=== PATIENT | female | born 1955 | race Caucasian/White ===

== ENCOUNTER → 2017-01-12 | Outpatient (REF) | payer OTHER ==
[2017-01-12 20:17] LABS: BASO # 0.1 10^3/uL (0.0-0.2); BASO % 1.2 % (0.0-1.0); EOS # 0.2 10^3/uL (0.0-0.50); EOS % 3.1 % (0.0-3.0); IMMATURE GRANULOCYTE % 0.2 % (0-0); LYMPH # 1.8 10^3/uL (1.5-4.5); LYMPH % 35.2 % (24.0-44.0); MEAN CORPUSCULAR HEMOGLOBIN 32.6 pg (27.0-33.0); MEAN CORPUSCULAR HGB CONC 35.9 g/dl (32.0-36.5); MEAN CORPUSCULAR VOLUME 90.6 fl (80.0-96.0); MONO # 0.4 10^3/uL (0.0-0.8); MONO % 7.5 % (0.0-5.0); NEUTROPHILS # 2.7 10^3/uL (1.8-7.7); NEUTROPHILS % 52.8 % (36.0-66.0); PLATELET COUNT, AUTOMATED 207 10^3/uL (150-450); RED CELL DISTRIBUTION WIDTH 11.6 % (11.5-14.5); WHITE BLOOD COUNT 5.1 10^3/uL (4.0-10.0)
[2017-01-12 20:22] LABS: ADD MORPHOLOGY? NO
[2017-01-12 21:22] LABS: ALBUMIN/GLOBULIN RATIO 1.33 (1.00-1.93); ALKALINE PHOSPHATASE 74 U/L (45-117); ALT/SGPT 69 U/L (12-78); ANION GAP 9 MEQ/L (8-16); AST/SGOT 43 U/L (15-37); BILIRUBIN,TOTAL 0.7 MG/DL (0.2-1.0); BLOOD UREA NITROGEN 9 MG/DL (7-18); CALCIUM LEVEL 9.4 MG/DL (8.8-10.2); CARBON DIOXIDE LEVEL 28 MEQ/L (21-32); CHLORIDE LEVEL 105 MEQ/L (98-107); CHOLESTEROL LEVEL 166 MG/DL (<200); CREATININE FOR GFR 0.74 MG/DL (0.55-1.02); GLOMERULAR FILTRATION RATE > 60.0 (>45); GLUCOSE, FASTING 143 MG/DL (80-110); SODIUM LEVEL 142 MEQ/L (136-145); TRIGLYCERIDES LEVEL 179 MG/DL (<150)
== END ==
LOC: M SFHCCAPE 07:33
PROVIDERS: ATTEND Physician Assistant
DX: I10 Essential (primary) hypertension (principal); E11.9 Type 2 diabetes mellitus without complications

== ENCOUNTER → 2017-01-16 | Outpatient (REF) | payer OTHER | LOC: M SFHCCAPE 11:23 | PROVIDERS: ATTEND Physician Assistant | DX: Z00.00 Encounter for general adult medical examination without abnormal findings (principal) ==

== ENCOUNTER → 2018-07-16 | Outpatient (REF) | payer OTHER ==
[2018-07-16 18:59] LABS: BASO # 0.1 10^3/uL (0.0-0.2); BASO % 1.1 % (0.0-1.0); EOS # 0.1 10^3/uL (0.0-0.50); EOS % 2.7 % (0.0-3.0); HEMATOCRIT 42.9 % (36.0-47.0); HEMOGLOBIN 15.5 g/dl (12.0-15.5); LYMPH # 1.7 10^3/uL (1.5-4.5); LYMPH % 39.4 % (24.0-44.0); MEAN CORPUSCULAR HEMOGLOBIN 33.7 pg (27.0-33.0); MEAN CORPUSCULAR HGB CONC 36.1 g/dl (32.0-36.5); MEAN CORPUSCULAR VOLUME 93.3 fl (80.0-96.0); MONO # 0.3 10^3/uL (0.0-0.8); MONO % 7.8 % (0.0-5.0); NEUTROPHILS # 2.1 10^3/uL (1.8-7.7); NEUTROPHILS % 48.8 % (36.0-66.0); PLATELET COUNT, AUTOMATED 163 10^3/uL (150-450); WHITE BLOOD COUNT 4.4 10^3/uL (4.0-10.0)
[2018-07-16 19:04] LABS: ALT/SGPT 51 U/L (12-78); BILIRUBIN,TOTAL 0.8 MG/DL (0.2-1.0); BLOOD UREA NITROGEN 13 MG/DL (7-18); CALCIUM LEVEL 9.7 MG/DL (8.8-10.2); CARBON DIOXIDE LEVEL 27 MEQ/L (21-32); CHLORIDE LEVEL 106 MEQ/L (98-107); CHOLESTEROL LEVEL 204 MG/DL (<200); CHOLESTEROL RISK RATIO 2.615 (<5); CREATININE FOR GFR 0.87 MG/DL (0.55-1.30); GLOMERULAR FILTRATION RATE > 60.0 (>45); GLUCOSE, FASTING 148 MG/DL (70-100); HDL CHOLESTEROL 78 MG/DL (>40); LDL CHOLESTEROL 92 MG/DL (<100); NON-HDL-C 126 MG/DL; POTASSIUM SERUM 3.7 MEQ/L (3.5-5.1); SODIUM LEVEL 141 MEQ/L (136-145); TOTAL PROTEIN 7.1 GM/DL (6.4-8.2); TRIGLYCERIDES LEVEL 171 MG/DL (<150)
[2018-07-16 19:10] LABS: TOTAL 25(OH) VITAMIN D 24.8 NG/ML (30.0-100.0)
[2018-07-16 19:23] LABS: HEMOGLOBIN A1c 5.5 %
[2018-07-16 19:32] LABS: MALB URINE SIEMENS 43.6 MG/L; MAU/CREAT RATIO 13.4 MCG/MG (0.0-30.0)
== END ==
LOC: M SFHCCAPE 07:22
PROVIDERS: ATTEND Physician Assistant
DX: I10 Essential (primary) hypertension (principal); R74.8 Abnormal levels of other serum enzymes; E11.9 Type 2 diabetes mellitus without complications; E66.01 Morbid (severe) obesity due to excess calories

== ENCOUNTER → 2019-01-21 | Outpatient (REF) | payer OTHER ==
[2019-01-21 16:27] LABS: ALBUMIN 3.9 GM/DL (3.2-5.2); ALT/SGPT 39 U/L (12-78); BILIRUBIN,DIRECT 0.2 MG/DL (0.0-0.2); BILIRUBIN,TOTAL 0.9 MG/DL (0.2-1.0); BLOOD UREA NITROGEN 11 MG/DL (7-18); CALCIUM LEVEL 9.8 MG/DL (8.8-10.2); CARBON DIOXIDE LEVEL 26 MEQ/L (21-32); CHLORIDE LEVEL 103 MEQ/L (98-107); CHOLESTEROL LEVEL 174 MG/DL (<200); CHOLESTEROL RISK RATIO 2.289 (<5); CREATININE FOR GFR 0.85 MG/DL (0.55-1.30); GAMMA GLUTAMYLTRANSPEPTIDASE 52 U/L (5-55); GLOMERULAR FILTRATION RATE > 60.0 (>45); GLUCOSE, FASTING 125 MG/DL (70-100); HDL CHOLESTEROL 76 MG/DL (>40); LDL CHOLESTEROL 63 MG/DL (<100); NON-HDL-C 98 MG/DL; POTASSIUM SERUM 3.9 MEQ/L (3.5-5.1); SODIUM LEVEL 138 MEQ/L (136-145); TOTAL PROTEIN 7.1 GM/DL (6.4-8.2); TRIGLYCERIDES LEVEL 175 MG/DL (<150)
[2019-01-21 16:30] LABS: TOTAL 25(OH) VITAMIN D 23.9 NG/ML (30.0-100.0)
[2019-01-21 16:35] LABS: HEMOGLOBIN A1c 5.4 %
== END ==
LOC: M SFHCCAPE 07:23
PROVIDERS: ATTEND Physician Assistant
DX: R74.8 Abnormal levels of other serum enzymes (principal); E55.9 Vitamin D deficiency, unspecified; E11.9 Type 2 diabetes mellitus without complications; E78.5 Hyperlipidemia, unspecified

== ENCOUNTER → 2019-09-16 | Outpatient (REF) | payer OTHER ==
[2019-09-16 12:05] LABS: BASO # 0.1 10^3/uL (0.0-0.2); BASO % 0.9 % (0.0-1.0); EOS # 0.1 10^3/uL (0.0-0.5); EOS % 1.7 % (0.0-3.0); HEMATOCRIT 43.9 % (36.0-47.0); HEMOGLOBIN 15.6 g/dl (12.0-15.5); LYMPH # 1.8 10^3/uL (1.5-5.0); LYMPH % 31.5 % (24.0-44.0); MEAN CORPUSCULAR HEMOGLOBIN 32.4 pg (27.0-33.0); MEAN CORPUSCULAR HGB CONC 35.5 g/dl (32.0-36.5); MEAN CORPUSCULAR VOLUME 91.3 fl (80.0-96.0); MONO # 0.5 10^3/uL (0.0-0.8); MONO % 7.8 % (0.0-5.0); NEUTROPHILS # 3.3 10^3/uL (1.5-8.5); NEUTROPHILS % 57.9 % (36.0-66.0); PLATELET COUNT, AUTOMATED 223 10^3/uL (150-450); RED BLOOD COUNT 4.81 10^6/uL (4.00-5.40); WHITE BLOOD COUNT 5.8 10^3/uL (4.0-10.0)
[2019-09-16 12:49] LABS: MALB URINE SIEMENS 62.4 MG/L; MAU/CREAT RATIO 25.6 MCG/MG (0.0-30.0)
[2019-09-16 13:19] LABS: ALBUMIN 3.9 GM/DL (3.2-5.2); ALT/SGPT 26 U/L (12-78); BILIRUBIN,DIRECT 0.3 MG/DL (0.0-0.2); BILIRUBIN,TOTAL 0.9 MG/DL (0.2-1.0); BLOOD UREA NITROGEN 12 MG/DL (7-18); CALCIUM LEVEL 9.6 MG/DL (8.8-10.2); CARBON DIOXIDE LEVEL 29 MEQ/L (21-32); CHLORIDE LEVEL 105 MEQ/L (98-107); CHOLESTEROL LEVEL 183 MG/DL (<200); CHOLESTEROL RISK RATIO 2.506 (<5); CREATININE FOR GFR 0.78 MG/DL (0.55-1.30); GLOMERULAR FILTRATION RATE > 60.0 (>45); GLUCOSE, FASTING 136 MG/DL (70-100); HDL CHOLESTEROL 73 MG/DL (>40); LDL CHOLESTEROL 84 MG/DL (<100); NON-HDL-C 110 MG/DL; POTASSIUM SERUM 3.9 MEQ/L (3.5-5.1); SODIUM LEVEL 140 MEQ/L (136-145); THYROID STIMULATING HORMONE 0.948 uIU/ML (0.358-3.740); TOTAL PROTEIN 7.3 GM/DL (6.4-8.2); TRIGLYCERIDES LEVEL 132 MG/DL (<150)
[2019-09-16 13:23] LABS: TOTAL 25(OH) VITAMIN D 33.8 NG/ML (30.0-100.0)
[2019-09-16 13:35] LABS: HEMOGLOBIN A1c 5.8 %
== END ==
LOC: M SFHCCLAY 09:08
PROVIDERS: ATTEND Physician Assistant
DX: F10.10 Alcohol abuse, uncomplicated (principal); E11.9 Type 2 diabetes mellitus without complications; E78.5 Hyperlipidemia, unspecified; R74.8 Abnormal levels of other serum enzymes; E55.9 Vitamin D deficiency, unspecified

== ENCOUNTER 2019-12-17 13:56 | Inpatient (IN) | payer BC, OTHER ==
[~2019-12-17] VITALS: Ht 165.1 cm; Wt 92.7 kg
[2019-12-17] VITALS (11 sets, daily range): BP systolic 95–154; BP diastolic 56–86
[2019-12-17] MEDS ORDERED: LOSA25TA14 PO (14:29)
[2019-12-17] MEDS ORDERED: METF500T13 PO ×2 (14:29→19:48)
[2019-12-17] MEDS ORDERED: ASPI325T57 PO (14:29)
[2019-12-17] MEDS ORDERED: NS 500 ML IV ONE (14:45)
[2019-12-17] MEDS ORDERED: ISOVUE-370 76% 100ML VIAL As Ordered ONE ×2 (15:02→17:33)
[2019-12-17 15:04] LABS: BASO # 0.1 10^3/uL (0.0-0.2); BASO % 0.7 % (0.0-1.0); EOS % 0.5 % (0.0-3.0); HEMATOCRIT 47.6 % (36.0-47.0); HEMOGLOBIN 17.2 g/dl (12.0-15.5); LYMPH # 1.3 10^3/uL (1.5-5.0); MEAN CORPUSCULAR HGB CONC 36.1 g/dl (32.0-36.5); MEAN CORPUSCULAR VOLUME 88.6 fl (80.0-96.0); MONO # 0.6 10^3/uL (0.0-0.8); MONO % 6.5 % (0.0-5.0); NEUTROPHILS # 6.5 10^3/uL (1.5-8.5); NEUTROPHILS % 76.8 % (36.0-66.0); PLATELET COUNT, AUTOMATED 338 10^3/uL (150-450); RED BLOOD COUNT 5.37 10^6/uL (4.00-5.40); WHITE BLOOD COUNT 8.4 10^3/uL (4.0-10.0)
[2019-12-17] MEDS ORDERED: AMLO25TA PO (16:39)
[2019-12-17] MEDS ORDERED: BISO10TA14 PO (16:39)
[2019-12-17] MEDS ORDERED: HYDR12.55 PO (16:39)
[2019-12-17 17:37] LABS: ALBUMIN 3.8 GM/DL (3.2-5.2); ALT/SGPT 20 U/L (12-78); BILIRUBIN,DIRECT 0.2 MG/DL (0.0-0.2); BILIRUBIN,TOTAL 0.6 MG/DL (0.2-1.0); CK-MB VALUE MASS < 1.0 NG/ML (<3.6); CPK CREATINE PHOSPHOKINASE 29 U/L (26-192); MB/CK RELATIVE INDEX 3.45 (< OR =4); NT-PRO BNP 192 PG/ML (<125); TOTAL PROTEIN 7.5 GM/DL (6.4-8.2); TROPONIN I < 0.02 NG/ML (< 0.10)
--- NOTE | 2019-12-17 18:52 | REPVR ---
PROCEDURE INFORMATION: Exam: CT Angiography Chest With Contrast Exam date and time: 12/17/2019 4:18 PM Age: 64 years old Clinical indication: Chest pain; Additional info: SOB, suspect malignant left breast mass TECHNIQUE: Imaging protocol: Computed tomographic angiography of the chest with intravenous contrast. 3D rendering (Not supervised by radiologist): MIP and/or 3D reconstructed images were created by the technologist. Radiation optimization: All CT scans at this facility use at least one of these dose optimization techniques: automated exposure control; mA and/or kV adjustment per patient size (includes targeted exams where dose is matched to clinical indication); or iterative reconstruction. Contrast material: ISO 370; Contrast volume: 75 ml; Contrast route: INTRAVENOUS (IV); COMPARISON: No relevant prior studies available. FINDINGS: Pulmonary arteries: This examination is suboptimal for the evaluation of pulmonary arterial emboli secondary to motion induced artifact. No filling defects are identified within the main pulmonary trunk or right or left main pulmonary arteries. Peripheral pulmonary emboli cannot be completely excluded. Aorta: Unremarkable. No aortic aneurysm. No aortic dissection. Thyroid: Enlarged right thyroid with calcified mass measuring approximately 4 cm in diameter. Lungs: Bilateral lower lobe atelectasis/consolidation, worse on the left. Bilateral upper lobe atelectasis/consolidation. Worse on the left. Multiple small pulmonary nodules measuring up to 7 mm within both lungs raising the suspicion for pulmonary metastatic disease. Pleural space: Large bilateral pleural effusions. Heart: Unremarkable. No cardiomegaly. No pericardial effusion. Lymph nodes: Pathologically enlarged left axillary lymph nodes measuring up to 2.3 cm in short axis diameter. Prominent mediastinal and bilateral hilar lymph nodes. Liver: Indeterminate low-density lesion measuring 14 mm within the left hepatic lobe and 7 mm within the right hepatic lobe (image 188 and 190 of series 401 respectively). Bones/joints: There are numerous sclerotic lesions within the vertebral column and scattered ribs (including T4, T10, T11 and L1). There is a mild anterior wedge fracture deformity of the superior endplate of L1, likely pathological. No retropulsed bony fragment or bony spinal stenosis. Soft tissues: Left breast spiculated mass containing a few calcifications extending to the skin surface measuring 3.5 cm in diameter highly suspicious for breast malignancy. IMPRESSION: 1. Left breast spiculated mass measuring 3.5 cm highly suspicious for breast cancer. 2. Pathologically enlarged left axillary lymph nodes suspicious for metastatic disease. 3. Multiple small pulmonary nodules scattered throughout both lungs. These measure up to 7 mm in diameter and are highly suspicious for pulmonary metastases. 4. Bilateral pleural effusions and bilateral upper lobe and lower lobe atelectasis/consolidation. 5. Two indeterminate low-density hepatic lesions raising the suspicion for hepatic metastases. 6. Sclerotic bony metastatic disease. 7. Mild anterior wedge fracture deformity of the superior endplate of L1 consistent with pathological fracture. No retropulsed bony fragment or bony spinal stenosis. 8. Right thyroid lobe calcified mass measuring 4 cm. Follow-up evaluation with thyroid ultrasound is recommended. COMMENTS: Consistent with the [employer]'s Incidental Findings Committee white paper (J Am Claritza Radiol 2015): In patients aged 35 years and older with an incidental thyroid nodule equal to or greater than 1.[address], MRI or extrathyroidal US, further evaluation with dedicated thyroid US is recommended for patients with normal life expectancy and without comorbidities. For smaller nodules without suspicious features, no further evaluation or follow up is recommended. Electronically signed by: Doug Miller On 12/17/2019 18:52:16 PM
[2019-12-17] MEDS ORDERED: KCL 20MEQ IN D5/NS 1000ML 1,000 ML IV SCH (19:11)
[2019-12-17] MEDS ORDERED: LEVALBUTEROL 1.25 MG/0.5 ML CONCENTRATE NEB NEB PRN (19:15)
[2019-12-17] MEDS ORDERED: BISACODYL 10 MG SUPP PR PRN (19:15)
[2019-12-17] MEDS ORDERED: NORCO, ANEXSIA 5/325MG TABLET (HYDROcodone/ACETAMINOPHEN) PO PRN (19:15)
[2019-12-17] MEDS ORDERED: PERCOCET 5MG/325MG TAB PO PRN ×2 (19:15)
[2019-12-17] MEDS ORDERED: ONDANSETRON 4MG/2ML VIAL IV PRN (19:15)
[2019-12-17] MEDS ORDERED: flumazeniL 0.5 MG/5 ML VIAL As Ordered ONE (19:44)
[2019-12-17] MEDS ORDERED: MIDAZOLAM INJ 2MG/2ML VIAL (J2250 PER 1MG) As Ordered ONE (19:44)
[2019-12-17] MEDS ORDERED: GLUCAGON INJ 1MG VIAL SC PRN (19:45)
[2019-12-17] MEDS ORDERED: GLUCOSE 4GM CHEW TABLET PO PRN (19:45)
[2019-12-17] MEDS ORDERED: DEXTROSE 50% 50 ML SYRINGE IV PRN (19:45)
[2019-12-17] MEDS ORDERED: LIDOCAINE 1% MDV 20ML VIAL As Ordered ONE (19:46)
[2019-12-17] MEDS ORDERED: VENTAER INH (19:48)
[2019-12-17] MEDS ORDERED: LORA-674 PO (19:48)
[2019-12-17] MEDS ORDERED: AMLO1TAB25 PO (19:48)
[2019-12-17] MEDS ORDERED: LOSA100T5 PO (19:48)
[2019-12-17] MEDS ORDERED: FLON1SPR (19:48)
[2019-12-17 20:09] LABS: FREE T4 1.62 NG/DL (0.76-1.46); LDH LACTATE DEHYDROGENASE 167 U/L (84-246)
--- NOTE | 2019-12-17 20:12 | HPEPDOC ---
[facility] Medical History & Physical Date of Admission Dec 17, 2019 Date of Service: Dec 17, 2019 Primary Care Physician: ALETHEA HERRERA PA-C Attending Physician: Ariana Fabian MD History and Physical CHIEF COMPLAINT: Shortness of breath HISTORY OF PRESENT ILLNESS: Patient is a 64 year old female presenting with a 2 week history of progressively worsening shortness of breath. She also admits to a cough productive of clear sputum, debilitating fatigue/energy, and recent bru ising over her left breast. She notes a history of a non-productive cough, post- nasal drip, and nasal congestion going back to May 2019 that she ascribed as her "yearly bronchitis" and hung around until September where she was given intranasal steroids and antihistamines with partial resolution of her symptoms except for the cough. Over the last month she noticed a non-painful bruise on her left breast and enlargement of her left axilla as well but thought she had bumped into something. About 2 weeks ago she woke up with increased SOB, cough productive of clear sputum, progressively worsening orthopnea, PND, and fatigue. She went to her PCP today for evaluation of the same complaint and ultimately was referred to the emergency department for her shortness of breath. Work up in the ED showed bilateral pleural effusions and spiculated left sided breast mass. Dr. Jean-Baptiste and hospitalist service were called to evaluate and admit the patient. PAST MEDICAL HISTORY: T2DM HTN Environmental Allergies PAST SURGICAL HISTORY: Tubal Ligation (1985) tonsils/adenoidectomy SOCIAL HISTORY: Never smoker, drinks 1-3 labat's/day, denies illicit drug use. 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 Hx of travel to [place]. FAMILY HISTORY: Father of lung cancer (smoker) Mother unknown cause of ("old age") Aunt with breast cancer ALLERGIES: Please see below. REVIEW OF SYSTEMS: CONSTITUTIONAL: Denies fevers, chills, night sweats, admit to 10lbs unintentional weight loss over the past 4 months, admits to decreased appetite HEENT: Denies headaches, vision changes, hearing changes, sore throat, difficul ty swallowing. CARDIOVASCULAR: Denies chest pain, palpitations, lightheadedness RESPIRATORY: Admits to SOB, coughing as above, denies wheezing, hemoptysis GASTROINTESTINAL: Denies nausea, vomiting, diarrhea, constipation, melena, hematochezia. GENITOURINARY: Denies dysuria, hematuria, or frequency. SKIN: Denies rashes admits to swelling in left axilla and bruising of left breast. MUSCULOSKELETAL: Admits to fatigue, but denies focal joint pain or aches. NEUROLOGICAL: Denies numbness, tingling, weakness. PSYCHIATRIC: Denies SI, HI, AVH HOME MEDICATIONS: Please see below. PHYSICAL EXAMINATION: VITAL SIGNS: Temperature 99.2, afebrile since arrival, pulse 85 and NSR on monitor, respiratory rate 20, blood pressure 116/57, pulse oximetry 99% on 2L NC. GENERAL APPEARANCE: Well appearing female who appears stated age sitting up comfortably in bed in NAD. HEENT: NC, AT, EOMI, no scleral icterus, nares patent, mucous membranes moist, no pharyngeal erythema. NECK: No cervical or supraclavicular lymphadenopathy. CARDIOVASCULAR: RRR, normal S1 and S2, no murmurs, gallops, or rubs. AXILLA: Left sided axillary lymphadenopathy. LUNGS: Diminished breath sounds with crackles at bilateral bases, clear breath sounds in upper lobes, no wheezes or rhonchi. Dullness to percussion over bilat eral bases. ABDOMEN: Soft, non-tender, non-distended, no masses or eccymosis, no hepatosplenomegaly. No CVA tenderness. L axillary lymph EXTREMITIES: No edema in bilateral extremities. 2+ DP/PT pulses bilaterally. NEUROLOGICAL: CN III-XII intact. Strength +5/5 in bilateral UE/LE. Sensation intact in UE/LE. PSYCHIATRIC: Mildly anxious mood and congruent affect LABORATORY DATA: See below. IMAGING: CT angio chest: IMPRESSION: 1. Left breast spiculated mass measuring 3.5 cm highly suspicious for breast cancer. 2. Pathologically enlarged left axillary lymph nodes suspicious for metastatic disease. 3. Multiple small pulmonary nodules scattered throughout both lungs. These measure up to 7 mm in diameter and are highly suspicious for pulmonary metastases. 4. Bilateral pleural effusions and bilateral upper lobe and lower lobe atelectasis/consolidation. 5. Two indeterminate low-density hepatic lesions raising the suspicion for hepatic metastases. 6. Sclerotic bony metastatic disease. 7. Mild anterior wedge fracture deformity of the superior endplate of L1 consistent with pathological fracture. No retropulsed bony fragment or bony spinal stenosis. 8. Right thyroid lobe calcified mass measuring 4 cm. Follow-up evaluation with thyroid ultrasound is recommended. MICROBIOLOGY: Please see below. Assessment/Plan: #. SOB 2/2 Bilateral Pleural Effusions s/p left side chest tube -Given history, physical exam, and imaging findings, this is likely the result of metastatic breast cancer to bone, liver, and lungs at least. Patient was informed of this by Dr. Fabian and Dr. Jean-Baptiste. Admit to PCU. -CT surgery consulted for effusion, Dr. Jean-Baptiste to drain left lung given enrico jair from pleural fluid and send results for analysis, depending on these results may not need breast biopsy. -Will consult Heme/onc in AM - CT head, abd/pelvis ordered for AM to look for further extent of metastases. - Dr. Jean-Baptiste with CT surgery consulted, recommendations appreciated. Currently set to -20cm H20 with wall suction. -1800 ml of dark brown-yellow fluid drained initially. Gram stain, pleural fluid analysis, cytology, smear's are all pending -Daily CXRs ordered #. Breast mass with possible metastatic process to bone, liver, lungs. -New diagnosis -F/u CT head, abd/pelvis, heme/onc suggestions. #. Hypotension -Mild post-procedural hypotension, IVF ordered and running. #. Right thyroid lobe calcified mass -CT showing 4cm calcified mass, ordering thyroid US, will likely need biopsy in the future - TSH WNL, FT4 mildly elevated, total T3 pending. #. T2DM -Sliding scale insulin #. HTN -Continue home losartan, HCTZ, amlodipine with holding parameters. #. Environmental Allergies -Continue home loratadine and nasal spray DVT prophylaxis: Teds/seqs, heparin CODE status: Full code Dispo: At least 2 midnights. Vital Signs Vital Signs Date Time Temp Pulse Resp B/P (MAP) Pulse Ox O2 Delivery O2 Flow Rate FiO2 12/17/19 19:15 85 24 116/57 (76) 99 Nasal Cannula 2.0 12/17/19 18:33 99.2 Laboratory Data Labs 24H Laboratory Tests 2 12/17/19 14:50: Immature Granulocyte % (Auto) 0.5, Neutrophils (%) (Auto) 76.8H, Lymphocytes (%) (Auto) 15.0L, Monocytes (%) (Auto) 6.5H, Eosinophils (%) (Auto) 0.5, Basophils (%) (Auto) 0.7, Neutrophils # (Auto) 6.5, Lymphocytes # (Auto) 1.3L, Monocytes # (Auto) 0.6, Eosinophils # (Auto) 0.0, Basophils # (Auto) 0.1, Nucleated Red Blood Cells % (auto) 0.0 12/17/19 16:53: Total Bilirubin 0.6, Direct Bilirubin 0.2, Aspartate Amino Transf (AST/SGOT) 20, Alanine Aminotransferase (ALT/SGPT) 20, Alkaline Phosphatase 92, Total Creatine Kinase 29, Creatine Kinase MB < 1.0, Creatine Kinase MB Relative Index 3.45, Troponin I < 0.02, IR-Xbg-[id number]-Type Natriuretic Peptide 192H, Total Protein 7.5, Albumin 3.8, Albumin/Globulin Ratio 1.0L CBC/BMP Laboratory Tests 12/17/19 14:50 Home Medications Scheduled Amlodipine Besylate (Amlodipine Besylate) 10 Mg Tablet, 10 MG PO QHS Aspirin (Aspirin) 325 Mg Tablet, 325 MG PO DAILY Bisoprolol Fumarate (Bisoprolol Fumarate) 10 Mg Tablet, 10 MG PO BID Loratadine (Loratadine) 10 Mg Tablet, 10 MG PO QHS Losartan/Hydrochlorothiazide (Losartan-Hctz 100-25 mg Tab) 1 Each Tablet, 1 TAB PO DAILY Metformin HCl (Metformin HCl) 500 Mg Tablet, 500 MG PO QAM Metformin HCl (Metformin HCl) 500 Mg Tablet, 1,000 MG PO QHS Scheduled PRN Albuterol Sulfate (Ventolin Hfa) 18 Gm Hfa.aer.ad, 2 PUFFS INH QID PRN for SOB/WHEEZING Fluticasone Propionate (Flonase Allergy Relief) 9.9 Ml [place].susp, 2 SPRAY NARES DAILY PRN for CONGESTION Allergies Coded Allergies: Penicillins (Verified Allergy, Unknown, SWELLING, ASTHMA, 12/17/19) GME ATTESTATION ATTENDING NOTE I, Ariana Fabian, have independently examined this patient and performed my own physical exam, as well as reviewed the documentation and edited where necessary. I have discussed in detail with the resident / student the findings and plan of treatment as documented by the resident / student and edited their note. I agree with their findings and treatment plan and have edited their documentation. I will continue to follow the patient during this hospital stay. AUBREY RUIZ DO Dec 17, 2019 20:12 Ariana Fabian MD Dec 18, 2019 08:12
--- NOTE | 2019-12-17 20:34 | REPVR ---
PROCEDURE INFORMATION: Exam: XR Chest, 2 Views Exam date and time: 12/17/2019 7:58 PM Age: 64 years old Clinical indication: Other: Effusions TECHNIQUE: Imaging protocol: XR of the chest Views: 2 views. COMPARISON: CT ANGIO CHEST 12/17/2019 3:07 PM FINDINGS: Lungs: Bilateral mid and lower lung zone opacities partially obscured by pleural effusions consistent with atelectasis and/or consolidation. Pleural space: Bilateral pleural effusions, larger on the left. No pneumothorax. Heart/Mediastinum: Cardiac silhouette is obscured by the left pleural effusion. Bones/joints: Unremarkable. IMPRESSION: Bilateral pleural effusions and bilateral lung opacities. Electronically signed by: Doug Miller On 12/17/2019 20:33:55 PM
[2019-12-17 20:43] LABS: INR 1.07; PROTHROMBIN TIME 14.2 SECONDS (11.8-14.0)
[2019-12-17 20:44] LABS: PARTIAL THROMBOPLASTIN TIME 33.8 SECONDS (25.0-38.4)
[2019-12-17] MEDS ORDERED: LIDOCAINE 1% MDV 20ML VIAL SC ONE (20:50)
[2019-12-17] MEDS ORDERED: MIDAZOLAM INJ 2MG/2ML VIAL (J2250 PER 1MG) IV ONE (20:50)
[2019-12-17] MEDS: DOCUSATE SODIUM 100 MG CAP PO SCH (21:00)
[2019-12-17] MEDS: bisoproloL fumarate 10 MG TAB PO SCH (21:00)
[2019-12-17] MEDS: amLODIPine 10 MG TAB PO SCH (21:00)
[2019-12-17] MEDS: HumaLOG INSULIN (NovoLOG) PER UNIT SC SCH (21:00)
[2019-12-17] MEDS ORDERED: ALBUTEROL 90 MCG/ACT 8GM HFA INHALER INH PRN (21:30)
[2019-12-17] MEDS ORDERED: FLUTICASONE PROP 0.05% NASAL SPRAY 16 GM (FLONASE) NARES PRN (21:30)
[2019-12-17 21:32] LABS: PH BODY FLUID 7.588 UNITS (NOT ESTABLISHED); SOURCE, BODY FLUID pH PLEURAL
[2019-12-17] MEDS: LEVALBUTEROL 1.25 MG/0.5 ML CONCENTRATE NEB NEB SCH (21:36)
[2019-12-17 21:49] LABS: APPEARANCE, BODY FLUID CLOUDY (CLEAR); PLEURAL FL COLOR YELLOW (COLORLESS); SOURCE, BODY FLUID PLEURAL
--- NOTE | 2019-12-17 21:51 | REPVR ---
PROCEDURE INFORMATION: Exam: XR Chest, 1 View Exam date and time: 12/17/2019 9:13 PM Age: 64 years old Clinical indication: Device placement; Other: Chest tube; Additional info: Chest tube placement TECHNIQUE: Imaging protocol: XR of the chest Views: 1 view. COMPARISON: CR Chest, 2 view PA, Lat 12/17/2019 7:49 PM FINDINGS: Tubes, catheters and devices: A left-sided chest tube has been placed with its tip in the left thorax. The left pleural effusion has been removed. Pleural space: There is a moderate to large right pleural effusion. Heart/Mediastinum: The heart is normal in size. From the previous CT there are known large lymph nodes at the left axilla. There is also a 4.2 cm mass within the lower outer aspect of the left breast. Bones/joints: Suspect blastic metastasis of vertebra based on the previous CT. Soft tissues: The current chest radiograph demonstrates a 3.5 cm and 2 cm nodule overlying the left lower thorax. These densities could be in the anterior soft tissues or within lung and correlation with a CT scan would be very helpful. Other findings: There is a large calcified thyroid nodule in the right. IMPRESSION: 1. Moderate to large right pleural effusion. 2. Left-sided chest tube with removal of the left pleural effusion. 3. Known large lymph nodes left axilla and known large mass left breast as seen on CT. Blastic metastasis also seen on the prior CT. 4. 2 densities overlying the left lower lung 3.5 cm and 2 cm could be related to the soft tissues or the lung and suggest correlation with a follow-up CT. Electronically signed by: Willi Westfall On 12/17/2019 21:51:30 PM
[2019-12-17] MEDS: HEPARIN SOD (PORCINE) 5000UNITS/ML 1ML VIAL/SYRINGE SC SCH (21:53)
[2019-12-17] MEDS: LORATADINE 10 MG TAB PO SCH (21:54)
[2019-12-17] MEDS: KETOROLAC 30 MG/ML 1ML VIAL IV SCH (21:54)
[2019-12-17 22:08] LABS: AMYLASE, BODY FLUID 45 U/L (NOT ESTABLISHED); CHOLESTEROL, BODY FLUID 97 MG/DL (NOT ESTABLISHED); LDH, BODY FLUID 136 U/L (NOT ESTABLISHED); SOURCE, BODY FLUID AMYLASE PLEURAL; SOURCE, BODY FLUID CHOL PLEURAL; SOURCE, BODY FLUID GLUCOSE PLEURAL; SOURCE, BODY FLUID LDH PLEURAL; SOURCE, BODY FLUID TRIG PLEURAL; TRIGLYCERIDE, BODY FLUID 31 MG/DL (NOT ESTABLISHED)
[2019-12-17 22:19] LABS: SOURCE, BODY FLUID ALBUMIN PLEURAL; SOURCE, BODY FLUID TOT PROTEIN PLEURAL; TOTAL PROTEIN, BODY FLUID 4.8 G/DL (NOT ESTABLISHED)
[2019-12-18] VITALS: BP 114/59
[2019-12-18] MEDS: KETOROLAC 30 MG/ML 1ML VIAL IV SCH ×2 (00:39→09:54)
[2019-12-18] MEDS: LEVALBUTEROL 1.25 MG/0.5 ML CONCENTRATE NEB NEB SCH ×4 (01:07→20:08)
[2019-12-18 04:00] VITALS: BP 92/59
[2019-12-18 05:02] LABS: BASO # 0.1 10^3/uL (0.0-0.2); BASO % 0.7 % (0.0-1.0); EOS # 0.1 10^3/uL (0.0-0.5); EOS % 1.4 % (0.0-3.0); HEMATOCRIT 43.8 % (36.0-47.0); HEMOGLOBIN 15.5 g/dl (12.0-15.5); LYMPH # 1.2 10^3/uL (1.5-5.0); LYMPH % 15.5 % (24.0-44.0); MEAN CORPUSCULAR HEMOGLOBIN 31.7 pg (27.0-33.0); MEAN CORPUSCULAR HGB CONC 35.4 g/dl (32.0-36.5); MEAN CORPUSCULAR VOLUME 89.6 fl (80.0-96.0); MONO # 0.6 10^3/uL (0.0-0.8); MONO % 7.4 % (0.0-5.0); NEUTROPHILS # 5.7 10^3/uL (1.5-8.5); NEUTROPHILS % 74.6 % (36.0-66.0); PLATELET COUNT, AUTOMATED 269 10^3/uL (150-450); RED BLOOD COUNT 4.89 10^6/uL (4.00-5.40); WHITE BLOOD COUNT 7.7 10^3/uL (4.0-10.0)
[2019-12-18 05:20] LABS: CALCIUM LEVEL 9.2 MG/DL (8.8-10.2); CREATININE FOR GFR 1.04 MG/DL (0.55-1.30); GLOMERULAR FILTRATION RATE 56.8 (>45); POTASSIUM SERUM 3.4 MEQ/L (3.5-5.1)
[2019-12-18] MEDS ORDERED: NS 1,000 ML IV SCH (05:45)
[2019-12-18] MEDS: HumaLOG INSULIN (NovoLOG) PER UNIT SC SCH ×4 (07:30→20:25)
[2019-12-18 07:45] VITALS: BP 95/59
[2019-12-18] MEDS: bisoproloL fumarate 10 MG TAB PO SCH ×2 (09:00→21:30)
[2019-12-18] MEDS ORDERED: ENOXAPARIN 40MG/0.4ML SYRINGE (J1650 PER 10MG) SC SCH (09:00)
[2019-12-18] MEDS: hydroCHLOROthiazide 25 MG TAB PO SCH (09:00)
[2019-12-18] MEDS ORDERED: FLUBLOK(EGG FREE)(QUAD)INFLUENZA VACC 0.5ML SYRINGE 18YRS & OLDER IM ONE (09:00)
[2019-12-18] MEDS: LOSARTAN 50MG TABLET PO SCH (09:00)
--- NOTE | 2019-12-18 09:04 | IPNPDOC ---
Text Note Date of Service The patient was seen on 12/18/19. NOTE Subjective: Patient is a 64 year old female with a PMHx of HTN, NIDDM2, who presented to the ER with progressive SOB, associated with productive cough, we akness and bruising around her Left breast. Patient was advised by her PCP to present to the ER. Work up in the ED showed bilateral pleural effusions and spiculated left sided breast mass. Dr. Jean-Baptiste ([facility]) and hospitalist service were called to evaluate and admit the patient. Patient had a chest tube placed on 12/16. Patient was seen and examined at the bedside. Currently patient reports that her breathing is doing significantly better. She reports she was coughing yesterday, but has noted improvement today. Denies any CP, or palpitations. Denies any N/V, abdominal pain, C/D or urinary discomfort. Objective: Vitals (See below) General: Sitting up in bed, appears comfortable, AAOx3 HEENT: NC, AT CVS: RRR, +S1S2 Lungs: Decreased lung sounds at R lung base, mild crackles at L lung base, no wheezing / rhonchi Abdomen: Soft, ND, NT Extremities: - Edema, - Calf tenderness Imaging: CT angio chest (12/16): 1. Left breast spiculated mass measuring 3.5 cm highly suspicious for breast cancer. 2. Pathologically enlarged left axillary lymph nodes suspicious for metastatic disease. 3. Multiple small pulmonary nodules scattered throughout both lungs. These measure up to 7 mm in diameter and are highly suspicious for pulmonary metastases. 4. Bilateral pleural effusions and bilateral upper lobe and lower lobe atelectasis/consolidation. 5. Two indeterminate low-density hepatic lesions raising the suspicion for hepatic metastases. 6. Sclerotic bony metastatic disease. 7. Mild anterior wedge fracture deformity of the superior endplate of L1 consistent with pathological fracture. No retropulsed bony fragment or bony spinal stenosis. 8. Right thyroid lobe calcified mass measuring 4 cm. Follow-up evaluation with thyroid ultrasound is recommended. Assessment and plan: SOB - likely 2/2 Bilateral Pleural Effusions s/p left side chest tube - Clinically reports improvement of breathing - Highly suspicious for metastatic breast CA - Fluid sent for analysis (12/16); cytology / pathology pending - CT imaging noted above; discussed again the findings with patient and the high likelihood of malignancy; patient has verbalized understanding - Consulted oncology; Dr. Ochoa; discussed case this morning - Dr. Jean-Baptiste ([facility]) on consultation; appreciate input - Possible additional drainage on R side Breast mass with possible metastatic process to bone, liver, lungs. - Will get CT head, Abdomen / Pelvis today; will change to with contrast - Will consult oncology today Hypotension -Mild post-procedural hypotension, IVF ordered and running. Right thyroid lobe calcified mass - Imaging noted above - TSH WNL - Will get Thyroid US NIDDM2 - c/w ISS HTN - c/w losartan, HCTZ, amlodipine and bisoprolol with holding parameters Environmental Allergies - c/w loratadine and nasal spray DVT prophylaxis - c/w Heparin Disposition: - Possible drainage of R sided effusion - Awaiting cytology - Consulted oncology VS,Hong, I+O VS, Hong, I+O Laboratory Tests 12/17/19 14:50 12/18/19 04:28 Vital Signs Date Time Temp Pulse Resp B/P (MAP) Pulse Ox O2 Delivery O2 Flow Rate FiO2 12/18/19 07:45 98.4 84 20 95/59 (71) 96 Nasal Cannula 4.0 I&O- Last 24 Hours up to 6 AM 12/18/19 06:00 Intake Total 1100 ml Output Total 2440 ml Balance -1340 ml PJ LEWIS MD Dec 18, 2019 09:03
[2019-12-18] MEDS: MOM 30ML SUSPENSION UDC PO SCH (09:47)
[2019-12-18] MEDS: DOCUSATE SODIUM 100 MG CAP PO SCH ×2 (09:47→20:59)
[2019-12-18] MEDS: PANTOPRAZOLE 40MG TAB (PROTONIX) PO SCH (09:47)
[2019-12-18] MEDS: HEPARIN SOD (PORCINE) 5000UNITS/ML 1ML VIAL/SYRINGE SC SCH ×2 (09:53→18:05)
[2019-12-18 12:00] VITALS: BP 116/71
--- NOTE | 2019-12-18 13:45 | REPVR ---
PROCEDURE INFORMATION: Exam: US Soft Tissue Head and Neck, Thyroid Exam date and time: 12/18/2019 8:30 AM Age: 64 years old Clinical indication: Abnormal Findings; Abnormal Radiologic study of neck; Additional Info: thyroid mass TECHNIQUE: Imaging protocol: Real-time ultrasound scan of the neck with image documentation. Exam focused on the thyroid. Other technique: COMPARISON MORE: CT ANGIO CHEST 12/17/2019 3:07:43 PM COMPARISON: No relevant prior studies available. FINDINGS: Right thyroid lobe: The right thyroid lobe measures 8.6 x 3.4 x 4.2 cm. Thyroid parenchyma is heterogeneous with hyperemia. At the lower pole, the centrally calcified mass is again demonstrated, margins of which are indistinct from surrounding parenchyma. Multiple additional nodules are present but are not individually measured though these demonstrate predominantly cystic composition. The anterior margin of the right lobe upper pole is indistinct at the midline, as seen on image 1. Left thyroid lobe: The left thyroid lobe measures 7.0 x 1.8 x 2.7 cm. Innumerable nodules are present in the left lobe. A dominant solid nodule measuring up to 1.6 cm transverse dimension is at the interpolar level. At the upper pole there is a 1.1 cm irregular cystic nodule. Left lobe parenchyma is hyperemic with color Doppler evaluation. Isthmus: The isthmus measures 1.4 cm in thickness. IMPRESSION: 1. Enlarged, heterogeneous, hyperemic thyroid gland with multiple nodules bilaterally, including cystic and solid lesions. The dominant lesion is at the right lower pole containing central calcification with indistinct margins. Together with indistinct margins of the right lobe upper pole anteriorly, and the findings of the recent CTA thorax exam, the possibility of metastasis to the thyroid must be considered. 2. Thyroid nuclear scintigraphy may provide additional diagnostic evaluation. Electronically signed by: Sandra Cannon On 12/18/2019 13:45:29 PM
[2019-12-18] MEDS ORDERED: ISOVUE-370 76% 100ML VIAL As Ordered ONE (15:05)
--- NOTE | 2019-12-18 15:25 | REPVR ---
PROCEDURE INFORMATION: Exam: CT Head Without And With Contrast Exam date and time: 12/18/2019 3:13 PM Age: 64 years old Clinical indication: Pain; Headache; Additional info: Evaluate for mets TECHNIQUE: Imaging protocol: Computed tomography of the head without and with intravenous contrast. Radiation optimization: All CT scans at this facility use at least one of these dose optimization techniques: automated exposure control; mA and/or kV adjustment per patient size (includes targeted exams where dose is matched to clinical indication); or iterative reconstruction. Contrast material: ISOVUE 370; Contrast volume: 100 ml; Contrast route: INTRAVENOUS (IV); COMPARISON: Thyroid, ST head+neck US 12/18/2019 8:39 AM FINDINGS: Brain: There is no acute intracranial hemorrhage, cerebral edema, or midline shift. No enhancing lesions were identified after the administration of contrast. Ventricles: Normal. No ventriculomegaly. Bones/joints: Unremarkable. No acute fracture. Sinuses: Visualized sinuses are unremarkable. No fluid levels. Mastoid air cells: Visualized mastoid air cells are well aerated. Orbits: The included orbital structures are unremarkable. Soft tissues: Unremarkable. IMPRESSION: No acute intracranial abnormality. Electronically signed by: Feng Baer On 12/18/2019 15:25:21 PM
--- NOTE | 2019-12-18 15:47 | REPVR ---
PROCEDURE INFORMATION: Exam: CT Abdomen And Pelvis With Contrast Exam date and time: 12/18/2019 3:13 PM Age: 64 years old Clinical indication: Abdominal pain; Generalized; Additional info: Evaluate for mets TECHNIQUE: Imaging protocol: Computed tomography of the abdomen and pelvis with intravenous contrast. Radiation optimization: All CT scans at this facility use at least one of these dose optimization techniques: automated exposure control; mA and/or kV adjustment per patient size (includes targeted exams where dose is matched to clinical indication); or iterative reconstruction. Contrast material: ISOVUE 370; Contrast volume: 100 ml; Contrast route: INTRAVENOUS (IV); COMPARISON: No relevant prior studies available. FINDINGS: Pleural space: There is a new right-sided pneumothorax, presumably related to interim thoracentesis, please correlate clinically. There is a large right-sided pleural effusion. There is a left-sided chest tube. There are bilateral pulmonary nodules consistent with metastatic disease. Liver: There are several low-attenuation masses within the liver concerning for metastases in this patient with suspected breast cancer. Gallbladder and bile ducts: Normal. No calcified stones. No ductal dilation. Pancreas: Normal. No ductal dilation. Spleen: There is splenomegaly. Adrenals: Normal. No mass. Kidneys and ureters: There are low density lesions in the right kidney, likely cysts, but are not fully characterized on this exam. Stomach and bowel: Unremarkable. No obstruction. No mucosal thickening. Appendix: No evidence of appendicitis. Intraperitoneal space: Unremarkable. No free air. No significant fluid collection. Vasculature: Unremarkable. No abdominal aortic aneurysm. Lymph nodes: Unremarkable. No enlarged lymph nodes. Bladder: Unremarkable as visualized. Reproductive: There are multiple small uterine calcifications. There is a 2.9 cm right adnexal cyst. Bones/joints: There are scattered sclerotic osseous metastases, reported previously. Soft tissues: There is a 5.9 x 3.1 cm left lateral chest wall lipoma. IMPRESSION: 1. There is a new right-sided pneumothorax, presumably related to interim thoracentesis, please correlate clinically. There is a large right-sided pleural effusion. There is a left-sided chest tube. There are bilateral pulmonary nodules consistent with metastatic disease. 2. There are several low-attenuation masses within the liver concerning for metastases in this patient with suspected breast cancer. 3. There is splenomegaly. 4. There are scattered sclerotic osseous metastases, reported previously. 5. There is a 2.9 cm right adnexal cyst. Electronically signed by: Vasu Cagle On 12/18/2019 15:46:52 PM
[2019-12-18 16:00] VITALS: BP 96/63
--- NOTE | 2019-12-18 18:57 | CR.PDOC ---
General Date of Consultation: Dec 18, 2019 Consultation REASON FOR CONSULTATION/CHIEF COMPLAINT: [breast mass , lung lesions liver lesions ]. HISTORY OF PRESENT ILLNESS: This is a 64 year old lady. She came to the hospital with difficuty breathing. CAT scan chest showed a left breast mass. She had bilateral pleural effusions with lung mass. She also seem shikha have lesions in her liver. She had placeemnt of a left chest tube. Specimen sent for cytology is still pending. ALLERGIES: Please see below. HOME MEDICATIONS: Please see below. PAST MEDICAL HISTORY: 1. [DiABETES ]. 2. [child times two. . PAST SURGICAL HISTORY: 1. [tubal liagtion ] 2. FAMILY HISTORY: Father: [ 60's lung cancer ] Mother: [mother 89 cause unknowm ] Siblings: Children: [she has a daughter in her 40's with multiple sclerosis ] Hereditary Diseases: Unexpected deaths due to medical reasons: SOCIAL HISTORY: Marital status and/or living arrangements: Children: Employment: Tobacco use:[none ] ETOH: [two beers a day Illicit drug use: IV drug use: Other relevant social factors: REVIEW OF SYSTEMS: CONSTITUTIONAL: breathig better after chest tube . HEENT: [no hea ache , no heraring problems ]. CARDIOVASCULAR: [no palpitations . RESPIRATORY: [breathing better after chest tube ]. GENITOURINARY: [no problems ]. MUSCULOSKELETAL: [denies bone pain ]. GASTROINTESTINAL: ni nausea, no diarrhea, no constpation . SKIN: . NEUROLOGICAL: . PSYCHIATRIC: . ENDOCRINE: . HEMATOLOGIC/LYMPHATIC: . ALLERGIC/IMMUNOLOGIC: . PHYSICAL EXAMINATION: VITAL SIGNS: Please see below. GENERAL APPEARANCE: [awake and alert ]. HEENT: . RESPIRATORY: [bilateral breath sounds chest tube left side ]. CARDIOVASCULAR: regular rhythm ]. ABDOMEN: soft . EXTREMITIES: [moving all extremities ]. NEUROLOGICAL: [oriented to person place ]. PSYCHIATRIC: mood calm ]. LABORATORY DATA: Please see below. ASSESSMENT/PLAN: 1. breast mass left side , axillary mass ]. 2. [bilateral pleural effusion and possible lung , liver involvement 3. pathology still pending Plan: Follow up on pathology. Follow up in office after discharge for therapy. Vital Signs/I&O Vital Signs Date Time Temp Pulse Resp B/P (MAP) Pulse Ox O2 Delivery O2 Flow Rate FiO2 12/18/19 16:00 98.9 100 24 96/63 (74) 98 Room Air 12/18/19 12:00 2.0 I&O- Last 24 Hours up to 6 AM 12/18/19 06:00 Intake Total 1100 ml Output Total 2440 ml Balance -1340 ml Laboratory Data Labs 24H Laboratory Tests 2 12/17/19 20:29: Prothrombin Time 14.2H, Prothromb Time International Ratio 1.07, Activated Partial Thromboplast Time 33.8 12/17/19 21:00: Body Fluid pH 7.588, Body Fluid pH Source PLEURAL, Body Fluid WBC (Auto) 5580H, Body Fluid RBC (Auto) 6, Body Fluid Mononuclear Cells % Auto 71.6H, Fluid Polymorphonuclear Cell % Auto 28.4H, Body Fluid Glucose Source PLEURAL, Body Fluid Glucose 129, Body Fluid Protein Source PLEURAL, Body Fluid Total Protein 4.8, Body Fluid Albumin Source PLEURAL, Body Fluid Albumin 2.9, Body Fluid LDH Source PLEURAL, Body Fluid Lactate Dehydrogenase 136, Body Fluid Amylase Source PLEURAL, Body Fluid Amylase 45, Body Fluid Cholesterol 97, Body Fluid Cholesterol Source PLEURAL, Body Fluid Triglyceride Source PLEURAL, Body Fluid Triglycerides 31, Pleural Fluid Source PLEURAL, Pleural Fluid Color YELLOW, Pleural Fluid Appearance CLOUDY 12/17/19 21:24: Bedside Glucose (Misc Panel) 139H 12/18/19 04:28: Immature Granulocyte % (Auto) 0.4, Neutrophils (%) (Auto) 74.6H, Lymphocytes (%) (Auto) 15.5L, Monocytes (%) (Auto) 7.4H, Eosinophils (%) (Auto) 1.4, Basophils (%) (Auto) 0.7, Neutrophils # (Auto) 5.7, Lymphocytes # (Auto) 1.2L, Monocytes # (Auto) 0.6, Eosinophils # (Auto) 0.1, Basophils # (Auto) 0.1, Nucleated Red Blood Cells % (auto) 0.0, Anion Gap 6L, Glomerular Filtration Rate 56.8, Calcium Level 9.2 12/18/19 12:21: Bedside Glucose (Misc Panel) 143H 12/18/19 13:16: Lab Scanned Report Miscellaneous Lab 12/18/19 18:01: Bedside Glucose (Misc Panel) 134H CBC/BMP Laboratory Tests 12/18/19 04:28 Microbiology Microbiology 12/17/19 Acid Fast Stain, Received Pending 12/17/19 Mycobacterial Culture, Received Pending 12/17/19 Fungal Smear, Received Pending 12/17/19 Fungal Culture, Received Pending 12/17/19 Gram Stain - Final, Resulted 12/17/19 Anaerobic Culture, Resulted Pending 12/17/19 Body Fluid Culture, Received Pending Allergies Coded Allergies: Penicillins (Verified Allergy, Unknown, SWELLING, ASTHMA, 12/17/19) Home Medications Scheduled Amlodipine Besylate (Amlodipine Besylate) 10 Mg Tablet, 10 MG PO QHS, (Reported) Aspirin (Aspirin) 325 Mg Tablet, 325 MG PO DAILY, (Reported) Bisoprolol Fumarate (Bisoprolol Fumarate) 10 Mg Tablet, 10 MG PO BID, (Reported) Loratadine (Loratadine) 10 Mg Tablet, 10 MG PO QHS, (Reported) Losartan/Hydrochlorothiazide (Losartan-Hctz 100-25 mg Tab) 1 Each Tablet, 1 TAB PO DAILY, (Reported) Metformin HCl (Metformin HCl) 500 Mg Tablet, 500 MG PO QAM, (Reported) Metformin HCl (Metformin HCl) 500 Mg Tablet, 1,000 MG PO QHS, (Reported) Scheduled PRN Albuterol Sulfate (Ventolin Hfa) 18 Gm Hfa.aer.ad, 2 PUFFS INH QID PRN for SOB/WHEEZING, (Reported) Fluticasone Propionate (Flonase Allergy Relief) 9.9 Ml [place].susp, 2 SPRAY NARES DAILY PRN for CONGESTION, (Reported) BARB PARKER MD Dec 18, 2019 18:57
[2019-12-18 20:00] VITALS: BP 112/73
[2019-12-18] MEDS: amLODIPine 10 MG TAB PO SCH (21:30)
[2019-12-18] MEDS: LORATADINE 10 MG TAB PO SCH (21:30)
[2019-12-18] MEDS: ACETAMINOPHEN TAB 650MG DOSE (2X325MG) PO PRN ×2 (21:34→22:08)
[2019-12-19] VITALS (12 sets, daily range): BP systolic 91–139; BP diastolic 54–76
[2019-12-19] MEDS: LEVALBUTEROL 1.25 MG/0.5 ML CONCENTRATE NEB NEB SCH ×4 (01:04→19:42)
[2019-12-19 06:16] LABS: BASO % 0.5 % (0.0-1.0); EOS # 0.4 10^3/uL (0.0-0.5); EOS % 5.6 % (0.0-3.0); HEMOGLOBIN 14.8 g/dl (12.0-15.5); LYMPH % 15.8 % (24.0-44.0); MEAN CORPUSCULAR HEMOGLOBIN 32.5 pg (27.0-33.0); MEAN CORPUSCULAR HGB CONC 36.1 g/dl (32.0-36.5); MEAN CORPUSCULAR VOLUME 89.9 fl (80.0-96.0); MONO # 0.4 10^3/uL (0.0-0.8); MONO % 6.8 % (0.0-5.0); NEUTROPHILS # 4.4 10^3/uL (1.5-8.5); NEUTROPHILS % 71.1 % (36.0-66.0); PLATELET COUNT, AUTOMATED 244 10^3/uL (150-450); RED BLOOD COUNT 4.56 10^6/uL (4.00-5.40); WHITE BLOOD COUNT 6.2 10^3/uL (4.0-10.0)
[2019-12-19 06:47] LABS: BLOOD UREA NITROGEN 28 MG/DL (7-18); CALCIUM LEVEL 8.8 MG/DL (8.8-10.2); CARBON DIOXIDE LEVEL 27 MEQ/L (21-32); CHLORIDE LEVEL 104 MEQ/L (98-107); CREATININE FOR GFR 0.92 MG/DL (0.55-1.30); GLOMERULAR FILTRATION RATE > 60.0 (>45); GLUCOSE, FASTING 126 MG/DL (70-100); POTASSIUM SERUM 3.7 MEQ/L (3.5-5.1); SODIUM LEVEL 138 MEQ/L (136-145)
[2019-12-19] MEDS: HEPARIN SOD (PORCINE) 5000UNITS/ML 1ML VIAL/SYRINGE SC SCH ×2 (07:42→20:10)
[2019-12-19] MEDS: DOCUSATE SODIUM 100 MG CAP PO SCH ×2 (08:33→19:57)
[2019-12-19] MEDS: MOM 30ML SUSPENSION UDC PO SCH (08:33)
[2019-12-19] MEDS: PANTOPRAZOLE 40MG TAB (PROTONIX) PO SCH (08:33)
[2019-12-19] MEDS: bisoproloL fumarate 10 MG TAB PO SCH ×2 (08:34→20:12)
[2019-12-19] MEDS: hydroCHLOROthiazide 25 MG TAB PO SCH (08:34)
[2019-12-19] MEDS: LOSARTAN 50MG TABLET PO SCH (08:35)
[2019-12-19] MEDS: HumaLOG INSULIN (NovoLOG) PER UNIT SC SCH ×4 (08:36→19:43)
[2019-12-19] MEDS: ACETAMINOPHEN TAB 650MG DOSE (2X325MG) PO PRN ×2 (08:37→18:09)
--- NOTE | 2019-12-19 09:18 | IPNPDOC ---
Text Note Date of Service The patient was seen on 12/19/19. NOTE Subjective: Patient is a 64 year old female with a PMHx of HTN, NIDDM2, who presented to the ER with progressive SOB, associated with productive cough, w eakness and bruising around her Left breast. Patient was advised by her PCP to present to the ER. Work up in the ED showed bilateral pleural effusions and spiculated left sided breast mass. Dr. Jean-Baptiste ([facility]) and hospitalist service were called to evaluate and admit the patient. Patient had a chest tube placed on 12/16. Patient was seen and examined at the bedside. Patient is sitting up in chair, s he denies any problems overnight. Reports her breathing is doing better, denies any CP, palpitations or worsening of her cough. Denies any N/V, abdominal pain, C/D, or dysuria. Objective: Vitals (See below) General: Sitting up in bed, remains comfortable, AAOx3 HEENT: NC, AT CVS: RRR, +S1S2 Lungs: Decreased lung sounds at R lung base, mild crackles at L lung base, no wh eezing / rhonchi Abdomen: Soft, abdomen is without any distended, non-tender Extremities: No evidence of edema, - Calf tenderness Imaging: CT angio chest (12/16): 1. Left breast spiculated mass measuring 3.5 cm highly suspicious for breast cancer. 2. Pathologically enlarged left axillary lymph nodes suspicious for metastatic disease. 3. Multiple small pulmonary nodules scattered throughout both lungs. These measure up to 7 mm in diameter and are highly suspicious for pulmonary metastases. 4. Bilateral pleural effusions and bilateral upper lobe and lower lobe atele ctasis/consolidation. 5. Two indeterminate low-density hepatic lesions raising the suspicion for he patic metastases. 6. Sclerotic bony metastatic disease. 7. Mild anterior wedge fracture deformity of the superior endplate of L1 consistent with pathological fracture. No retropulsed bony fragment or bony spinal stenosis. 8. Right thyroid lobe calcified mass measuring 4 cm. Follow-up evaluation with thyroid ultrasound is recommended. CT abdomen / pelvis (12/17): 1. There is a new right-sided pneumothorax, presumably related to interim thoracentesis, please correlate clinically. There is a large right-sided pleural effusion. There is a left-sided chest tube. There are bilateral pulmonary no dules consistent with metastatic disease. 2. There are several low-attenuation masses within the liver concerning for metastases in this patient with suspected breast cancer. 3. There is splenomegaly. 4. There are scattered sclerotic osseous metastases, reported previously. 5. There is a 2.9 cm right adnexal cyst. CT Head (12/17): No acute intracranial abnormality. Thyroid US (12/17): 1. Enlarged, heterogeneous, hyperemic thyroid gland with multiple nodules bilaterally, including cystic and solid lesions. The dominant lesion is at the right lower pole containing central calcification with indistinct margins. Together with indistinct margins of the right lobe upper pole anteriorly, and t he findings of the recent CTA thorax exam, the possibility of metastasis to the thyroid must be considered. 2. Thyroid nuclear scintigraphy may provide additional diagnostic evaluation. Assessment and plan: SOB - likely 2/2 Bilateral Pleural Effusions s/p left side chest tube - Continues to have improvement in breathing - Highly suspicious for metastatic breast CA - Fluid sent for analysis (12/16); cytology / pathology pending - CT imaging noted above; discussed again the findings with patient and the high likelihood of malignancy; patient has verbalized understanding - Consulted oncology; Dr. Ochoa; awaiting results of pathology / cytology - Dr. Jean-Baptiste ([facility]) on consultation; may require additional drainage on R side and possibly bilateral pigtail catheter placements Pneumothorax - Discussed with [facility] about imaging findings; given small size; will c/w supplemental oxygen - Will follow up CXR Breast mass with possible metastatic process to bone, liver, lungs. - Will get CT head, Abdomen / Pelvis today; will change to with contrast - Will consult oncology today s/p Hypotension -Mild post-procedural hypotension - s/p IV fluids Right thyroid lobe calcified mass - Imaging noted above - TSH WNL - Thyroid US were discussed with Radiologist, SPEEDY CONNOR MD; advised that it was difficulty to delineate between primary thyroid malignancy and metastatic lesions - Discussed with patient the need for NM study of thyroid to help delineate this; patient verbalized understanding for need of additional workup - Will discuss with Oncology NIDDM2 - c/w ISS HTN - c/w losartan, HCTZ, amlodipine and bisoprolol with holding parameters Environmental Allergies - c/w loratadine and nasal spray DVT prophylaxis - c/w Heparin Disposition: - Possible drainage of R sided effusion - Awaiting cytology / pathology VS,Fishbone, I+O VS, Fishbone, I+O Laboratory Tests 12/19/19 05:57 Vital Signs Date Time Temp Pulse Resp B/P (MAP) Pulse Ox O2 Delivery O2 Flow Rate FiO2 12/19/19 08:35 139/76 12/19/19 08:34 97 12/19/19 08:00 98.6 18 99 Nasal Cannula 2.0 I&O- Last 24 Hours up to 6 AM 12/19/19 06:00 Intake Total 1180 ml Output Total 2130 ml Balance -950 ml PJ LEWIS MD Dec 19, 2019 09:18
--- NOTE | 2019-12-19 09:34 | CR ---
DATE: 12/17/2019 SUBJECTIVE: The patient is seen at the request of Dr. Hernandez in the Emergency Room, with the Hospitalist service for bilateral pleural effusions and shortness of breath. HISTORY OF PRESENT ILLNESS: The patient is a 64-year-old white female whose story starts this past September when she started to develop a cough with white sputum production. She did not have any fever, chills or sweats. She saw her primary care provider, Miss Tracy, who placed her on some inhalers. After about 2 weeks she was continuing to cough. This continued through the rest of the summer, however about 2 weeks ago she started to feel short of breath which has gotten worse over the past 2 weeks, such that she has trouble lying flat. She gets short of breath just walking to the bathroom in her house. Concurrent with her history last September, she noticed a lump in her left breast which first started out as an ecchymosis over her skin. She did not bring that to anyones attention, and it was not discovered. The lump has continued to grow and so it is now eroding the skin. She states that has tenderness in her left axilla. Over the past 2 weeks, she has not had any fever, chills or sweats. She still has her cough with white sputum production. There is no chest pain or chest discomfort other than a pressure type feeling over the front of her chest which she perceives as being short of breath. She has no cardiac history. There is no anginal type pain. She sought medical attention in the Emergency Room today after again seeking medical attention at her primary care providers office, who then sent her to the Emergency Room. PAST MEDICAL HISTORY: The patient's past medical history is significant for: 1. Hypertension. 2. Diabetes mellitus. PAST SURGICAL HISTORY: The patient's past surgical history is significant for tubal ligation. ALLERGIES: Penicillin. MEDICATIONS AT HOME: - Amlodipine 10 mg q. h.s. - Aspirin 325 mg q. day. - Bisoprolol 10 mg twice daily. - Losartan 100/25 q. day. - Metformin 500 mg q. a.m. and 1,000 mg q. h.s. - Ventolin 2 puffs four times daily p.r.n. for wheezing and shortness of breath. TRAVEL HISTORY: She has been to [place] and to [place]. No travel history to the [facility]. She last year traveled extensively throughout [place] and [place]. EXPOSURES: No dogs, birds, cats at home. No exposure to tuberculosis. HABITS: Does not smoke. Drinks 2-3 beers per day and denies any illicit drugs. 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 She does have an aunt with breast cancer. Her father did of lung cancer. REVIEW OF SYSTEMS: Constitutional: See HPI, without fever, chills, sweats or night sweats. She has had a 10-pound weight loss since September. HEENT: Eyes without diplopia, with amaurosis fugax, without jaundice. Does wear glasses. Epistaxis, nosebleeds as a child but none since. Mouth has upper partials. RESPIRATORY: See HPI. CARDIAC: See HPI. Has orthopnea but paroxysmal or nocturnal dyspnea. There is no intermittent claudication. She has noted almost all of her life bilateral swelling in her legs which comes and goes. She notes varicose veins. GI: Without nausea, vomiting, diarrhea, constipation, melena, hematochezia or hematemesis. No abdominal pain. GENITOURINARY: Without dysuria, hematuria. She does have a prior history of renal stones. NEUROLOGICAL: Without paresthesias, paralyses or prior seizures. ENDOCRINE: With diabetes. Without thyroid disease. PSYCHIATRIC: Without pathological anxieties, depressions or psychoses. PHYSICAL EXAMINATION: GENERAL APPEARANCE: Well developed, obese white female in moderate distress with shortness of breath. VITAL SIGNS: Temperature is 97.9, pulse is 88 and sinus rhythm, respiratory rate of 24 without the use of accessory muscles who is 95% saturated on room air. HEENT: Head normocephalic. Eyes: Pupils are equal, round and reactive to light. The extraocular movements are intact. Sclerae are anicteric. Nose without deformity. Mouth shows the mucous membranes to be pink and moist. Lips without lesions. There is no thrush. Her teeth are in good repair. NECK: Supple. There is no jugular venous distention. No subcutaneous emphysema. The trachea is midline. There is no cervical lymphadenopathy, thyromegaly. She has 2+ carotid upstrokes without bruits. LUNGS: She has decreased breath sounds on either side with egophony more on the left than the right. She has dull percussion noted on both sides approximately one-third of the way up the chest. I hear no wheezing. She has some rhonchi and rales in the left lower hemithorax. CARDIAC: Without murmurs, clicks, gallops or rubs. I cannot feel a PMI. S1, S2 are normal. ABDOMEN: Soft, nontender. Bowel sounds are positive. There is no hepatomegaly. No CVA tenderness. EXTREMITIES: Trace to 1+ pretibial edema on the left, none on the right. There is no differential swelling of the upper extremities. SKIN: Warm, dry, perfused without cyanosis or mottling. NEURO: II-XII intact, Gross motor, gross sensation intact. . Gait was not tested. PSYCHIATRIC: Awake, alert and oriented x3. Appropriate mood and affect and conversational. LYMPHATICS: Tender left axillary lymphadenopathy. There is no right axillary lymphadenopathy. There is no cervical or supraclavicular lymphadenopathy. BREAST: A 2 cm lesion in the lateral breast which is eroding the skin. LABORATORY STUDIES: Her white count is 8.4 with a hemoglobin and hematocrit of 17.2 and 47.6 and a platelet count of 338. Differential shows 76% neutrophils, 15% lymphocytes, 6% monocytes. There are immature cells or toxic granulations.. Electrolytes are normal with a normal BUN and creatinine. They are not in the chart, but I saw the earlier today. There are no blood gases on her. There are no coagulation studies on her. IMAGING: Her chest x-ray shows bilateral fluid opacities. Her chest CT confirms bilateral pleural effusions with left lower lobe lung compression. I do not see lung compression on the right. There is also atelectatic consolidated segment of the left upper lobe which is pancaked against the mediastinum. This may represent an obstructed bronchus. Lung windows show multiple nodules throughout her lungs in both right and left. They range from 4 to 8 mm. There is no pericardial effusion .The CT is done under angiographic protocols and I do not see any pulmonary emboli. The mediastinum is in the midline. The breast mass is seen on CT and measures 3.5 cm in its greatest dimension. There are calcifications within it. There is a hypodense liver lesion in the left lobe of the liver. Left adrenal has a normal configuration as does the right adrenal. What seen of the pancreas is normal. The bone windows show some sclerotic lesions in numerous vertebrae throughout. IMPRESSION: 1. Bilateral pleural effusions. 2. Left outer breast mass. 3. Multiple lung, liver and bone lesions, probably metastatic breast cancer. 4. Hypertension. 5. Diabetes. PLAN AND DISCUSSION: I will symptomatically relieve her by draining at least one chest. She has considerable lung compression on the left. I will drain the left chest first. She may come to a PleurX catheter on both sides. I will send the specimens up for all the requisite studies including bacteriology, cytologies, cell blocks, chemistries and cell counts. Hopefully we will get a definite diagnosis from the cell block. If not, she will need a breast biopsy. I would suggest the Medical service to obtain an oncology consult tomorrow for further guidance. It should be noted that her thyroid is also markedly enlarged. It looks quite vascular but I do not know whether that represents a calcification or vascularity from the injected contrast material. MTDD
--- NOTE | 2019-12-19 09:48 | IPN ---
DATE: 12/18/2019 SUBJECTIVE: Ms. Alvarez is feeling so much better today. She can breathe. She has a cough but without sputum production today. Her pain is being well controlled at the chest tube incision site. She has been able to walk 3 laps today around the PCU. PHYSICAL EXAMINATION: VITAL SIGNS: Her vital signs show a T-max of 98.4 with a heart rate that ranges between 78 and 84 and is sinus rhythm. Respiratory rate that is constant 20, who is 94-96% saturated on 4 liters nasal cannula. Blood pressure is ranging between 114/59 to 92/59. Intake and output the past 24 hours has been recorded as 980 in and 2,365 out for a negativity of nearly 1,400 mL. She has put out 2,115 mL in the chest tube overnight and in the last 11 hours 150 mL. There is no air leak. She weighs 92.8 kg today, compared to 92.9 kg yesterday. LUNGS: Her left shows coarse inspiratory rales and rhonchi, particularly in the lower hemithorax. Percussion noted however is full to the diaphragm. The right shows dull percussion noted in the lower hemithorax with normal vesicular sounds throughout other than diminished on the right lower hemithorax. CARDIAC: Without murmurs, clicks, gallops or rubs. I cannot feel a PMI. S1, S2 are normal. ABDOMEN: Soft, nontender, bowel sounds are positive. I do not appreciate hepatomegaly through obesity. There is no CVA tenderness. EXTREMITIES: Show improvement in her pretibial edema down to trace on the left and none on the right. There is no calf tenderness, no differential swelling of the upper extremities. SKIN: Warm, dry and perfused without cyanosis or mottling including of the nail beds and knees. NECK: Supple. There is no jugular venous distention, no subcutaneous emphysema. Trachea is midline. HEENT: Mouth shows the mucous to be pink and moist. Lips and gums are moist. There is no thrush. Eyes: pupils equal and reactive. The extraocular motions are intact. Sclerae are anicteric. NEUROLOGICAL: Systems are intact. Gross motor and gross sensation intact. Gait was not tested. PSYCHIATRIC: Alert, oriented with appropriate mood and affect and conversational. LABORATORY STUDIES: Her white count today is 7.7 with a hemoglobin and hematocrit of 15.5 and 43.8 and a platelet count of 269. Differential shows 76% neutrophils, 15% lymphocytes, 7% monocytes. There are no immature cells or toxic granulations.. Her electrolytes show a potassium of 3.4 with a BUN and creatinine of 21 and 1.04. From my recollection yesterday, the BUN and creatinine are slightly up. Calcium is 9.2 with a glucose of 112. Her pleural fluid comes back with a pH of 7.5 with an LDH of 136 with a corresponding serum LDH of 167. Total protein is 4.8 with a corresponding total protein in the serum of 7.5. Cell count shows 5580 white cells, 72% of which are leukocytic mononuclears and 28% are neutrophils, which therefore looks like an exudative lymphocytic effusion, most consistent with a malignant pleural effusion. IMAGING: Her chest x-ray today shows clearing of the pleural effusion on the left side. She now has consolidation and/or atelectasis of the left lower lobe which is certainly expected from her compression pre-chest tube placement. The right side shows a pleural effusion one third of the way up the chest. Mediastinum is at midline. IMPRESSION: 1. Bilateral pleural effusions probably malignant. 2. Outer quadrant left breast lesion. 3. Multiple pulmonary nodules. 4. Multiple axial skeletal sclerotic lesions. 5. Liver lesion. 6. Diabetes. 7. Hypertension. PLAN AND DISCUSSION: 1. We will have to wait for cytology to have actual proof of diagnosis. If the cytology does not come back diagnostic, she will probably need a breast biopsy. 2. For the present, I will keep her left chest tube in. 3. The right pleural effusion will need to be addressed. If this does turnstile collector to be malignant, my preference would be to place a PleurX catheter as this will no doubt come back. Later on we will place a left PleurX catheter additionally when the fluid returns and I have a target to place the PleurX catheter. 4. I will discontinue her Toradol today. Her creatinine is bumped a little bit up. 5. We can wean her O2. MTDD
[2019-12-19] MEDS ORDERED: LIDOCAINE 1% MDV 20ML VIAL As Ordered ONE (12:18)
[2019-12-19] MEDS ORDERED: MIDAZOLAM INJ 2MG/2ML VIAL (J2250 PER 1MG) As Ordered ONE (12:19)
[2019-12-19] MEDS ORDERED: flumazeniL 0.5 MG/5 ML VIAL As Ordered ONE (12:20)
--- NOTE | 2019-12-19 13:40 | REPVR ---
PROCEDURE INFORMATION: Exam: XR Chest, 1 View Exam date and time: 12/19/2019 1:30 PM Age: 64 years old Clinical indication: Shortness of breath; Additional info: S/P pleurx catheter TECHNIQUE: Imaging protocol: XR of the chest Views: Frontal portable sitting upright view of the chest. COMPARISON: CR Chest, 2 view PA, Lat 12/19/2019 7:55 AM FINDINGS: Tubes, catheters and devices: Stable left chest tube position. EKG leads are present overlying the chest. Lungs: The pulmonary vasculature remains congested. Stable bibasilar partial/subsegmental atelectasis. Pleural space: No pneumothorax. Stable moderate right pleural effusion. Heart/Mediastinum: The heart remains normal in size and contour. Mediastinum: Stable. Vasculature: Mild aortic arch atherosclerotic calcification without ectasia. Bones/joints: Stable. IMPRESSION: 1. Stable moderate right pleural effusion. 2. Persistent pulmonary vascular congestion. 3. Stable bibasilar partial/subsegmental atelectasis. Electronically signed by: Ronnie Parks On 12/19/2019 13:40:48 PM
[2019-12-19 14:27] LABS: LDH LACTATE DEHYDROGENASE 149 U/L (84-246)
[2019-12-19] MEDS ORDERED: LIDOCAINE 1% MDV 20ML VIAL SC ONE (14:30)
[2019-12-19] MEDS ORDERED: MIDAZOLAM INJ 2MG/2ML VIAL (J2250 PER 1MG) IV ONE (15:00)
[2019-12-19] MEDS ORDERED: LIDOCAINE 2% MDV 20ML VIAL As Ordered ONE (15:47)
[2019-12-19] MEDS: LORATADINE 10 MG TAB PO SCH (20:10)
[2019-12-19] MEDS: amLODIPine 10 MG TAB PO SCH (20:12)
[2019-12-20] VITALS (7 sets, daily range): BP systolic 95–120; BP diastolic 52–68
[2019-12-20] MEDS: LEVALBUTEROL 1.25 MG/0.5 ML CONCENTRATE NEB NEB SCH ×4 (01:18→20:00)
[2019-12-20] MEDS: ACETAMINOPHEN TAB 650MG DOSE (2X325MG) PO PRN ×2 (04:40→21:20)
[2019-12-20 06:11] LABS: BASO # 0.1 10^3/uL (0.0-0.2); BASO % 1.2 % (0.0-1.0); EOS # 0.4 10^3/uL (0.0-0.5); EOS % 5.8 % (0.0-3.0); HEMATOCRIT 40.1 % (36.0-47.0); HEMOGLOBIN 13.9 g/dl (12.0-15.5); LYMPH # 1.1 10^3/uL (1.5-5.0); LYMPH % 17.5 % (24.0-44.0); MEAN CORPUSCULAR HEMOGLOBIN 31.2 pg (27.0-33.0); MEAN CORPUSCULAR HGB CONC 34.7 g/dl (32.0-36.5); MEAN CORPUSCULAR VOLUME 90.1 fl (80.0-96.0); MONO # 0.5 10^3/uL (0.0-0.8); MONO % 8.2 % (0.0-5.0); NEUTROPHILS % 67.1 % (36.0-66.0); PLATELET COUNT, AUTOMATED 229 10^3/uL (150-450); RED BLOOD COUNT 4.45 10^6/uL (4.00-5.40)
[2019-12-20 06:36] LABS: BLOOD UREA NITROGEN 25 MG/DL (7-18); CALCIUM LEVEL 8.7 MG/DL (8.8-10.2); CARBON DIOXIDE LEVEL 29 MEQ/L (21-32); CHLORIDE LEVEL 105 MEQ/L (98-107); CREATININE FOR GFR 0.75 MG/DL (0.55-1.30); GLOMERULAR FILTRATION RATE > 60.0 (>45); GLUCOSE, FASTING 125 MG/DL (70-100); POTASSIUM SERUM 3.7 MEQ/L (3.5-5.1); SODIUM LEVEL 139 MEQ/L (136-145)
[2019-12-20] MEDS: HumaLOG INSULIN (NovoLOG) PER UNIT SC SCH ×4 (07:30→21:00)
--- NOTE | 2019-12-20 08:38 | REPVR ---
PROCEDURE INFORMATION: Exam: XR Chest, 2 Views Exam date and time: 12/20/2019 7:59 AM Age: 64 years old Clinical indication: Condition or disease; Lung condition and disease; Pleural effusion; Other: Unknown; Prior surgery; Surgery date: Post-operative (0-2 days) TECHNIQUE: Imaging protocol: XR of the chest Views: 2 views. COMPARISON: CR PORTABLE CHEST X-RAY 12/19/2019 1:27 PM FINDINGS: Tubes, catheters and devices: Bilateral chest tubes are again present. The left is in fairly stable position, and the right has been repositioned, with its tip now over the base. Lungs: There is again bibasilar atelectasis, left worse than right, with potential consolidation at the left base. Pleural space: There are similar small bilateral pleural effusions. A small left apical pneumothorax is again present, with approximately 9 mm pleural separation. No right pneumothorax. Heart/Mediastinum: The cardiomediastinal silhouette is fairly stable in appearance, allowing for differences in technique. Bones/joints: Degenerative changes again involve the spine. IMPRESSION: Fairly stable appearance of the chest as compared with 1 day prior, including small left apical pneumothorax and small bilateral pleural effusions, again with bilateral chest tubes. Bibasilar atelectasis, left worse than right, with potential consolidation at the left base again present. Electronically signed by: Guille Kirk On 12/20/2019 08:38:13 AM
[2019-12-20] MEDS: MOM 30ML SUSPENSION UDC PO SCH (08:49)
[2019-12-20] MEDS: HEPARIN SOD (PORCINE) 5000UNITS/ML 1ML VIAL/SYRINGE SC SCH ×2 (08:50→18:10)
[2019-12-20] MEDS: LOSARTAN 50MG TABLET PO SCH (08:51)
[2019-12-20] MEDS: PANTOPRAZOLE 40MG TAB (PROTONIX) PO SCH (08:51)
[2019-12-20] MEDS: DOCUSATE SODIUM 100 MG CAP PO SCH ×2 (08:51→21:20)
[2019-12-20] MEDS: bisoproloL fumarate 10 MG TAB PO SCH ×2 (08:51→21:19)
[2019-12-20] MEDS: hydroCHLOROthiazide 25 MG TAB PO SCH (08:51)
--- NOTE | 2019-12-20 10:36 | IPNPDOC ---
Text Note Date of Service The patient was seen on 12/20/19. NOTE Subjective: Patient is a 64 year old female with a PMHx of HTN, NIDDM2, who presented to the ER with progressive SOB, associated with productive cough, w eakness and bruising around her Left breast. Patient was advised by her PCP to present to the ER. Work up in the ED showed bilateral pleural effusions and spiculated left sided breast mass. Dr. Jean-Baptiste ([facility]) and hospitalist service were called to evaluate and admit the patient. Patient had a chest tube placed on 12/16. Patient was seen and examined at the bedside. Patient was seen sitting up in ch air at this. She denies any problems overnight. Patient denies any chest pain or palpitations. Reports a mild nonproductive cough. Denies any nausea, vomiting, abdominal pain, diarrhea, or urinary discomfort. Objective: Vitals (See below) General: Sitting up in bed, remains comfortable, AAOx3 HEENT: NC, AT CVS: RRR, +S1S2 Lungs: There is improved aeration bilaterally. There is faint crackles that can be appreciated at bilateral lower lung dan. No rhonchi or wheezing Abdomen: Abdomen is soft without any distention or tenderness Extremities: Lower extremities are without any edema, - Calf tenderness Imaging: CT angio chest (12/16): 1. Left breast spiculated mass measuring 3.5 cm highly suspicious for breast cancer. 2. Pathologically enlarged left axillary lymph nodes suspicious for metastatic disease. 3. Multiple small pulmonary nodules scattered throughout both lungs. These measure up to 7 mm in diameter and are highly suspicious for pulmonary metastases. 4. Bilateral pleural effusions and bilateral upper lobe and lower lobe a telectasis/consolidation. 5. Two indeterminate low-density hepatic lesions raising the suspicion for hepatic metastases. 6. Sclerotic bony metastatic disease. 7. Mild anterior wedge fracture deformity of the superior endplate of L1 consistent with pathological fracture. No retropulsed bony fragment or bony spinal stenosis. 8. Right thyroid lobe calcified mass measuring 4 cm. Follow-up evaluation with thyroid ultrasound is recommended. CT abdomen / pelvis (12/17): 1. There is a new right-sided pneumothorax, presumably related to interim thoracentesis, please correlate clinically. There is a large right-sided pleural effusion. There is a left-sided chest tube. There are bilateral pulmonary nodules consistent with metastatic disease. 2. There are several low-attenuation masses within the liver concerning for metastases in this patient with suspected breast cancer. 3. There is splenomegaly. 4. There are scattered sclerotic osseous metastases, reported previously. 5. There is a 2.9 cm right adnexal cyst. CT Head (12/17): No acute intracranial abnormality. Thyroid US (12/17): 1. Enlarged, heterogeneous, hyperemic thyroid gland with multiple nodules bilaterally, including cystic and solid lesions. The dominant lesion is at the right lower pole containing central calcification with indistinct margins. Together with indistinct margins of the right lobe upper pole anteriorly, and the findings of the recent CTA thorax exam, the possibility of metastasis to the thyroid must be considered. 2. Thyroid nuclear scintigraphy may provide additional diagnostic evaluation. CXR (12/19): Fairly stable appearance of the chest as compared with 1 day prior, including small left apical pneumothorax and small bilateral pleural effusions, again with bilateral chest tubes. Bibasilar atelectasis, left worse than right, with potential consolidation at the left base again present. 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 Ochoa; will have outpatient follow-up for treatment - Dr. Jean-Baptiste ([facility]) on consultation; possible removal of left sided chest tube Pneumothorax - CXR 12/19: small L apical pneumothorax - c/w Oxygen suppelem Breast mass with possible metastatic process to bone, liver, lungs - Imaging noted above - s/p Pleural fluid drainage; consistent with breast primary - s/p Breast biopsy (12/18); pathology pending - Oncology on consultation s/p Hypotension - Mild post-procedural hypotension - s/p IV fluids Right thyroid lobe calcified mass - Imaging noted above - TSH WNL - Thyroid US were discussed with Radiologist - s/p Thyroid biopsy (12/18); pathology pending - Oncology on consultation NIDDM2 - c/w ISS HTN - c/w losartan, HCTZ, amlodipine and bisoprolol with holding parameters Environmental Allergies - c/w loratadine and nasal spray DVT prophylaxis - c/w Heparin Disposition: - Possible removal of L sided chest tube - Partial cytology / pathology available VS,Fishbone, I+O VS, Fishbone, I+O Laboratory Tests 12/20/19 05:56 Vital Signs Date Time Temp Pulse Resp B/P (MAP) Pulse Ox O2 Delivery O2 Flow Rate FiO2 12/20/19 09:54 18 12/20/19 08:51 113/62 12/20/19 08:51 87 12/20/19 08:48 Nasal Cannula 2.0 12/20/19 07:31 98.5 95 I&O- Last 24 Hours up to 6 AM 12/20/19 06:00 Intake Total 1020 ml Output Total 1880 ml Balance -860 ml PJ LEWIS MD Dec 20, 2019 10:36
[2019-12-20] MEDS ORDERED: SLF 3 ML SYR IV PRN (11:15)
[2019-12-20] MEDS: SLF 3 ML SYR IV SCH ×2 (12:13→22:13)
--- NOTE | 2019-12-20 12:21 | IPN ---
DATE: 12/19/2019 SUBJECTIVE: This is now the second hospital day for Ms. Alvarez. I have spoke to pathology and it looks as though she certainly has malignant cells which are very suspicious for breast cancer. Final markers are pending. Today she says she is a bit raspy, saying that she can feel it in her left lower chest. Nonetheless she is not short of breath. There is no cough, no fever, chills, or sweats. No sputum production. There is no dysphagia. Her vital signs show a maximum temperature (T-max) of 99.2 with a heart rate that ranges between 83-97 and is sinus rhythm. Respiratory rate 16-18 without use of accessory muscles. She is 96-99% saturated on 2 liters nasal cannula and has blood pressures ranging between 99/58 to 139/76. Her intake and output the past 24 hours is recorded as 1300 in and 1725 out for a negativity of 425 mL. She has put 225 mL out of the chest tube and has no air leak. Her weight today is 93.8 kg compared to 92.8 kg yesterday. PHYSICAL EXAMINATION: She has some crackles during inspiration which are rather coarse in the left lower hemithorax. She has decreased breath sounds in the right hemithorax with a dull percussion in the right inferior hemithorax. Cardiac exam is without murmurs, clicks, gallops or rubs. I cannot hear PMI. S1, S2 are normal. Abdomen is soft, nontender. Bowel sounds are positive. No hepatomegaly. No costovertebral angle (CVA) tenderness. Extremities: Trace pretibial edema. No calf tenderness. No differential swelling in the upper extremities. Skin: Warm, dry and perfused without cyanosis or mottling including that of nailbeds and knees. Neck is supple. There is no jugular venous distention (JVD). No subcutaneous emphysema. Trachea is midline. Mouth shows the mucous membranes to be pink and moist. Lips, tongue without lesions or thrush. Eyes show her pupils to be equal and reactive. Extraocular movements intact. Sclerae anicteric. Neurologic shows II-XII intact. Normal gross motor, gross sensation intact. Gait is not tested. Psychiatric shows her to be awake, alert, oriented times three with appropriate mood and affect and conversational. White count today is 6.2 with a hemoglobin and hematocrit of 14.8 and 41.0 with a platelet count of 244. Differential shows 81% neutrophils, 15% lymphocytes, 6% monocytes. There are no immature forms, no toxic granulations. Her electrolytes are normal with a BUN and creatinine of 28.92. Glucose 126 and a calcium 8.8. Yesterday I discontinued her Toradol because her BUN and creatinine went up to 1.04. I discussed her pleural fluid findings yesterday being exudative and acidic. Her chest x-ray today shows her lungs fully expanded in the chest wall on the left side. There is a slight pneumothorax on the right side which I cannot explain. It was there yesterday. I actually missed it yesterday although it is of no clinical significance. Her right hemithorax has an opacity in the lower portion. The lateral chest x-ray confirms the right side pleural fluid. As noted above, I have spoke with pathology and the cells are certainly malignant and look like breast. Final markers are pending. IMPRESSION: 1. Bilateral malignant pleural effusions. 2. Breast mass left upper outer quadrant. 3. Multiple pulmonary nodules. 4. Multiple axial skeletal sclerotic lesions. 5. Liver lesion. 6. Diabetes. 7. Hypertension. PLAN AND DISCUSSION: Now knowing that her left side is malignant, her right side no doubt is also. Her pleural effusions will continue to recur. I will therefore place a PleurX catheter on the right. I will remove the left side chest tube probably tomorrow and wait it for it reaccumulate and then put in another PleurX catheter. There is certainly a finite possibility that should she be treated with chemotherapy, that the pleural effusions will resolve and I can then remove the PleurX catheter. ALICE
--- NOTE | 2019-12-20 19:19 | IPNPDOC ---
Date Seen The patient was seen on 12/20/19. Progress Note SUBJECTIVE: Patient is a [64]-year-old [lady admitted with bilateral pleural effusions. She had a chest tube in her left lung that has been removed. She has a pigtail catheter in her right chest, Ct scan showing lung and liver nodules. pathology positive for maliganncy consistent with a breast primary. Known breast mass. OBJECTIVE PHYSICAL EXAMINATION: VITAL SIGNS: Please see below. GENERAL: [Awake and alert] HEENT: [normal ] CARDIOVASCULAR: Regular rhythm . RESPIRATORY: . ABDOMINAL: EXTREMITIES: NEUROLOGICAL: PSYCHOLOGICAL: LABORATORY DATA, IMAGING STUDIES, MICROBIOLOGY: Please see below. Echocardiogram: . 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 After discharge from the office follow in the office for systemic therapy. PROBLEMS: 1. : [breast mass]. 2. : [bilateral pleural effussions ]. 3. : [lung an dliver involvement ]. DISPOSITION: . VS, I&O, 24H, [facility] Vital Signs/I&O Vital Signs Date Time Temp Pulse Resp B/P (MAP) Pulse Ox O2 Delivery O2 Flow Rate FiO2 12/20/19 16:00 99.1 95 20 113/68 (83) 93 Room Air 12/20/19 08:48 2.0 I&O- Last 24 Hours up to 6 AM 12/20/19 06:00 Intake Total 1020 ml Output Total 1880 ml Balance -860 ml Laboratory Data 24H LABS Laboratory Tests 2 12/19/19 19:40: Bedside Glucose (Misc Panel) 183H 12/20/19 05:56: Immature Granulocyte % (Auto) 0.2, Neutrophils (%) (Auto) 67.1H, Lymphocytes (%) (Auto) 17.5L, Monocytes (%) (Auto) 8.2H, Eosinophils (%) (Auto) 5.8H, Basophils (%) (Auto) 1.2H, Neutrophils # (Auto) 4.0, Lymphocytes # (Auto) 1.1L, Monocytes # (Auto) 0.5, Eosinophils # (Auto) 0.4, Basophils # (Auto) 0.1, Nucleated Red Blood Cells % (auto) 0.0, Anion Gap 5L, Glomerular Filtration Rate > 60.0, Calcium Level 8.7L 12/20/19 12:10: Bedside Glucose (Misc Panel) 96 12/20/19 17:24: Bedside Glucose (Misc Panel) 169H CBC/BMP Laboratory Tests 12/20/19 05:56 Microbiology Microbiology 12/17/19 Acid Fast Stain, Received Pending 12/17/19 Mycobacterial Culture, Received Pending 12/17/19 Fungal Smear, Received Pending 12/17/19 Fungal Culture, Received Pending 12/17/19 Gram Stain - Final, Complete 12/17/19 Anaerobic Culture - Final, Complete 12/17/19 Body Fluid Culture - Final, Complete BARB PARKER MD Dec 20, 2019 19:19
[2019-12-20] MEDS: amLODIPine 10 MG TAB PO SCH (21:19)
[2019-12-20] MEDS: LORATADINE 10 MG TAB PO SCH (21:20)
[2019-12-21] VITALS: BP 99/56
[2019-12-21] MEDS: LEVALBUTEROL 1.25 MG/0.5 ML CONCENTRATE NEB NEB SCH ×2 (01:57→07:30)
[2019-12-21 04:00] VITALS: BP 131/64
[2019-12-21 04:53] LABS: BASO # 0.1 10^3/uL (0.0-0.2); BASO % 1.1 % (0.0-1.0); EOS # 0.4 10^3/uL (0.0-0.5); EOS % 7.6 % (0.0-3.0); HEMATOCRIT 41.1 % (36.0-47.0); HEMOGLOBIN 14.3 g/dl (12.0-15.5); LYMPH # 1.1 10^3/uL (1.5-5.0); LYMPH % 21.3 % (24.0-44.0); MEAN CORPUSCULAR HEMOGLOBIN 31.6 pg (27.0-33.0); MEAN CORPUSCULAR HGB CONC 34.8 g/dl (32.0-36.5); MEAN CORPUSCULAR VOLUME 90.9 fl (80.0-96.0); MONO # 0.5 10^3/uL (0.0-0.8); MONO % 8.8 % (0.0-5.0); NEUTROPHILS # 3.3 10^3/uL (1.5-8.5); NEUTROPHILS % 60.8 % (36.0-66.0); PLATELET COUNT, AUTOMATED 233 10^3/uL (150-450); RED BLOOD COUNT 4.52 10^6/uL (4.00-5.40); WHITE BLOOD COUNT 5.4 10^3/uL (4.0-10.0)
[2019-12-21 05:09] LABS: BLOOD UREA NITROGEN 27 MG/DL (7-18); CALCIUM LEVEL 8.9 MG/DL (8.8-10.2); CARBON DIOXIDE LEVEL 31 MEQ/L (21-32); CHLORIDE LEVEL 104 MEQ/L (98-107); CREATININE FOR GFR 0.72 MG/DL (0.55-1.30); GLOMERULAR FILTRATION RATE > 60.0 (>45); GLUCOSE, FASTING 119 MG/DL (70-100); POTASSIUM SERUM 3.6 MEQ/L (3.5-5.1); SODIUM LEVEL 138 MEQ/L (136-145)
[2019-12-21] MEDS: SLF 3 ML SYR IV SCH (06:29)
[2019-12-21] MEDS: HEPARIN SOD (PORCINE) 5000UNITS/ML 1ML VIAL/SYRINGE SC SCH (06:50)
[2019-12-21] MEDS: HumaLOG INSULIN (NovoLOG) PER UNIT SC SCH ×2 (07:30→12:00)
[2019-12-21 08:00] VITALS: BP 123/76
[2019-12-21] MEDS ORDERED: DOCU100C16 PO (08:55)
[2019-12-21] MEDS ORDERED: PERCOCET PO (08:55)
[2019-12-21] MEDS: PANTOPRAZOLE 40MG TAB (PROTONIX) PO SCH (08:59)
[2019-12-21 09:01] VITALS: BP 123/76
[2019-12-21] MEDS: MOM 30ML SUSPENSION UDC PO SCH (09:01)
[2019-12-21] MEDS: hydroCHLOROthiazide 25 MG TAB PO SCH (09:01)
[2019-12-21] MEDS: DOCUSATE SODIUM 100 MG CAP PO SCH (09:01)
[2019-12-21] MEDS: bisoproloL fumarate 10 MG TAB PO SCH (09:01)
[2019-12-21] MEDS: LOSARTAN 50MG TABLET PO SCH (09:01)
[2019-12-21 12:00] VITALS: BP 110/60
--- NOTE | 2019-12-21 12:29 | DS.PDOC ---
Discharge Summary General Date of Admission Dec 17, 2019 at 19:11 Date of Discharge 12/21/2019 Discharge Summary PROCEDURES PERFORMED DURING STAY: s/p left side chest tube (12/16) by Dr. Jean-Baptiste s/p right sided pigtail catheter (12/18) by Dr. Jean-Baptiste s/p Thyroid Biopsy (12/19) s/p Left breast biopsy (12/19) ADMITTING DIAGNOSES / DISCHARGE DIAGNOSES: SOB - likely 2/2 Bilateral Pleural Effusions s/p left side chest tube (12/16), s/p right sided pigtail catheter (12/18) - likely 2/2 malignant pleural effusion s/p Pneumothorax Breast mass with possible metastatic process to bone, liver, lungs s/p Hypotension Right thyroid lobe calcified mass NIDDM2 HTN Environmental Allergies DVT prophylaxis COMPLICATIONS/CHIEF COMPLAINT: Pleural Effusion. HISTORY OF PRESENT ILLNESS: Patient is a 64 year old female with a PMHx of HTN, NIDDM2, who presented to the ER with progressive SOB, associated with productive cough, weakness and bruising around her Left breast. Patient was advised by her PCP to present to the ER. Work up in the ED showed bilateral pleural effusions and spiculated left sided breast mass. Dr. Jean-Baptiste (CTS) and hospitalist service were called to evaluate and admit the patient. Patient had a chest tube placed on 12/16. 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 Ochoa; will have outpatient follow-up for treatment - Dr. Jean-Baptiste (CTS) on consultation; follow up within 7 days s/p Pneumothorax - CXR 12/19: small L apical pneumothorax - Cleared by CTS for discharge home and follow up within 7 days Breast mass with possible metastatic process to bone, liver, lungs - Imaging noted above - s/p Pleural fluid drainage; consistent with breast primary - s/p Breast biopsy (12/18); pathology pending - Oncology on consultation; will have outpatient follow-up for pathology results - Specific plans for chemotherapy s/p Hypotension - Mild post-procedural hypotension - s/p IV fluids Right thyroid lobe calcified mass - Imaging noted above - TSH WNL - Thyroid US were discussed with Radiologist - s/p Thyroid biopsy (12/18); pathology pending - Oncology on consultation; will have outpatient follow-up for pathology results NIDDM2 - c/w ISS HTN - c/w losartan, HCTZ, amlodipine and bisoprolol with holding parameters Environmental Allergies - c/w loratadine and nasal spray DVT prophylaxis - c/w Heparin DISCHARGE MEDICATIONS: Please see below. ALLERGIES: Please see below. PHYSICAL EXAMINATION ON DISCHARGE: Vitals (See below) General: Lying in bed, appears comfortable, AAOx3 HEENT: NC, AT CVS: RRR, +S1S2 Lungs: Mild crackles at bases bilaterally, R sided pigtail catheter Abdomen: Soft, non-distended, non-tender Extremities: No evidence of edema, - Calf tenderness LABORATORY DATA: Please see below. IMAGING: CT angio chest (12/16): 1. Left breast spiculated mass measuring 3.5 cm highly suspicious for breast cancer. 2. Pathologically enlarged left axillary lymph nodes suspicious for metastatic disease. 3. Multiple small pulmonary nodules scattered throughout both lungs. These measu re up to 7 mm in diameter and are highly suspicious for pulmonary metastases. 4. Bilateral pleural effusions and bilateral upper lobe and lower lobe atelectasis/consolidation. 5. Two indeterminate low-density hepatic lesions raising the suspicion for hepatic metastases. 6. Sclerotic bony metastatic disease. 7. Mild anterior wedge fracture deformity of the superior endplate of L1 consistent with pathological fracture. No retropulsed bony fragment or bony spinal stenosis. 8. Right thyroid lobe calcified mass measuring 4 cm. Follow-up evaluation with thyroid ultrasound is recommended. CT abdomen / pelvis (12/17): 1. There is a new right-sided pneumothorax, presumably related to interim th oracentesis, please correlate clinically. There is a large right-sided pleural effusion. There is a left-sided chest tube. There are bilateral pulmonary nodules consistent with metastatic disease. 2. There are several low-attenuation masses within the liver concerning for metastases in this patient with suspected breast cancer. 3. There is splenomegaly. 4. There are scattered sclerotic osseous metastases, reported previously. 5. There is a 2.9 cm right adnexal cyst. CT Head (12/17): No acute intracranial abnormality. Thyroid US (12/17): 1. Enlarged, heterogeneous, hyperemic thyroid gland with multiple nodules bilaterally, including cystic and solid lesions. The dominant lesion is at the right lower pole containing central calcification with indistinct margins. Together with indistinct margins of the right lobe upper pole anteriorly, and the findings of the recent CTA thorax exam, the possibility of metastasis to the thyroid must be considered. 2. Thyroid nuclear scintigraphy may provide additional diagnostic evaluation. CXR (12/19): Fairly stable appearance of the chest as compared with 1 day prior, including small left apical pneumothorax and small bilateral pleural effusions, again with bilateral chest tubes. Bibasilar atelectasis, left worse than right, with potential consolidation at the left base again present. ACTIVITY: [As tolerated]. DISCHARGE PLAN: Follow up with PCP, Dr. Ochoa and Dr. Jean-Baptiste within 7 days Remain compliant with treatment plan and medications Return to the ER if you experience any problems DISPOSITION: Home with services DISCHARGE CONDITION: [Stable]. TIME SPENT ON DISCHARGE: 35 minutes. Vital Signs/I&Os Vital Signs Date Time Temp Pulse Resp B/P (MAP) Pulse Ox O2 Delivery O2 Flow Rate FiO2 12/21/19 12:00 99.2 83 20 110/60 (77) 96 Room Air 12/20/19 08:48 2.0 l I&O- Last 24 Hours up to 6 AM 12/21/19 05:59 Intake Total 1320 ml Output Total 750 ml Balance 570 ml Laboratory Data Labs 24H Laboratory Tests 2 12/20/19 17:24: Bedside Glucose (Misc Panel) 169H 12/20/19 21:02: Bedside Glucose (Misc Panel) 189H 12/21/19 04:35: Immature Granulocyte % (Auto) 0.4, Neutrophils (%) (Auto) 60.8, Lymphocytes (%) (Auto) 21.3L, Monocytes (%) (Auto) 8.8H, Eosinophils (%) (Auto) 7.6H, Basophils (%) (Auto) 1.1H, Neutrophils # (Auto) 3.3, Lymphocytes # (Auto) 1.1L, Monocytes # (Auto) 0.5, Eosinophils # (Auto) 0.4, Basophils # (Auto) 0.1, Nucleated Red Blood Cells % (auto) 0.0, Anion Gap 3L, Glomerular Filtration Rate > 60.0, Calcium Level 8.9 CBC/BMP Laboratory Tests 12/21/19 04:35 FSBS Laboratory Tests Test 12/20/19 17:24 12/20/19 21:02 Range/Units Bedside Glucose (Misc Panel) 169 189 80-115 MG/DL Microbiology Microbiology 12/17/19 Acid Fast Stain, Received Pending 12/17/19 Mycobacterial Culture, Received Pending 12/17/19 Fungal Smear, Received Pending 12/17/19 Fungal Culture, Received Pending 12/17/19 Gram Stain - Final, Complete 12/17/19 Anaerobic Culture - Final, Complete 12/17/19 Body Fluid Culture - Final, Complete Discharge Medications Scheduled Amlodipine Besylate (Amlodipine Besylate) 10 Mg Tablet, 10 MG PO QHS, (Reported) Aspirin (Aspirin) 325 Mg Tablet, 325 MG PO DAILY, (Reported) Bisoprolol Fumarate (Bisoprolol Fumarate) 10 Mg Tablet, 10 MG PO BID, (Reported) Docusate Sodium (Docusate Sodium) 100 Mg Capsule, 100 MG PO BID Loratadine (Loratadine) 10 Mg Tablet, 10 MG PO QHS, (Reported) Metformin HCl (Metformin HCl) 500 Mg Tablet, 500 MG PO QAM, (Reported) Metformin HCl (Metformin HCl) 500 Mg Tablet, 1,000 MG PO QHS, (Reported) Scheduled PRN Albuterol Sulfate (Ventolin Hfa) 18 Gm Hfa.aer.ad, 2 PUFFS INH QID PRN for SOB/WHEEZING, (Reported) Fluticasone Propionate (Flonase Allergy Relief) 9.9 Ml Barney.susp, 2 SPRAY NARES DAILY PRN for CONGESTION, (Reported) Oxycodone/Acetaminophen (Oxycodone-Acetaminophen 5-325) 1 Each Tablet, 1 TAB PO Q6H PRN for MODERATE PAIN (PS 5-7) Allergies Coded Allergies: Penicillins (Verified Allergy, Unknown, SWELLING, ASTHMA, 12/17/19) PJ LEWIS MD Dec 21, 2019 12:29
--- NOTE | 2019-12-22 12:53 | IPN ---
DATE: 12/20/2019 SUBJECTIVE: Ms. Alvarez is breathing well. She is being weaned off her O2. Her pain is being well controlled at the chest tube insertion site. Her vital signs show T-max of 99.6 with a heart rate that ranges between 81 and 95 and in sinus rhythm, respiratory rate of 18 to 26 without the use of accessory muscles, who is 93 to 97% saturated; now on 2 liters nasal cannula down from 4 liters nasal cannula. Her blood pressure is ranging between 126/66 to 95/52. Her intake and output over the past 24 hours has been recorded as 720 in and 1860 out, for negativity of 1100 cc. She put out 1,000 cc from the PleurX drainage yesterday. She is only recorded as taking in 720 cc in p.o. intake. Her weight today is 93.6 kilos compared to 93.8 kilos yesterday. PHYSICAL EXAMINATION: Her lungs show decreased E to A egophony in the left lower hemithorax with a percussion that is full to the diaphragm. Right lung shows equal breath sounds throughout with very faint inspiratory rales at the very end of expiration. There is no subcutaneous emphysema. Cardiac exam is without murmurs, clicks, gallops or rubs. I cannot feel her PMI. S1, S2 are normal. Abdomen is soft, nontender, bowel sounds positive. There is no hepatomegaly. No CVA tenderness. Extremities show no pretibial edema, no calf tenderness, 0no differential swelling of the upper extremities. Skin is warm, dry and well-perfused without cyanosis or mottling including of the nail beds and knees. Neck is supple, there is no jugular venous distention, no subcutaneous emphysema, trachea is midline. Mouth shows mucous membranes to be pink and moist, lips and commissures with no thrush. Eyes show her pupils to be equal and reactive, extraocular muscles intact, sclerae nonicteric. Neurological shows II-XII intact, intact gross motor, gross sensation intact, gait is not tested. Psychiatric shows her to be awake, alert, oriented x3 with appropriate mood and affect and conversational. LABORATORY DATA: White count today 6.0 with hemoglobin and hematocrit 13.9 and 40.1 respectively and platelet count 229,000, Differential shows 67% neutrophils, 17% lymphocytes, 8% monocytes. There are no immature forms, no toxic granulations. Her electrolytes are normal with a BUN and creatinine of 25 and 0.75, glucose 125 and calcium 8.7. IMAGING STUDIES: Chest x-ray today still shows a vague opacity in the left lower hemithorax, consistent with consolidation and/or atelectasis and/or compression atelectasis from her pleural effusion. She is continuing to use her incentive spirometry. Lateral chest x-ray showed sharp costophrenic angles. IMPRESSION: 1. Bilateral malignant pleural effusions. 2. Breast mass left upper quadrant. 3. Multiple pulmonary nodules. 4. Multiple axial skeletal sclerotic lesions. 5. Liver lesions. 6. Diabetes. 7. Hypertension. I have spoken with Dr. Dickerson of pathology and she has come back ER positive. Remaining markers are pending and have been sent out. This looks to be metastatic breast cancer with bilateral pleural effusions. I will discontinue her chest tube today as it has put out very little, mainly 160 cc yesterday without an air leak. No doubt the pleural effusion will reaccumulate and when it does, I will place a PleurX catheter. Medical oncology has seen her in consultation and will plan for systemic therapy accordingly. ALICE
--- NOTE | 2019-12-22 12:55 | IPN ---
DATE: 12/21/2019 Ms. Alvarez has had a fairly comfortable night, although she is coughing more. She is not bringing up sputum. Her vital signs show a maximal temperature of 98.9 with a heart rate that ranges between 79-84 in sinus rhythm, respiratory rate of 16-20 without the use of accessory muscles, who is 92%-94% saturated on room air and whose blood pressure is ranging between 131/64-99/56. Her intake and output: over the past 24 hours has been recorded as 1620 in and 1150 out, for a positivity of 470 mL. Weight today is 92.7 kg compared to 93.6 kg yesterday. She has drained 350 mL from her PleurX catheter this morning. Yesterday she drained 650 mL. Nursing staff have taught her how to drain the PleurX catheter. PHYSICAL EXAMINATION: Her lungs show equal breath sounds on either side. She has coarse crackles and slight succussion splash on the right side. Her left side shows normal vesicular sounds without wheezes, rhonchi, or rales. Percussion notes are full to the diaphragm. Cardiac exam is without murmurs, clicks, gallops, or rubs. I cannot feel her point of maximal impulse (PMI). S1 and S2 are normal. Abdomen is soft and nontender. Bowel sounds are positive. There is no hepatomegaly. No costovertebral angle (CVA) tenderness. Extremities show no pretibial edema, no calf tenderness, no differential swelling of the upper extremities. Skin is warm, dry, and perfused without cyanosis or mottling. Neck is supple. There is no jugular venous distention. No subcutaneous emphysema. Trachea is midline. Mouth shows her mucous membranes to be pink and moist. Lips and gums are without lesions. Eyes show pupils equal and reactive. Extraocular muscles intact. Sclerae anicteric. Neurologic shows II-XII intact. Motor normal, gross sensation intact. Gait is not tested. Psychiatric shows her to be awake, alert, and oriented times three with appropriate mood and affect and conversational. Her white count today is 5.4 with a hemoglobin and hematocrit of 14.3 and 41.1, stable from yesterday with a platelet count of 233 and stable. Differential shows 60% neutrophils, 21% lymphocytes, 8% monocytes. There are no immature forms or toxic granulations. Electrolytes are normal with a BUN and creatinine of 27 and 0.72, a glucose of 199, and a calcium 8.9. Chest x-ray today is improved. The left lower hemithorax opacity is clearing. I cannot see the left hemidiaphragm. The right side shows sharp costophrenic angles with the PleurX catheter in good place. Lateral chest x-ray shows no evidence of a pleural effusion on either side. There are no infiltrates. IMPRESSION: 1. Metastatic breast carcinoma, ER positive. Further markers pending. 2. Breast mass, left upper quadrant. 3. Multiple pulmonary nodules. 4. Multiple axial skeletal sclerotic lesions. 5. Liver lesions. 6. Diabetes. 7. Hypertension. PLAN AND DISCUSSION: I see no reason why Ms. Alvarez cannot go home today. Oncology has seen her and is awaiting further tumor markers to return. She has an appointment with oncology for followup. She will return to see me in 1 week with a chest x-ray to evaluate the left side again. She may need an additional PleurX catheter. ALICE
--- NOTE | 2019-12-23 13:08 | ECGEPIP ---
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 Order Number: [id number] Reading MD: Sarah Hernandez Measurements Intervals [place] Rate: 83 P: 9 NM: 198 QRS: 8 QRSD: 77 T: -5 QT: 313 QTc: 369 Interpretive Statements SINUS RHYTHM LOW QRS VOLTAGE IN PRECORDIAL LEADS ANTEROSEPTAL MYOCARDIAL INFARCTION, PROBABLY OLD ABNORMAL ECG HOB ELEVATED SEE SCANNED DOWNTIME REPORT
--- NOTE | 2020-01-06 09:11 | RO ---
DATE OF OPERATION: 12/17/2019 PREOPERATIVE DIAGNOSIS: Pleural effusion. POSTOPERATIVE DIAGNOSIS: Pleural effusion. PROCEDURE: Insertion of left lateral chest tube. SURGEON: Reginaldo Jean-Baptiste M.D. SVP MARKETING: Adam Drake DO FINDINGS: The chest tube eluded 1900 mL of serous fluid. Fluid was sent for requisite chemistries, hematologies, cytologies and bacteriologies. PROCEDURE: Under satisfactory moderate sedation was achieved with 3 mg of Versed. The patient was prepped and draped in the usual sterile fashion. Incision was made in the axillary line near the inframammary fold. A tunnel was created in the chest without difficulty and a #24 chest tube was placed without difficulty. Chest tube was secured to the chest wall with #2 Tevdek suture. The patient tolerated the procedure well and chest x-ray is pending. [facility]
--- NOTE | 2020-01-06 10:21 | RO ---
DATE OF OPERATION: 12/19/2019 PREPROCEDURE DIAGNOSIS: Malignant right pleural effusion. POSTPROCEDURE DIAGNOSIS: Malignant right pleural effusion. SURGEON: Reginaldo Jean-Baptiste MD. PROCEDURE: Insertion of a right PleurX catheter with moderate sedation. DESCRIPTION OF PROCEDURE: Under satisfactory moderate sedation achieved with 4 mg of Versed, the patient was prepped and draped in the usual sterile fashion. Entry and exit points were marked. The entry point was again infiltrated with 1% lidocaine along with the proposed tunnel and exit point. Needle was placed into the pleural cavity with production of clear yellow fluid. A guiding wire was placed. Two incisions were made at the exit sites. A tunnel was created between the exit and entry site, and PleurX catheter pulled through the tunnel and appropriately positioned. The catheter tract was then dilated, and along with a peel-away introducer, the end of the PleurX catheter was placed into the pleural cavity. It was again properly positioned. The catheter was secured to the abdominal wall with 3-0 silk suture, and the incision was closed with running 4- 0 Monocryl subcuticular suture. The wound was dressed with Dermabond. The patient tolerated the procedure well, and a chest x-ray is pending. 1,000 mL of clear fluid was removed from the chest and will be sent for the requisite studies of cytology, bacteriologies, hematologies, and chemistries. [facility]
--- NOTE | 2020-01-07 14:43 | REP ---
CHEST X-RAY: 12/18/19 CLINICAL: Pleural effusions. TECHNIQUE: PA and lateral COMPARISON: 12/17/19 FINDINGS: Left sided chest tube is stable position. Very small residual left apical pneumothorax cannot be excluded. Bilateral lower lobe opacities consistent with moderate pleural effusions and bibasilar atelectasis/consolidations. The findings appear increased from prior examination. The mediastinum and cardiac silhouette are incompletely evaluated due to overlying opacities. Skeletal structures intact. IMPRESSION: Increasing bilateral lower lobe opacities consistent with moderate to large pleural effusions and associated lower lobe atelectasis/consolidations. MTDD
--- NOTE | 2020-01-07 14:44 | REP ---
CHEST X-RAY: 12/19/19 CLINICAL: Pleural effusion. COMPARISON: 12/18/19. TECHNIQUE: PA and lateral. FINDINGS: Moderate bilateral pleural effusions with associated lower lobe atelectasis/consolidations are appreciated. There is a new small to moderate right apical pneumothorax. The left pneumothorax appear resolved. Left chest tube is in stable position. Skeletal structures stable. Mediastinum and cardiac silhouette incompletely evaluated due to overlying opacities. IMPRESSION: 1. Small to moderate new right sided pneumothorax. 2. Bilateral moderate pleural effusions and bibasilar consolidations/atelectasis essentially unchanged. 3. Left chest tube in stable condition. No obvious residual left apical pneumothorax noted. MTDD
[2020-01-07] MEDS ORDERED: LETR2.5T2 PO (15:58)
[2020-01-07] MEDS ORDERED: IBRA125C PO (16:01)
--- NOTE | 2020-01-07 17:49 | REP ---
ULTRASOUND-GUIDED RIGHT THYROID BIOPSY The procedure was performed under the direct supervision of Dr. Ribera. Patient has a history of a right thyroid mass seen on a previous ultrasound dated 12/18/2019. The risks and benefits of the procedure were explained to the patient and informed consent was obtained. The right thyroid nodule was localized using ultrasound guidance. The skin was prepped and draped in a sterile fashion. 1% Lidocaine was used as a local anesthetic. Using ultrasound guidance, four fine needle aspirations were obtained using 25 gauge needles. The patient tolerated the procedure well, and there were no immediate complications. After the appropriate amount of monitored convalescence, the patient was discharged from the department. ALICE
--- NOTE | 2020-01-07 17:51 | REP ---
ULTRASOUND-GUIDED LEFT BREAST BIOPSY The procedure was performed under the direct supervision of Dr. Ribera. The patient has a history of a left breast mass seen on a previous CT scan dated 12/19/2019. The risks and benefits of the procedure were explained to the patient and informed consent was obtained. The left breast mass was localized using ultrasound guidance. The skin was prepped and draped in a sterile fashion. 1% Lidocaine was used as a local anesthetic. Using ultrasound guidance, a 14 gauge coaxial needle biopsy system was inserted and advanced into the mass. Five core biopsy samples were obtained and sent to the lab. A marker clip was placed at the biopsy site. The patient tolerated the procedure well and there were no immediate complications. After the appropriate amount of monitored convalescence, the patient was discharged from the department. ALICE
--- NOTE | 2020-01-07 17:54 | REP ---
CHEST X-RAY: CLINICAL: Pleural effusion. TECHNIQUE: PA and lateral COMPARISON: 12/20/19 at 7:52 AM FINDINGS: The previously noted chest tube has been removed. The right chest tube is in stable position. The lung dan demonstrate mildly improved aeration. Continued evidence for perihilar and lower lobe atelectasis along with small left pleural reaction are noted and appear improved. The previously noted right pleural effusion appears improved. A small residual right pneumothorax is suspected. IMPRESSION: 1. Bibasilar opacities including atelectasis and pleural effusions appear improved. 2. Left chest tube removed. 3. Right chest tube in stable position with small residual right pneumothorax. MTDD
== END 2019-12-21 12:50 | disposition home health service (06) | DRG 382 ==
LOC: M ED 13:56 → M ED INP 19:11 → MERGE 19:11 → M PCU 20:18
PROVIDERS: ADMIT Internal Medicine; ATTEND Internal Medicine
PROC: 0W9B30Z Drainage of Left Pleural Cavity with Drainage Device, Percutaneous Approach (ICD-10-PCS; 2019-12-17)
PROC: 0GBH3ZX Excision of Right Thyroid Gland Lobe, Percutaneous Approach, Diagnostic (ICD-10-PCS; principal; 2019-12-20)
PROC: 0HBU3ZX Excision of Left Breast, Percutaneous Approach, Diagnostic (ICD-10-PCS; 2019-12-20)
DX: C50.412 Malignant neoplasm of upper-outer quadrant of left female breast (principal); J91.0 Malignant pleural effusion; C78.00 Secondary malignant neoplasm of unspecified lung; C78.7 Secondary malignant neoplasm of liver and intrahepatic bile duct; I95.89 Other hypotension; C79.51 Secondary malignant neoplasm of bone; J93.83 Other pneumothorax; I10 Essential (primary) hypertension; E11.9 Type 2 diabetes mellitus without complications; D34 Benign neoplasm of thyroid gland; Z79.899 Other long term (current) drug therapy; Z79.82 Long term (current) use of aspirin; Z88.0 Allergy status to penicillin

== ENCOUNTER → 2019-12-27 | Outpatient (CLI) | payer BC, OTHER ==
[~2019-12-27] MED LIST: AMLO1TAB25 PO; AMLO25TA PO; ASPI325T57 PO; BENZ-18 PO; BENZ200C70 PO; BISO10TA14 PO; CALC1TAB42 PO; CEPH500C PO; DOCU100C16 PO; FEMA2.5T4 PO; FLON1SPR; FOLI1TAB11 PO; FURO20TA2 PO; HYDR12.55 PO; IBRA125C PO; KLOR10TA76 PO; LETR2.5T2 PO; LORA-674 PO; LOSA100T5 PO; LOSA25TA14 PO; METF500T13 PO; MM S100C PO; PATIENT COMMENT; PERCOCET PO; POTA20TA6 PO; THIA100T7 PO; VENTAER INH; VITA400C56 PO; VITA500T21 PO; VITMTA PO
--- NOTE | 2020-02-12 13:46 | REP ---
HISTORY: Malignant pleural effusion. FINDINGS: There are small bilateral pleural effusions blunting the lateral and posterior pleural angles. A large calcified right thyroid nodule is again seen with associated tracheal deviation to the left at the thoracic inlet unchanged. There are small bilateral pulmonary nodules consistent with metastatic disease as seen on chest CT. A PleurX catheter is noted in the right pleural space. MTDD
== END ==
LOC: M CLY 12:07
PROVIDERS: ATTEND Thoracic Surgery (Cardiothoracic Vascular Surgery)
DX: J90 Pleural effusion, not elsewhere classified (principal); E04.1 Nontoxic single thyroid nodule; R91.1 Solitary pulmonary nodule; Z97.8 Presence of other specified devices

== ENCOUNTER 2020-01-13 18:07 | Inpatient (IN) | payer BC, OTHER, MEDICARE ==
[~2020-01-13] VITALS: Ht 165.1 cm; Wt 97.0 kg
[~2020-01-13 18:07] MED LIST changes: -BENZ-18 PO; -BENZ200C70 PO; -CALC1TAB42 PO; -CEPH500C PO; -FEMA2.5T4 PO; -FOLI1TAB11 PO; -FURO20TA2 PO; -KLOR10TA76 PO; -MM S100C PO; -PATIENT COMMENT; -POTA20TA6 PO; -THIA100T7 PO; -VITA400C56 PO; -VITA500T21 PO; -VITMTA PO
[2020-01-13] MEDS ORDERED: NS 1,000 ML IV ONE (19:00)
[2020-01-13] MEDS ORDERED: ACETAMINOPHEN 325 MG TAB PO ONE (19:00)
[2020-01-13] MEDS ORDERED: VANCOMYCIN HCL 2,000 MG in D5W 500 ML IV ONE (19:00)
[2020-01-13] MEDS ORDERED: MEROPENEM INJ 1 GM in IV 1 EA IV ONE (19:00)
[2020-01-13] MEDS ORDERED: IPRATROPIUM 0.5MG/ALBUTEROL 2.5MG INH SOL UD 3ML (DUONEB) NEB ONE (19:15)
[2020-01-13 19:47] LABS: BASO % 0.2 % (0.0-1.0); HEMATOCRIT 44.5 % (36.0-47.0); LYMPH # 0.5 10^3/uL (1.5-5.0); LYMPH % 3.5 % (24.0-44.0); MEAN CORPUSCULAR HEMOGLOBIN 31.3 pg (27.0-33.0); MEAN CORPUSCULAR VOLUME 87.1 fl (80.0-96.0); MONO # 0.5 10^3/uL (0.0-0.8); MONO % 3.8 % (0.0-5.0); NEUTROPHILS # 11.9 10^3/uL (1.5-8.5); NEUTROPHILS % 92.3 % (36.0-66.0); PLATELET COUNT, AUTOMATED 224 10^3/uL (150-450); RED BLOOD COUNT 5.11 10^6/uL (4.00-5.40); WHITE BLOOD COUNT 12.9 10^3/uL (4.0-10.0)
[2020-01-13] MEDS ORDERED: VANCOMYCIN HCL 1,000 MG, VIAL MATE ADAPTER 1 EACH in D5W 250 ML IV ONE ×6 (20:00)
--- NOTE | 2020-01-13 20:01 | ECGEPIP ---
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
[2020-01-13 20:26] LABS: ALBUMIN 3.1 GM/DL (3.2-5.2); BILIRUBIN,DIRECT 0.2 MG/DL (0.0-0.2); BILIRUBIN,TOTAL 0.7 MG/DL (0.2-1.0); THYROID STIMULATING HORMONE 0.417 uIU/ML (0.358-3.740); THYROXINE (T4) 9.3 UG/DL (4.5-12.0); TOTAL PROTEIN 6.3 GM/DL (6.4-8.2)
[2020-01-13] MEDS ORDERED: ISOVUE-370 76% 100ML VIAL As Ordered ONE (20:42)
[2020-01-13] MEDS ORDERED: HumaLOG INSULIN (NovoLOG) PER UNIT SC SCH (21:00)
--- NOTE | 2020-01-13 22:32 | REPVR ---
PROCEDURE INFORMATION: Exam: CT Angiography Chest With Contrast Exam date and time: 01/13/2020 9:20 PM Age: 64 years old Clinical indication: Chest pain; Additional info: Fever, pleuracath, red area ruq - RO infecitous etiology TECHNIQUE: Imaging protocol: Computed tomographic angiography of the chest with intravenous contrast. 3D rendering (Not supervised by radiologist): MIP and/or 3D reconstructed images were created by the technologist. Radiation optimization: All CT scans at this facility use at least one of these dose optimization techniques: automated exposure control; mA and/or kV adjustment per patient size (includes targeted exams where dose is matched to clinical indication); or iterative reconstruction. Contrast material: ISOVUE 370; Contrast volume: 100 ml; Contrast route: INTRAVENOUS (IV); COMPARISON: CT ANGIO CHEST 12/17/2019 3:07 PM FINDINGS: Pulmonary arteries: There is opacification of the pulmonary arteries with no evidence of pulmonary embolus. The heart is normal in size and there is a small pericardial effusion Aorta: There is opacification of the aorta which appears intact. Thyroid: There is a 5 cm mass of the right lobe of the thyroid with heavy central calcification displacing the trachea to the left. Lungs: There are small pulmonary nodules throughout the right lung consistent with small metastatic nodules. Pleural space: There is a very small amount of residual pneumothorax at the right apical portion of lung. A chest tube is coiled at the right lung base. There are prominent loculations of pleural fluid bilaterally with a concentration of pleural fluid in the subpulmonic location bilaterally. Lymph nodes: There is a 4 cm spiculated mass lesion of the left breast consistent with malignant neoplasm of the breast with associated enlarged axillary lymph nodes/severe malignant lymphadenopathy. In addition there is prominent skin thickening of the left breast consistent with malignant skin thickening and new since 12/17/2019. Intraperitoneal space: There are multiple lobulations fluid throughout the major and minor fissure on the right. Bones/joints: There are blastic lesions throughout the vertebra consistent with blastic metastasis. IMPRESSION: 1. No evidence of pulmonary embolus. 2. Multiple large loculations of pleural fluid on the right and moderate left pleural effusion. 3. Right-sided chest tube with a small amount of remaining right pneumothorax. 4. Multiple metastatic nodules right upper lung. 5. Blastic metastasis throughout the vertebra 6. 4 cm malignant mass of the left breast with associated spiculation and skin retraction and thickening. Also severe left axillary malignant lymphadenopathy. Electronically signed by: Willi Westfall On 01/13/2020 22:32:01 PM
[2020-01-13] MEDS ORDERED: FEMA2.5T4 PO (22:53)
--- NOTE | 2020-01-13 22:54 | REPVR ---
PROCEDURE INFORMATION: Exam: CT Abdomen And Pelvis With Contrast Exam date and time: 01/13/2020 9:20 PM Age: 64 years old Clinical indication: Abdominal pain; Additional info: Fever, pleuracath, red area ruq - RO infecitous etiology TECHNIQUE: Imaging protocol: Computed tomography of the abdomen and pelvis with intravenous contrast. Radiation optimization: All CT scans at this facility use at least one of these dose optimization techniques: automated exposure control; mA and/or kV adjustment per patient size (includes targeted exams where dose is matched to clinical indication); or iterative reconstruction. Contrast material: ISOVUE 370; Contrast volume: 100 ml; Contrast route: INTRAVENOUS (IV); COMPARISON: CT ABD PELVIS WITH CONTRAST 12/18/2019 3:18 PM FINDINGS: Lungs: Large loculations of fluid in the lung bases greater on the right. Liver: There are 3 low-density lesions within the liver unchanged since 12/18/2019 and these may be benign or malignant. Gallbladder and bile ducts: Sludge and gravel-like gallstones in the dependent portion of the gallbladder. Normal common bile duct. Pancreas: Normal size pancreas. Spleen: Mild enlargement of the spleen. Adrenals: Normal adrenal glands. Kidneys and ureters: There is enhancement of both kidneys. A There is no evidence of hydronephrosis. Stomach and bowel: There are loops of small bowel left upper quadrant with a few air-fluid levels which may be the result of mild ileus. Intraperitoneal space: Unremarkable. No free air. No significant fluid collection. Vasculature: Opacification of the aorta which appears normal in size. Lymph nodes: There are multiple small mesenteric lymph nodes. Urinary bladder: Normal urinary bladder. Reproductive: Uterus is bulbous with multiple calcifications consistent with fibroid changes. 3 cm cyst right ovary. Bones/joints: Blastic and lytic metastases through the spine, pelvis and both hips. IMPRESSION: 1. 3 small liver lesions unchanged. 2. Mild splenomegaly. 3. Possible mild ileus. 4. Blastic and lytic metastases of the lower lumbar spine and multiple round blastic lesions through the pelvis and right and femur. Electronically signed by: Willi Westfall On 01/13/2020 22:53:42 PM
[2020-01-13] MEDS ORDERED: VITMTA PO (22:55)
[2020-01-13] MEDS ORDERED: VITA500T21 PO (22:55)
[2020-01-13] MEDS ORDERED: CALC1TAB42 PO (22:55)
[2020-01-13] MEDS ORDERED: THIA100T7 PO (22:55)
[2020-01-13] MEDS ORDERED: VITA400C56 PO (22:55)
[2020-01-13] MEDS ORDERED: PATIENT COMMENT (22:56)
--- NOTE | 2020-01-13 22:57 | REPVR ---
PROCEDURE INFORMATION: Exam: XR Chest, 1 View Exam date and time: 01/13/2020 9:48 PM Age: 64 years old Clinical indication: Cough and dyspnea; Additional info: Dyspnea/cough TECHNIQUE: Imaging protocol: XR of the chest Views: 1 view. COMPARISON: CT ANGIO CHEST 01/13/2020 9:15 PM FINDINGS: Tubes, catheters and devices: Right-sided chest tube remains in place. The CT demonstrated a small right pneumothorax remaining. Lungs: There is atelectasis and pneumonia in both lung bases greater on the right. Pleural space: There is a moderate-sized right pleural effusion with loculations of fluid. The amount of fluid has decreased since the earlier exams. Moderate left pleural effusion. IMPRESSION: 1. Moderate bilateral pleural effusions. 2. Atelectasis and pneumonia in the lung bases. 3. Very small amount of right pneumothorax seen on CT with a right chest tube in place. 4. Blastic bone metastases. Electronically signed by: Willi Westfall On 01/13/2020 22:57:34 PM
--- NOTE | 2020-01-13 23:55 | HPEPDOC ---
[facility] Medical History & Physical Date of Admission Jan 14, 2020 Date of Service: Jan 14, 2020 Primary Care Physician: ALETHEA HERRERA PA-C Attending Physician: TRAVON HARRINGTON MD History and Physical TIME OF SERVICE: 1202am CHIEF COMPLAINT: dyspnea HISTORY OF PRESENT ILLNESS: This 64 yr old F presented w c/o dyspnea, fever and chills that begun yesterday afternoon. She also had right sided chest pain, redness and swelling and vomiting. She last changed the dressings covering her pleurex cath the during the day prior to arrival in the ER. 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 HOME MEDICATIONS: Please see below. PHYSICAL EXAMINATION: Vital Signs Date Time Temp Pulse Resp B/P (MAP) Pulse Ox O2 Delivery O2 Flow Rate FiO2 01/13/20 18:35 117/65 (82) 01/13/20 18:36 101.8 106 22 94 Room Air 01/13/20 18:40 93 01/13/20 21:30 1.0 GEN: well-nourished / well developed/ NAD INTEGUMENT: not flushed/ redness at right side of chest / pleurex catheter covered with clean and dry dressings HEENT: mucus membranes moist and pink CVS: RRR/NMRG/ radial pulses intact LUNGS: able to speak full sentences without stopping to take a breath / no coughing / lungs are clear to auscultation bilaterally on room air ABDOMEN: Contour (obese) soft & not tender with palpation MSK/EXTREMITIES: NCAT / range of motion intact in all 4 extremities NEURO: CN 2-12 are grossly intact / speech is not dysarthric / strength is 5/5 PSYCH: alert and oriented to person place and time/ able to understand and follow all commands LABORATORY DATA: 01/13/20 19:35 01/13/20 19:35: Immature Granulocyte % (Auto) 0.2, Neutrophils (%) (Auto) 92.3H, Lymphocytes (%) (Auto) 3.5L, Monocytes (%) (Auto) 3.8, Eosinophils (%) (Auto) 0.0, Basophils (%) (Auto) 0.2, Neutrophils # (Auto) 11.9H, Lymphocytes # (Auto) 0.5L, Monocytes # (Auto) 0.5, Eosinophils # (Auto) 0.0, Basophils # (Auto) 0.0, Nucleated Red Blood Cells % (auto) 0.0 01/13/20 19:36: Total Bilirubin 0.7, Direct Bilirubin 0.2, Aspartate Amino Transf (AST/SGOT) 14, Alanine Aminotransferase (ALT/SGPT) 19, Alkaline Phosphatase 74, WC-Pcb-P-Type Natriuretic Peptide 283H, Total Protein 6.3L, Albumin 3.1L, Albumin/Globulin Ratio 1.0L, Thyroid Stimulating Hormone (TSH) 0.417, Thyroxine (T4) 9.3 IMAGING: Chest xray "IMPRESSION: 1. Moderate bilateral pleural effusions. 2. Atelectasis and pneumonia in the lung bases. 3. Very small amount of right pneumothorax seen on CT with a right chest tube in place. 4. Blastic bone metastases. CT chest "IMPRESSION: 1. No evidence of pulmonary embolus.2. Multiple large loculations of pleural fluid on the right and moderate left pleural effusion. 3. Right-sided chest tube with a small amount of remaining right pneumothorax. 4. Multiple metastatic nodules right upper lung. 5. Blastic metastasis throughout the vertebra 6. 4 cm malignant mass of the left breast with associated spiculation and skin retraction and thickening. Also severe left axillary malignant lymphadenopathy." CT abd/pelvis "IMPRESSION: 1. 3 small liver lesions unchanged. 2. Mild splenomegaly. 3. Possible mild ileus. 4. Blastic and lytic metastases of the lower lumbar spine and multiple round blastic lesions through the pelvis and right and femur." MICROBIOLOGY: 01/13/20 Respiratory Virus Panel (PCR) ([facility]) - Final, Complete 01/13/20 Blood Culture, Received Pending 01/13/20 Blood Culture, Received Pending ASSESSMENT: is a 64 yr old w a hx of metastatic breast cancer w pleural effusions w catheter placement, HTN and DM who presented w dyspnea, fever and chills and was diagnosed with sepsis. PLAN: 1. Sepsis Possibly 2/2 loculated pleural effusions vs cellulitis SIRS criteria fever, tachycardia and tachypnea Plan: c/w vanc and meropenum / consult CT to determine if the chest tube needs to be adjusted and if she should have alteplase injected into the effusion to b reak up the loculations 2. NIDDM Plan: diabetic diet / f/u accuchecks & A1C / hypoglycemia protocol / sliding scale insulin / hold oral anti-glycemics 3. HTN Plan: bc her BP is low we will hold amlodipine 4. Alcohol Use Plan: CIWA protocol DVT PROPHYLAXIS: lovenox DISPOSITION: home after more than 2 midnight's stay Home Medications Scheduled Amlodipine Besylate (Amlodipine Besylate) 10 Mg Tablet, 10 MG PO QHS Ascorbic Acid (Vitamin C with Whit Hips) 500 Mg Tablet, 500 MG PO DAILY Aspirin (Aspirin) 325 Mg Tablet, 325 MG PO DAILY Bisoprolol Fumarate (Bisoprolol Fumarate) 10 Mg Tablet, 10 MG PO BID Calcium Carbonate/Vitamin D3 (Calcium 500-Vit D3 600 Tablet) 1 Each Tablet, 1 TAB PO DAILY Letrozole (Letrozole) 2.5 Mg Tablet, 1 TAB PO DAILY Loratadine (Loratadine) 10 Mg Tablet, 10 MG PO QHS Metformin HCl (Metformin HCl) 500 Mg Tablet, 500 MG PO DAILY Metformin HCl (Metformin HCl) 500 Mg Tablet, 1,000 MG PO QHS Multivitamins (Thera M Plus Tablet) 1 Each Tablet, 1 TAB PO DAILY Palbociclib (Ibrance) 125 Mg Capsule, 125 MG PO DAILY Thiamine HCl (Thiamine HCl) 100 Mg Tablet, 100 MG PO DAILY Vitamin E (Vitamin E) 400 Unit Capsule, 400 UNIT PO DAILY Scheduled PRN Albuterol Sulfate (Ventolin Hfa) 18 Gm Hfa.aer.ad, 2 PUFFS INH QID PRN for SOB/WHEEZING Fluticasone Propionate (Flonase Allergy Relief) 9.9 Ml [place].susp, 2 SPRAY NA DAILY PRN for NASAL CONGESTION Miscellaneous Medications [Patient Comment] PATIENT HAS NOT STARTED THE IBRANCE YET Allergies Coded Allergies: Penicillins (Verified Allergy, Unknown, SWELLING, ASTHMA, 12/17/19) A-FIB/CHADSVASC A-FIB History Current/History of A-Fib/PAF?: No Current PO Anticoag Therapy: No TRAVON HARRINGTON MD Jan 13, 2020 23:55
[2020-01-14] VITALS (7 sets, daily range): BP systolic 90–153; BP diastolic 50–80
[2020-01-14] MEDS ORDERED: MAALOX 30 ML SUSP *UDC PO PRN
[2020-01-14] MEDS ORDERED: LR 1,000 ML IV ONE
[2020-01-14] MEDS ORDERED: MOM 30ML SUSPENSION UDC PO PRN
[2020-01-14] MEDS ORDERED: GLUCAGON INJ 1MG VIAL SC PRN (00:45)
[2020-01-14] MEDS ORDERED: GLUCOSE 4GM CHEW TABLET PO PRN (00:45)
[2020-01-14] MEDS ORDERED: LORazepam 2 MG TAB PO PRN (00:45)
[2020-01-14] MEDS ORDERED: FLUTICASONE PROP 0.05% NASAL SPRAY 16 GM (FLONASE) PRN (00:45)
[2020-01-14] MEDS ORDERED: DEXTROSE 50% 50 ML SYRINGE IV PRN (00:45)
[2020-01-14] MEDS ORDERED: ALBUTEROL 90 MCG/ACT 8GM HFA INHALER INH PRN (00:45)
[2020-01-14 01:19] LABS: CREATININE FOR GFR 0.72 MG/DL (0.55-1.30); GLOMERULAR FILTRATION RATE > 60.0 (>45); TROPONIN I < 0.02 NG/ML (< 0.10)
[2020-01-14] MEDS ORDERED: LR 1,000 ML IV SCH (01:30)
[2020-01-14] MEDS ORDERED: bisoproloL fumarate 5 MG TAB As Ordered ONE (02:27)
[2020-01-14] MEDS: THIAMINE 100 MG TAB PO SCH ×3 (02:32→20:07)
[2020-01-14] MEDS: LORATADINE 10 MG TAB PO SCH ×2 (02:32→20:07)
[2020-01-14] MEDS: bisoproloL fumarate 10 MG TAB PO SCH ×3 (02:35→20:07)
[2020-01-14] MEDS ORDERED: BENZONATATE 100 MG CAP PO SCH (04:15)
[2020-01-14] MEDS: BENZONATATE 100 MG CAP PO PRN ×3 (04:50→20:07)
[2020-01-14 06:06] LABS: HEMATOCRIT 45.3 % (36.0-47.0); HEMOGLOBIN 15.3 g/dl (12.0-15.5); MEAN CORPUSCULAR HEMOGLOBIN 30.4 pg (27.0-33.0); MEAN CORPUSCULAR HGB CONC 33.8 g/dl (32.0-36.5); MEAN CORPUSCULAR VOLUME 89.9 fl (80.0-96.0); PLATELET COUNT, AUTOMATED 200 10^3/uL (150-450); RED BLOOD COUNT 5.04 10^6/uL (4.00-5.40); WHITE BLOOD COUNT 14.6 10^3/uL (4.0-10.0)
[2020-01-14] MEDS: MEROPENEM INJ 1 GM in IV 1 EA IV SCH ×3 (06:25→21:08)
[2020-01-14 06:30] LABS: BLOOD UREA NITROGEN 11 MG/DL (7-18); CARBON DIOXIDE LEVEL 27 MEQ/L (21-32); CHLORIDE LEVEL 105 MEQ/L (98-107); CREATININE FOR GFR 0.75 MG/DL (0.55-1.30); GLOMERULAR FILTRATION RATE > 60.0 (>45); GLUCOSE, FASTING 160 MG/DL (70-100); POTASSIUM SERUM 4.2 MEQ/L (3.5-5.1); SODIUM LEVEL 139 MEQ/L (136-145); TROPONIN I < 0.02 NG/ML (< 0.10)
[2020-01-14] MEDS ORDERED: NS 1,000 ML IV SCH (07:00)
[2020-01-14] MEDS: HumaLOG INSULIN (NovoLOG) PER UNIT SC SCH ×3 (08:29→17:25)
[2020-01-14] MEDS: ASPIRIN 325 MG TAB PO SCH (08:30)
[2020-01-14] MEDS: MULTIVITAMINS/MINERALS THERAP 1 TAB PO SCH (08:30)
[2020-01-14] MEDS: ACETAMINOPHEN TAB 650MG DOSE (2X325MG) PO PRN ×2 (08:30→20:08)
[2020-01-14] MEDS: FOLIC ACID 1 MG TAB PO SCH (08:30)
[2020-01-14] MEDS: VANCOMYCIN HCL 1,000 MG, VIAL MATE ADAPTER 1 EACH in D5W 250 ML IV SCH ×2 (08:31→17:09)
[2020-01-14] MEDS: ENOXAPARIN 40MG/0.4ML SYRINGE (J1650 PER 10MG) SC SCH (08:31)
[2020-01-14] MEDS: LETROZOLE 2.5 MG TAB PO SCH (09:00)
[2020-01-14 12:40] LABS: APPEARANCE, BODY FLUID CLOUDY (CLEAR); PLEURAL FL COLOR YELLOW (COLORLESS); SOURCE, BODY FLUID PLEURAL
[2020-01-14 13:09] LABS: PH BODY FLUID 7.379 UNITS (NOT ESTABLISHED); SOURCE, BODY FLUID pH PLEURAL
[2020-01-14] MEDS ORDERED: MIDAZOLAM INJ 2MG/2ML VIAL (J2250 PER 1MG) As Ordered ONE (13:14)
[2020-01-14] MEDS ORDERED: LIDOCAINE 1% MDV 20ML VIAL As Ordered ONE ×3 (13:14→14:27)
[2020-01-14 13:24] LABS: AMYLASE, BODY FLUID 30 U/L (NOT ESTABLISHED); CHOLESTEROL, BODY FLUID 88 MG/DL (NOT ESTABLISHED); LDH, BODY FLUID 530 U/L (NOT ESTABLISHED); SOURCE, BODY FLUID ALBUMIN PLEURAL; SOURCE, BODY FLUID AMYLASE PLEURAL; SOURCE, BODY FLUID CHOL PLEURAL; SOURCE, BODY FLUID GLUCOSE PLEURAL; SOURCE, BODY FLUID LDH PLEURAL; SOURCE, BODY FLUID TOT PROTEIN PLEURAL; SOURCE, BODY FLUID TRIG PLEURAL; TOTAL PROTEIN, BODY FLUID 3.8 G/DL (NOT ESTABLISHED); TRIGLYCERIDE, BODY FLUID 46 MG/DL (NOT ESTABLISHED)
[2020-01-14] MEDS ORDERED: ONDANSETRON 4MG/2ML VIAL As Ordered ONE (13:53)
[2020-01-14] MEDS ORDERED: LEVALBUTEROL 1.25 MG/0.5 ML CONCENTRATE NEB NEB PRN (14:45)
[2020-01-14 14:48] LABS: ABG BASE EXCESS -6.4 (-2.0-2.0); ABG HCO3 23.6 MEQ/L (22.0-26.0); ABG O2 SATURATION 96.4 % (95.0-99.0); ABG PARTIAL PRESSURE O2 96.1 mmHg (75.0-100.0); ABG STANDARD HCO3 19.3 MEQ/L (22.0-26.0); ABG TOTAL CO2 25.7 MEQ/L (23.0-31.0)
[2020-01-14 14:50] LABS: ABG PARTIAL PRESSURE CO2 66.3 mmHg (35.0-45.0)
[2020-01-14] MEDS: LEVALBUTEROL 1.25 MG/0.5 ML CONCENTRATE NEB NEB SCH ×3 (15:23→23:51)
[2020-01-14 16:14] LABS: ABG BASE EXCESS -2.2 (-2.0-2.0); ABG O2 SATURATION 96.1 % (95.0-99.0); ABG PARTIAL PRESSURE CO2 40.9 mmHg (35.0-45.0); ABG PARTIAL PRESSURE O2 81.6 mmHg (75.0-100.0); ABG STANDARD HCO3 22.7 MEQ/L (22.0-26.0); ABG TOTAL CO2 24.3 MEQ/L (23.0-31.0); ABG pH (ARTERIAL) 7.368 UNITS (7.350-7.450)
[2020-01-14] MEDS: NS 1,000 ML IV SCH (18:37)
--- NOTE | 2020-01-14 19:08 | IPNPDOC ---
Date Seen The patient was seen on 01/14/20. Progress Note SUBJECTIVE: Patient went for loculated fluid collection drainage with only 100 mL of pustulant fluid drained, area around chest tube appeared inflamed and infected. Fluid studies showed likely empyema. On vancomycin and meropenem. Chest tube removed and no new tube placed. BP increased during procedure to systolic >200/100 mmHg with patient having increased work of breathing. She was transfer red to ICU where ABG showed primary respiratory acidosis, patient had received versed during procedure. Repeat ABG showed improvement to pH 7.368, pCO2 40.9, HCo3 23. Patient became more awake and alert with improvement. Bipap held at this time but patient remains on 15 L high flow oxygen, saturating at 97%. No complaints of chest pain, n/v. OBJECTIVE: VITAL SIGNS: Please see below PHYSICAL EXAMINATION: CONSTITUTIONAL: Mild respiraotry distress, arousable minimally but lethargic- unknown if this is 2/2 to sedation vs. hypercapnia. EYES: PERRLA, EOM intact HENT, MOUTH: Normocephalic, atraumatic, moist mucous membranes NECK: SUPPLE, no JVD, no lymphadenopathy, no carotid bruit CV: sinus tachycardia, S1S2 normal, no murmurs/rubs/gallops RESPIRATORY: wheezing bilaterally with crackles, no rhonchi GI: Catheter removal site covered with bandage in right upper quadrant. BS positive in 4 quadrants, soft, nontender, nondistended, no rebound or guarding, no organomegaly : Deferred MUSCULOSKELETAL: Normal ROM. No cyanosis, clubbing, swelling, joint deformity, extremity edema INTEGUMENTARY: Intact, no rashes, no lesions, no erythema NEUROLOGIC: Unable to participate in neuro exam, no obvious focal deficits CURRENT MEDICATIONS: Please see below LABORATORY DATA: Please see below IMAGING: Repeat CXR after right chest tube removal: Pending results but read at bedside by Dr. Jean-Baptiste. CXR: 1. Moderate bilateral pleural effusions. 2. Atelectasis and pneumonia in the lung bases. 3. Very small amount of right pneumothorax seen on CT with a right chest tube in place. 4. Blastic bone metastases. CTA chest: 1. No evidence of pulmonary embolus. 2. Multiple large loculations of pleural fluid on the right and moderate left pleural effusion. 3. Right-sided chest tube with a small amount of remaining right pneumothorax. 4. Multiple metastatic nodules right upper lung. 5. Blastic metastasis throughout the vertebra 6. 4 cm malignant mass of the left breast with associated spiculation and skin retraction and thickening. Also severe left axillary malignant lymphadenopathy. ASSESSMENT: is a 64 yr old w a hx of metastatic breast cancer w recurrent malignant pleural effusions w catheter placement, HTN and DM who presented w dyspnea, fever and chills and was diagnosed with sepsis likely 2/2 to infected chest tube site vs. empyema. PLAN: Sepsis likely 2/2 to empyema vs. infected chest tube site. -Only 100 mL of pus drained from right chest tube prior to its removal. -At this time holding off on placing another catheter into infected site, but infection persists on repeat CXR done after -F/u pleural fluid cultures, blood cultures, daily labs -C/w vancomycin, meropenem -Dr. Jean-Baptiste consulted Acute respiratory failure 2/2 to empyema with sepsis, sedation causing respiratory depression and respiratory acidosis -Combined respiratory acidosis with metabolic acidosis on ABGs -Currently remains on 15 L, saturating 97%, will attempt to wean down -Xopenex ATC, PRN. Consider steroids. -At this time holding off on chest tube replacement; however, if patient's status should worsen or ABGs should worsen, discuss with Dr. Jean-Baptiste and Dr. Call. Hyper/hypotension -Very high blood pressure during OR procedure then lower in the ICU -Had initially stopped fluids, s/p 3 Liters total in ED -Resumed IVFs at 100 cc/hr, bolus PRN with sepsis Altered mental status likely 2/2 to sedation for chest tube removal (versed) vs. hypercapnia -Improving slowly over time, improved ABG -Monitoring closely in ICU, NPO until more awake/alert Metastatic breast cancer -Cause of recurrent pleural effusions. -To follow up with heme/onc o/p NIDDM -BS stable. -Q6hrs FS, ISS, hypoglycemic protocol Alcohol Use -No signs/symptoms of withdrawl -CIWA protocol DVT PROPHYLAXIS: lovenox DISPOSITION: Currently under ICU care. Plan is hopefully home when medically improved. VS, I&O, 24H, Fishbone Vital Signs/I&O Vital Signs Date Time Temp Pulse Resp B/P (MAP) Pulse Ox O2 Delivery O2 Flow Rate FiO2 01/14/20 16:00 15.0 50 01/14/20 16:00 98.2 106 24 102/50 (67) 97 Venturi Mask I&O- Last 24 Hours up to 6 AM 01/14/20 05:59 Intake Total 2550 ml Balance 2550 ml Laboratory Data 24H LABS Laboratory Tests 2 01/13/20 19:19: POC pH (Misc Panel) 7.434, POC Base Excess (Misc Panel) -3.0L, POC Saturated Percent O2 (Misc) 92L, POC pO2 (Misc Panel) 62.0L, POC pCO2 (Misc Panel) 31.2L, POC HCO3 (Misc Panel) 20.9L, POC Total CO2 (Misc Panel) 22.0L 01/13/20 19:35: Immature Granulocyte % (Auto) 0.2, Neutrophils (%) (Auto) 92.3H, Lymphocytes (%) (Auto) 3.5L, Monocytes (%) (Auto) 3.8, Eosinophils (%) (Auto) 0.0, Basophils (%) (Auto) 0.2, Neutrophils # (Auto) 11.9H, Lymphocytes # (Auto) 0.5L, Monocytes # (Auto) 0.5, Eosinophils # (Auto) 0.0, Basophils # (Auto) 0.0, Nucleated Red Blood Cells % (auto) 0.0 01/13/20 19:36: Total Bilirubin 0.7, Direct Bilirubin 0.2, Aspartate Amino Transf (AST/SGOT) 14, Alanine Aminotransferase (ALT/SGPT) 19, Alkaline Phosphatase 74, AE-Yve-N-Type Natriuretic Peptide 283H, Total Protein 6.3L, Albumin 3.1L, Albumin/Globulin Ratio 1.0L, Thyroid Stimulating Hormone (TSH) 0.417, Thyroxine (T4) 9.3 01/13/20 19:45: POC Troponin I (Misc) 0.00 01/13/20 19:48: POC Glucose (Misc Panel) 169H, POC Sodium (Misc Panel) 138, POC Potassium (Misc Panel) 4.0, POC Chloride (Misc Panel) 104, POC Total CO2 (Misc Panel) 21.0L, POC Blood Urea Nitrogen (Misc Panel 12, POC Ionized Calcium (Misc Panel) 5.0, POC Creatinine (Misc Panel) 0.5L, POC Hematocrit (Misc Panel) 45.0 01/13/20 19:52: POC Lactate (Misc Panel) 1.41 01/13/20 20:16: POC Glucose (Misc Panel) 169H, POC Sodium (Misc Panel) 138, POC Potassium (Misc Panel) 4.1, POC Chloride (Misc Panel) 103, POC Total CO2 (Misc Panel) 23.0, POC Blood Urea Nitrogen (Misc Panel 13, POC Ionized Calcium (Misc Panel) 5.1, POC Creatinine (Misc Panel) 0.6, POC Hematocrit (Misc Panel) 47.0 01/14/20 00:41: Glomerular Filtration Rate > 60.0, Troponin I < 0.02, Procalcitonin 0.44 01/14/20 02:22: Bedside Glucose (Misc Panel) 159H 01/14/20 05:50: Nucleated Red Blood Cells % (auto) 0.0, Anion Gap 7L, Glomerular Filtration Rate > 60.0, Calcium Level 9.0, Troponin I < 0.02 01/14/20 08:11: Bedside Glucose (Misc Panel) 154H 01/14/20 12:00: Body Fluid pH 7.379, Body Fluid pH Source PLEURAL, Body Fluid WBC (Auto) 1729H, Body Fluid RBC (Auto) 2, Body Fluid Mononuclear Cells % Auto 27.6H, Fluid P olymorphonuclear Cell % Auto 72.4H, Body Fluid Glucose Source PLEURAL, Body Fluid Glucose 77, Body Fluid Protein Source PLEURAL, Body Fluid Total Protein 3.8, Body Fluid Albumin Source PLEURAL, Body Fluid Albumin 2.1, Body Fluid LDH Source PLEURAL, Body Fluid Lactate Dehydrogenase 530, Body Fluid Amylase Source PLEURAL, Body Fluid Amylase 30, Body Fluid Cholesterol 88, Body Fluid Cholesterol Source PLEURAL, Body Fluid Triglyceride Source PLEURAL, Body Fluid Triglycerides 46, Pleural Fluid Source PLEURAL, Pleural Fluid Color YELLOW, Pleural Fluid Appearance CLOUDY 01/14/20 12:12: Troponin I < 0.02 01/14/20 12:13: Lactate Dehydrogenase 152 01/14/20 12:16: Bedside Glucose (Misc Panel) 147H 01/14/20 14:32: Blood Gas Bicarbonate Standard 19.3L, Arterial Blood pH 7.170*L, Arterial Blood Partial Pressure CO2 66.3*H, Arterial Blood Partial Pressure O2 96.1, Arterial Blood Total CO2 25.7, Arterial Blood HCO3 23.6, Arterial Blood Base Excess - 6.4L, Arterial Blood Oxygen Saturation 96.4 01/14/20 15:05: Lactic Acid Level 1.9 01/14/20 15:58: Blood Gas Bicarbonate Standard 22.7, Arterial Blood pH 7.368, Arterial Blood Partial Pressure CO2 40.9, Arterial Blood Partial Pressure O2 81.6, Arterial Blood Total CO2 24.3, Arterial Blood HCO3 23.0, Arterial Blood Base Excess -2.2 L, Arterial Blood Oxygen Saturation 96.1 01/14/20 16:14: Vancomycin Level Trough 16.8 01/14/20 17:18: Bedside Glucose (Misc Panel) 159H CBC/BMP Laboratory Tests 01/13/20 19:35 01/14/20 00:41 01/14/20 05:50 Microbiology Microbiology 01/14/20 Gram Stain - Final, Resulted 01/14/20 Bacterial Culture, Resulted Pending 01/14/20 Anaerobic Culture, Received Pending 01/14/20 Acid Fast Stain, Received Pending 01/14/20 Mycobacterial Culture, Received Pending 01/14/20 Fungal Smear, Received Pending 01/14/20 Fungal Culture, Received Pending 01/14/20 Gram Stain - Final, Resulted 01/14/20 Anaerobic Culture, Resulted Pending 01/14/20 Body Fluid Culture, Received Pending 01/13/20 Respiratory Virus Panel (PCR) ([facility]) - Final, Complete 01/13/20 Blood Culture, Received Pending 01/13/20 Blood Culture, Received Pending Current Medications Current Medications Medications (Trade) Dose Ordered Sig/[place] Route PRN Reason Start Time Stop Time Status Last Admin Dose Admin Acetaminophen (Tylenol Tab) 650 mg Q4H PRN PO PAIN OR FEVER 01/14/20 00:00 01/14/20 08:30 Al Hydrox/Mg Hydrox/Simethicone (Mylanta) 30 ml DAILY PRN PO DYSPEPSIA 01/14/20 00:00 Albuterol Sulfate (Proventil, Ventolin Hfa) 2 puff QID PRN INH SOB/WHEEZING 01/14/20 00:45 01/14/20 14:41 DC Aspirin (Aspirin) 325 mg DAILY PO 01/14/20 09:00 01/14/20 08:30 Benzonatate (Tessalon Perles) 200 mg Q8H PRN PO COUGH 01/14/20 04:45 01/14/20 08:30 Benzonatate (Tessalon Perles) 200 mg Q8HP PO 01/14/20 04:15 UNV Bisoprolol Fumarate (Zebeta) 10 mg BID PO 01/13/20 21:00 Dextrose (Dextrose 50%) 25 ml ASDIRECTED PRN IV SEE LABEL COMMENTS 01/14/20 00:45 Enoxaparin Sodium (Lovenox) 40 mg DAILY SC 01/14/20 09:00 01/14/20 08:31 Fluticasone Propionate (Flonase 0.05% Nasal [place]) 2 spray DAILY PRN NA NASAL CONGESTION 01/14/20 00:45 Folic Acid (Folic Acid) 1 mg DAILY PO 01/14/20 09:00 01/14/20 08:30 Glucagon (Glucagon) 1 mg ASDIRECTED PRN SC SEE LABEL COMMENTS 01/14/20 00:45 Glucose (Glucose) 16 GM ASDIRECTED PRN PO SEE LABEL COMMENTS 01/14/20 00:45 Home Med (Med Rec Complete!) ASDIRECTED XX 01/13/20 23:00 01/13/20 22:58 DC Insulin Human Lispro (HumaLOG INSULIN) SEE PROTOCOL TABLE Q6H SC 01/14/20 18:00 01/14/20 17:25 Insulin Human Lispro (HumaLOG INSULIN) See Protocol Table AC SC 01/14/20 07:30 01/14/20 16:52 DC 01/14/20 08:29 Insulin Human Lispro (HumaLOG INSULIN) See Protocol Table QHS SC 01/13/20 21:00 01/14/20 16:52 DC Lactated Ringer's 1,000 ml @ 100 mls/hr Q10H IV 01/14/20 01:30 01/14/20 06:54 DC 01/14/20 05:04 Letrozole (Femara) 2.5 mg DAILY PO 01/14/20 09:00 Levalbuterol HCl (Xopenex Neb) 1.25 mg Q2HP PRN NEB SOB/WHEEZING 01/14/20 14:45 Levalbuterol HCl (Xopenex Neb) 1.25 mg RQ4H NEB 01/14/20 16:00 01/14/20 15:23 Loratadine (Claritin) 10 mg QHS PO 01/13/20 21:00 01/14/20 02:32 Lorazepam (Ativan) 2 mg ASDIRECTED PRN PO SEE PROTOCOL 01/14/20 00:45 Magnesium Hydroxide (Milk Of Magnesia) 30 ml DAILY PRN PO CONSTIPATION 01/14/20 00:00 Meropenem 1 gm/IV Miscellaneous Supplies 50 ml @ 100 mls/hr Q8H IV 01/14/20 06:00 01/14/20 15:05 Multivitamins (Theragram-M) 1 tab DAILY PO 01/14/20 09:00 01/14/20 08:30 Sodium Chloride 1,000 ml @ 100 mls/hr Q10H IV 01/14/20 07:00 01/14/20 14:39 DC 01/14/20 08:32 Sodium Chloride 1,000 ml @ 100 mls/hr Q10H IV 01/14/20 18:15 Thiamine HCl (Thiamine HCl) 100 mg BID PO 01/13/20 21:00 01/16/20 09:01 01/14/20 08:29 Vancomycin HCl 1000 mg/IV Miscellaneous Supplies 1 each/ Dextrose 270 ml @ 270 mls/hr Q8H IV 01/14/20 09:00 01/14/20 17:09 Allergies Coded Allergies: Penicillins (Verified Allergy, Unknown, SWELLING, ASTHMA, 12/17/19) Ariana Fabian MD Jan 14, 2020 19:08
[2020-01-15] VITALS (15 sets, daily range): BP systolic 88–154; BP diastolic 50–88; O2SAT 97–98
[2020-01-15] MEDS: VANCOMYCIN HCL 1,000 MG, VIAL MATE ADAPTER 1 EACH in D5W 250 ML IV SCH ×4 (00:38→17:34)
[2020-01-15] MEDS: ACETAMINOPHEN TAB 650MG DOSE (2X325MG) PO PRN ×2 (03:48→20:46)
[2020-01-15] MEDS: BENZONATATE 100 MG CAP PO PRN ×2 (03:48→20:47)
[2020-01-15] MEDS: LEVALBUTEROL 1.25 MG/0.5 ML CONCENTRATE NEB NEB SCH ×6 (03:58→23:32)
[2020-01-15] MEDS: NS 1,000 ML IV SCH ×2 (04:17→09:46)
[2020-01-15 04:56] LABS: HEMATOCRIT 39.8 % (36.0-47.0); HEMOGLOBIN 13.6 g/dl (12.0-15.5); MEAN CORPUSCULAR HEMOGLOBIN 31.1 pg (27.0-33.0); MEAN CORPUSCULAR HGB CONC 34.2 g/dl (32.0-36.5); MEAN CORPUSCULAR VOLUME 90.9 fl (80.0-96.0); PLATELET COUNT, AUTOMATED 172 10^3/uL (150-450); RED BLOOD COUNT 4.38 10^6/uL (4.00-5.40); WHITE BLOOD COUNT 14.2 10^3/uL (4.0-10.0)
[2020-01-15] MEDS: MEROPENEM INJ 1 GM in IV 1 EA IV SCH (05:20)
[2020-01-15 05:56] LABS: ALBUMIN 2.4 GM/DL (3.2-5.2); ALT/SGPT 26 U/L (12-78); BILIRUBIN,TOTAL 0.8 MG/DL (0.2-1.0); BLOOD UREA NITROGEN 13 MG/DL (7-18); CALCIUM LEVEL 8.5 MG/DL (8.8-10.2); CARBON DIOXIDE LEVEL 28 MEQ/L (21-32); CHLORIDE LEVEL 108 MEQ/L (98-107); CREATININE FOR GFR 0.63 MG/DL (0.55-1.30); GLOMERULAR FILTRATION RATE > 60.0 (>45); GLUCOSE, FASTING 149 MG/DL (70-100); POTASSIUM SERUM 4.1 MEQ/L (3.5-5.1); SODIUM LEVEL 139 MEQ/L (136-145)
[2020-01-15] MEDS: HumaLOG INSULIN (NovoLOG) PER UNIT SC SCH ×5 (05:58→20:46)
[2020-01-15] MEDS ORDERED: diphenhydrAMINE 50MG/ML VIAL (J1200) IV ONE (06:15)
[2020-01-15] MEDS: ENOXAPARIN 40MG/0.4ML SYRINGE (J1650 PER 10MG) SC SCH (08:11)
[2020-01-15] MEDS ORDERED: KCL 20MEQ IN D5/NS 1000ML 1,000 ML IV SCH (08:14)
[2020-01-15] MEDS ORDERED: ONDANSETRON 4MG/2ML VIAL IV PRN (08:15)
[2020-01-15] MEDS ORDERED: NORCO, ANEXSIA 5/325MG TABLET (HYDROcodone/ACETAMINOPHEN) PO PRN (08:15)
[2020-01-15] MEDS ORDERED: PERCOCET 5MG/325MG TAB PO PRN ×2 (08:15)
[2020-01-15] MEDS ORDERED: KETOROLAC 30 MG/ML 1ML VIAL IV SCH (08:15)
[2020-01-15] MEDS ORDERED: BISACODYL 10 MG SUPP PR PRN (08:15)
[2020-01-15] MEDS ORDERED: PANTOPRAZOLE 40MG VIAL (C9113 PER 1) IV SCH (09:00)
[2020-01-15 09:13] LABS: LDH LACTATE DEHYDROGENASE 122 U/L (84-246)
[2020-01-15] MEDS: MULTIVITAMINS/MINERALS THERAP 1 TAB PO SCH (09:15)
[2020-01-15] MEDS: LETROZOLE 2.5 MG TAB PO SCH (09:15)
[2020-01-15] MEDS: bisoproloL fumarate 10 MG TAB PO SCH ×2 (09:16→20:48)
[2020-01-15] MEDS: FOLIC ACID 1 MG TAB PO SCH (09:16)
[2020-01-15] MEDS: ASPIRIN 325 MG TAB PO SCH (09:16)
[2020-01-15] MEDS: THIAMINE 100 MG TAB PO SCH ×2 (09:16→20:47)
[2020-01-15] MEDS: DOCUSATE SODIUM 100 MG CAP PO SCH ×2 (09:16→20:47)
--- NOTE | 2020-01-15 09:41 | REPVR ---
PROCEDURE INFORMATION: Exam: XR Chest, 2 Views Exam date and time: 01/15/2020 8:14 AM Age: 64 years old Clinical indication: Shortness of breath; Additional info: Pleural effusions TECHNIQUE: Imaging protocol: XR of the chest Views: 2 views. COMPARISON: MD PORTABLE CHEST X-RAY 01/14/2020 2:33 PM FINDINGS: Lungs: Interval increase in atelectasis and or pneumonia/pneumonitis in both lower lungs since the previous chest radiograph from 01/14/2020. The heart size is obscured by the pleural effusions and abnormal lung dan. Pleural space: Bilateral large pleural effusions are present with partial loculation of fluid in the right minor fissure, not significantly changed since the previous chest radiograph from 01/14/2020. Heart/Mediastinum: Unremarkable. No cardiomegaly. Bones/joints: Unremarkable. IMPRESSION: 1. Bilateral large pleural effusions are present with partial loculation of fluid in the right minor fissure, not significantly changed since the previous chest radiograph from 01/14/2020. 2. Interval increase in atelectasis and or pneumonia/pneumonitis in both lower lungs since the previous chest radiograph from 01/14/2020. 3. The heart size is obscured by the pleural effusions and abnormal lung dan. Electronically signed by: Umesh Lindsey On 01/15/2020 09:40:38 AM
[2020-01-15] MEDS ORDERED: FUROSEMIDE 40MG/4ML VIAL (J1940) IV ONE (10:00)
[2020-01-15] MEDS: methylPREDNISolone 125MG 2ML VIAL IV SCH ×2 (10:49→17:33)
--- NOTE | 2020-01-15 11:08 | REPVR ---
PROCEDURE INFORMATION: Exam: US Duplex Left Lower Extremity Veins, Limited Exam date and time: 01/15/2020 10:56 AM Age: 64 years old Clinical indication: Swelling (edema) of limb; Lower extremity, left; Additional info: Swelling left leg. ? Dvt TECHNIQUE: Imaging protocol: Real-time Duplex ultrasound of the Left Lower Extremity with 2-D holloway scale, color Doppler flow and spectral waveform analysis with image documentation. Limited exam focused on the left lower extremity veins. COMPARISON: No relevant prior studies available. FINDINGS: Left deep veins: Unremarkable. The common femoral, femoral, proximal profunda femoral and popliteal veins are patent without thrombus. Normal Doppler waveforms. Normal compressibility and/or augmentation response. Left superficial veins: Unremarkable. Saphenofemoral junction is patent without thrombus. Soft tissues: Unremarkable. IMPRESSION: No evidence of deep vein thrombosis above the knee. The calf veins were not imaged on this exam. Electronically signed by: Vasu Cagle On 01/15/2020 11:08:03 AM
[2020-01-15] MEDS ORDERED: LIDOCAINE 1% MDV 20ML VIAL As Ordered ONE (13:19)
[2020-01-15] MEDS ORDERED: SODIUM BICARBONATE 8.4% INJ 50MEQ 50 ML VIAL As Ordered ONE (13:19)
--- NOTE | 2020-01-15 13:24 | IPNPDOC ---
Date Seen The patient was seen on 01/15/20. Progress Note SUBJECTIVE: 98% on 50% FiO2 venti mask. IR today for pigtail catheter placement to drain right lung empyema. Catheter tip cx- staphylococcus with official sensitivities and fluid cultures pending. Stopped IVFs due to BNP elevate at >1880, lasix x 40 mg IV given. Monitor I&O's closely. Admits to pleuritic chest pain with deep inspiration and chest palpation. Febrile last evening but afebrile ever since. No complaints of n/v/d, chills. OBJECTIVE: VITAL SIGNS: Please see below PHYSICAL EXAMINATION: GENERAL: AAOx3 EYES: PERRLA, EOM intact HENT, MOUTH: Normocephalic, atraumatic, moist mucous membranes NECK: SUPPLE, no JVD, no lymphadenopathy, no carotid bruit CV: sinus tachycardia, S1S2 normal, no murmurs/rubs/gallops RESPIRATORY: wheezing bilaterally with crackles, bilateral rhonchi GI: Catheter removal site covered with bandage in right upper quadrant. BS positive in 4 quadrants, soft, nontender, nondistended, no rebound or guarding, no organomegaly : Deferred MUSCULOSKELETAL: Normal ROM. No cyanosis, clubbing, swelling, joint deformity, extremity edema INTEGUMENTARY: Intact, no rashes, no lesions, no erythema NEUROLOGIC: Unable to participate in neuro exam, no obvious focal deficits CURRENT MEDICATIONS: Please see below LABORATORY DATA: Please see below MICROBIOLOGY: Pleural catheter tip cx: Staph aureus Blood cultures x 2 sets: NG 24 H Anaerobic fluid cx and fungal cultures: pending IMAGING: CXR: 1. Bilateral large pleural effusions are present with partial loculation of fluid in the right minor fissure, not significantly changed since the previous chest radiograph from 01/14/2020. 2. Interval increase in atelectasis and or pneumonia/pneumonitis in both lower lungs since the previous chest radiograph from 01/14/2020. 3. The heart size is obscured by the pleural effusions and abnormal lung dan. Doppler lower ext: No evidence of deep vein thrombosis above the knee. The calf veins were not imaged on this exam. ASSESSMENT: is a 64 yr old w a hx of metastatic breast cancer w recurrent malignant pleural effusions w catheter placement, HTN and DM who presented w dyspnea, fever and chills and was diagnosed with sepsis likely 2/2 to infected chest tube site,empyema. PLAN: Sepsis likely 2/2 to empyema vs. infected chest tube site, + staphylococcus aureus -WBC 14.2, tachycardia, RR >20 -IR today for pigtail catheter placement and drainage 01/15/20 -Pleural catheter tip and pleural fluid aerobic cx: Staph aureus with official sensitivities within next 24 hours. -F/u anaerobic pleural fluid cultures, fungal cx, daily labs -C/w vancomycin, d/c meropenem -Dr. Jean-Baptiste following Acute respiratory failure 2/2 to empyema with sepsis, r/o CHF. No known COPD, nonsmoker but lived in house with heavy smokers -Slightly improvement since the AM to FiO2 40% from 50% -Increased coughing, wheezing with increased BNP to >1880 likely -Lasix 40 mg IV x 1 and will intermittently diurese, methylprednisolone Q8hrs, Xopenex ATC, PRN. -No known cardiac history but consider echocardiogram if worsens -Daily wts Hypotension likely 2/2 to sepsis. Hx of HTN -Improved with IVFs, MAP >65 -Stopped IVFs today 2/2 to HTN, signs of fluid overload -Monitor closely Altered mental status likely 2/2 to sedation for chest tube removal (versed) vs. hypercapnia -resolved Metastatic breast cancer -Cause of recurrent pleural effusions. -To follow up with heme/onc o/p NIDDM - consistent carb diet started - BS stable. - FS, ISS, hypoglycemic protocol Alcohol Use -No signs/symptoms of withdrawl -CIWA protocol DVT PROPHYLAXIS: lovenox DISPOSITION: Currently under ICU care. Plan is hopefully home when medically improved. VS, I&O, 24H, Malcolmbone Vital Signs/I&O Vital Signs Date Time Temp Pulse Resp B/P (MAP) Pulse Ox O2 Delivery O2 Flow Rate FiO2 01/15/20 11:13 97 Venturi Mask 40 01/15/20 09:16 100 111/63 01/15/20 08:00 98.2 01/15/20 08:00 15.0 01/15/20 05:59 20 I&O- Last 24 Hours up to 6 AM 01/15/20 06:00 Intake Total 2315 ml Output Total 675 ml Balance 1640 ml Laboratory Data 24H LABS Laboratory Tests 2 01/14/20 14:32: Blood Gas Bicarbonate Standard 19.3L, Arterial Blood pH 7.170*L, Arterial Blood Partial Pressure CO2 66.3*H, Arterial Blood Partial Pressure O2 96.1, Arterial Blood Total CO2 25.7, Arterial Blood HCO3 23.6, Arterial Blood Base Excess - 6.4L, Arterial Blood Oxygen Saturation 96.4 01/14/20 15:05: Lactic Acid Level 1.9 01/14/20 15:58: Blood Gas Bicarbonate Standard 22.7, Arterial Blood pH 7.368, Arterial Blood Partial Pressure CO2 40.9, Arterial Blood Partial Pressure O2 81.6, Arterial Blood Total CO2 24.3, Arterial Blood HCO3 23.0, Arterial Blood Base Excess - 2.2L, Arterial Blood Oxygen Saturation 96.1 01/14/20 16:14: Vancomycin Level Trough 16.8 01/14/20 17:18: Bedside Glucose (Misc Panel) 159H 01/14/20 23:24: Bedside Glucose (Misc Panel) 119H 01/15/20 04:45: Nucleated Red Blood Cells % (auto) 0.0, Anion Gap 3L, Glomerular Filtration Rate > 60.0, Calcium Level 8.5L, Total Bilirubin 0.8, Aspartate Amino Transf (AST/SGOT) 29, Alanine Aminotransferase (ALT/SGPT) 26, Alkaline Phosphatase 83, Lactate Dehydrogenase 122, Total Protein 6.0L, Albumin 2.4#L, Albumin/Globulin Ratio 0.7L 01/15/20 09:50: GD-Rje-Q-Type Natriuretic Peptide 1882H 01/15/20 09:53: Methicillin-Resist S.aureus DNA PCR NOT DETECTED 01/15/20 11:30: Bedside Glucose (Misc Panel) 183H CBC/BMP Laboratory Tests 01/15/20 04:45 Microbiology Microbiology 01/14/20 Gram Stain - Final, Resulted 01/14/20 Bacterial Culture - Preliminary, Resulted Staphylococcus Aureus 01/14/20 Anaerobic Culture, Received Pending 01/14/20 Acid Fast Stain, Received Pending 01/14/20 Mycobacterial Culture, Received Pending 01/14/20 Fungal Smear, Received Pending 01/14/20 Fungal Culture, Received Pending 01/14/20 Gram Stain - Final, Resulted 01/14/20 Anaerobic Culture, Resulted Pending 01/14/20 Body Fluid Culture - Preliminary, Resulted Staphylococcus Aureus 01/13/20 Respiratory Virus Panel (PCR) (NITA) - Final, Complete 01/13/20 Blood Culture - Preliminary, Resulted No growth after 24 hours . All specim... 01/13/20 Blood Culture - Preliminary, Resulted No growth after 24 hours . All specim... Current Medications Current Medications Medications (Trade) Dose Ordered Sig/Naveen Route PRN Reason Start Time Stop Time Status Last Admin Dose Admin Acetaminophen (Tylenol Tab) 650 mg Q4H PRN PO PAIN OR FEVER 01/14/20 00:00 01/15/20 03:48 Acetaminophen/ Hydrocodone Bitart (Fellows, Anexsia 5/325) 1 tab Q3H PRN PO MILD PAIN (PS 1-4) 01/15/20 08:15 Hold Al Hydrox/Mg Hydrox/Simethicone (Mylanta) 30 ml DAILY PRN PO DYSPEPSIA 01/14/20 00:00 Albuterol Sulfate (Proventil, Ventolin Hfa) 2 puff QID PRN INH SOB/WHEEZING 01/14/20 00:45 01/14/20 14:41 DC Aspirin (Aspirin) 325 mg DAILY PO 01/14/20 09:00 01/15/20 09:16 Benzonatate (Tessalon Perles) 200 mg Q8H PRN PO COUGH 01/14/20 04:45 01/15/20 03:48 Benzonatate (Tessalon Perles) 200 mg Q8HP PO 01/14/20 04:15 UNV Bisacodyl (Dulcolax Suppository) 10 mg Q4HP PRN NC CONSTIPATION 01/15/20 08:15 Bisoprolol Fumarate (Zebeta) 10 mg BID PO 01/13/20 21:00 01/15/20 09:16 Dextrose (Dextrose 50%) 25 ml ASDIRECTED PRN IV SEE LABEL COMMENTS 01/14/20 00:45 Docusate Sodium (Colace) 100 mg BID PO 01/15/20 09:00 01/15/20 09:16 Enoxaparin Sodium (Lovenox) 40 mg DAILY SC 01/14/20 09:00 01/14/20 08:31 Fluticasone Propionate (Flonase 0.05% Nasal [place]) 2 spray DAILY PRN NA NASAL CONGESTION 01/14/20 00:45 Folic Acid (Folic Acid) 1 mg DAILY PO 01/14/20 09:00 01/15/20 09:16 Glucagon (Glucagon) 1 mg ASDIRECTED PRN SC SEE LABEL COMMENTS 01/14/20 00:45 Glucose (Glucose) 16 GM ASDIRECTED PRN PO SEE LABEL COMMENTS 01/14/20 00:45 Home Med (Med Rec Complete!) ASDIRECTED XX 01/13/20 23:00 01/13/20 22:58 DC Insulin Human Lispro (HumaLOG INSULIN) SEE PROTOCOL TABLE AC OK 01/15/20 12:00 Insulin Human Lispro (HumaLOG INSULIN) SEE PROTOCOL TABLE Q6H OK 01/14/20 18:00 01/15/20 11:34 DC 01/14/20 17:25 Insulin Human Lispro (HumaLOG INSULIN) SEE PROTOCOL TABLE QHS OK 01/15/20 21:00 Insulin Human Lispro (HumaLOG INSULIN) See Protocol Table AC OK 01/14/20 07:30 01/14/20 16:52 DC 01/14/20 08:29 Insulin Human Lispro (HumaLOG INSULIN) See Protocol Table QHS OK 01/13/20 21:00 01/14/20 16:52 DC Ketorolac Tromethamine (ToRADol) 30 mg Q6H IV 01/15/20 08:15 01/20/20 08:14 Hold Lactated Ringer's 1,000 ml @ 100 mls/hr Q10H IV 01/14/20 01:30 01/14/20 06:54 DC 01/14/20 05:04 Letrozole (Femara) 2.5 mg DAILY PO 01/14/20 09:00 01/15/20 09:15 Levalbuterol HCl (Xopenex Neb) 1.25 mg Q2HP PRN NEB SOB/WHEEZING 01/14/20 14:45 Levalbuterol HCl (Xopenex Neb) 1.25 mg RQ4H NEB 01/14/20 16:00 01/15/20 11:12 Loratadine (Claritin) 10 mg QHS PO 01/13/20 21:00 01/14/20 20:07 Lorazepam (Ativan) 2 mg ASDIRECTED PRN PO SEE PROTOCOL 01/14/20 00:45 Magnesium Hydroxide (Milk Of Magnesia) 30 ml DAILY PRN PO CONSTIPATION 01/14/20 00:00 Meropenem 1 gm/IV Miscellaneous Supplies 50 ml @ 100 mls/hr Q8H IV 01/14/20 06:00 01/15/20 05:20 Methylprednisolone (SOLUmedrol) 60 mg Q8H IV 01/15/20 10:00 01/15/20 10:49 Multivitamins (Theragram-M) 1 tab DAILY PO 01/14/20 09:00 01/15/20 09:15 Ondansetron HCl (ZOFRAN INJection) 4 mg Q4HP PRN IV NAUSEA 01/15/20 08:15 Oxycodone/ Acetaminophen (Percocet 5mg/ 325mg Tablet) 1 tab Q4H PRN PO MODERATE PAIN (PS 5-7) 01/15/20 08:15 Hold Oxycodone/ Acetaminophen (Percocet 5mg/ 325mg Tablet) 2 tab Q4H PRN PO SEVERE PAIN (PS 8-10) 01/15/20 08:15 Pantoprazole Sodium (Protonix) 40 mg DAILY IV 01/15/20 09:00 01/15/20 09:57 DC 01/15/20 09:15 Pantoprazole Sodium (Protonix) 40 mg DAILY PO 01/15/20 09:00 Hold Potassium Chloride/Dextrose/ Sod Cl 1,000 ml @ 75 mls/hr [id number] IV 01/15/20 08:14 01/15/20 11:34 DC 01/15/20 09:15 Sodium Chloride 1,000 ml @ 100 mls/hr Q10H IV 01/14/20 07:00 01/14/20 14:39 DC 01/14/20 08:32 Sodium Chloride 1,000 ml @ 100 mls/hr Q10H IV 01/14/20 18:15 01/15/20 11:34 DC 01/15/20 04:17 Thiamine HCl (Thiamine HCl) 100 mg BID PO 01/13/20 21:00 01/16/20 09:01 01/15/20 09:16 Vancomycin HCl 1000 mg/IV Miscellaneous Supplies 1 each/ Dextrose 270 ml @ 270 mls/hr Q8H IV 01/14/20 09:00 01/15/20 10:50 Allergies Coded Allergies: Penicillins (Verified Allergy, Unknown, SWELLING, ASTHMA, 12/17/19) Ariana Fabian MD Jan 15, 2020 13:24
[2020-01-15 14:23] LABS: APPEARANCE, BODY FLUID HAZY (CLEAR); PLEURAL FL COLOR YELLOW (COLORLESS); SOURCE, BODY FLUID PLEURAL
[2020-01-15 14:25] LABS: PH BODY FLUID 7.022 UNITS (NOT ESTABLISHED); SOURCE, BODY FLUID pH PLEURAL
[2020-01-15 15:00] LABS: AMYLASE, BODY FLUID 23 U/L (NOT ESTABLISHED); CHOLESTEROL, BODY FLUID 75 MG/DL (NOT ESTABLISHED); LDH, BODY FLUID 177 U/L (NOT ESTABLISHED); SOURCE, BODY FLUID ALBUMIN PLEURAL; SOURCE, BODY FLUID AMYLASE PLEURAL; SOURCE, BODY FLUID CHOL PLEURAL; SOURCE, BODY FLUID GLUCOSE PLEURAL; SOURCE, BODY FLUID LDH PLEURAL; SOURCE, BODY FLUID TOT PROTEIN PLEURAL; SOURCE, BODY FLUID TRIG PLEURAL; TOTAL PROTEIN, BODY FLUID 3.5 G/DL (NOT ESTABLISHED); TRIGLYCERIDE, BODY FLUID 38 MG/DL (NOT ESTABLISHED)
[2020-01-15] MEDS ORDERED: diphenhydrAMINE 25MG CAP PO ONE (20:30)
[2020-01-15] MEDS: LORATADINE 10 MG TAB PO SCH (20:47)
[2020-01-16] VITALS (8 sets, daily range): BP systolic 106–160; BP diastolic 64–88
[2020-01-16] MEDS: VANCOMYCIN HCL 1,000 MG, VIAL MATE ADAPTER 1 EACH in D5W 250 ML IV SCH ×2 (01:59→09:23)
[2020-01-16] MEDS: methylPREDNISolone 125MG 2ML VIAL IV SCH ×2 (01:59→09:23)
[2020-01-16] MEDS: LEVALBUTEROL 1.25 MG/0.5 ML CONCENTRATE NEB NEB SCH ×6 (04:18→23:37)
[2020-01-16 04:56] LABS: BASO % 0.1 % (0.0-1.0); HEMATOCRIT 37.5 % (36.0-47.0); HEMOGLOBIN 12.9 g/dl (12.0-15.5); LYMPH # 0.4 10^3/uL (1.5-5.0); LYMPH % 3.5 % (24.0-44.0); MEAN CORPUSCULAR HEMOGLOBIN 30.9 pg (27.0-33.0); MEAN CORPUSCULAR HGB CONC 34.4 g/dl (32.0-36.5); MEAN CORPUSCULAR VOLUME 89.7 fl (80.0-96.0); MONO # 0.3 10^3/uL (0.0-0.8); MONO % 2.4 % (0.0-5.0); NEUTROPHILS # 10.9 10^3/uL (1.5-8.5); PLATELET COUNT, AUTOMATED 165 10^3/uL (150-450); RED BLOOD COUNT 4.18 10^6/uL (4.00-5.40); WHITE BLOOD COUNT 11.7 10^3/uL (4.0-10.0)
[2020-01-16 05:24] LABS: ALBUMIN 2.4 GM/DL (3.2-5.2); ALT/SGPT 22 U/L (12-78); BILIRUBIN,TOTAL 0.6 MG/DL (0.2-1.0); BLOOD UREA NITROGEN 15 MG/DL (7-18); CALCIUM LEVEL 8.7 MG/DL (8.8-10.2); CARBON DIOXIDE LEVEL 26 MEQ/L (21-32); CHLORIDE LEVEL 108 MEQ/L (98-107); CREATININE FOR GFR 0.63 MG/DL (0.55-1.30); GLOMERULAR FILTRATION RATE > 60.0 (>45); GLUCOSE, FASTING 242 MG/DL (70-100); POTASSIUM SERUM 4.1 MEQ/L (3.5-5.1); SODIUM LEVEL 140 MEQ/L (136-145); TOTAL PROTEIN 5.7 GM/DL (6.4-8.2)
[2020-01-16 05:42] LABS: ABG BASE EXCESS 1.1 (-2.0-2.0); ABG HCO3 25.6 MEQ/L (22.0-26.0); ABG O2 SATURATION 97.2 % (95.0-99.0); ABG PARTIAL PRESSURE CO2 40.3 mmHg (35.0-45.0); ABG PARTIAL PRESSURE O2 84.9 mmHg (75.0-100.0); ABG STANDARD HCO3 25.4 MEQ/L (22.0-26.0); ABG TOTAL CO2 26.8 MEQ/L (23.0-31.0)
[2020-01-16] MEDS: HumaLOG INSULIN (NovoLOG) PER UNIT SC SCH ×4 (08:22→20:09)
[2020-01-16] MEDS: MULTIVITAMINS/MINERALS THERAP 1 TAB PO SCH (08:23)
[2020-01-16] MEDS: DOCUSATE SODIUM 100 MG CAP PO SCH ×2 (08:23→20:09)
[2020-01-16] MEDS: bisoproloL fumarate 10 MG TAB PO SCH ×2 (08:23→20:09)
[2020-01-16] MEDS: ASPIRIN 325 MG TAB PO SCH (08:23)
[2020-01-16] MEDS: LETROZOLE 2.5 MG TAB PO SCH (08:23)
[2020-01-16] MEDS: THIAMINE 100 MG TAB PO SCH (08:23)
[2020-01-16] MEDS: ENOXAPARIN 40MG/0.4ML SYRINGE (J1650 PER 10MG) SC SCH (08:24)
[2020-01-16] MEDS: FOLIC ACID 1 MG TAB PO SCH (08:24)
--- NOTE | 2020-01-16 08:51 | CR ---
DATE OF CONSULTATION: 01/14/2020 REASON FOR CONSULTATION: I am asked to see Ms. Alvarez at the request of the hospitalist and the ER physicians for fever with a pleural effusion and a cellulitis in and around her PleurX catheter. HISTORY OF PRESENT ILLNESS: The patient is a 64-year-old white female who was seen in the hospital in the middle of December when she complained of shortness of breath and was found to have a large pleural effusion. She had also noted a breast lump which had eroded through her skin on the left hand side. Eventually a PleurX catheter was placed which showed malignancy consistent with invasive ductal carcinoma. Markers showed her to be ER and MA positive. She was HER2 negative by FISH. She was taught how to drain her PleurX catheter and was then discharged home to be seen in followup by oncology. The day before she started to feel quite tired and yesterday she awoke with a fever of 103 with increasing shortness of breath. The shortness of breath continued and she sought medical attention here. She has had a cough with yellow sputum production. The cough has increased. She has new chest pain in the right lower hemithorax laterally along the course of the catheter. She was seen in the Emergency Room today where her temperature was 101.8. PAST MEDICAL HISTORY: Hypertension, diabetes. PAST SURGICAL HISTORY: Tubal ligation and insertion of the above PleurX catheter. MEDICATIONS AT HOME INCLUDE: - Ventolin two puffs four times daily p.r.n. wheezing - Amlodipine 10 mg once daily at bedtime - Ascorbic acid 500 mg daily - Aspirin 325 mg daily - Bisoprolol 10 mg twice a day - Fluconazole nasal spray p.r.n. 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 No asbestos exposure. HABITS: Does not smoke. Drinks 2-3 beers a day and denies illicit drugs. EXPOSURES: No birds, cats, dogs at home. No exposure to tuberculosis. TRAVEL HISTORY: She has been to [place] and to [place]. There is no history of travel to [facility] but she has traveled extensively through [place] and [place]. FAMILY HISTORY: Not pertinent to the acute situation. Does have an aunt with breast cancer. Father of lung cancer. REVIEW OF SYSTEMS: Constitutional: See HPI. Eyes without diplopia, without amaurosis fugax or jaundice. Does wear glasses. Epistaxis: Nosebleeds as a child but none since. Mouth has upper partials. Respiratory: See HPI. Cardiac: See HPI with hypertension. There is no intermittent claudication and no prior of myocardial infarctions. GI: Without nausea, vomiting, or diarrhea, constipation, melena, hematochezia or hematemesis. No abdominal pain. : Without dysuria or hematuria. She does have a history of renal stones. Neurologic: Without paresthesias, paralyses, or prior seizures. Endocrine: Without diabetes, without thyroid disease. Psychiatric: Without pathologic anxiety, depression, or psychoses. PHYSICAL EXAMINATION: Well-developed, well-nourished white female in moderate distress with pain and shortness of breath. Vital signs: Temperature 98.6 with a heart rate that is 86 in sinus rhythm, respiratory rate of 20 without the use of accessory muscles, 95% saturated on 1 liter nasal cannula. Blood pressure is 107/61. Eyes: Pupils equal, round and reactive to light. Extraocular movements intact. Sclerae are anicteric. Head normocephalic. Nose without deformity. Mouth shows her mucous membranes to be pink and moist. Lips, gums, tongue show no thrush. Neck is supple. There is no jugular venous distention, no subcutaneous emphysema. Trachea is midline. Lungs show decreased breath sounds in the right lower hemithorax. She has a dull percussion note at the right hemithorax. Cardiac exam is without murmurs, clicks, gallops, or rubs. I cannot feel her PMI. S1, S2 are normal. Abdomen is soft, nontender. Bowel sounds are positive. There is no hepatomegaly. No CVA tenderness. Extremities show trace pretibial edema, no calf tenderness, no differential swelling of the upper extremities. Skin is warm and dry and perfused without cyanosis or mottling including that of nailbeds and knees. Neuro: CN II-XII intact with gross motor, gross sensation intact. Gait is not tested. Psychiatric: Awake and alert and oriented times three with appropriate mood and affect and conversational. Chest wall looks to be indurated and tender along the course of the catheter. INVESTIGATIONS: Her white count is 14.6 as opposed to 6.4 on discharge on 01/07/2020. Hemoglobin and hematocrit are 15.3 and 45.3 respectively. Platelet count is 200. Differential shows 92% neutrophils, 3% lymphocytes. There are no immature forms, no toxic granulations. Her chemistries show normal electrolytes with BUN and creatinine 11 and 0.75. Glucose of 160 and a calcium of 9.0. Troponin is less than 0.02. IMPRESSION: 1. Stage IV breast cancer now on hormonal therapy. 2. Infected PleurX catheter. 3. Probable empyema. 4. Hypertension. 5. Diabetes. PLAN DISCUSSION: I drained her today of only about 50-100 mL of cloudy fluid which looks purulent. Up until now she had been draining herself between 450- 700 mL without difficulty. I suspect that this is now an infected catheter all along the site with pleural fluid which is also infected. I will therefore take her to the operating room this afternoon and remove her PleurX catheter and place a chest tube to drain the remainder of her pleural fluid. We will send her for the requisite studies of chemistries, cytologies, hematologies and microbiology. She is presently on Vancomycin and Meropenem. [facility]
--- NOTE | 2020-01-16 08:54 | RO ---
DATE OF OPERATION: 01/14/2020 PRE-PROCEDURE DIAGNOSIS: Infected PleurX catheter. POST-PROCEDURE DIAGNOSIS: Infected PleurX catheter. SURGEON: Reginaldo Jean-Baptiste MD DEVELOPMENTAL SERVICES WORKER: PROCEDURE: Removal of PleurX catheter. ANESTHESIA: PROCEDURE IN DETAIL: Under satisfactory moderate sedation, eventually achieved with 4 mg of Versed, the patient was prepped and draped in usual sterile fashion. The incision was made over the sewing ring and the sewing ring was freed by sharp dissection. The catheter was then pulled out in toto and the tip of the catheter was sent for culture and sensitivity. The wound was sutured with #2 Tevdek in an interrupted fashion in a loosely approximated manner. ALICE
--- NOTE | 2020-01-16 08:57 | IPN ---
DATE: 01/15/2020 SUBJECTIVE: Ms. Alvarez is breathing a lot better than she was last night. However, she is still rather short of breath sitting up comfortably in a chair. Her vital signs showed T-max of 100.6 at 8:00 o'clock last night. She is beginning to defervesce. Her rate ranges between 92 and 104 in sinus rhythm, respiratory rate of 20 to 24, without the use of accessory muscles, who is 96% to 98% satisfied on a 50% Venturi mask. Her blood pressure is ranging between 109/53 to 119/70. Her intake and output over the past 24 hours has been recorded as 3945 in and 200 out, for positivity of 3700 cc. She had put out only 200 cc in urine last night, but 675 in the last 10 hours. She weighs 95. 7 kilos as compared to 93.18 kilos on admission. PHYSICAL EXAMINATION: Respiratory: She has expiratory wheezing bilaterally and major rales and rhonchi on both sides during inspiration. Percussion is noted as dull in both hemithoraces at the base of the hemithorax. Cardiac: Without murmurs, clicks, gallops, or rubs. I cannot feel her PMI. S1, S2 are normal. Abdomen: Soft, nontender, bowel sounds are positive, but hypoactive. There is no hepatomegaly or CVA tenderness. Extremities: 2+ to 3+ pretibial edema on the left and none on the right. There is no calf tenderness. There is no differential swelling of the upper extremities. Skin: Warm, dry, and perfuse without cyanosis or mottling including of the nail beds and knees. Neck: The neck is supple. There is no jugular venous distention, no subcutaneous emphysema. Trachea is midline. HEENT: Mouth shows mucous membranes to be pink and moist; lips and commissures with no thrush. Eyes show her pupils to be equal and reactive, extraocular muscles intact, sclerae nonicteric. Neuro: Neurological shows II-XII intact. Motor gross, gross sensation intact. Gait is not tested. Psych: Psychiatric shows her to be awake, alert, with appropriate mood and affect and conversational. LABORATORY DATA: White count today is 14.2, essentially unchanged from yesterday, with hemoglobin and hematocrit 13.6 and 39.8 respectively, and platelet count 172,000 and stable. There is no differential in her. Her electrolytes are essentially with a BUN and creatinine of 13 and 0.63. Glucose 149, calcium 8.5, and a corresponding albumin of 2.4. AST and ALT are normal. Her pleural fluid was drawn yesterday from the PleurX catheter prior to taking her down to the OR. Prior to removing it, she had a pH 7.37 with a LDH 530, with corresponding LDH of 122. There were 1700 white cells, 72% of which were neutrophils, 27% lymphocytes and mononucleosis. This looks to be a neutrophilic exudative result, most consistent with at least a parapneumonic effusion, if not an empyema. IMAGING STUDIES: Her chest x-ray today shows bilateral pleural effusions with markedly increased intravascular markings. The chest x-ray was done PA and lateral. IMPRESSION: 1. Cellulitis along PleurX catheter tract. PleurX catheter now removed. 2. Empyema. 3. Increased vascular congestion. 4. Sepsis, resolving. 5. Diabetes. 6. Hypertension. PLAN AND DISCUSSION: Today, we will have her go down to x-ray for a pigtail catheter into the right space. We will send that for all of the requisite studies. I will also start diuresing her. The long-term management of these pleural effusions is going to be rather problematic, but for right now, her acute problem is cellulitis, sepsis, and empyema. ALICE
[2020-01-16] MEDS: PANTOPRAZOLE 40MG TAB (PROTONIX) PO SCH (09:24)
[2020-01-16] MEDS: FUROSEMIDE 40MG/4ML VIAL (J1940) IV SCH (10:13)
[2020-01-16] MEDS: KETOROLAC 30 MG/ML 1ML VIAL IV SCH ×3 (12:10→23:11)
--- NOTE | 2020-01-16 13:30 | IPNPDOC ---
Date Seen The patient was seen on 01/16/20. Progress Note SUBJECTIVE: Currently saturating well on 2-3 L NC, much improved overall within last 24 hours. Febrile over evening with T max 101.1 F. Pigtail catheter in place, draining to bedside cannister. Cultures: MSSA sensitive to Vancomycin. BS elevated likely 2/2 to steroids, stopped today. Started on daily diuretic. Denies chest pain, n/v/d, chills. OBJECTIVE: VITAL SIGNS: Please see below PHYSICAL EXAMINATION: GENERAL: AAOx3 EYES: PERRLA, EOM intact HENT, MOUTH: Normocephalic, atraumatic, moist mucous membranes NECK: SUPPLE, no JVD, no lymphadenopathy, no carotid bruit CV: sinus tachycardia, S1S2 normal, no murmurs/rubs/gallops CHEST/BACK: Pigtail catheter in place RESPIRATORY: bibasilar crackles-mild. Otherwise CTA, no rhonchi, wheezing or rales GI: Catheter removal site covered with bandage in right upper quadrant. BS positive in 4 quadrants, soft, nontender, nondistended, no rebound or guarding, no organomegaly : Deferred MUSCULOSKELETAL: Left hand swelling -improving. Normal ROM. No cyanosis, clubbing, swelling, joint deformity, extremity edema +3 INTEGUMENTARY: Intact, no rashes, no lesions, no erythema NEUROLOGIC: Unable to participate in neuro exam, no obvious focal deficits CURRENT MEDICATIONS: Please see below LABORATORY DATA: Please see below MICROBIOLOGY: Pleural catheter tip cx: MSSA Aerobic fluid cx: MSSA Blood cultures x 2 sets: NG 24 H Anaerobic fluid cx and fungal cultures: pending IMAGING: No new imaging today. ASSESSMENT: is a 64 yr old w a hx of metastatic breast cancer w recurrent malignant pleural effusions w catheter placement, HTN and DM who presented w dyspnea, fever and chills and was diagnosed with sepsis likely 2/2 to infected chest tube site, empyema. PLAN: Sepsis likely 2/2 to empyema vs. infected chest tube site, + MSSA -WBC 11.7, febrile overnight T max 101.1 F, tachycardia and tachypnea resolved -S/p pigtail catheter placement and drainage 01/15/20 -Pleural catheter tip and pleural fluid aerobic cx: MSSA, on vancomycin -F/u anaerobic pleural fluid cultures, fungal cx, daily labs -C/w IV vancomycin for additional 5 days per thoracic surgery, then can transition to PO -Dr. Jean-Baptiste following Acute respiratory failure 2/2 to empyema with sepsis, r/o CHF. No known COPD, nonsmoker but lived in house with heavy smokers -improvement, now on 2 L NC without any wheezing, rhonchi or rales -Increased coughing, wheezing with increased BNP to >1880 likely -Started lasix daily today, stopped steroids. C/w Xopenex ATC, PRN. -Daily wts Hypotension likely 2/2 to sepsis- resolved. Hx of HTN -Improved with IVFs, MAP >65 -Monitor closely Metastatic breast cancer -Cause of recurrent pleural effusions. -To follow up with heme/onc o/p NIDDM - BS uncontrolled likely 2/2 to steroid use, steroids stopped today - consistent carb diet started - BS stable. - FS, ISS, hypoglycemic protocol - If remains high, consider AM levemir Alcohol Use -No signs/symptoms of withdrawl -CIWA protocol DVT PROPHYLAXIS: lovenox DISPOSITION: Transferring to PCU today. PT/OT ordered, discussed case with Dr. Jean-Baptiste. Plan is hopefully home when medically improved. VS, I&O, 24H, Fishbone Vital Signs/I&O Vital Signs Date Time Temp Pulse Resp B/P (MAP) Pulse Ox O2 Delivery O2 Flow Rate FiO2 01/16/20 08:23 96 117/65 01/16/20 08:00 97.9 17 94 Room Air 01/16/20 04:00 2.0 01/15/20 13:45 40 I&O- Last 24 Hours up to 6 AM 01/16/20 06:00 Intake Total 1800 ml Output Total 2110 ml Balance -310 ml Laboratory Data 24H LABS Laboratory Tests 2 01/15/20 13:49: Body Fluid pH 7.022, Body Fluid pH Source PLEURAL, Body Fluid WBC (Auto) 921H, Body Fluid RBC (Auto) < 2, Body Fluid Mononuclear Cells % Auto 21.9H, Fluid Polymorphonuclear Cell % Auto 78.1H, Body Fluid Glucose Source PLEURAL, Body Fluid Glucose 91, Body Fluid Protein Source PLEURAL, Body Fluid Total Protein 3.5, Body Fluid Albumin Source PLEURAL, Body Fluid Albumin 1.8, Body Fluid LDH Source PLEURAL, Body Fluid Lactate Dehydrogenase 177, Body Fluid Amylase Source PLEURAL, Body Fluid Amylase 23, Body Fluid Cholesterol 75, Body Fluid Cholesterol Source PLEURAL, Body Fluid Triglyceride Source PLEURAL, Body Fluid Triglycerides 38, Pleural Fluid Source PLEURAL, Pleural Fluid Color YELLOW, Pleural Fluid Appearance HAZY 01/15/20 17:04: Bedside Glucose (Misc Panel) 296H 01/15/20 20:42: Bedside Glucose (Misc Panel) 329H 01/16/20 04:20: Immature Granulocyte % (Auto) 1.0, Neutrophils (%) (Auto) 93.0H, Lymphocytes (%) (Auto) 3.5L, Monocytes (%) (Auto) 2.4, Eosinophils (%) (Auto) 0.0, Basophils (%) (Auto) 0.1, Neutrophils # (Auto) 10.9H, Lymphocytes # (Auto) 0.4L, Monocytes # (Auto) 0.3, Eosinophils # (Auto) 0.0, Basophils # (Auto) 0.0, Nucleated Red Blood Cells % (auto) 0.0, Anion Gap 6L, Glomerular Filtration Rate > 60.0, Calcium Level 8.7L, Total Bilirubin 0.6, Aspartate Amino Transf (AST/SGOT) 12, Alanine Aminotransferase (ALT/SGPT) 22, Alkaline Phosphatase 98, Total Protein 5.7L, Albumin 2.4L, Albumin/Globulin Ratio 0.7L 01/16/20 05:35: Blood Gas Bicarbonate Standard 25.4, Arterial Blood pH 7.420, Arterial Blood Partial Pressure CO2 40.3, Arterial Blood Partial Pressure O2 84.9, Arterial Blood Total CO2 26.8, Arterial Blood HCO3 25.6, Arterial Blood Base Excess 1.1, Arterial Blood Oxygen Saturation 97.2 01/16/20 08:10: Lab Scanned Report Miscellaneous Lab 01/16/20 11:44: Bedside Glucose (Misc Panel) 318H CBC/BMP Laboratory Tests 01/16/20 04:20 Microbiology Microbiology 01/15/20 Acid Fast Stain, Received Pending 01/15/20 Mycobacterial Culture, Received Pending 01/15/20 Fungal Smear, Received Pending 01/15/20 Fungal Culture, Received Pending 01/15/20 Gram Stain - Final, Resulted 01/15/20 Anaerobic Culture, Resulted Pending 01/15/20 Body Fluid Culture, Received Pending 01/14/20 Gram Stain - Final, Complete 01/14/20 Bacterial Culture - Final, Complete Staphylococcus Aureus 01/14/20 Anaerobic Culture - Final, Complete 01/14/20 Acid Fast Stain, Received Pending 01/14/20 Mycobacterial Culture, Received Pending 01/14/20 Fungal Smear, Received Pending 01/14/20 Fungal Culture, Received Pending 01/14/20 Gram Stain - Final, Complete 01/14/20 Anaerobic Culture - Final, Complete 01/14/20 Body Fluid Culture - Preliminary, Resulted Staphylococcus Aureus 01/13/20 Respiratory Virus Panel (PCR) (NITA) - Final, Complete 01/13/20 Blood Culture - Preliminary, Resulted No Growth after 48 hours. All Specime... 01/13/20 Blood Culture - Preliminary, Resulted No Growth after 48 hours. All Specime... Current Medications Current Medications Medications (Trade) Dose Ordered Sig/Naveen Route PRN Reason Start Time Stop Time Status Last Admin Dose Admin Acetaminophen (Tylenol Tab) 650 mg Q4H PRN PO PAIN OR FEVER 01/14/20 00:00 01/15/20 20:46 Acetaminophen/ Hydrocodone Bitart ([place], Anexsia 5/325) 1 tab Q3H PRN PO MILD PAIN (PS 1-4) 01/15/20 08:15 Hold Al Hydrox/Mg Hydrox/Simethicone (Mylanta) 30 ml DAILY PRN PO DYSPEPSIA 01/14/20 00:00 Albuterol Sulfate (Proventil, Ventolin Hfa) 2 puff QID PRN INH SOB/WHEEZING 01/14/20 00:45 01/14/20 14:41 DC Aspirin (Aspirin) 325 mg DAILY PO 01/14/20 09:00 01/16/20 08:23 Benzonatate (Tessalon Perles) 200 mg Q8H PRN PO COUGH 01/14/20 04:45 01/15/20 20:47 Benzonatate (Tessalon Perles) 200 mg Q8HP PO 01/14/20 04:15 UNV Bisacodyl (Dulcolax Suppository) 10 mg Q4HP PRN [place] CONSTIPATION 01/15/20 08:15 Bisoprolol Fumarate (Zebeta) 10 mg BID PO 01/13/20 21:00 01/16/20 08:23 Dextrose (Dextrose 50%) 25 ml ASDIRECTED PRN IV SEE LABEL COMMENTS 01/14/20 00:45 Docusate Sodium (Colace) 100 mg BID PO 01/15/20 09:00 01/16/20 08:23 Enoxaparin Sodium (Lovenox) 40 mg DAILY SC 01/14/20 09:00 01/16/20 08:24 Fluticasone Propionate (Flonase 0.05% Nasal [place]) 2 spray DAILY PRN NA NASAL CONGESTION 01/14/20 00:45 Folic Acid (Folic Acid) 1 mg DAILY PO 01/14/20 09:00 01/16/20 08:24 Furosemide (LASIX injection) 40 mg DAILY IV 01/16/20 09:00 01/16/20 10:13 Glucagon (Glucagon) 1 mg ASDIRECTED PRN SC SEE LABEL COMMENTS 01/14/20 00:45 Glucose (Glucose) 16 GM ASDIRECTED PRN PO SEE LABEL COMMENTS 01/14/20 00:45 Home Med (Med Rec Complete!) ASDIRECTED XX 01/13/20 23:00 01/13/20 22:58 DC Insulin Human Lispro (HumaLOG INSULIN) SEE PROTOCOL TABLE AC TN 01/15/20 12:00 01/16/20 12:08 Insulin Human Lispro (HumaLOG INSULIN) [facility] 01/14/20 18:00 01/15/20 11:34 DC 01/14/20 17:25 Insulin Human Lispro (HumaLOG INSULIN) [facility]/15[facility] 21:00 01/15/20 20:46 Insulin Human Lispro (HumaLOG INSULIN) See Protocol Table AC TN 01/14/20 07:30 01/14/20 16:52 DC 01/14/20 08:29 Insulin Human Lispro (HumaLOG INSULIN) See [facility] 01/13/20 21:00 01/14/20 16:52 DC Ketorolac Tromethamine (ToRADol) 30 mg Q6H IV 01/15/20 08:15 01/16/20 11:09 DC Ketorolac Tromethamine (ToRADol) 30 mg Q6H IV 01/16/20 11:00 01/21/20 10:59 01/16/20 12:10 Lactated Ringer's 1,000 ml @ 100 mls/hr Q10H IV 01/14/20 01:30 01/14/20 06:54 DC 01/14/20 05:04 Letrozole (Femara) 2.5 mg DAILY PO 01/14/20 09:00 01/16/20 08:23 Levalbuterol HCl (Xopenex Neb) 1.25 mg Q2HP PRN NEB SOB/WHEEZING 01/14/20 14:45 Levalbuterol HCl (Xopenex Neb) 1.25 mg RQ4H NEB 01/14/20 16:00 01/16/20 11:05 Loratadine (Claritin) 10 mg QHS PO 01/13/20 21:00 01/15/20 20:47 Lorazepam (Ativan) 2 mg ASDIRECTED PRN PO SEE PROTOCOL 01/14/20 00:45 Magnesium Hydroxide (Milk Of Magnesia) 30 ml DAILY PRN PO CONSTIPATION 01/14/20 00:00 Meropenem 1 gm/IV Miscellaneous Supplies 50 ml @ 100 mls/hr Q8H IV 01/14/20 06:00 01/15/20 13:24 DC 01/15/20 05:20 Methylprednisolone (SOLUmedrol) 60 mg Q8H IV 01/15/20 10:00 01/16/20 12:23 DC 01/16/20 09:23 Multivitamins (Theragram-M) 1 tab DAILY PO 01/14/20 09:00 01/16/20 08:23 Ondansetron HCl (ZOFRAN INJection) 4 mg Q4HP PRN IV NAUSEA 01/15/20 08:15 Oxycodone/ Acetaminophen (Percocet 5mg/ 325mg Tablet) 1 tab Q4H PRN PO MODERATE PAIN (PS 5-7) 01/15/20 08:15 Hold Oxycodone/ Acetaminophen (Percocet 5mg/ 325mg Tablet) 2 tab Q4H PRN PO SEVERE PAIN (PS 8-10) 01/15/20 08:15 Pantoprazole Sodium (Protonix) 40 mg DAILY IV 01/15/20 09:00 01/15/20 09:57 DC 01/15/20 09:15 Pantoprazole Sodium (Protonix) 40 mg DAILY PO 01/15/20 09:00 01/16/20 09:24 Potassium Chloride/Dextrose/ Sod Cl 1,000 ml @ 75 mls/hr [id number] IV 01/15/20 08:14 01/15/20 11:34 DC 01/15/20 09:15 Sodium Chloride 1,000 ml @ 100 mls/hr Q10H IV 01/14/20 07:00 01/14/20 14:39 DC 01/14/20 08:32 Sodium Chloride 1,000 ml @ 100 mls/hr Q10H IV 01/14/20 18:15 01/15/20 11:34 DC 01/15/20 04:17 Thiamine HCl (Thiamine HCl) 100 mg BID PO 01/13/20 21:00 01/16/20 09:01 DC 01/16/20 08:23 Vancomycin HCl 1000 mg/IV Miscellaneous Supplies 1 each/ Dextrose 270 ml @ 270 mls/hr Q8H IV 01/14/20 09:00 01/16/20 09:23 Allergies Coded Allergies: Penicillins (Verified Allergy, Unknown, SWELLING, ASTHMA, 12/17/19) Ariana Fabian MD Jan 16, 2020 13:30
[2020-01-16] MEDS ORDERED: SLF 3 ML SYR IV PRN (16:30)
[2020-01-16] MEDS: ceFAZolin SOD 2 GM in IV 1 EA IV SCH ×2 (16:49→23:11)
[2020-01-16] MEDS: LORATADINE 10 MG TAB PO SCH (20:09)
[2020-01-16] MEDS: SLF 3 ML SYR IV SCH (20:15)
[2020-01-17] VITALS: BP 151/77
[2020-01-17] MEDS: LEVALBUTEROL 1.25 MG/0.5 ML CONCENTRATE NEB NEB SCH ×5 (03:59→19:28)
[2020-01-17 04:00] VITALS: BP 138/76
[2020-01-17] MEDS: KETOROLAC 30 MG/ML 1ML VIAL IV SCH ×4 (04:19→23:53)
[2020-01-17] MEDS: SLF 3 ML SYR IV SCH ×3 (04:19→22:00)
[2020-01-17 05:21] LABS: BASO % 0.1 % (0.0-1.0); HEMOGLOBIN 12.5 g/dl (12.0-15.5); LYMPH # 0.6 10^3/uL (1.5-5.0); LYMPH % 4.6 % (24.0-44.0); MEAN CORPUSCULAR HEMOGLOBIN 31.2 pg (27.0-33.0); MEAN CORPUSCULAR HGB CONC 34.7 g/dl (32.0-36.5); MEAN CORPUSCULAR VOLUME 89.8 fl (80.0-96.0); MONO # 0.5 10^3/uL (0.0-0.8); MONO % 3.9 % (0.0-5.0); NEUTROPHILS % 90.6 % (36.0-66.0); PLATELET COUNT, AUTOMATED 226 10^3/uL (150-450); RED BLOOD COUNT 4.01 10^6/uL (4.00-5.40); WHITE BLOOD COUNT 13.2 10^3/uL (4.0-10.0)
[2020-01-17 05:45] LABS: ALBUMIN 2.3 GM/DL (3.2-5.2); BILIRUBIN,TOTAL 0.5 MG/DL (0.2-1.0); CREATININE FOR GFR 1.14 MG/DL (0.55-1.30); GLOMERULAR FILTRATION RATE 51.1 (>45); POTASSIUM SERUM 3.9 MEQ/L (3.5-5.1); TOTAL PROTEIN 5.8 GM/DL (6.4-8.2)
[2020-01-17 08:00] VITALS: BP 129/74
[2020-01-17] MEDS ORDERED: FUROSEMIDE 40MG/4ML VIAL (J1940) IV ONE (08:15)
--- NOTE | 2020-01-17 08:36 | IPN ---
DATE: 01/16/2020 SUBJECTIVE: What a difference 24 hours makes. Ms. Alvarez is awake, alert, and bright and cheery. Her pain has disappeared from the PleurX catheter tract. She is breathing a whole lot better. She underwent a pigtail catheter insertion to her right chest yesterday. PHYSICAL EXAMINATION: Her vital signs show a T-max of 101.1 last night at 9 oclock. She is now afebrile and defervesced. Heart rate ranges between 98 and 87 and sinus rhythm. Respiratory rate of 14-16 without the use of accessory muscles. She is 93-95% saturated on 2 liters nasal cannula. Blood pressures range between 160/88 to 118/65. Intake and output over the past 24 hours was recorded as 510 in and 680 out for a negativity of 170 mL. She has put 330 mL out the chest catheter, 20 mL since midnight. Her weight today is 94.4 kg compared to 95.7 kg two days ago. On physical examination, she has equal breath sounds on either side. Percussion is full through the diaphragm as far as I can tell through her obesity. I hear some occasional rhonchi which clear with coughing. Cardiac exam is without murmurs, clicks, gallops, or rubs. I cannot feel her PMI. S1 and S2 are normal. Abdomen was soft, nontender. Bowel sounds are positive. There is no hepatomegaly. No CVA tenderness. Extremities show trace pretibial edema. No calf tenderness. No differential swelling of the upper extremities. Skin is warm, dry, and perfused without cyanosis or mottling including that of the nailbeds and knees. Neck is supple. There is no jugular venous distention. No subcutaneous emphysema. Trachea is midline. Mouth shows the mucous membranes to be pink and moist. Lips and commissures without thrush. Eyes shows her pupils to be equal and reactive. Extraocular muscles intact. Sclera anicteric. Neuro: Cranial nerves II-XII intact with gross motor and gross sensation intact. Gait is not tested. Psychiatric showed her to be awake, alert, and oriented x3 with appropriate mood and affect and conversational. Her wound today is clean and dry, and the cellulitis is gone, and there is no more tenderness along the prior PleurX tract. LABORATORY DATA: Her white count today is down to 11.7 from 14.6 on admission. Hemoglobin and hematocrit are 12.9 and 37.5 with a platelet count of 265. Differential shows 93% neutrophils, 3% lymphocytes, and 2% monocytes. No immature forms or toxic granulations. Her electrolytes are normal with a BUN and creatinine of 15 and 0.63, a glucose of 242, and a calcium of 8.7 with a corresponding albumin of 2.4. Blood gases today have completely normalized with a pH of 7.42, pCO2 40, and a pO2 of 84. Base excess is 1.1. Her pleural fluid from yesterday shows a pH of 7.02 with 921 white cells, 78% of which are neutrophils. Glucose is 91 with an LDH of 177 and a corresponding serum LDH of 122. It looks to be an acidotic neutrophilic exudate pleural effusion consistent with an empyema or at least a parapneumonic effusion. I think that it is more of an empyema in that it was infected from the PleurX catheter and not from underlying pneumonia. Her chest x-ray shows bilateral pleural effusions with the right greater than the left. Pigtail catheter is in good place. There is a diffuse haze on either side consistent with increased fluid in the chest. I do not see infiltrates per se. There is some fluid in the right major fissure. IMPRESSION: 1. Cellulitis along PleurX catheter. 2. Sepsis, resolved. 3. Empyema from PleurX catheter. 4. Increased vascular congestion, improving. 5. Diabetes. 6. Hypertension. PLAN AND DISCUSSION: She continues on antibiotics consisting of vancomycin. Her pleural fluid has grown Staphylococcus aureus resistant to penicillin but sensitive to everything else. The antibiotics can then be narrowed, and I see that meropenem has been discontinued. The growth was heavy from the pleural fluid which was originally drained from the PleurX catheter. I have no objection to her going to the PCU. We will continue to drain her for the next number of days. 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 I suspect she will eventually need another PleurX catheter. However, I cannot be putting another right PleurX catheter in for at least two weeks after she has completed an entire course of antibiotics. ALICE
[2020-01-17] MEDS: FUROSEMIDE 40MG/4ML VIAL (J1940) IV SCH (09:00)
[2020-01-17] MEDS: ceFAZolin SOD 2 GM in IV 1 EA IV SCH ×3 (09:14→23:54)
[2020-01-17] MEDS: HumaLOG INSULIN (NovoLOG) PER UNIT SC SCH ×4 (09:14→21:49)
[2020-01-17] MEDS: ASPIRIN 325 MG TAB PO SCH (09:15)
[2020-01-17] MEDS: PANTOPRAZOLE 40MG TAB (PROTONIX) PO SCH (09:15)
[2020-01-17] MEDS: LETROZOLE 2.5 MG TAB PO SCH (09:15)
[2020-01-17] MEDS: ENOXAPARIN 40MG/0.4ML SYRINGE (J1650 PER 10MG) SC SCH (09:16)
[2020-01-17] MEDS: DOCUSATE SODIUM 100 MG CAP PO SCH ×2 (09:17→21:48)
[2020-01-17] MEDS: bisoproloL fumarate 10 MG TAB PO SCH ×2 (09:17→21:48)
[2020-01-17] MEDS: FOLIC ACID 1 MG TAB PO SCH (09:17)
[2020-01-17] MEDS: MULTIVITAMINS/MINERALS THERAP 1 TAB PO SCH (09:17)
[2020-01-17 12:00] VITALS: BP 151/83
--- NOTE | 2020-01-17 13:29 | IPNPDOC ---
Date Seen The patient was seen on 01/17/20. Progress Note SUBJECTIVE: Currently 91% on RA, ambulating well and cleared by PT. Afebrile since 01/15/20. Cultures: MSSA, vancomycin changed to cefazolin per Dr. Warren's suggestions. BS better controlled. Started on daily diuretic. Denies chest pain, n/v/d, chills. OBJECTIVE: VITAL SIGNS: Please see below PHYSICAL EXAMINATION: GENERAL: AAOx3 EYES: PERRLA, EOM intact HENT, MOUTH: Normocephalic, atraumatic, moist mucous membranes NECK: SUPPLE, no JVD, no lymphadenopathy, no carotid bruit CV: sinus tachycardia, S1S2 normal, no murmurs/rubs/gallops BACK: Pigtail catheter in place RESPIRATORY: bibasilar crackles-mild. Otherwise CTA, no rhonchi, wheezing or rales GI: Catheter removal site covered with bandage in right upper quadrant. BS positive in 4 quadrants, soft, nontender, nondistended, no rebound or guarding, no organomegaly : Deferred MUSCULOSKELETAL: Normal ROM. No cyanosis, clubbing, swelling, joint deformity, extremity edema +3 INTEGUMENTARY: Intact, no rashes, no lesions, no erythema NEUROLOGIC: Unable to participate in neuro exam, no obvious focal deficits CURRENT MEDICATIONS: Please see below LABORATORY DATA: Please see below MICROBIOLOGY: Pleural catheter tip cx: MSSA Aerobic fluid cx: MSSA Blood cultures x 2 sets: NG 24 H Anaerobic fluid cx and fungal cultures: NG IMAGING: CXR: pending ASSESSMENT: is a 64 yr old w a hx of metastatic breast cancer w recurrent malignant pleural effusions w catheter placement, HTN and DM who presented w d yspnea, fever and chills and was diagnosed with sepsis likely 2/2 to infected chest tube site, empyema. PLAN: Sepsis likely 2/2 to empyema vs. infected chest tube site, + MSSA -WBC remains wnl, febrile, tachypnea resolved -S/p pigtail catheter placement and drainage 01/15/20 -Pleural catheter tip and pleural fluid aerobic cx: MSSA -F/u labs, micro above -Dr. Warren recommended change from Vancomycin to cefazolin. C/w IV cefazolin for additional 4 days, consider transition to -Dr. Jean-Baptiste following Acute respiratory failure 2/2 to empyema with sepsis, r/o CHF. No known COPD, nonsmoker but lived in house with heavy smokers -improvement, now on 2 L NC without any wheezing, rhonchi or rales -On daily lasix, Xopenex ATC, PRN. -Daily wts - Monitor Cr closely Hypotension likely 2/2 to sepsis- resolved. Hx of HTN -Improved with IVFs, MAP >65 -Monitor closely Metastatic breast cancer -Cause of recurrent pleural effusions. -To follow up with heme/onc o/p NIDDM - BS uncontrolled likely 2/2 to steroid use, steroids stopped today - consistent carb diet started - BS stable. - FS, ISS, hypoglycemic protocol - If remains high, consider AM levemir Alcohol Use -No signs/symptoms of withdrawl -CIWA protocol DVT PROPHYLAXIS: lovenox DISPOSITION: C/w inpatient treatment. Plan is home when medically cleared. VS, I&O, 24H, Fishbone Vital Signs/I&O Vital Signs Date Time Temp Pulse Resp B/P (MAP) Pulse Ox O2 Delivery O2 Flow Rate FiO2 01/17/20 09:17 98 129/74 01/17/20 08:00 97.9 18 93 Room Air 01/16/20 04:00 2.0 01/15/20 13:45 40 I&O- Last 24 Hours up to 6 AM 01/17/20 06:00 Intake Total 930 ml Output Total 885 ml Balance 45 ml Laboratory Data 24H LABS Laboratory Tests 2 01/16/20 17:39: Bedside Glucose (Misc Panel) 355H 01/16/20 19:15: Bedside Glucose (Misc Panel) 386H 01/17/20 04:58: Immature Granulocyte % (Auto) 0.8, Neutrophils (%) (Auto) 90.6H, Lymphocytes (%) (Auto) 4.6L, Monocytes (%) (Auto) 3.9, Eosinophils (%) (Auto) 0.0, Basophils (%) (Auto) 0.1, Neutrophils # (Auto) 12.0H, Lymphocytes # (Auto) 0.6L, Monocytes # (Auto) 0.5, Eosinophils # (Auto) 0.0, Basophils # (Auto) 0.0, Nucleated Red Blood Cells % (auto) 0.0, Anion Gap 8, Glomerular Filtration Rate 51.1, Calcium Level 9.0, Total Bilirubin 0.5, Aspartate Amino Transf (AST/SGOT) 42H, Alanine Aminotransferase (ALT/SGPT) 42, Alkaline Phosphatase 115, Total Protein 5.8L, Albumin 2.3L, Albumin/Globulin Ratio 0.7L 01/17/20 11:50: Bedside Glucose (Misc Panel) 195H CBC/BMP Laboratory Tests 01/17/20 04:58 Microbiology Microbiology 01/15/20 Acid Fast Stain, Received Pending 01/15/20 Mycobacterial Culture, Received Pending 01/15/20 Fungal Smear, Received Pending 01/15/20 Fungal Culture, Received Pending 01/15/20 Gram Stain - Final, Complete 01/15/20 Anaerobic Culture - Final, Complete 01/15/20 Body Fluid Culture - Final, Complete 01/14/20 Gram Stain - Final, Complete 01/14/20 Bacterial Culture - Final, Complete Staphylococcus Aureus 01/14/20 Anaerobic Culture - Final, Complete 01/14/20 Acid Fast Stain, Received Pending 01/14/20 Mycobacterial Culture, Received Pending 01/14/20 Fungal Smear, Received Pending 01/14/20 Fungal Culture, Received Pending 01/14/20 Gram Stain - Final, Complete 01/14/20 Anaerobic Culture - Final, Complete 01/14/20 Body Fluid Culture - Final, Complete Staphylococcus Aureus Enterococcus Faecalis 01/13/20 Respiratory Virus Panel (PCR) (NITA) - Final, Complete 01/13/20 Blood Culture - Preliminary, Resulted No Growth after 72 hours. All specime... 01/13/20 Blood Culture - Preliminary, Resulted No Growth after 72 hours. All specime... Current Medications Current Medications Medications (Trade) Dose Ordered Sig/[place] Route PRN Reason Start Time Stop Time Status Last Admin Dose Admin Acetaminophen (Tylenol Tab) 650 mg Q4H PRN PO PAIN OR FEVER 01/14/20 00:00 01/15/20 20:46 Acetaminophen/ Hydrocodone Bitart ([place], [place]nexs[place] 5/325) 1 tab Q3H PRN PO MILD PAIN (PS 1-4) 01/15/20 08:15 Hold Al Hydrox/Mg Hydrox/Simethicone (Mylanta) 30 ml DAILY PRN PO DYSPEPSIA 01/14/20 00:00 Albuterol Sulfate (Proventil, Ventolin Hfa) 2 puff QID PRN INH SOB/WHEEZING 01/14/20 00:45 01/14/20 14:41 DC Aspirin (Aspirin) 325 mg DAILY PO 01/14/20 09:00 01/17/20 09:15 Benzonatate (Tessalon Perles) 200 mg Q8H PRN PO COUGH 01/14/20 04:45 01/15/20 20:47 Benzonatate (Tessalon Perles) 200 mg Q8HP PO 01/14/20 04:15 UNV Bisacodyl (Dulcolax Suppository) 10 mg Q4HP PRN [place] CONSTIPATION 01/15/20 08:15 Bisoprolol Fumarate (Zebeta) 10 mg BID PO 01/13/20 21:00 01/17/20 09:17 Cefazolin Sodium/ Dextrose 2 gm/IV Miscellaneous Supplies 50 ml @ 75 mls/hr Q8H IV 01/16/20 16:00 01/17/20 09:14 Dextrose (Dextrose 50%) 25 ml ASDIRECTED PRN IV SEE LABEL COMMENTS 01/14/20 00:45 Docusate Sodium (Colace) 100 mg BID PO 01/15/20 09:00 01/17/20 09:17 Enoxaparin Sodium (Lovenox) 40 mg DAILY SC 01/14/20 09:00 01/17/20 09:16 Fluticasone Propionate (Flonase 0.05% Nasal [place]) 2 spray DAILY PRN NA NASAL CONGESTION 01/14/20 00:45 Folic Acid (Folic Acid) 1 mg DAILY PO 01/14/20 09:00 01/17/20 09:17 Furosemide (LASIX injection) 40 mg DAILY IV 01/16/20 09:00 01/16/20 10:13 Glucagon (Glucagon) 1 mg ASDIRECTED PRN SC SEE LABEL COMMENTS 01/14/20 00:45 Glucose (Glucose) 16 GM ASDIRECTED PRN PO SEE LABEL COMMENTS 01/14/20 00:45 Home Med (Med Rec Complete!) ASDIRECTED XX 01/13/20 23:00 01/13/20 22:58 DC Insulin Human Lispro (HumaLOG INSULIN) SEE PROTOCOL TABLE AC SC 01/15/20 12:00 01/17/20 09:14 Insulin Human Lispro (HumaLOG INSULIN) SEE PROTOCOL TABLE Q6H SC 01/14/20 18:00 10/7/20 11:34 DC 01/14/20 17:25 Insulin Human Lispro (HumaLOG INSULIN) SEE PROTOCOL TABLE QHS SC 01/15/20 21:00 01/16/20 20:09 Insulin Human Lispro (HumaLOG INSULIN) See Protocol Table AC KS 01/14/20 07:30 01/14/20 16:52 DC 01/14/20 08:29 Insulin Human Lispro (HumaLOG INSULIN) See Protocol Table QHS [place] 01/13/20 21:00 01/14/20 16:52 DC Ketorolac Tromethamine (ToRADol) 30 mg Q6H IV 01/15/20 08:15 01/16/20 11:09 DC Ketorolac Tromethamine (ToRADol) 30 mg Q6H IV 01/16/20 11:00 01/21/20 10:59 01/17/20 11:18 Lactated Ringer's 1,000 ml @ 100 mls/hr Q10H IV 01/14/20 01:30 01/14/20 06:54 DC 01/14/20 05:04 Letrozole (Femara) 2.5 mg DAILY PO 01/14/20 09:00 01/17/20 09:15 Levalbuterol HCl (Xopenex Neb) 1.25 mg Q2HP PRN NEB SOB/WHEEZING 01/14/20 14:45 Levalbuterol HCl (Xopenex Neb) 1.25 mg RQ4H NEB 01/14/20 16:00 01/17/20 11:04 Loratadine (Claritin) 10 mg QHS PO 01/13/20 21:00 01/16/20 20:09 Lorazepam (Ativan) 2 mg ASDIRECTED PRN PO SEE PROTOCOL 01/14/20 00:45 Magnesium Hydroxide (Milk Of Magnesia) 30 ml DAILY PRN PO CONSTIPATION 01/14/20 00:00 Meropenem 1 gm/IV Miscellaneous Supplies 50 ml @ 100 mls/hr Q8H IV 01/14/20 06:00 01/15/20 13:24 DC 01/15/20 05:20 Methylprednisolone (SOLUmedrol) 60 mg Q8H IV 01/15/20 10:00 01/16/20 12:23 DC 01/16/20 09:23 Multivitamins (Theragram-M) 1 tab DAILY PO 01/14/20 09:00 01/17/20 09:17 Ondansetron HCl (ZOFRAN INJection) 4 mg Q4HP PRN IV NAUSEA 01/15/20 08:15 Oxycodone/ Acetaminophen (Percocet 5mg/ 325mg Tablet) 1 tab Q4H PRN PO MODERATE PAIN (PS 5-7) 01/15/20 08:15 Hold Oxycodone/ Acetaminophen (Percocet 5mg/ 325mg Tablet) 2 tab Q4H PRN PO SEVERE PAIN (PS 8-10) 01/15/20 08:15 Pantoprazole Sodium (Protonix) 40 mg DAILY IV 01/15/20 09:00 01/15/20 09:57 DC 01/15/20 09:15 Pantoprazole Sodium (Protonix) 40 mg DAILY PO 01/15/20 09:00 01/17/20 09:15 Potassium Chloride/Dextrose/ Sod Cl 1,000 ml @ 75 mls/hr [id number] IV 01/15/20 08:14 01/15/20 11:34 DC 01/15/20 09:15 Sodium Chloride 1,000 ml @ 100 mls/hr Q10H IV 01/14/20 07:00 01/14/20 14:39 DC 01/14/20 08:32 Sodium Chloride 1,000 ml @ 100 mls/hr Q10H IV 01/14/20 18:15 01/15/20 11:34 DC 01/15/20 04:17 Sodium Chloride (Saline Lock Flush) 2 ml ASDIRECTED PRN IV SEE LABEL COMMENTS 01/16/20 16:30 Sodium Chloride (Saline Lock Flush) 2 ml SLF IV 01/16/20 22:00 01/17/20 04:19 Thiamine HCl (Thiamine HCl) 100 mg BID PO 01/13/20 21:00 01/16/20 09:01 DC 01/16/20 08:23 Vancomycin HCl 1000 mg/IV Miscellaneous Supplies 1 each/ Dextrose 270 ml @ 270 mls/hr Q8H IV 01/14/20 09:00 01/16/20 15:50 DC 01/16/20 09:23 Allergies Coded Allergies: Penicillins (Verified Allergy, Unknown, SWELLING, ASTHMA, 12/17/19) Ariana Fabian MD Jan 17, 2020 13:29
[2020-01-17 16:00] VITALS: BP 128/66
--- NOTE | 2020-01-17 18:29 | IPN ---
DATE: 01/17/2020 SUBJECTIVE: Ms. Alvarez is feeling good today and breathing well. Her chest catheter still remains in place. Her pain is being well controlled. OBJECTIVE: Vital Signs: T-max 98.4 with heart rate that ranges between 89 and 98 and in sinus rhythm, respiratory rate 18 to 19 without the use of accessory muscles, who is 91 to 94% saturated on room air. Blood pressure ranging between 151/77 to 135/71. Intake and Output: For the past 24 hours has been recorded as 1560 in and 1020 out for a positivity of 540 cc. Yesterday she put out a total of 20 cc out the chest catheter and this morning she has put out 85 cc in the last 8 hours. She weighs 97.5 kilos today; compared to 97.2 kilos yesterday. PHYSICAL EXAMINATION: Neck: Supple. There is no jugular venous distention. No subcutaneous emphysema. Trachea is midline. HEENT: Mouth shows her mucous membranes to be pink and moist. Lips and commissures show no thrush. Eyes show her pupils to be equal and reactive. Extraocular muscles intact. Sclerae nonicteric. Lungs: Actually sound rather clear with no vesicular sounds. Percussion was surprisingly full to the diaphragm. Cardiac: Without murmurs, clicks, rubs or gallops. I cannot feel her PMI. S1, S2 are normal. Abdomen: Soft and nontender. Bowel sounds are positive. There is no hepatomegaly, no CVA tenderness. Extremities: Still show 2 to 3+ pretibial edema, no calf tenderness, no differential swelling of the upper extremities. Skin: Warm, dry and perfused without cyanosis or mottling including that of the hips and knees. Neuro: CN II-XII intact with gross motor, gross sensation intact. Gait was not tested. PSYCHIATRIC: Awake, alert and oriented x3 with appropriate mood and affect, and conversational. LABORATORY DATA: White count today 13.2; up from 11.7 yesterday. Hemoglobin/hematocrit 12.5 and 36.0; unchanged from yesterday, with platelet count 226,000 and stable. Differential shows 90% neutrophils, 5% lymphocytes and 3% monocytes. There are no immature forms, no toxic granulations. Electrolytes normal with BUN/creatinine 31 and 1.14, glucose 211 and calcium 9.0. Albumin 2.3. IMAGING STUDIES: Her chest x-ray still shows bilateral pleural effusions, which actually looked to be worse on the PA view than the lateral view. The effusions maybe anterior. There is fluid in the fissure on the right side. Catheter looks to be in good place. IMPRESSION: 1. Cellulitis along PleurX catheter tract - resolving with removal of PleurX catheter. 2. Empyema. 3. Increased vascular congestion. 4. Sepsis - resolving. 5. Diabetes. 6. Hypertension. PLAN/DISCUSSION: I will continue draining her pigtail catheter and leave her on suction. I am surprised she did not drain more yesterday, but she is draining more today. She remains on antibiotics, consisting of Cefazolin. Microbiology includes Staph Aureus sensitive to everything except penicillin G. It was sensitive to Oxacillin . Cephalosporins were not tested. [facility]
[2020-01-17 20:00] VITALS: BP 154/75
[2020-01-17] MEDS: LORATADINE 10 MG TAB PO SCH (21:47)
[2020-01-18] VITALS: BP 148/78
[2020-01-18] MEDS: LEVALBUTEROL 1.25 MG/0.5 ML CONCENTRATE NEB NEB SCH ×6 (00:08→19:27)
[2020-01-18 04:00] VITALS: BP 162/85
[2020-01-18 04:49] LABS: BASO % 0.2 % (0.0-1.0); EOS # 0.2 10^3/uL (0.0-0.5); EOS % 3.1 % (0.0-3.0); HEMOGLOBIN 12.2 g/dl (12.0-15.5); LYMPH # 1.2 10^3/uL (1.5-5.0); MEAN CORPUSCULAR HEMOGLOBIN 31.6 pg (27.0-33.0); MEAN CORPUSCULAR HGB CONC 34.9 g/dl (32.0-36.5); MEAN CORPUSCULAR VOLUME 90.7 fl (80.0-96.0); MONO # 0.6 10^3/uL (0.0-0.8); MONO % 9.1 % (0.0-5.0); NEUTROPHILS # 4.3 10^3/uL (1.5-8.5); NEUTROPHILS % 68.1 % (36.0-66.0); PLATELET COUNT, AUTOMATED 224 10^3/uL (150-450); RED BLOOD COUNT 3.86 10^6/uL (4.00-5.40); WHITE BLOOD COUNT 6.4 10^3/uL (4.0-10.0)
[2020-01-18 05:09] LABS: CREATININE FOR GFR 1.29 MG/DL (0.55-1.30); GLOMERULAR FILTRATION RATE 44.3 (>45); POTASSIUM SERUM 3.4 MEQ/L (3.5-5.1)
[2020-01-18] MEDS: KETOROLAC 30 MG/ML 1ML VIAL IV SCH ×4 (05:32→23:36)
[2020-01-18] MEDS: SLF 3 ML SYR IV SCH ×3 (05:32→22:00)
[2020-01-18 08:00] VITALS: BP 148/80
[2020-01-18] MEDS: ceFAZolin SOD 2 GM in IV 1 EA IV SCH ×3 (08:34→23:37)
[2020-01-18] MEDS: FUROSEMIDE 40MG/4ML VIAL (J1940) IV SCH (08:38)
[2020-01-18] MEDS: LETROZOLE 2.5 MG TAB PO SCH (08:50)
[2020-01-18] MEDS: ENOXAPARIN 40MG/0.4ML SYRINGE (J1650 PER 10MG) SC SCH (08:50)
[2020-01-18] MEDS: HumaLOG INSULIN (NovoLOG) PER UNIT SC SCH ×4 (08:50→21:00)
[2020-01-18] MEDS: PANTOPRAZOLE 40MG TAB (PROTONIX) PO SCH (08:51)
[2020-01-18] MEDS: POTASSIUM CHLORIDE 10 MEQ SR TABLET PO SCH (08:51)
[2020-01-18] MEDS: ASPIRIN 325 MG TAB PO SCH (08:51)
[2020-01-18] MEDS: bisoproloL fumarate 10 MG TAB PO SCH ×2 (08:53→21:00)
[2020-01-18] MEDS: MULTIVITAMINS/MINERALS THERAP 1 TAB PO SCH (08:54)
[2020-01-18] MEDS: DOCUSATE SODIUM 100 MG CAP PO SCH ×2 (08:54→21:00)
[2020-01-18] MEDS: FOLIC ACID 1 MG TAB PO SCH (08:54)
[2020-01-18 12:00] VITALS: BP 135/69
--- NOTE | 2020-01-18 14:01 | REPVR ---
PROCEDURE INFORMATION: Exam: CT Chest Without Contrast Exam date and time: 01/18/2020 12:14 PM Age: 64 years old Clinical indication: Condition or disease; Non-vascular catheter/shunt placement or management and other: Status of pleural effusions; Additional info: Status of pleural effusions, catheter postion TECHNIQUE: Imaging protocol: Computed tomography of the chest without contrast. 3D rendering (Not supervised by radiologist): MIP and/or 3D reconstructed images were created by the technologist. Radiation optimization: All CT scans at this facility use at least one of these dose optimization techniques: automated exposure control; mA and/or kV adjustment per patient size (includes targeted exams where dose is matched to clinical indication); or iterative reconstruction. COMPARISON: 1. CT ANGIO CHEST 01/13/2020 9:15 PM 2. CR - Chest, 2 view PA, Lat 01/18/2020 7:58:15 AM 3. CR - Chest, 2 view PA, Lat 01/17/2020 7:34:12 AM 4. CR - Chest, 2 view PA, Lat 01/16/2020 7:52:07 AM 5. US - Duplex, Ext,LOWER veins,unilat LEFT 01/15/2020 10:35:35 AM FINDINGS: Thyroid: Large at least 3.5 cm right thyroid nodule which has dense lobulated calcifications centrally and slightly decreased density peripherally, as before. This again displaces the trachea to the left. Lungs: Multiple scattered bilateral pulmonary nodules raise concern for pulmonary metastases, with the largest on the right measuring 5 mm in the upper lobe anteriorly on series 201, image 28, and the largest on the the left measuring 5 mm in the superior segment of the left lower lobe also on series 201, image 28. Pleural space: There are moderate bilateral pleural effusions, larger on the right. Although the volume of pleural fluid bilaterally is overall slightly decreased since 01/13/2020, there continue to be loculated components, some of which now contain more air on the right. An oval collection fluid and air in the posteroinferior right chest measures up to 14.8 cm craniocaudal by 7.4 cm medial-lateral 3.9 cm anterior-posterior, likely an empyema. There is a small caliber pigtail catheter within the inferior portion of this. A larger caliber pleural drain that was previously present in the fluid more anteriorly has been removed. Small amount of air in right pleural fluid anteriorly may be related to the prior drain or infectious process. No air is seen in the left pleural fluid. Heart and mediastinum: Heart size is enlarged. Small hypodense pericardial effusion. There is aortic and coronary atherosclerosis. No thoracic aortic aneurysm. Lymph nodes: There are enlarged left axillary lymph nodes measuring up to 1.7 cm with minimal adjacent fat stranding, presumably metastatic. Mild right axillary lymphadenopathy with the largest node measuring 1.1 cm in short axis dimension. There are small superior mediastinal lymph nodes. Spleen: The spleen is mildly enlarged, measuring 12.6 cm in greatest dimension. Bones/joints: Multiple sclerotic metastases are again seen in the thoracolumbar spine and in the left lateral 8th rib, potentially also in the left humeral head Soft tissues: 2.8 cm spiculated left breast mass which contains small calcifications is associated with marked retraction of the skin. This is consistent with breast cancer. There is overlying marked skin thickening in the left breast which may be malignant. IMPRESSION: 1. Moderate bilateral loculated pleural effusions, larger on the right than on the left. While the overall volume of pleural fluid bilaterally has slightly decreased, loculation persists, with increased air in some of the loculated components particularly the 1 in the right lower chest posteriorly. 2. Small caliber pigtail catheter is coiled in the costophrenic sulcus at the inferior margin of the right lower chest collection. A larger right basilar pleural drain has been removed since the prior study. 3. Left breast carcinoma with mass, skin retraction, and overlying skin thickening, along with multiple bilateral pulmonary nodules which are most likely metastases, sclerotic osseous metastases, and left axillary lymph node metastases. The pleural effusions may or may not be malignant. Regarding the pulmonary nodules: Fleischner Society follow up recommendations for incidental nodules are not indicated. Follow up per the patient's medical condition. COMMENTS: Consistent with the [place] [employer]'s Incidental Findings Committee white paper (J Am Claritza Radiol 2015): In patients aged 35 years and older with an incidental thyroid nodule equal to or greater than 1.[address], MRI or extrathyroidal US, further evaluation with dedicated thyroid US is recommended for patients with normal life expectancy and without comorbidities. For smaller nodules without suspicious features, no further evaluation or follow up is recommended. Electronically signed by: Daniella Vizcarra On 01/18/2020 14:01:32 PM
--- NOTE | 2020-01-18 15:14 | REPVR ---
PROCEDURE INFORMATION: Exam: XR Chest, 2 Views Exam date and time: 01/18/2020 8:06 AM Age: 64 years old Clinical indication: Shortness of breath; Additional info: Pleural effusions TECHNIQUE: Imaging protocol: XR of the chest Views: 2 views. COMPARISON: CR Chest, 2 view PA, Lat 01/17/2020 7:34 AM FINDINGS: Lungs: Patchy atelectasis versus pneumonia in the right mid and lower lung and left base. Pleural space: Moderate right and small to moderate left pleural effusions persist, with loculated components on the right in particular. No definite pneumothorax. There is again a pigtail catheter tip in the right lower chest posteriorly for the costophrenic angle. Heart/Mediastinum: Unremarkable. No cardiomegaly. Bones/joints: No acute osseous abnormality. Other findings: 4.4 cm densely calcified right thyroid nodule again seen with leftward mass effect on the tracheal air column. IMPRESSION: 1. Moderate right and small to moderate left pleural effusions persist, along with patchy atelectasis versus pneumonia in the right mid and lower lung and left base. 2. Small caliber pigtail catheter tip in the right lower chest posteriorly at the costophrenic angle. 3. Densely calcified right thyroid nodule again present with leftward mass effect on the trachea. Electronically signed by: Daniella Vizcarra On 01/18/2020 15:14:28 PM
[2020-01-18 16:00] VITALS: BP 144/88
--- NOTE | 2020-01-18 16:34 | IPNPDOC ---
Date Seen The patient was seen on 01/18/20. Progress Note SUBJECTIVE: Currently 93% on RA, ambulating well and cleared by PT. 125 mL out of chest tube over 24 hrs. Afebrile since 01/15/20. On daily diuretic, fluid restriction. Denies chest pain, n/v/d, chills. OBJECTIVE: VITAL SIGNS: Please see below PHYSICAL EXAMINATION: GENERAL: AAOx3 EYES: PERRLA, EOM intact HENT, MOUTH: Normocephalic, atraumatic, moist mucous membranes NECK: SUPPLE, no JVD, no lymphadenopathy, no carotid bruit CV: sinus tachycardia, S1S2 normal, no murmurs/rubs/gallops BACK: Pigtail catheter in place RESPIRATORY: bibasilar crackles-mild. Otherwise CTA, no rhonchi, wheezing or rales GI: Catheter removal site covered with bandage in right upper quadrant. BS positive in 4 quadrants, soft, nontender, nondistended, no rebound or guarding, no organomegaly : Deferred MUSCULOSKELETAL: Normal ROM. No cyanosis, clubbing, swelling, joint deformity, extremity edema +3 INTEGUMENTARY: Intact, no rashes, no lesions, no erythema NEUROLOGIC: Unable to participate in neuro exam, no obvious focal deficits CURRENT MEDICATIONS: Please see below LABORATORY DATA: Please see below MICROBIOLOGY: Pleural catheter tip cx: MSSA Aerobic fluid cx: MSSA Blood cultures x 2 sets: NG 24 H Anaerobic fluid cx and fungal cultures: NG IMAGING: CT chest 01/18/20: 1. Moderate bilateral loculated pleural effusions, larger on the right than on the left. While the overall volume of pleural fluid bilaterally has slightly decreased, loculation persists, with increased air in some of the loculated components particularly the 1 in the right lower chest posteriorly. 2. Small caliber pigtail catheter is coiled in the costophrenic sulcus at the inferior margin of the right lower chest collection. A larger right basilar pleural drain has been removed since the prior study. 3. Left breast carcinoma with mass, skin retraction, and overlying skin thickening, along with multiple bilateral pulmonary nodules which are most likely metastases, sclerotic osseous metastases, and left axillary lymph node metastases. The pleural effusions may or may not be malignant. ASSESSMENT: is a 64 yr old w a hx of metastatic breast cancer w recurrent malignant pleural effusions w catheter placement, HTN and DM who presented w dyspnea, fever and chills and was diagnosed with sepsis likely 2/2 to infected chest tube site, empyema. PLAN: Empyema with infected chest tube site/chest wall cellulitis, + MSSA. Resolved sepsis -WBC remains wnl, febrile, tachypnea resolved but tachycardia persists. -S/p pigtail catheter placement and drainage 01/15/20 -Pleural catheter tip and pleural fluid aerobic cx: MSSA -Repeat CT above and d/w Dr. Jean-Baptiste. Anterior loculation to be drained by US on 01/20/20. -F/u labs, micro above -Dr. Warren recommended change from Vancomycin to cefazolin. C/w IV cefazolin for additional 3 days then consider transition to oral med Acute respiratory failure 2/2 to empyema, loculated effusion, r/o CHF. -Remains on RA, saturating at 93%. -BNP 1880, f/u repeat since being on diuretics and fluid restriction -On daily lasix, Xopenex ATC, PRN. -Daily wts -Monitor Cr closely Hypokalemia likely 2/2 to lasix -30 mEq supplemented daily -F/u AM labs HTN -Stable. -C/w current treatment. -Monitor closely Metastatic breast cancer -Cause of recurrent pleural effusions. -To follow up with heme/onc o/p NIDDM - BS uncontrolled likely 2/2 to steroid use, steroids stopped today - consistent carb diet started - BS stable. - FS, ISS, hypoglycemic protocol - If remains high, consider AM levemir Alcohol Use -No signs/symptoms of withdrawl -CIWA protocol DVT PROPHYLAXIS: lovenox DISPOSITION: C/w inpatient treatment. Plan is home when medically cleared. VS, I&O, 24H, Fishbone Vital Signs/I&O Vital Signs Date Time Temp Pulse Resp B/P (MAP) Pulse Ox O2 Delivery O2 Flow Rate FiO2 01/18/20 08:53 96 148/80 01/18/20 08:00 97.9 18 93 Room Air 01/16/20 04:00 2.0 01/15/20 13:45 40 I&O- Last 24 Hours up to 6 AM 01/18/20 06:00 Intake Total 1380 ml Output Total 970 ml Balance 410 ml Laboratory Data 24H LABS Laboratory Tests 2 01/17/20 16:43: Bedside Glucose (Misc Panel) 157H 01/17/20 21:33: Bedside Glucose (Misc Panel) 258H 01/18/20 04:28: Immature Granulocyte % (Auto) 0.5, Neutrophils (%) (Auto) 68.1H, Lymphocytes (%) (Auto) 19.0L, Monocytes (%) (Auto) 9.1H, Eosinophils (%) (Auto) 3.1H, Basophils (%) (Auto) 0.2, Neutrophils # (Auto) 4.3, Lymphocytes # (Auto) 1.2L, Monocytes # (Auto) 0.6, Eosinophils # (Auto) 0.2, Basophils # (Auto) 0.0, Nucleated Red Blood Cells % (auto) 0.0, Anion Gap 7L, Glomerular Filtration Rate 44.3L, Calcium Level 9.0 01/18/20 11:28: Bedside Glucose (Misc Panel) 138H CBC/BMP Laboratory Tests 01/18/20 04:28 Microbiology Microbiology 01/15/20 Acid Fast Stain, Received Pending 01/15/20 Mycobacterial Culture, Received Pending 01/15/20 Fungal Smear, Received Pending 01/15/20 Fungal Culture, Received Pending 01/15/20 Gram Stain - Final, Complete 01/15/20 Anaerobic Culture - Final, Complete 01/15/20 Body Fluid Culture - Final, Complete 01/14/20 Gram Stain - Final, Complete 01/14/20 Bacterial Culture - Final, Complete Staphylococcus Aureus 01/14/20 Anaerobic Culture - Final, Complete 01/14/20 Acid Fast Stain, Received Pending 01/14/20 Mycobacterial Culture, Received Pending 01/14/20 Fungal Smear, Received Pending 01/14/20 Fungal Culture, Received Pending 01/14/20 Gram Stain - Final, Complete 01/14/20 Anaerobic Culture - Final, Complete 01/14/20 Body Fluid Culture - Final, Complete Staphylococcus Aureus Enterococcus Faecalis 01/13/20 Respiratory Virus Panel (PCR) (NITA) - Final, Complete 01/13/20 Blood Culture - Preliminary, Resulted No Growth after 72 hours. All specime... 01/13/20 Blood Culture - Preliminary, Resulted No Growth after 72 hours. All specime... Current Medications Current Medications Medications (Trade) Dose Ordered Sig/Naveen Route PRN Reason Start Time Stop Time Status Last Admin Dose Admin Acetaminophen (Tylenol Tab) 650 mg Q4H PRN PO PAIN OR FEVER 01/14/20 00:00 01/15/20 20:46 Acetaminophen/ Hydrocodone Bitart ([place], Anexsia 5/325) 1 tab Q3H PRN PO MILD PAIN (PS 1-4) 01/15/20 08:15 Hold Al Hydrox/Mg Hydrox/Simethicone (Mylanta) 30 ml DAILY PRN PO DYSPEPSIA 01/14/20 00:00 Albuterol Sulfate (Proventil, Ventolin Hfa) 2 puff QID PRN INH SOB/WHEEZING 01/14/20 00:45 01/14/20 14:41 DC Aspirin (Aspirin) 325 mg DAILY PO 01/14/20 09:00 01/18/20 08:51 Benzonatate (Tessalon Perles) 200 mg Q8H PRN PO COUGH 01/14/20 04:45 01/15/20 20:47 Benzonatate (Tessalon Perles) 200 mg Q8HP PO 01/14/20 04:15 UNV Bisacodyl (Dulcolax Suppository) 10 mg Q4HP PRN [place] CONSTIPATION 01/15/20 08:15 Bisoprolol Fumarate (Zebeta) 10 mg BID PO 01/13/20 21:00 01/18/20 08:53 Cefazolin Sodium/ Dextrose 2 gm/IV Miscellaneous Supplies 50 ml @ 75 mls/hr Q8H IV 01/16/20 16:00 01/18/20 08:34 Dextrose (Dextrose 50%) 25 ml ASDIRECTED PRN IV SEE LABEL COMMENTS 01/14/20 00:45 Docusate Sodium (Colace) 100 mg BID PO 01/15/20 09:00 01/18/20 08:54 Enoxaparin Sodium (Lovenox) 40 mg DAILY SC 01/14/20 09:00 01/18/20 08:50 Fluticasone Propionate (Flonase 0.05% Nasal [place]) 2 spray DAILY PRN NA NASAL CONGESTION 01/14/20 00:45 Folic Acid (Folic Acid) 1 mg DAILY PO 01/14/20 09:00 01/18/20 08:54 Furosemide (LASIX injection) 40 mg DAILY IV 01/16/20 09:00 01/18/20 08:38 Glucagon (Glucagon) 1 mg ASDIRECTED PRN SC SEE LABEL COMMENTS 01/14/20 00:45 Glucose (Glucose) 16 GM ASDIRECTED PRN PO SEE LABEL COMMENTS 01/14/20 00:45 Home Med (Med Rec Complete!) ASDIRECTED XX 01/13/20 23:00 01/13/20 22:58 DC Insulin Human Lispro (HumaLOG INSULIN) SEE PROTOCOL TABLE AC OR 01/15/20 12:00 01/18/20 13:01 Insulin Human Lispro (HumaLOG INSULIN) [facility] 01/14/20 18:00 01/15/20 11:34 DC 01/14/20 17:25 Insulin Human Lispro (HumaLOG INSULIN) SEE PROTOCOL TABLE QHS OR 01/15/20 21:00 01/17/20 21:49 Insulin Human Lispro (HumaLOG INSULIN) See Protocol Table AC OR 01/14/20 07:30 01/14/20 16:52 DC 01/14/20 08:29 Insulin Human Lispro (HumaLOG INSULIN) [facility] 01/13/20 21:00 01/14/20 16:52 DC Ketorolac Tromethamine (ToRADol) 30 mg Q6H IV 01/15/20 08:15 01/16/20 11:09 DC Ketorolac Tromethamine (ToRADol) 30 mg Q6H IV 01/16/20 11:00 01/21/20 10:59 01/18/20 11:25 Lactated Ringer's 1,000 ml @ 100 mls/hr Q10H IV 01/14/20 01:30 01/14/20 06:54 DC 01/14/20 05:04 Letrozole (Femara) 2.5 mg DAILY PO 01/14/20 09:00 01/18/20 08:50 Levalbuterol HCl (Xopenex Neb) 1.25 mg Q2HP PRN NEB SOB/WHEEZING 01/14/20 14:45 Levalbuterol HCl (Xopenex Neb) 1.25 mg RQ4H NEB 01/14/20 16:00 01/18/20 15:56 Loratadine (Claritin) 10 mg QHS PO 01/13/20 21:00 01/17/20 21:47 Lorazepam (Ativan) 2 mg ASDIRECTED PRN PO SEE PROTOCOL 01/14/20 00:45 Magnesium Hydroxide (Milk Of Magnesia) 30 ml DAILY PRN PO CONSTIPATION 01/14/20 00:00 01/18/20 13:08 Meropenem 1 gm/IV Miscellaneous Supplies 50 ml @ 100 mls/hr Q8H IV 01/14/20 06:00 01/15/20 13:24 DC 01/15/20 05:20 Methylprednisolone (SOLUmedrol) 60 mg Q8H IV 01/15/20 10:00 01/16/20 12:23 DC 01/16/20 09:23 Multivitamins (Theragram-M) 1 tab DAILY PO 01/14/20 09:00 01/18/20 08:54 Ondansetron HCl (ZOFRAN INJection) 4 mg Q4HP PRN IV NAUSEA 01/15/20 08:15 Oxycodone/ Acetaminophen (Percocet 5mg/ 325mg Tablet) 1 tab Q4H PRN PO MODERATE PAIN (PS 5-7) 01/15/20 08:15 Hold Oxycodone/ Acetaminophen (Percocet 5mg/ 325mg Tablet) 2 tab Q4H PRN PO SEVERE PAIN (PS 8-10) 01/15/20 08:15 Pantoprazole Sodium (Protonix) 40 mg DAILY IV 01/15/20 09:00 01/15/20 09:57 DC 01/15/20 09:15 Pantoprazole Sodium (Protonix) 40 mg DAILY PO 01/15/20 09:00 01/18/20 08:51 Potassium Chloride/Dextrose/ Sod Cl 1,000 ml @ 75 mls/hr [id number] IV 01/15/20 08:14 01/15/20 11:34 DC 01/15/20 09:15 Potassium Chloride (Micro-K Extencaps) 30 meq DAILY PO 01/18/20 09:00 01/18/20 08:51 Sodium Chloride 1,000 ml @ 100 mls/hr Q10H IV 01/14/20 07:00 01/14/20 14:39 DC 01/14/20 08:32 Sodium Chloride 1,000 ml @ 100 mls/hr Q10H IV 01/14/20 18:15 01/15/20 11:34 DC 01/15/20 04:17 Sodium Chloride (Saline Lock Flush) 2 ml ASDIRECTED PRN IV SEE LABEL COMMENTS 01/16/20 16:30 Sodium Chloride (Saline Lock Flush) 2 ml SLF IV 01/16/20 22:00 01/18/20 05:32 Thiamine HCl (Thiamine HCl) 100 mg BID PO 01/13/20 21:00 01/16/20 09:01 DC 01/16/20 08:23 Vancomycin HCl 1000 mg/IV Miscellaneous Supplies 1 each/ Dextrose 270 ml @ 270 mls/hr Q8H IV 01/14/20 09:00 01/16/20 15:50 DC 01/16/20 09:23 Allergies Coded Allergies: Penicillins (Verified Allergy, Unknown, SWELLING, ASTHMA, 12/17/19) Ariana Fabian MD Jan 18, 2020 16:34
[2020-01-18 20:00] VITALS: BP 137/78
[2020-01-18] MEDS: LORATADINE 10 MG TAB PO SCH (21:00)
[2020-01-19] VITALS: BP 131/70
[2020-01-19] MEDS: LEVALBUTEROL 1.25 MG/0.5 ML CONCENTRATE NEB NEB SCH ×7 (00:11→23:59)
[2020-01-19 04:00] VITALS: BP 151/77
[2020-01-19 05:15] LABS: BASO % 0.2 % (0.0-1.0); EOS # 0.6 10^3/uL (0.0-0.5); EOS % 10.4 % (0.0-3.0); HEMATOCRIT 34.4 % (36.0-47.0); HEMOGLOBIN 11.6 g/dl (12.0-15.5); LYMPH % 18.1 % (24.0-44.0); MEAN CORPUSCULAR HEMOGLOBIN 30.3 pg (27.0-33.0); MEAN CORPUSCULAR HGB CONC 33.7 g/dl (32.0-36.5); MEAN CORPUSCULAR VOLUME 89.8 fl (80.0-96.0); MONO # 0.5 10^3/uL (0.0-0.8); MONO % 8.3 % (0.0-5.0); NEUTROPHILS # 3.5 10^3/uL (1.5-8.5); NEUTROPHILS % 62.3 % (36.0-66.0); PLATELET COUNT, AUTOMATED 217 10^3/uL (150-450); RED BLOOD COUNT 3.83 10^6/uL (4.00-5.40); WHITE BLOOD COUNT 5.7 10^3/uL (4.0-10.0)
[2020-01-19 05:42] LABS: CALCIUM LEVEL 8.8 MG/DL (8.8-10.2); CREATININE FOR GFR 1.02 MG/DL (0.55-1.30); GLOMERULAR FILTRATION RATE 58.1 (>45); POTASSIUM SERUM 3.8 MEQ/L (3.5-5.1)
[2020-01-19] MEDS: SLF 3 ML SYR IV SCH ×3 (05:54→21:28)
[2020-01-19] MEDS: KETOROLAC 30 MG/ML 1ML VIAL IV SCH ×3 (05:54→18:02)
[2020-01-19 08:00] VITALS: BP 118/60
--- NOTE | 2020-01-19 08:23 | REPVR ---
PROCEDURE INFORMATION: Exam: XR Chest, 2 Views Exam date and time: 01/19/20 (7:39am) Age: 64 years old Clinical indication: Pleural effusions TECHNIQUE: Imaging protocol: XR of the chest Views: 2 views COMPARISON: CT CHEST of 01/18/20 Chest films of 01/18/20 (7:58am) FINDINGS: Comparison is made with chest films done the previous morning. [id number] bilateral pleural effusions (unchanged appearance). Hazy opacification of the lower half of each hemithorax, with more dense confluent density more dependently (pleural effusions). The upper lung zones remain clear. Dense calcification again seen in the right paratracheal region, near the thoracic inlet level (dense right thyroid lobe calcification, as seen on recent CT-CHEST study). No pneumothorax. IMPRESSION: In general, no significant interval loom changer the past 24 hours. Redemonstration of [id number] bilateral effusions (unchanged). See additional comments above. Electronically signed by: Yolanda Dan On 01/19/2020 08:22:34 AM
[2020-01-19] MEDS: ceFAZolin SOD 2 GM in IV 1 EA IV SCH ×2 (08:59→16:12)
[2020-01-19] MEDS: ENOXAPARIN 40MG/0.4ML SYRINGE (J1650 PER 10MG) SC SCH (09:00)
[2020-01-19] MEDS: HumaLOG INSULIN (NovoLOG) PER UNIT SC SCH ×4 (09:00→21:00)
[2020-01-19] MEDS: FUROSEMIDE 40MG/4ML VIAL (J1940) IV SCH (09:01)
[2020-01-19] MEDS: LETROZOLE 2.5 MG TAB PO SCH (09:01)
[2020-01-19] MEDS: bisoproloL fumarate 10 MG TAB PO SCH ×2 (09:02→21:27)
[2020-01-19] MEDS: POTASSIUM CHLORIDE 10 MEQ SR TABLET PO SCH (09:03)
[2020-01-19] MEDS: DOCUSATE SODIUM 100 MG CAP PO SCH ×2 (09:03→21:26)
[2020-01-19] MEDS: ASPIRIN 325 MG TAB PO SCH (09:03)
[2020-01-19] MEDS: PANTOPRAZOLE 40MG TAB (PROTONIX) PO SCH (09:03)
[2020-01-19] MEDS: FOLIC ACID 1 MG TAB PO SCH (09:03)
[2020-01-19] MEDS: MULTIVITAMINS/MINERALS THERAP 1 TAB PO SCH (09:03)
[2020-01-19] MEDS ORDERED: ALTEPLASE 2MG/2ML VIAL XX ONE (10:30)
[2020-01-19 12:00] VITALS: BP 126/73
--- NOTE | 2020-01-19 13:44 | IPNPDOC ---
Date Seen The patient was seen on 01/19/20. Progress Note SUBJECTIVE: Remains on RA, -55 mL from chest tube over 24 hr. Net neg: -965 mL/24 hrs. No complaints. Denies chest pain, n/v/d, chills. OBJECTIVE: VITAL SIGNS: Please see below PHYSICAL EXAMINATION: GENERAL: AAOx3 EYES: PERRLA, EOM intact HENT, MOUTH: Normocephalic, atraumatic, moist mucous membranes NECK: SUPPLE, no JVD, no lymphadenopathy, no carotid bruit CV: sinus tachycardia, S1S2 normal, no murmurs/rubs/gallops BACK: Pigtail catheter in place RESPIRATORY: bibasilar crackles-mild. Otherwise CTA, no rhonchi, wheezing or rales GI: Catheter removal site covered with bandage in right upper quadrant. BS positive in 4 quadrants, soft, nontender, nondistended, no rebound or guarding, no organomegaly : Deferred MUSCULOSKELETAL: Normal ROM. No cyanosis, clubbing, swelling, joint deformity, extremity edema +3 INTEGUMENTARY: Intact, no rashes, no lesions, no erythema NEUROLOGIC: Unable to participate in neuro exam, no obvious focal deficits CURRENT MEDICATIONS: Please see below LABORATORY DATA: Please see below MICROBIOLOGY: Pleural catheter tip cx: MSSA Aerobic fluid cx: MSSA Blood cultures x 2 sets: NG 24 H Anaerobic fluid cx and fungal cultures: NG IMAGING: CT chest 01/18/20: 1. Moderate bilateral loculated pleural effusions, larger on the right than on the left. While the overall volume of pleural fluid bilaterally has slightly decreased, loculation persists, with increased air in some of the loculated components particularly the 1 in the right lower chest posteriorly. 2. Small caliber pigtail catheter is coiled in the costophrenic sulcus at the inferior margin of the right lower chest collection. A larger right basilar pleural drain has been removed since the prior study. 3. Left breast carcinoma with mass, skin retraction, and overlying skin thickening, along with multiple bilateral pulmonary nodules which are most likely metastases, sclerotic osseous metastases, and left axillary lymph node metastases. The pleural effusions may or may not be malignant. ASSESSMENT: is a 64 yr old w a hx of metastatic breast cancer w recurrent malignant pleural effusions w catheter placement, HTN and DM who presented w dyspnea, fever and chills and was diagnosed with sepsis likely 2/2 to infected chest tube site, empyema. PLAN: Empyema with infected chest tube site/chest wall cellulitis, + MSSA. Resolved sepsis -WBC remains wnl, febrile, intermittent tachycardia -S/p pigtail catheter placement and drainage 01/15/20 -Pleural catheter tip and pleural fluid aerobic cx: MSSA -Repeat CT above and d/w Dr. Jean-Baptiste. Anterior loculation to be drained by US on 01/20/20. -F/u labs, micro above -Dr. Warren recommended change from Vancomycin to cefazolin. C/w IV cefazolin for additional 2 days then consider transition to oral med Empyema with loculated effusion, r/o CHF -Remains on RA, saturating at 93%. -BNP 1880 -On daily lasix, Xopenex ATC, PRN. -Daily wts -F/u repeat BNP and daily labs in AM. -Monitor Cr closely Hypokalemia likely 2/2 to lasix -K wnl this AM -30 mEq supplemented daily -F/u AM labs HTN -Stable. -C/w current treatment. -Monitor closely Metastatic breast cancer -Cause of recurrent pleural effusions. -To follow up with heme/onc o/p NIDDM - BS uncontrolled likely 2/2 to steroid use, steroids stopped today - consistent carb diet started - BS stable. - FS, ISS, hypoglycemic protocol - If remains high, consider AM levemir Alcohol Use -No signs/symptoms of withdrawl -CIWA protocol DVT PROPHYLAXIS: lovenox DISPOSITION: C/w inpatient treatment. Plan is home when medically cleared. VS, I&O, 24H, Fishbone Vital Signs/I&O Vital Signs Date Time Temp Pulse Resp B/P (MAP) Pulse Ox O2 Delivery O2 Flow Rate FiO2 01/19/20 12:00 97.7 88 17 126/73 (90) 97 Room Air 01/16/20 04:00 2.0 01/15/20 13:45 40 I&O- Last 24 Hours up to 6 AM 01/19/20 06:00 Intake Total 740 ml Output Total 1495 ml Balance -755 ml Laboratory Data 24H LABS Laboratory Tests 2 01/18/20 17:31: Bedside Glucose (Misc Panel) 150H 01/18/20 20:57: Bedside Glucose (Misc Panel) 155H 01/19/20 04:58: Immature Granulocyte % (Auto) 0.7, Neutrophils (%) (Auto) 62.3, Lymphocytes (%) (Auto) 18.1L, Monocytes (%) (Auto) 8.3H, Eosinophils (%) (Auto) 10.4H, Basophils (%) (Auto) 0.2, Neutrophils # (Auto) 3.5, Lymphocytes # (Auto) 1.0L, Monocytes # (Auto) 0.5, Eosinophils # (Auto) 0.6H, Basophils # (Auto) 0.0, Nucleated Red Blood Cells % (auto) 0.0, Anion Gap 4L, Glomerular Filtration Rate 58.1, Calcium Level 8.8 01/19/20 11:58: Bedside Glucose (Misc Panel) 121H CBC/BMP Laboratory Tests 01/19/20 04:58 Microbiology Microbiology 01/15/20 Acid Fast Stain, Received Pending 01/15/20 Mycobacterial Culture, Received Pending 01/15/20 Fungal Smear, Received Pending 01/15/20 Fungal Culture, Received Pending 01/15/20 Gram Stain - Final, Complete 01/15/20 Anaerobic Culture - Final, Complete 01/15/20 Body Fluid Culture - Final, Complete 01/14/20 Gram Stain - Final, Complete 01/14/20 Bacterial Culture - Final, Complete Staphylococcus Aureus 01/14/20 Anaerobic Culture - Final, Complete 01/14/20 Acid Fast Stain, Received Pending 01/14/20 Mycobacterial Culture, Received Pending 01/14/20 Fungal Smear, Received Pending 01/14/20 Fungal Culture, Received Pending 01/14/20 Gram Stain - Final, Complete 01/14/20 Anaerobic Culture - Final, Complete 01/14/20 Body Fluid Culture - Final, Complete Staphylococcus Aureus Enterococcus Faecalis 01/13/20 Respiratory Virus Panel (PCR) (NITA) - Final, Complete 01/13/20 Blood Culture - Final, Complete NO GROWTH AFTER 5 DAYS 01/13/20 Blood Culture - Final, Complete NO GROWTH AFTER 5 DAYS Current Medications Current Medications Medications (Trade) Dose Ordered Sig/Naveen Route PRN Reason Start Time Stop Time Status Last Admin Dose Admin Acetaminophen (Tylenol Tab) 650 mg Q4H PRN PO PAIN OR FEVER 01/14/20 00:00 01/15/20 20:46 Acetaminophen/ Hydrocodone Bitart ([place], Anexsia 5/325) 1 tab Q3H PRN PO MILD PAIN (PS 1-4) 01/15/20 08:15 01/18/20 16:32 DC Al Hydrox/Mg Hydrox/Simethicone (Mylanta) 30 ml DAILY PRN PO DYSPEPSIA 01/14/20 00:00 Albuterol Sulfate (Proventil, Ventolin Hfa) 2 puff QID PRN INH SOB/WHEEZING 01/14/20 00:45 01/14/20 14:41 DC Aspirin (Aspirin) 325 mg DAILY PO 01/14/20 09:00 01/19/20 09:03 Benzonatate (Tessalon Perles) 200 mg Q8H PRN PO COUGH 01/14/20 04:45 01/15/20 20:47 Benzonatate (Tessalon Perles) 200 mg Q8HP PO 01/14/20 04:15 UNV Bisacodyl (Dulcolax Suppository) 10 mg Q4HP PRN [place] CONSTIPATION 01/15/20 08:15 Bisoprolol Fumarate (Zebeta) 10 mg BID PO 01/13/20 21:00 01/19/20 09:02 Cefazolin Sodium/ Dextrose 2 gm/IV Miscellaneous Supplies 50 ml @ 75 mls/hr Q8H IV 01/16/20 16:00 01/19/20 08:59 Dextrose (Dextrose 50%) 25 ml ASDIRECTED PRN IV SEE LABEL COMMENTS 01/14/20 00:45 Docusate Sodium (Colace) 100 mg BID PO 01/15/20 09:00 01/19/20 09:03 Enoxaparin Sodium (Lovenox) 40 mg DAILY SC 01/14/20 09:00 01/19/20 09:00 Fluticasone Propionate (Flonase 0.05% Nasal [place]) 2 spray DAILY PRN NA NASAL CONGESTION 01/14/20 00:45 Folic Acid (Folic Acid) 1 mg DAILY PO 01/14/20 09:00 01/19/20 09:03 Furosemide (LASIX injection) 40 mg DAILY IV 01/16/20 09:00 01/19/20 09:01 Glucagon (Glucagon) 1 mg ASDIRECTED PRN SC SEE LABEL COMMENTS 01/14/20 00:45 Glucose (Glucose) 16 GM ASDIRECTED PRN PO SEE LABEL COMMENTS 01/14/20 00:45 Home Med (Med Rec Complete!) ASDIRECTED XX 01/13/20 23:00 01/13/20 22:58 DC Insulin Human Lispro (HumaLOG INSULIN) SEE PROTOCOL TABLE AC OK 01/15/20 12:00 01/19/20 12:51 Insulin Human Lispro (HumaLOG INSULIN) SEE PROTOCOL TABLE Q6H SC 01/14/20 18:00 01/15/20 11:34 DC 01/14/20 17:25 Insulin Human Lispro (HumaLOG INSULIN) SEE PROTOCOL TABLE QHS OK 01/15/20 21:00 01/17/20 21:49 Insulin Human Lispro (HumaLOG INSULIN) See Protocol Table AC OK 01/14/20 07:30 01/14/20 16:52 DC 01/14/20 08:29 Insulin Human Lispro (HumaLOG INSULIN) See Protocol Table QHS OK 01/13/20 21:00 01/14/20 16:52 DC Ketorolac Tromethamine (ToRADol) 30 mg Q6H IV 01/15/20 08:15 01/16/20 11:09 DC Ketorolac Tromethamine (ToRADol) 30 mg Q6H IV 01/16/20 11:00 01/21/20 10:59 01/19/20 11:55 Lactated Ringer's 1,000 ml @ 100 mls/hr Q10H IV 01/14/20 01:30 01/14/20 06:54 DC 01/14/20 05:04 Letrozole (Femara) 2.5 mg DAILY PO 01/14/20 09:00 01/19/20 09:01 Levalbuterol HCl (Xopenex Neb) 1.25 mg Q2HP PRN NEB SOB/WHEEZING 01/14/20 14:45 Levalbuterol HCl (Xopenex Neb) 1.25 mg RQ4H NEB 01/14/20 16:00 01/19/20 11:25 Loratadine (Claritin) 10 mg QHS PO 01/13/20 21:00 01/18/20 21:00 Lorazepam (Ativan) 2 mg ASDIRECTED PRN PO SEE PROTOCOL 01/14/20 00:45 Magnesium Hydroxide (Milk Of Magnesia) 30 ml DAILY PRN PO CONSTIPATION 10/6/20 00:00 01/18/20 13:08 Meropenem 1 gm/IV Miscellaneous Supplies 50 ml @ 100 mls/hr Q8H IV 01/14/20 06:00 01/15/20 13:24 DC 01/15/20 05:20 Methylprednisolone (SOLUmedrol) 60 mg Q8H IV 01/15/20 10:00 01/16/20 12:23 DC 01/16/20 09:23 Multivitamins (Theragram-M) 1 tab DAILY PO 01/14/20 09:00 01/19/20 09:03 Ondansetron HCl (ZOFRAN INJection) 4 mg Q4HP PRN IV NAUSEA 01/15/20 08:15 Oxycodone/ Acetaminophen (Percocet 5mg/ 325mg Tablet) 1 tab Q4H PRN PO MODERATE PAIN (PS 5-7) 01/15/20 08:15 Hold Oxycodone/ Acetaminophen (Percocet 5mg/ 325mg Tablet) 2 tab Q4H PRN PO SEVERE PAIN (PS 8-10) 01/15/20 08:15 Pantoprazole Sodium (Protonix) 40 mg DAILY IV 01/15/20 09:00 01/15/20 09:57 DC 01/15/20 09:15 Pantoprazole Sodium (Protonix) 40 mg DAILY PO 01/15/20 09:00 01/19/20 09:03 Potassium Chloride/Dextrose/ Sod Cl 1,000 ml @ 75 mls/hr [id number] IV 01/15/20 08:14 01/15/20 11:34 DC 01/15/20 09:15 Potassium Chloride (Micro-K Extencaps) 30 meq DAILY PO 01/18/20 09:00 01/19/20 09:03 Sodium Chloride 1,000 ml @ 100 mls/hr Q10H IV 01/14/20 07:00 01/14/20 14:39 DC 01/14/20 08:32 Sodium Chloride 1,000 ml @ 100 mls/hr Q10H IV 01/14/20 18:15 01/15/20 11:34 DC 01/15/20 04:17 Sodium Chloride (Saline Lock Flush) 2 ml ASDIRECTED PRN IV SEE LABEL COMMENTS 01/16/20 16:30 Sodium Chloride (Saline Lock Flush) 2 ml SLF IV 01/16/20 22:00 01/19/20 05:54 Thiamine HCl (Thiamine HCl) 100 mg BID PO 01/13/20 21:00 01/16/20 09:01 DC 01/16/20 08:23 Vancomycin HCl 1000 mg/IV Miscellaneous Supplies 1 each/ Dextrose 270 ml @ 270 mls/hr Q8H IV 01/14/20 09:00 01/16/20 15:50 DC 01/16/20 09:23 Allergies Coded Allergies: Penicillins (Verified Allergy, Unknown, SWELLING, ASTHMA, 12/17/19) Ariana Fabian MD Jan 19, 2020 13:44
[2020-01-19 16:00] VITALS: BP 146/66
[2020-01-19 20:00] VITALS: BP 133/66
[2020-01-19] MEDS: LORATADINE 10 MG TAB PO SCH (21:26)
[2020-01-20] VITALS: BP 153/74
[2020-01-20] MEDS: KETOROLAC 30 MG/ML 1ML VIAL IV SCH ×4 (00:18→16:48)
[2020-01-20] MEDS: ceFAZolin SOD 2 GM in IV 1 EA IV SCH ×3 (00:18→16:48)
[2020-01-20 04:00] VITALS: BP 156/88
[2020-01-20] MEDS: LEVALBUTEROL 1.25 MG/0.5 ML CONCENTRATE NEB NEB SCH ×6 (04:14→23:37)
[2020-01-20] MEDS: SLF 3 ML SYR IV SCH ×3 (05:15→21:03)
[2020-01-20 06:26] LABS: BASO % 0.3 % (0.0-1.0); EOS # 0.6 10^3/uL (0.0-0.5); EOS % 8.7 % (0.0-3.0); HEMATOCRIT 33.4 % (36.0-47.0); HEMOGLOBIN 11.3 g/dl (12.0-15.5); LYMPH # 0.9 10^3/uL (1.5-5.0); LYMPH % 12.8 % (24.0-44.0); MEAN CORPUSCULAR HEMOGLOBIN 30.7 pg (27.0-33.0); MEAN CORPUSCULAR HGB CONC 33.8 g/dl (32.0-36.5); MEAN CORPUSCULAR VOLUME 90.8 fl (80.0-96.0); MONO # 0.6 10^3/uL (0.0-0.8); MONO % 8.4 % (0.0-5.0); NEUTROPHILS % 68.7 % (36.0-66.0); PLATELET COUNT, AUTOMATED 234 10^3/uL (150-450); RED BLOOD COUNT 3.68 10^6/uL (4.00-5.40); WHITE BLOOD COUNT 7.2 10^3/uL (4.0-10.0)
[2020-01-20 06:53] LABS: BLOOD UREA NITROGEN 28 MG/DL (7-18); CALCIUM LEVEL 8.4 MG/DL (8.8-10.2); CARBON DIOXIDE LEVEL 30 MEQ/L (21-32); CHLORIDE LEVEL 108 MEQ/L (98-107); CREATININE FOR GFR 0.84 MG/DL (0.55-1.30); GLOMERULAR FILTRATION RATE > 60.0 (>45); GLUCOSE, FASTING 151 MG/DL (70-100); NT-PRO BNP 1161 PG/ML (<125); POTASSIUM SERUM 4.2 MEQ/L (3.5-5.1); SODIUM LEVEL 143 MEQ/L (136-145)
[2020-01-20] MEDS: ENOXAPARIN 40MG/0.4ML SYRINGE (J1650 PER 10MG) SC SCH (07:37)
[2020-01-20 08:00] VITALS: BP 134/76
[2020-01-20] MEDS: FUROSEMIDE 40MG/4ML VIAL (J1940) IV SCH (08:39)
[2020-01-20] MEDS: PANTOPRAZOLE 40MG TAB (PROTONIX) PO SCH (08:40)
[2020-01-20] MEDS: ASPIRIN 325 MG TAB PO SCH (08:40)
[2020-01-20] MEDS: POTASSIUM CHLORIDE 10 MEQ SR TABLET PO SCH (08:40)
[2020-01-20] MEDS: FOLIC ACID 1 MG TAB PO SCH (08:40)
[2020-01-20] MEDS: MULTIVITAMINS/MINERALS THERAP 1 TAB PO SCH (08:40)
[2020-01-20] MEDS: DOCUSATE SODIUM 100 MG CAP PO SCH ×2 (08:40→21:01)
[2020-01-20] MEDS: LETROZOLE 2.5 MG TAB PO SCH (08:41)
[2020-01-20] MEDS: bisoproloL fumarate 10 MG TAB PO SCH ×2 (08:41→21:02)
[2020-01-20] MEDS: HumaLOG INSULIN (NovoLOG) PER UNIT SC SCH ×4 (08:41→21:00)
--- NOTE | 2020-01-20 09:25 | REPVR ---
PROCEDURE INFORMATION: Exam: XR Chest, 2 Views Exam date and time: 01/20/2020 7:49 AM Age: 64 years old Clinical indication: Condition or disease; Other: Chest tube; Additional info: Pleural effusions TECHNIQUE: Imaging protocol: XR of the chest Views: 2 views. COMPARISON: CR Chest, 2 view PA, Lat 01/19/2020 7:37 AM FINDINGS: Tubes, catheters and devices: ECG leads/contacts overlie and partially obscure the anatomy. A right pleural drainage pigtail catheter is stable in position projecting at the right lower posterior chest. Lungs: The central pulmonary vasculature does not appear congested. Diffuse airspace opacities of the bilateral mid and lower lungs, right greater than left, are redemonstrated. Stable increased interstitial opacities of the right mid and lower lung. Pleural space: Stable small left pleural effusion. Stable small loculated right pleural effusion at the major fissure. Decreased small right posterior/basilar pleural effusion in the region of the pleural drainage catheter. The previously seen pneumothorax component within the right basilar pleural effusion is no longer identified. No evident pneumothorax. Heart/Mediastinum: The heart remains largely silhouetted by the airspace opacities. Redemonstration of right thyroid calcified mass with mass effect upon the trachea displacing the trachea to the left. Bones/joints: Multiple sclerotic skeletal lesions suspicious for blastic skeletal metastases are better visualized on the prior chest CT 01/18/2020. IMPRESSION: 1. Improved but not resolved moderate loculated right pleural effusion. Indwelling right pleural drainage catheter. 2. Stable small left pleural effusion. 3. Stable mid and lower lung pulmonary interstitial and airspace opacities. 4. Multiple sclerotic skeletal lesions suspicious for blastic skeletal metastases are better visualized on the prior chest CT of 01/18/2020. Electronically signed by: Shakeel Conley On 01/20/2020 09:25:39 AM
[2020-01-20] MEDS ORDERED: FUROSEMIDE 20MG/2ML VIAL (J1940) IV ONE (09:30)
--- NOTE | 2020-01-20 10:09 | REP ---
TWO-VIEW CHEST HISTORY: Placement of right pleural pigtail drainage catheter. TECHNIQUE: Two views of the chest are performed. FINDINGS: Right pleural pigtail drainage catheter has been placed inferiorly on the right. Right pleural fluid has decreased somewhat. There is no pneumothorax. There is a left pleural effusion as well, which is unchanged. There is bibasilar parenchymal opacity. Heart and mediastinum are unchanged. MTDD
--- NOTE | 2020-01-20 10:11 | REP ---
PORTABLE CHEST X-RAY: SINGLE VIEW HISTORY: Pneumothorax. COMPARISON: Chest x-ray 01/13/2020. FINDINGS: In the interval since the previous chest x-ray, the right-sided PleurX catheter has apparently been withdrawn. There is blunting of the pleural angles bilaterally indicating loculated appearing bilateral effusions, right larger than left. Cardiomegaly is observed. A large densely calcified right thyroid nodule is observed. There is increased density along the right heart border consistent with increased atelectasis or pleural fluid in the right base. There is no visible pneumothorax. MTDD
--- NOTE | 2020-01-20 10:46 | REPVR ---
PROCEDURE INFORMATION: Exam: CT Chest Without Contrast Exam date and time: 01/20/2020 9:43 AM Age: 64 years old Clinical indication: Pain; Other: Status of pleural effusion loculation after TPA. TECHNIQUE: Imaging protocol: Computed tomography of the chest without contrast. Coronal and sagittal reformats were created and reviewed. 3D rendering (Not supervised by radiologist): MIP and/or 3D reconstructed images were created by the technologist. Radiation optimization: All CT scans at this facility use at least one of these dose optimization techniques: automated exposure control; mA and/or kV adjustment per patient size (includes targeted exams where dose is matched to clinical indication); or iterative reconstruction. COMPARISON: CT Chest without contrast 01/18/2020 12:10 PM FINDINGS: Thyroid: Large centrally calcified right thyroid mass (measuring at least 4.9 cm) is redemonstrated and is incompletely imaged. The right thyroid mass again has mass effect upon the trachea displacing the trachea towards the left. Lungs: Unchanged multiple solid noncalcified subcentimeter pulmonary nodules involving all lobes of both lungs. Unchanged multifocal interlobular septal thickening of the right lung, most pronounced at the right lower lobe base. Unchanged right middle lobe medial segmental atelectasis. Improved but not resolved right lower lobe posterior basilar atelectasis. Unchanged moderate lingular atelectasis. Pleural space: Stable small low-attenuation dependently layering left pleural effusion. Decreased now small-moderate loculated right pleural effusion. The majority of the right pleural effusion is loculated within the right major fissure. Indwelling right pleural drainage pigtail catheter terminating in the right posterior costophrenic sulcus. The right pleural effusion component adjacent to the catheter posteriorly is significantly decreased in size and very small hydropneumothorax lies adjacent to the catheter. Small loculated hydropneumothorax persists posterior to the right lower lobe superior segment. Stable small loculated low-attenuation right pleural effusion anteromedially adjacent to the right middle lobe. No left pneumothorax. Heart: Coronary arterial atherosclerotic calcifications are present. Heart size is within normal limits. Stable small low-attenuation pericardial effusion. Mediastinal space: No abnormal esophageal dilation. Pulmonary arteries: Stable mild dilation of the central pulmonary arteries. Aorta: Mild aortic atherosclerosis. No thoracic aortic aneurysm. Lymph nodes: Stable left axillary adenopathy. Liver: Unchanged nonspecific 0.6 cm focal hypoattenuating right hepatic lesion (series 302, image 91). Bones/joints: Unchanged multiple sclerotic skeletal lesions involving the sternum, vertebrae and ribs consistent with blastic metastases. Soft tissues: Incompletely imaged homogeneous fat-attenuation mass of the left lateral body wall at the level of the 10th rib is redemonstrated, consistent with a lipoma. Stable spiculated left breast mass. Stable left breast skin thickening. Small right chest wall soft tissue emphysema. Right anterior abdominal wall prior chest tube tract redemonstrated. IMPRESSION: 1. Improved, but not resolved, loculated small-moderate right pleural effusion. Indwelling right pleural drainage catheter. Decreased small right pneumothorax component. 2. Stable small left pleural effusion. 3. Left breast mass, left axillary adenopathy, multiple bilateral pulmonary nodules, and sclerotic skeletal lesions consistent with left breast malignancy and metastases are unchanged compared to 01/18/2020. Stable right pulmonary interstitial findings which may represent mild pulmonary edema or lymphangitic spread of malignancy. 4. Stable small pericardial effusion. 5. Redemonstration of nonspecific calcified right thyroid mass. COMMENTS: Consistent with the [employer]'s Incidental Findings Committee white paper (J Am Claritza Radiol 2015): In patients aged 35 years and older with an incidental thyroid nodule equal to or greater than 1.[address], MRI or extrathyroidal US, further evaluation with dedicated thyroid US is recommended for patients with normal life expectancy and without comorbidities. For smaller nodules without suspicious features, no further evaluation or follow up is recommended. Electronically signed by: Shakeel Conley On 01/20/2020 10:46:29 AM
--- NOTE | 2020-01-20 10:57 | REP ---
CHEST X-RAY: 2-VIEWS HISTORY: Pleural effusions. COMPARISON CHEST X-RAY: 01/15/2020. FINDINGS: A pleural drainage catheter is seen in place posteriorly on the right as before. There is blunting of the pleural angles bilaterally. There was some fissural thickening on yesterdays radiograph in the minor fissure on the right. This has decreased somewhat. There is no evidence of pneumothorax. A large calcified right thyroid mass is again seen. Fissural fluid is noted in the major fissure on the lateral radiograph unchanged. IMPRESSION: Bilateral pleural effusions. Drainage catheter in place on the right posteriorly. MTDD
--- NOTE | 2020-01-20 10:59 | REP ---
ULTRASOUND-GUIDED RIGHT CHEST TUBE PLACEMENT The procedure was performed by BOYD Mart, under the direct supervision of Dr. Ribera. The risks and benefits of the procedure were explained to the patient and an informed consent was obtained both verbally and written. Directly prior to the start of the procedure, a formal time-out was completed in the procedure room. The loculated fluid collection in the right posterior lung zone was localized using ultrasound guidance. The skin was prepped and draped in a sterile fashion. Approximately 17 mL of buffered Lidocaine was used as a local anesthetic. Using ultrasound guidance, a 10-Frisian pigtail catheter was inserted and advanced into the loculated fluid. Approximately 60 mL of fluid was removed and sent to the lab for further analysis. The pigtail catheter was attached to a Pleur-Evac drainage system. The pigtail catheter was affixed to the skin with a suture and sterile dressing. The patient tolerated the procedure well and there were no immediate complications. The patient was discharged to the unit for further convalescence. ALICE
[2020-01-20 11:54] VITALS: BP 129/64
--- NOTE | 2020-01-20 15:15 | IPNPDOC ---
Date Seen The patient was seen on 01/20/20. Progress Note SUBJECTIVE: Increased lower ext swelling, incr lasix. 380 mL out of chest tube over past 24 hours, Net neg 970 mL. Remains on RA. CXR 01/19/20 showed no significant interval change agent the past 24 hours. Redemonstration of [id number]-[id number] bilateral effusions (unchanged). F/u repeat CT scan today to determine whether or not Dr. Jean-Baptiste will now have to place anterior pigtail catheter to drain. She is otherwise feeling great, walking the halls and cleared by PT. She denies fevers, increased shortness of breath, chest pain, n/v/d, chills. OBJECTIVE: VITAL SIGNS: Please see below PHYSICAL EXAMINATION: GENERAL: AAOx3 EYES: PERRLA, EOM intact HENT, MOUTH: Normocephalic, atraumatic, moist mucous membranes NECK: SUPPLE, no JVD, no lymphadenopathy, no carotid bruit CV: sinus tachycardia, S1S2 normal, no murmurs/rubs/gallops BACK: Pigtail catheter in place on right draining to bedside canister RESPIRATORY: bibasilar crackles-mild. Otherwise CTA, no rhonchi, wheezing or rales GI: Catheter removal site covered with bandage in right upper quadrant. BS positive in 4 quadrants, soft, nontender, nondistended, no rebound or guarding, no organomegaly : Deferred MUSCULOSKELETAL: Normal ROM. No cyanosis, clubbing, swelling, joint deformity, extremity edema +3 INTEGUMENTARY: Intact, no rashes, no lesions, no erythema NEUROLOGIC: CN 2-12 intact, no focal deficits CURRENT MEDICATIONS: Please see below LABORATORY DATA: Please see below MICROBIOLOGY: Pleural catheter tip cx: MSSA Aerobic fluid cx: MSSA Pleural fluid fungal studies 01/15/20: pending Blood cultures x 2 sets: NG 24 H Anaerobic fluid cx and fungal cultures: NG IMAGING: CXR 01/19/20: In general, no significant interval change agent the past 24 hours. Redemonstration of [id number] bilateral effusions (unchanged). CT chest 01/18/20: 1. Moderate bilateral loculated pleural effusions, larger on the right than on the left. While the overall volume of pleural fluid bilaterally has slightly decreased, loculation persists, with increased air in some of the loculated components particularly the 1 in the right lower chest posteriorly. 2. Small caliber pigtail catheter is coiled in the costophrenic sulcus at the inferior margin of the right lower chest collection. A larger right basilar pleural drain has been removed since the prior study. 3. Left breast carcinoma with mass, skin retraction, and overlying skin thickening, along with multiple bilateral pulmonary nodules which are most likely metastases, sclerotic osseous metastases, and left axillary lymph node metastases. The pleural effusions may or may not be malignant. ASSESSMENT: is a 64 yr old w a hx of metastatic breast cancer w recurrent malignant pleural effusions w catheter placement, HTN and DM who presented w dyspnea, fever and chills and was diagnosed with sepsis likely 2/2 to infected chest tube site, empyema. PLAN: Empyema with infected chest tube site/chest wall cellulitis, + MSSA. Resolved sepsis -Clearing upper right lung empyema; however, anterior collection has not been improving. Per Dr. Jean-Baptiste, may need to place pigtail catheter here if CT being done today shows it persists/worsened. -WBC remains wnl, afebrile -S/p PleurX cath removal on 01/13/20 -S/p pigtail catheter placement into right back and drainage 01/15/20 -Pleural catheter tip and pleural fluid aerobic cx: MSSA -F/u repeat CT scan today, labs, micro above -Dr. Warren recommended change from Vancomycin to cefazolin. -C/w IV cefazolin, Xopenex ATC, PRN. Empyema with loculated effusion, r/o CHF -Remains on RA, saturating at 93%. -BNP 1880, repeat improving -C/w lasix and treatment above Hypokalemia likely 2/2 to lasix -K wnl this AM -30 mEq supplemented daily -F/u AM labs HTN -Stable. -C/w current treatment. -Monitor closely Metastatic breast cancer -Cause of recurrent pleural effusions. -To follow up with heme/onc o/p NIDDM - BS controlled - consistent carb diet started - BS stable. - FS, ISS, hypoglycemic protocol Alcohol Use -No signs/symptoms of withdrawl DVT PROPHYLAXIS: lovenox DISPOSITION: C/w inpatient treatment. Plan is home when medically cleared. VS, I&O, 24H, Fishbone Vital Signs/I&O Vital Signs Date Time Temp Pulse Resp B/P (MAP) Pulse Ox O2 Delivery O2 Flow Rate FiO2 01/20/20 11:54 97.4 91 18 129/64 (85) 96 Room Air 01/16/20 04:00 2.0 01/15/20 13:45 40 I&O- Last 24 Hours up to 6 AM 01/20/20 05:59 Intake Total 860 ml Output Total 2405 ml Balance -1545 ml Laboratory Data 24H LABS Laboratory Tests 2 01/19/20 17:24: Bedside Glucose (Misc Panel) 136H 01/19/20 20:35: Bedside Glucose (Misc Panel) 188H 01/20/20 05:46: Immature Granulocyte % (Auto) 1.1, Neutrophils (%) (Auto) 68.7H, Lymphocytes (%) (Auto) 12.8L, Monocytes (%) (Auto) 8.4H, Eosinophils (%) (Auto) 8.7H, Basophils (%) (Auto) 0.3, Neutrophils # (Auto) 5.0, Lymphocytes # (Auto) 0.9L, Monocytes # (Auto) 0.6, Eosinophils # (Auto) 0.6H, Basophils # (Auto) 0.0, Nucleated Red Blood Cells % (auto) 0.0, Anion Gap 5L, Glomerular Filtration Rate > 60.0, Calcium Level 8.4L, NC-Oei-G-Type Natriuretic Peptide 1161H 01/20/20 11:28: Bedside Glucose (Misc Panel) 81 CBC/BMP Laboratory Tests 01/20/20 05:46 Microbiology Microbiology 01/15/20 Acid Fast Stain, Received Pending 01/15/20 Mycobacterial Culture, Received Pending 01/15/20 Fungal Smear, Received Pending 01/15/20 Fungal Culture, Received Pending 01/15/20 Gram Stain - Final, Complete 01/15/20 Anaerobic Culture - Final, Complete 01/15/20 Body Fluid Culture - Final, Complete 01/14/20 Gram Stain - Final, Complete 01/14/20 Bacterial Culture - Final, Complete Staphylococcus Aureus 01/14/20 Anaerobic Culture - Final, Complete 01/14/20 Acid Fast Stain, Received Pending 01/14/20 Mycobacterial Culture, Received Pending 01/14/20 Fungal Smear, Received Pending 01/14/20 Fungal Culture, Received Pending 01/14/20 Gram Stain - Final, Complete 01/14/20 Anaerobic Culture - Final, Complete 01/14/20 Body Fluid Culture - Final, Complete Staphylococcus Aureus Enterococcus Faecalis 01/13/20 Respiratory Virus Panel (PCR) (NITA) - Final, Complete 01/13/20 Blood Culture - Final, Complete NO GROWTH AFTER 5 DAYS 01/13/20 Blood Culture - Final, Complete NO GROWTH AFTER 5 DAYS Current Medications Current Medications Medications (Trade) Dose Ordered Sig/Naveen Route PRN Reason Start Time Stop Time Status Last Admin Dose Admin Acetaminophen (Tylenol Tab) 650 mg Q4H PRN PO PAIN OR FEVER 01/14/20 00:00 01/15/20 20:46 Acetaminophen/ Hydrocodone Bitart ([place], [place] 5/325) 1 tab Q3H PRN PO MILD PAIN (PS 1-4) 01/15/20 08:15 01/18/20 16:32 DC Al Hydrox/Mg Hydrox/Simethicone (Mylanta) 30 ml DAILY PRN PO DYSPEPSIA 01/14/20 00:00 Albuterol Sulfate (Proventil, Ventolin Hfa) 2 puff QID PRN INH SOB/WHEEZING 01/14/20 00:45 01/14/20 14:41 DC Aspirin (Aspirin) 325 mg DAILY PO 01/14/20 09:00 01/20/20 08:40 Benzonatate (Tessalon Perles) 200 mg Q8H PRN PO COUGH 01/14/20 04:45 01/15/20 20:47 Benzonatate (Tessalon Perles) 200 mg Q8HP PO 01/14/20 04:15 UNV Bisacodyl (Dulcolax Suppository) 10 mg Q4HP PRN LA CONSTIPATION 01/15/20 08:15 Bisoprolol Fumarate (Zebeta) 10 mg BID PO 01/13/20 21:00 01/20/20 08:41 Cefazolin Sodium/ Dextrose 2 gm/IV Miscellaneous Supplies 50 ml @ 75 mls/hr Q8H IV 01/16/20 16:00 01/20/20 08:41 Dextrose (Dextrose 50%) 25 ml ASDIRECTED PRN IV SEE LABEL COMMENTS 01/14/20 00:45 Docusate Sodium (Colace) 100 mg BID PO 01/15/20 09:00 01/20/20 08:40 Enoxaparin Sodium (Lovenox) 40 mg DAILY SC 01/14/20 09:00 01/19/20 09:00 Fluticasone Propionate (Flonase 0.05% Nasal [place]) 2 spray DAILY PRN NA NASAL CONGESTION 01/14/20 00:45 Folic Acid (Folic Acid) 1 mg DAILY PO 01/14/20 09:00 01/20/20 08:40 Furosemide (LASIX injection) 40 mg DAILY IV 01/16/20 09:00 01/20/20 09:01 DC 01/20/20 08:39 Furosemide (LASIX injection) 60 mg DAILY IV 01/21/20 09:00 Glucagon (Glucagon) 1 mg ASDIRECTED PRN SC SEE LABEL COMMENTS 01/14/20 00:45 Glucose (Glucose) 16 GM ASDIRECTED PRN PO SEE LABEL COMMENTS 01/14/20 00:45 Home Med (Med Rec Complete!) ASDIRECTED XX 01/13/20 23:00 01/13/20 22:58 DC Insulin Human Lispro (HumaLOG INSULIN) SEE PROTOCOL TABLE AC OR 01/15/20 12:00 01/20/20 08:41 Insulin Human Lispro (HumaLOG INSULIN) [facility] 01/14/20 18:00 01/15/20 11:34 DC 01/14/20 17:25 Insulin Human Lispro (HumaLOG INSULIN) [facility] 21:00 01/17/20 21:49 Insulin Human Lispro (HumaLOG INSULIN) See Protocol Table AC OR 01/14/20 07:30 01/14/20 16:52 DC 01/14/20 08:29 Insulin Human Lispro (HumaLOG INSULIN) See Protocol Table [facility] 01/13/20 21:00 01/14/20 16:52 DC Ketorolac Tromethamine (ToRADol) 30 mg Q6H IV 01/15/20 08:15 01/16/20 11:09 DC Ketorolac Tromethamine (ToRADol) 30 mg Q6H IV 01/16/20 11:00 01/21/20 10:59 01/20/20 11:36 Lactated Ringer's 1,000 ml @ 100 mls/hr Q10H IV 01/14/20 01:30 01/14/20 06:54 DC 01/14/20 05:04 Letrozole (Femara) 2.5 mg DAILY PO 01/14/20 09:00 01/20/20 08:41 Levalbuterol HCl (Xopenex Neb) 1.25 mg Q2HP PRN NEB SOB/WHEEZING 01/14/20 14:45 Levalbuterol HCl (Xopenex Neb) 1.25 mg RQ4H NEB 01/14/20 16:00 01/20/20 11:12 Loratadine (Claritin) 10 mg QHS PO 01/13/20 21:00 01/19/20 21:26 Lorazepam (Ativan) 2 mg ASDIRECTED PRN PO SEE PROTOCOL 01/14/20 00:45 01/20/20 08:09 DC Magnesium Hydroxide (Milk Of Magnesia) 30 ml DAILY PRN PO CONSTIPATION 01/14/20 00:00 01/18/20 13:08 Meropenem 1 gm/IV Miscellaneous Supplies 50 ml @ 100 mls/hr Q8H IV 01/14/20 06:00 01/15/20 13:24 DC 01/15/20 05:20 Methylprednisolone (SOLUmedrol) 60 mg Q8H IV 01/15/20 10:00 01/16/20 12:23 DC 01/16/20 09:23 Multivitamins (Theragram-M) 1 tab DAILY PO 01/14/20 09:00 01/20/20 08:40 Ondansetron HCl (ZOFRAN INJection) 4 mg Q4HP PRN IV NAUSEA 01/15/20 08:15 Oxycodone/ Acetaminophen (Percocet 5mg/ 325mg Tablet) 1 tab Q4H PRN PO MODERATE PAIN (PS 5-7) 01/15/20 08:15 Hold Oxycodone/ Acetaminophen (Percocet 5mg/ 325mg Tablet) 2 tab Q4H PRN PO SEVERE PAIN (PS 8-10) 01/15/20 08:15 Pantoprazole Sodium (Protonix) 40 mg DAILY IV 01/15/20 09:00 01/15/20 09:57 DC 01/15/20 09:15 Pantoprazole Sodium (Protonix) 40 mg DAILY PO 01/15/20 09:00 01/20/20 08:40 Potassium Chloride/Dextrose/ Sod Cl 1,000 ml @ 75 mls/hr [id number] IV 01/15/20 08:14 01/15/20 11:34 DC 01/15/20 09:15 Potassium Chloride (Micro-K Extencaps) 30 meq DAILY PO 01/18/20 09:00 01/20/20 08:40 Sodium Chloride 1,000 ml @ 100 mls/hr Q10H IV 01/14/20 07:00 01/14/20 14:39 DC 01/14/20 08:32 Sodium Chloride 1,000 ml @ 100 mls/hr Q10H IV 01/14/20 18:15 01/15/20 11:34 DC 01/15/20 04:17 Sodium Chloride (Saline Lock Flush) 2 ml ASDIRECTED PRN IV SEE LABEL COMMENTS 01/16/20 16:30 Sodium Chloride (Saline Lock Flush) 2 ml SLF IV 01/16/20 22:00 01/20/20 11:32 Thiamine HCl (Thiamine HCl) 100 mg BID PO 01/13/20 21:00 01/16/20 09:01 DC 01/16/20 08:23 Vancomycin HCl 1000 mg/IV Miscellaneous Supplies 1 each/ Dextrose 270 ml @ 270 mls/hr Q8H IV 01/14/20 09:00 01/16/20 15:50 DC 01/16/20 09:23 Allergies Coded Allergies: Penicillins (Verified Allergy, Unknown, SWELLING, ASTHMA, 12/17/19) Ariana Fabian MD Jan 20, 2020 15:15
[2020-01-20 16:00] VITALS: BP 169/76
[2020-01-20 20:00] VITALS: BP 116/55
[2020-01-20] MEDS: LORATADINE 10 MG TAB PO SCH (21:02)
[2020-01-21] VITALS (7 sets, daily range): BP systolic 135–178; BP diastolic 74–98
[2020-01-21] MEDS: ceFAZolin SOD 2 GM in IV 1 EA IV SCH ×2 (01:24→08:30)
[2020-01-21] MEDS: KETOROLAC 30 MG/ML 1ML VIAL IV SCH ×2 (01:24→04:34)
[2020-01-21] MEDS: LEVALBUTEROL 1.25 MG/0.5 ML CONCENTRATE NEB NEB SCH ×6 (04:00→23:45)
[2020-01-21] MEDS: SLF 3 ML SYR IV SCH ×3 (04:34→20:42)
[2020-01-21 05:15] LABS: BASO % 0.4 % (0.0-1.0); EOS # 0.8 10^3/uL (0.0-0.5); EOS % 11.5 % (0.0-3.0); HEMATOCRIT 34.3 % (36.0-47.0); HEMOGLOBIN 11.5 g/dl (12.0-15.5); LYMPH # 1.3 10^3/uL (1.5-5.0); MEAN CORPUSCULAR HEMOGLOBIN 30.7 pg (27.0-33.0); MEAN CORPUSCULAR HGB CONC 33.5 g/dl (32.0-36.5); MEAN CORPUSCULAR VOLUME 91.5 fl (80.0-96.0); MONO # 0.7 10^3/uL (0.0-0.8); MONO % 9.6 % (0.0-5.0); NEUTROPHILS # 4.3 10^3/uL (1.5-8.5); PLATELET COUNT, AUTOMATED 246 10^3/uL (150-450); RED BLOOD COUNT 3.75 10^6/uL (4.00-5.40); WHITE BLOOD COUNT 7.2 10^3/uL (4.0-10.0)
[2020-01-21 05:39] LABS: BLOOD UREA NITROGEN 23 MG/DL (7-18); CALCIUM LEVEL 8.8 MG/DL (8.8-10.2); CARBON DIOXIDE LEVEL 29 MEQ/L (21-32); CHLORIDE LEVEL 108 MEQ/L (98-107); CREATININE FOR GFR 0.75 MG/DL (0.55-1.30); GLOMERULAR FILTRATION RATE > 60.0 (>45); GLUCOSE, FASTING 145 MG/DL (70-100); POTASSIUM SERUM 4.3 MEQ/L (3.5-5.1); SODIUM LEVEL 143 MEQ/L (136-145)
--- NOTE | 2020-01-21 08:01 | IPN ---
DATE: 01/18/2020 SUBJECTIVE: Ms. Alvarez is doing very well. She is ambulating. She is not complaining of shortness of breath. She still has her pigtail catheter in. PHYSICAL EXAMINATION: Her vital signs show a maximum temperature of (T-max) of 98.6 with a heart rate that ranges between 94-109 in sinus rhythm, respiratory rate of 18-20 without the use of accessory muscles who is 92-93% saturated on room air, has blood pressures ranging between 154/75 to 144/80. Her intake and output the past 24 hours have been recorded as 1380 and 880 out for a positivity of 500 mL. She has only put out 750 mL of urine even with IV Lasix. Her weight today is 97.3 kg compared to 97.5 kg yesterday. On physical examination she has some coarse rales and rhonchi most of which clear with coughing. Percussion note is full through the diaphragm. Cardiac exam is without murmurs, clicks, gallops, or rubs. I cannot feel her PMI. S1, S2 are normal. Abdomen is soft, nontender. Bowel sounds are positive. There is no hepatomegaly. No CVA tenderness. Extremities show still 2-3+ pretibial edema, no calf tenderness, no differential swelling of the upper extremities. Skin is warm and dry and perfused without cyanosis or mottling including that of nailbeds and knees. Neck is supple. There is no jugular venous distention, no subcutaneous emphysema. Trachea is midline. Mouth shows her mucous membranes to be pink and moist. Lips, gums, tongue show no thrush. Eyes show her pupils to be equal and reactive. Extraocular movements are intact. Sclerae nonicteric. Neuro shows CN II-XII intact with normal gross motor, gross sensation intact. Gait is not tested. Psychiatric shows her to be awake and alert and oriented times three with appropriate mood and affect and conversational. Her white count is 6.4 with a hemoglobin and hematocrit of 12.2 and 35.0 respectively unchanged from yesterday with a platelet count of 224 and stable. Differential shows 68% neutrophils, 19% lymphocytes, 9% monocytes. There are no immature forms or toxic granulations. Her electrolytes show a potassium of 3.4 with a BUN and creatinine of 41 and 1.29 up from 31 and 1.14 yesterday. The bump in potassium, BUN, and creatinine are probably secondary to Lasix diuresis. Glucose is 135 with a calcium of 9.0. It is notable that her white count has decreased from 13.2 yesterday to 6.4 today. Her antibiotics consist of Cefazolin. Her chest x-ray is essentially unchanged from yesterday. She still shows the bilateral pleural effusions on either side which are unchanged. There is still a diffuse haze. I am concerned that the catheter may not be within the chest. I am mostly concerned that the right side loculation has not completely drained and I will obtain a CT scan to investigate the status of that right loculation. IMPRESSION: 1. Cellulitis along PleurX catheter, resolving with removal of PleurX catheter. 2. Empyema. 3. Increased vascular congestion, resolving. 4. Sepsis, resolving. 5. Diabetes. 6. Hypertension. PLAN DISCUSSION: As noted above, I will obtain a CT scan to look for the position of the catheter and also the status of the loculation on the right side. I am gratified that the left side effusion has not increased. It looks as though the antibiotic therapy is working. It should be noted that on physical examination the tract is no longer reddened and it is nontender. MTDD
--- NOTE | 2020-01-21 08:04 | IPN ---
DATE: 01/19/2020 Ms. Alvarez is feeling fairly good today. I did obtain a CT scan on her yesterday and she has an anterolateral loculation which is not draining. It is barely in communication with the prior loculation that was drained although it may be. I will therefore undertake a TPA pleurolysis and if that is not successful I will send her down tomorrow for a pigtail catheter to the anterolateral loculation. Her vital signs show a maximum temperature (T-max) of 98.1 with a heart rate that ranges between 95-78 in a sinus rhythm, respiratory rate of 18-19 without the use of accessory muscles, who is 94-92% saturated on room air, and whose blood pressure is ranging between 137/78 to 151/77. Her intake and output over the past 24 hours has been recorded as 1690 in and 1655 out for a negativity of 965 mL. She put 55 mL out of the chest catheter and 50 mL in the last 11 hours. Her weight today is 97.5 kg compared to 97.3 kg yesterday. On physical examination, her lungs show scattered rhonchi which clear with coughing. Essentially underneath there are normal vesicular sounds. Percussion notes are full to the diaphragm. Cardiac exam is without murmurs, clicks, gallops, or rubs, I cannot feel her point of maximum impulse (PMI), S1 and S2 are normal. Abdomen is soft, nontender, bowel sounds are positive, there is no hepatomegaly, no costovertebral angle (CVA) tenderness. Extremities show 2+ to 3+ pretibial edema, no calf tenderness, no differential swelling of the upper extremities. I do not think that the peripheral edema has changed all that much since yesterday. Her skin is warm, dry, and perfused without cyanosis or mottling including that of the nail beds and knees. Neck is supple, there is no jugular venous distension, no subcutaneous emphysema, trachea is midline. Mouth shows her mucous membranes to be pink and moist, lips and commissures without lesions, there is no thrush. Eyes show her pupils to be equal and reactive, extraocular motors intact, sclerae nonicteric. Neurologic shows II-XII intact, along with gross motor and gross sensation intact, gait is not tested. Psychiatric shows her to be awake and alert, oriented times three with appropriate mood and affect and conversational. Her white count today is down to 5.7 with a hemoglobin and hematocrit of 11.6 and 34.4, respectively. Platelet count is 217 with a differential count that shows 62% neutrophils, 18% lymphocytes, 8% monocytes. There are no immature forms, no toxic granulations. Her electrolytes are normal with a BUN and creatinine of 38 and 1.02, a glucose of 140, with a calcium of 8.8. There is no new microbiology on her other than the Staphylococcus aureus in the pleural fluid. There is also a specimen from 01/14/2020 that is growing Enterococcus faecalis which is sensitive to penicillin G and levofloxacin and should be covered by the cefazolin that she is on. Her chest x-ray still shows the diffuse haze on the right side. That is explained by the anterior loculation seen on the CT scan yesterday. IMPRESSION: 1. Cellulitis from PleurX catheter, resolved with removal of PleurX catheter. 2. Empyema. 3. Sepsis, resolved. 4. Diabetes. 5. Hypertension. 6. Anterolateral loculation. 7. Stage IV breast cancer. PLAN AND DISCUSSION: I will undertake a TPA pleurolysis to see if I can drain the anterior loculation. If not, I will send her down tomorrow for a pigtail catheter to that loculation. As noted above, she is still on cefazolin. Her medications preoperatively included letrozole and Ibrance. I do not see that she is on the Ibrance and I will restart that. [facility]
--- NOTE | 2020-01-21 08:08 | IPN ---
DATE: 01/20/2020 SUBJECTIVE: Ms. Alvarez underwent a tPA pleurolysis yesterday and had an output of 350 mL. That was after injecting only 50 mL with 6 mg of tPA. She is feeling well today and breathing well. I undertook another CT of her today and while the anterolateral effusion is still there, it is smaller. I am therefore, going to cancel her drainage with a pigtail catheter. OBJECTIVE: Vital signs show a T-max of 98.7 with a heart rate that ranges between 93 and 96 in sinus rhythm, respiratory rate of 18 to 16 without the use of accessory muscles, 93% to 95% saturated on room air, blood pressure ranging between 133/66 to 156/88. Her intake and output for the past 24 hours was recorded as 860 in and 1830 out for a negatively of 970 mL. She has put out 1450 mL in urine and 380 mL in the chest tube overnight since twelve and 190 mL in the last 12 hours. Her weight today is 97.2 kg, weight of 97.5 kg yesterday. On physical examination, her lungs actually sound rather clear with normal vesicular sounds. Rhonchi clear with coughing. Percussion note is full to the diaphragm. Cardiac exam is without murmurs, clicks, gallops, or rubs. I cannot feel her PMI. S1, S2 are normal. Abdomen is soft and nontender. Bowel sounds are positive. There is no hepatomegaly. No costovertebral angle (CVA) tenderness. Extremities with now 2+ pretibial edema down from 3+ yesterday. No calf tenderness. No differential swelling of the upper extremities. Skin is warm, dry, and well perfused without cyanosis or mottling, including that of nail beds and knees. Neck is supple. There is no jugular venous distention. No subcutaneous emphysema. Trachea is midline. Mouth shows the mucous membranes are pink and moist. Lips and gums without lesions. There is no thrush. Eyes show pupils equal and reactive. Extraocular movements intact. Sclerae anicteric. Neurologic shows II-XII intact. Normal gross motor, gross sensation intact. Gait is not tested. Psychiatric shows her to be awake, alert, oriented times three, despondent about the pain. INVESTIGATIONS: Her white today is 7.2 with hemoglobin and hematocrit of 11.3 and 33.4 respectively. These are essentially unchanged. Platelet count is 234,000 and stable. Differential shows 68% neutrophils, 12% lymphocytes, 8% monocytes. There are no immature forms or toxic granulations. Her electrolytes are normal with a BUN and creatinine of 28 and 0.84 with a glucose of 151 and a calcium 8.4. There is no new microbiology on her. Other than she is growing Staphylococcus aureus and enterococcus faecalis sensitive to the cephalosporin she is on now. Pathology has now been reported back. There is no evidence of malignancy with abundant neutrophils. Her chest x-ray still shows the diffuse haze, but it is less today than it was yesterday. I discussed her CT scan above. IMPRESSION: 1. Cellulitis along the PleurX catheter tract resolved with removal of the PleurX catheter. 2. Sepsis, resolving. 3. Empyema, resolved with drainage. 4. Diabetes. 5. Hypertension. 6. Loculated pleural fluid, improved. PLAN AND DISCUSSION: I will allow her pigtail catheter drain until it decreases markedly, then I will remove it and at that point, we can send her home. She is on cefazolin now, and we can continue that as a p.o. medication upon discharge. I would consider a full two weeks of therapy because of her cellulitis and empyema. [facility]
[2020-01-21] MEDS: ENOXAPARIN 40MG/0.4ML SYRINGE (J1650 PER 10MG) SC SCH (08:30)
[2020-01-21] MEDS: HumaLOG INSULIN (NovoLOG) PER UNIT SC SCH ×4 (08:30→20:40)
[2020-01-21] MEDS: LETROZOLE 2.5 MG TAB PO SCH (08:31)
[2020-01-21] MEDS: FOLIC ACID 1 MG TAB PO SCH (08:31)
[2020-01-21] MEDS: MULTIVITAMINS/MINERALS THERAP 1 TAB PO SCH (08:31)
[2020-01-21] MEDS: DOCUSATE SODIUM 100 MG CAP PO SCH ×2 (08:31→20:41)
[2020-01-21] MEDS: POTASSIUM CHLORIDE 10 MEQ SR TABLET PO SCH (08:32)
[2020-01-21] MEDS: ASPIRIN 325 MG TAB PO SCH (08:33)
[2020-01-21] MEDS: PANTOPRAZOLE 40MG TAB (PROTONIX) PO SCH (08:33)
[2020-01-21] MEDS: bisoproloL fumarate 10 MG TAB PO SCH ×2 (08:34→20:41)
--- NOTE | 2020-01-21 08:48 | REPVR ---
PROCEDURE INFORMATION: Exam: XR Chest, 2 Views Exam date and time: 01/21/2020 7:35 AM Age: 64 years old Clinical indication: Condition or disease; Other: Pleural effusion; Prior surgery; Surgery date: 3-7 days post-operative; Additional info: Pleural effusions TECHNIQUE: Imaging protocol: XR of the chest Views: 2 views. COMPARISON: CT Chest without contrast 01/20/2020 9:34 AM FINDINGS: Lungs: Stable right basilar pigtail chest tube in the region of the posterior costophrenic sulcus. Stable lung aeration. There are persistent asymmetric interstitial and airspace opacities within the mid and lower lungs, right greater than left, unchanged. Pleural space: Small-moderate loculated right pleural effusion and small left pleural effusion appear unchanged. No significant pneumothorax. Heart/Mediastinum: Cardiomediastinal silhouette is stable. Calcified thyroid mass is again visualized which causes deviation of the trachea toward the left, unchanged. Bones/joints: Bones are stable. IMPRESSION: 1. Stable small-moderate loculated right pleural effusion with an indwelling pigtail chest tube positioned within the right posterior costophrenic sulcus. 2. Stable small left pleural effusion. 3. Stable asymmetric interstitial and airspace opacities within the mid and lower lungs, right greater than left. 4. No significant change when compared to chest CT 01/20/2020. Electronically signed by: Geoffrey Vega On 01/21/2020 08:48:10 AM
[2020-01-21] MEDS ORDERED: FUROSEMIDE 100MG/10ML VIAL (J1940) IV SCH (09:00)
--- NOTE | 2020-01-21 10:30 | REP ---
CHEST X-RAY: 2-VIEWS HISTORY: Pleural effusions. COMPARISON: Chest x-rays 01/16/2020 and 01/15/2020. FINDINGS: The right pleural drainage catheter remains in place. There is still blunting of the pleural angles bilaterally. Some fissural fluid is seen in the minor fissure and on the lateral few, in the major fissure. There is no evidence of pneumothorax. Cardiomediastinal silhouette is unchanged. No new infiltrate. IMPRESSION: No change from the previous days study. MTDD
--- NOTE | 2020-01-21 12:58 | IPNPDOC ---
Text Note Date of Service The patient was seen on 01/21/20. NOTE SUBJECTIVE: -She denies fevers, increased shortness of breath, chest pain, n/v/d, chills. -[place] well this AM, pigtail was pulled by Dr. Jean-Baptiste this morning, was on a walk around the unit, while on room air OBJECTIVE: VITAL SIGNS: Please see below GENERAL: AAOx3, NAD EYES: PERRLA, EOMI HENT: Normocephalic, atraumatic, moist mucous membranes NECK: SUPPLE, no JVD, no lymphadenopathy, no carotid bruit CV: RRR, S1S2 normal, no murmurs/rubs/gallops RESPIRATORY: Persistent bibasilar crackles, pigtail catheter now out GI: Normoactive bowel sounds, soft, nontender, nondistended, no rebound or guarding, no organomegaly EXT: 3+ bilateral LE edema, WWP, 2+ DP pulses INTEGUMENTARY: Intact, no rashes, no lesions, no erythema NEUROLOGIC: CN 2-12 intact, no focal deficits CURRENT MEDICATIONS: Please see below LABORATORY DATA: Reviewed. Please see below WBC 7.2 Hgb 11.5 platelets 246 na 143 K 4.3 Cr 0.75 proBNP 1161 MICROBIOLOGY: Pleural catheter tip cx: MSSA Aerobic fluid cx: MSSA Pleural fluid fungal studies 01/15/20: pending Blood cultures x 2 sets: NGTD Anaerobic fluid cx and fungal cultures: NGTD IMAGING: CXR 01/19/20: In general, no significant interval chemical cell changer the past 24 hours. Redemonstration of [id number] bilateral effusions (unchanged). CT chest 01/18/20: 1. Moderate bilateral loculated pleural effusions, larger on the right than on the left. While the overall volume of pleural fluid bilaterally has slightly decreased, loculation persists, with increased air in some of the loculated components particularly the 1 in the right lower chest posteriorly. 2. Small caliber pigtail catheter is coiled in the costophrenic sulcus at the inferior margin of the right lower chest collection. A larger right basilar pleural drain has been removed since the prior study. 3. Left breast carcinoma with mass, skin retraction, and overlying skin thickening, along with multiple bilateral pulmonary nodules which are most likely metastases, sclerotic osseous metastases, and left axillary lymph node metastases. The pleural effusions may or may not be malignant. CT chest 01/20/2020: 1. Improved, but not resolved, loculated small-moderate right pleural effusion. Indwelling right pleural drainage catheter. Decreased small right pneumothorax component. 2. Stable small left pleural effusion. 3. Left breast mass, left axillary adenopathy, multiple bilateral pulmonary nodules, and sclerotic skeletal lesions consistent with left breast malignancy and metastases are unchanged compared to 01/18/2020. Stable right pulmonary interstitial findings which may represent mild pulmonary edema or lymphangitic spread of malignancy. 4. Stable small pericardial effusion. 5. Redemonstration of nonspecific calcified right thyroid mass. ASSESSMENT: is a 64 yr old w a hx of metastatic breast cancer w recurrent ma lignant pleural effusions w catheter placement, HTN and DM who presented w dyspnea, fever and chills and was diagnosed with sepsis likely 2/2 to infected chest tube site, empyema. PLAN: Sepsis 2/2 Empyema with infected chest tube site/chest wall cellulitis, + MSSA. Resolved sepsis -Clearing upper right lung empyema; however, anterior collection has not been improving. Per Dr. Jean-Baptiste, may need to place pigtail catheter here if CT being done today shows it persists/worsened. -WBC remains wnl, afebrile -S/p PleurX cath removal on 01/13/20 -S/p pigtail catheter placement into right back and drainage 01/15/20 and removed today -Pleural catheter tip and pleural fluid aerobic cx: MSSA -Switch IV cefazolin to keflex in prep for home discharge tomorrow, for a total 3w course, Xopenex ATC, PRN. Acute on chronic CHF -Remains on RA, saturating at 93%. -Switcg lasix 60 IV this AM to 60 PO BID dosing, for goal net negative 2L -2L/24h fluid restriction -strict I/Os Hypokalemia likely 2/2 to lasix -30 mEq supplemented daily -Daily BMP HTN -Stable. -C/w current treatment. -Monitor closely Metastatic breast cancer -Cause of recurrent pleural effusions. -To follow up with heme/onc o/p NIDDM - BS controlled - consistent carb diet started - BS stable. - FS, ISS, hypoglycemic protocol Alcohol Use -No signs/symptoms of withdrawal DVT PROPHYLAXIS: lovenox DISPOSITION: C/w inpatient treatment. Plan is home, tentatively tomorrow AM VS,Hong, I+O VS, Hong, I+O Laboratory Tests 01/21/20 05:04 Vital Signs Date Time Temp Pulse Resp B/P (MAP) Pulse Ox O2 Delivery O2 Flow Rate FiO2 01/21/20 04:00 96.5 79 18 157/82 (107) 90 Room Air 01/16/20 04:00 2.0 01/15/20 13:45 40 I&O- Last 24 Hours up to 6 AM 01/21/20 06:00 Intake Total 1180 ml Output Total 1830 ml Balance -650 ml ANALIA JACKSON MD Jan 21, 2020 08:16
[2020-01-21] MEDS: CEPHALEXIN 500 MG CAP PO SCH ×2 (13:02→17:17)
--- NOTE | 2020-01-21 14:53 | IPN ---
DATE: 01/21/2020 SUBJECTIVE: Ms. Alvarez is feeling very well today. She is breathing well and she has only put out minimally from her chest catheter. There is no pain at the chest catheter site. PHYSICAL EXAMINATION: Her vital signs show a maximum temperature (T-max) of 96.7 with a heart rate that ranges between 89 and 90 in a sinus rhythm, respiratory rate of 18-20 without the use of accessory muscles who is 92-90% saturated, now on room air and has blood pressures ranging between 116/55 to 178/98. Her intake and output the past 24 hours was recorded as 1480 in and 2270 out for a negativity of 790 mL. Her weight today is 99.5 kg compared to 97.2 kg yesterday however. She put out 220 mL in the chest tube and there is no air leak. She has also put out 2050 mL of urine in response to IV Lasix. Lungs: On physical examination she has some scattered rhonchi which clear with coughing on both sides. Percussion notes are full through the diaphragm. Cardiac exam is without murmurs, clicks, gallops, or rubs. I cannot feel her PMI. S1, S2 are normal. Abdomen is soft, nontender. Bowel sounds are positive. There is no hepatomegaly. No CVA tenderness. Extremities show 2+ pretibial edema now down from 3 and 4+ in the last few days. There is no differential swelling of the upper extremities. Skin is warm and dry and perfused without cyanosis or mottling including that of nailbeds and knees. Neck is supple. There is no jugular venous distention, no subcutaneous emphysema. Trachea is midline. Mouth shows her mucous membranes to be pink and moist. Lips, gums, tongue show no thrush. Eyes show her pupils to be equal and reactive. Extraocular movements are intact. Sclerae nonicteric. Neuro shows CN II-XII intact with gross motor, gross sensation intact. Gait is not tested. Psychiatric shows her to be awake and alert and oriented times three with appropriate mood and affect and conversational. Her white count today is 7.2 with a hemoglobin and hematocrit of 11.5 and 34.3 respectively. Platelet count is 246 and differential shows 69% neutrophils, 18% lymphocytes, 9% monocytes. There were no immature forms or toxic granulations. Her electrolytes are essentially normal with a BUN and creatinine of 23 and 0.75, a glucose of 145, and a calcium of 8.8. Her chest x-ray still shows diffuse haze on the right side but it is less than it was two days ago before the tPA pleurolysis. Otherwise lung is fully expanded to the chest wall. She still has the left pleural effusion but that has also not changed. IMPRESSION: 1. Stage IV breast cancer, metastatic. 2. Cellulitis along the PleurX catheter tract, resolved with removal of the PleurX catheter. 3. Sepsis, resolved. 4. Empyema, resolved with drainage. 5. Diabetes. 6. Hypertension. 7. Loculated pleural fluid, improved. PLAN DISCUSSION: I will discontinue her pigtail catheter today. She continues on the Lasix. She also continues on antibiotics. I have no objection to her going home tomorrow. Her next oncology appointment is next week. She is on Ibrance which she has not been able to obtain as of yet and [facility] help [facility] obtain that medication. She also has a breast lump which was biopsied but has not been removed. I would recommend that when oncology sees her, that they send her to breast surgery to remove that not for cure but rather to prevent it from eroding onto the skin. [facility]
[2020-01-21] MEDS: FUROSEMIDE 20 MG TAB PO SCH (17:16)
[2020-01-21] MEDS: ACETAMINOPHEN TAB 650MG DOSE (2X325MG) PO PRN (17:17)
[2020-01-21] MEDS ORDERED: IBRA125C PO (18:46)
[2020-01-21] MEDS: LORATADINE 10 MG TAB PO SCH (20:41)
[2020-01-22] VITALS: BP 154/82
[2020-01-22] MEDS: CEPHALEXIN 500 MG CAP PO SCH ×3 (00:46→12:45)
[2020-01-22 04:00] VITALS: BP 160/84
[2020-01-22] MEDS: LEVALBUTEROL 1.25 MG/0.5 ML CONCENTRATE NEB NEB SCH ×3 (04:00→13:02)
[2020-01-22] MEDS: SLF 3 ML SYR IV SCH (06:13)
[2020-01-22 07:59] VITALS: BP 155/72
[2020-01-22] MEDS: ENOXAPARIN 40MG/0.4ML SYRINGE (J1650 PER 10MG) SC SCH (08:40)
[2020-01-22] MEDS: LETROZOLE 2.5 MG TAB PO SCH (08:41)
[2020-01-22] MEDS: bisoproloL fumarate 10 MG TAB PO SCH (08:41)
[2020-01-22] MEDS: HumaLOG INSULIN (NovoLOG) PER UNIT SC SCH ×2 (08:41→12:00)
[2020-01-22] MEDS: FUROSEMIDE 20 MG TAB PO SCH (08:42)
[2020-01-22] MEDS: POTASSIUM CHLORIDE 10 MEQ SR TABLET PO SCH (08:43)
[2020-01-22] MEDS: FOLIC ACID 1 MG TAB PO SCH (08:43)
[2020-01-22] MEDS: DOCUSATE SODIUM 100 MG CAP PO SCH (08:43)
[2020-01-22] MEDS: ASPIRIN 325 MG TAB PO SCH (08:43)
[2020-01-22] MEDS: MULTIVITAMINS/MINERALS THERAP 1 TAB PO SCH (08:43)
[2020-01-22] MEDS: PANTOPRAZOLE 40MG TAB (PROTONIX) PO SCH (08:43)
[2020-01-22] MEDS ORDERED: BENZ-18 PO (09:50)
[2020-01-22] MEDS ORDERED: CEPH500C PO ×2 (09:50→15:02)
[2020-01-22] MEDS ORDERED: FURO20TA2 PO ×2 (09:50→15:02)
[2020-01-22] MEDS ORDERED: KLOR10TA76 PO (09:50)
[2020-01-22] MEDS ORDERED: DOCU100C16 PO (09:50)
[2020-01-22] MEDS ORDERED: FOLI1TAB11 PO ×2 (09:50→15:02)
--- NOTE | 2020-01-22 11:42 | DS.PDOC ---
Discharge Summary General Date of Admission Jan 13, 2020 at 23:46 Date of Discharge 01/22/2020 Attending Physician: ANALIA JACKSON MD Specialist/Consultants Involve: Reginaldo Jean-Baptiste M.D. Discharge Summary PROCEDURES PERFORMED DURING STAY: pleurX removal, empyema drainage with pigtail catheter placement, now removed. ADMITTING DIAGNOSES: 1. Sepsis 2/2 PleurX catheter associated R sided MSSA empyema DISCHARGE DIAGNOSES: 1. Sepsis 2. PleurX catheter associated MSSA R sided empyema 3. Chest wall MSSA cellulitis 3. Metastatic ER+, WV+, HER2- breast cancer 4. Type 2 DM 5. HTN 6. CHF, not otherwise characterized with acute exacerbation with volume overload COMPLICATIONS/CHIEF COMPLAINT: Pleural Effusion, Sepsis. HISTORY OF PRESENT ILLNESS: 64 yo W with metastatic ER+, WV+, HER2- breast cancer with recurrent malignant pleural effusions for which she had a R sided PleurX catheter in place who presented with a one day history of feeling tired, fever to 103, shortness of breath and cough with yellow sputum production. HOSPITAL COURSE: In the ED, she was febrile and CTA showed bilateral pleural effusion with large loculations on R concerning for potential empyema while her acutal catheter was notably erythematous and c/w cellulitis. Thoracic surgery was consulted and she had drainage of ~100 mL of purulent fluid and pleurX was discontinued and had a pigtail placement that was eventually discontinued. Fluid studies were c/w empyema. She had been placed on vancomycin and meropenem and eventual culture data showed MSSA and she was de-escalated to IV ancef. Her sepsis resolved. Her course was c/b CHF with volume overload with noted LE edema and the bilateral pleural effusions and she was started on lasix with good effect. She did well and was transitioned to keflex with plan to complete a 2 week course of antibiotics for the empyema. She is also being discharged on lasix with close PCP follow up. She will otherwise follow up with Dr. Jean-Baptiste and oncology within 2 weeks. DISCHARGE MEDICATIONS: Please see below. ALLERGIES: Please see below. PHYSICAL EXAMINATION ON DISCHARGE: VITAL SIGNS: Please see below GENERAL: AAOx3, NAD EYES: PERRLA, EOMI HENT: Normocephalic, atraumatic, moist mucous membranes NECK: SUPPLE, no JVD, no lymphadenopathy, no carotid bruit CV: RRR, S1S2 normal, no murmurs/rubs/gallops RESPIRATORY: Diminished bases but otherwise clear GI: Normoactive bowel sounds, soft, nontender, nondistended, no rebound or guarding, no organomegaly EXT: 2+ bilateral LE edema, WWP, 2+ DP pulses INTEGUMENTARY: Intact, no rashes, no lesions, no erythema NEUROLOGIC: CN 2-12 intact, no focal deficits, ambulatory PSYCH: AOx3 LABORATORY DATA: Please see below. IMAGING: Admission CXR: 1. Moderate bilateral pleural effusions. 2. Atelectasis and pneumonia in the lung bases. 3. Very small amount of right pneumothorax seen on CT with a right chest tube in place. 4. Blastic bone metastases. CTA chest: 1. No evidence of pulmonary embolus. 2. Multiple large loculations of pleural fluid on the right and moderate left pleural effusion. 3. Right-sided chest tube with a small amount of remaining right pneumothorax. 4. Multiple metastatic nodules right upper lung. 5. Blastic metastasis throughout the vertebra 6. 4 cm malignant mass of the left breast with associated spiculation and skin retraction and thickening. Also severe left axillary malignant lymphadenopathy. PROGNOSIS: Fair ACTIVITY: As tolerated DIET: 2g sodium DISCHARGE PLAN: Home with 6 more days of keflex, 60mg daily of lasix with p otassium supplementation, as well as close PCP, thoracic surgery and oncology follow up DISPOSITION: Home DISCHARGE INSTRUCTIONS: 1. Home with 6 more days of keflex, 60mg daily of lasix with potassium supplementation, as well as close PCP, thoracic surgery and oncology follow up ITEMS TO FOLLOWUP ON ON OUTPATIENT: 1. MSSA Empyema and cellulitis resolution 2. Metastatic breast CA 3. CHF management DISCHARGE CONDITION: Stable TIME SPENT ON DISCHARGE: 45 minutes. Vital Signs/I&Os Vital Signs Date Time Temp Pulse Resp B/P (MAP) Pulse Ox O2 Delivery O2 Flow Rate FiO2 01/22/20 07:59 96.8 95 20 155/72 (99) 91 Room Air 01/16/20 04:00 2.0 I&O- Last 24 Hours up to 6 AM 01/22/20 06:00 Intake Total 1230 ml Output Total 2500 ml Balance -1270 ml Laboratory Data Labs 24H Laboratory Tests 2 01/21/20 16:40: Bedside Glucose (Misc Panel) 143H 01/21/20 20:06: Bedside Glucose (Misc Panel) 168H 01/22/20 07:43: Bedside Glucose (Misc Panel) 138H FSBS Laboratory Tests Test 01/21/20 16:40 01/21/20 20:06 01/22/20 07:43 Range/Units Bedside Glucose (Misc Panel) 143 168 138 80-115 MG/DL Microbiology Microbiology 01/15/20 Acid Fast Stain, Received Pending 01/15/20 Mycobacterial Culture, Received Pending 01/15/20 Fungal Smear, Received Pending 01/15/20 Fungal Culture, Received Pending 01/15/20 Gram Stain - Final, Complete 01/15/20 Anaerobic Culture - Final, Complete 01/15/20 Body Fluid Culture - Final, Complete 01/14/20 Gram Stain - Final, Complete 01/14/20 Bacterial Culture - Final, Complete Staphylococcus Aureus 01/14/20 Anaerobic Culture - Final, Complete 01/14/20 Acid Fast Stain, Received Pending 01/14/20 Mycobacterial Culture, Received Pending 01/14/20 Fungal Smear, Received Pending 01/14/20 Fungal Culture, Received Pending 01/14/20 Gram Stain - Final, Complete 01/14/20 Anaerobic Culture - Final, Complete 01/14/20 Body Fluid Culture - Final, Complete Staphylococcus Aureus Enterococcus Faecalis 01/13/20 Respiratory Virus Panel (PCR) (NITA) - Final, Complete 01/13/20 Blood Culture - Final, Complete NO GROWTH AFTER 5 DAYS 01/13/20 Blood Culture - Final, Complete NO GROWTH AFTER 5 DAYS Discharge Medications Scheduled Ascorbic Acid (Vitamin C with Whit Hips) 500 Mg Tablet, 500 MG PO DAILY, (Reported) Aspirin (Aspirin) 325 Mg Tablet, 325 MG PO DAILY, (Reported) Bisoprolol Fumarate (Bisoprolol Fumarate) 10 Mg Tablet, 10 MG PO BID, (Reported) Calcium Carbonate/Vitamin D3 (Calcium 500-Vit D3 600 Tablet) 1 Each Tablet, 1 TAB PO DAILY, (Reported) Cephalexin (Cephalexin) 500 Mg Capsule, 500 MG PO Q6H Docusate Sodium (Docusate Sodium) 100 Mg Capsule, 100 MG PO BID Folic Acid (Folic Acid) 1 Mg Tablet, 1 MG PO DAILY Furosemide (Furosemide) 20 Mg Tablet, 60 MG PO DAILY Letrozole (Letrozole) 2.5 Mg Tablet, 1 TAB PO DAILY Loratadine (Loratadine) 10 Mg Tablet, 10 MG PO QHS, (Reported) Metformin HCl (Metformin HCl) 500 Mg Tablet, 500 MG PO DAILY, (Reported) Metformin HCl (Metformin HCl) 500 Mg Tablet, 1,000 MG PO QHS, (Reported) Multivitamins (Thera M Plus Tablet) 1 Each Tablet, 1 TAB PO DAILY, (Reported) Palbociclib (Ibrance) 125 Mg Capsule, 1 CAP PO DAILY TAKE 1 CAPSULE DAILY FOR 21 DAYS, THEN TAKE 7 DAYS OFF Potassium Chloride (Klor-Con M10) 10 Meq Tab.er.prt, 20 MEQ PO DAILY Thiamine HCl (Thiamine HCl) 100 Mg Tablet, 100 MG PO DAILY, (Reported) Vitamin E (Vitamin E) 400 Unit Capsule, 400 UNIT PO DAILY, (Reported) Scheduled PRN Albuterol Sulfate (Ventolin Hfa) 18 Gm Hfa.aer.ad, 2 PUFFS INH QID PRN for SOB/WHEEZING, (Reported) Benzonatate (Benzonatate) 100 Mg Capsule, 200 MG PO Q8H PRN for COUGH Fluticasone Propionate (Flonase Allergy Relief) 9.9 Ml [place].susp, 2 SPRAY NA DAILY PRN for NASAL CONGESTION, (Reported) Miscellaneous Medications [Patient Comment] , (Reported) PATIENT HAS NOT STARTED THE IBRANCE YET Allergies Coded Allergies: Penicillins (Verified Allergy, Unknown, SWELLING, ASTHMA, 12/17/19) ANALIA JACKSON MD Jan 22, 2020 11:42
[2020-01-22 12:00] VITALS: BP 153/84
[2020-01-22] MEDS ORDERED: MM S100C PO (15:02)
[2020-01-22] MEDS ORDERED: BENZ200C70 PO (15:02)
[2020-01-22] MEDS ORDERED: POTA20TA6 PO (15:02)
--- NOTE | 2020-01-22 15:10 | REPVR ---
PROCEDURE INFORMATION: Exam: XR Chest, 2 Views Exam date and time: 01/22/2020 6:00 AM Age: 64 years old Clinical indication: Device placement; Other: Tube removal; Additional info: Pleural effusions TECHNIQUE: Imaging protocol: XR of the chest Views: 2 views. COMPARISON: CR Chest, 2 view PA, Lat 01/21/2020 7:27 AM FINDINGS: Tubes, catheters and devices: Pigtail catheter overlying the right lower lobe/liver has been removed. There is no evidence of a pneumothorax. Lungs: Bilateral lower lung infiltrates are stable. Pleural space: See "Tubes, catheters and devices" finding. Heart/Mediastinum: The heart is again enlarged. Bones/joints: Unremarkable. Other findings: Bilateral effusions are stable. IMPRESSION: No pneumothorax status post tube removal. The lungs and effusions however, are stable. Electronically signed by: Leonard Rebollar On 01/22/2020 15:09:54 PM
== END 2020-01-22 14:35 | disposition home or self-care (01) | DRG 721 ==
LOC: M ED 18:07 → M ED INP 23:46 → MERGE 23:46 → ENRESERV 01-14 10:31 → M PCU 01-14 11:36 → M ICU 01-14 14:18 → M PCU 01-16 15:47
PROVIDERS: ADMIT Internal Medicine; ATTEND Internal Medicine
PROC: 0WP830Z Removal of Drainage Device from Chest Wall, Percutaneous Approach (ICD-10-PCS; principal; 2020-01-14 13:30)
PROC: 0W9930Z Drainage of Right Pleural Cavity with Drainage Device, Percutaneous Approach (ICD-10-PCS; 2020-01-15)
DX: T85.79XA Infection and inflammatory reaction due to other internal prosthetic devices, implants and grafts, initial encounter (principal); E87.4 Mixed disorder of acid-base balance; L03.313 Cellulitis of chest wall; J90 Pleural effusion, not elsewhere classified; C50.911 Malignant neoplasm of unspecified site of right female breast; C79.51 Secondary malignant neoplasm of bone; J96.00 Acute respiratory failure, unspecified whether with hypoxia or hypercapnia; J86.9 Pyothorax without fistula; A41.9 Sepsis, unspecified organism; C78.7 Secondary malignant neoplasm of liver and intrahepatic bile duct; E11.9 Type 2 diabetes mellitus without complications; I10 Essential (primary) hypertension; I50.9 Heart failure, unspecified; Z79.899 Other long term (current) drug therapy; Z79.82 Long term (current) use of aspirin; Z88.0 Allergy status to penicillin; F10.10 Alcohol abuse, uncomplicated; E87.6 Hypokalemia; Y83.1 Surgical operation with implant of artificial internal device as the cause of abnormal reaction of the patient, or of later complication, without mention of misadventure at the time of the procedure

== ENCOUNTER → 2020-01-28 | Outpatient (CLI) | payer MEDICARE, BC ==
[~2020-01-28] MED LIST changes: +BENZ-18 PO; +BENZ200C70 PO; +CALC1TAB42 PO; +CEPH500C PO; +FEMA2.5T4 PO; +FOLI1TAB11 PO; +FURO20TA2 PO; +KLOR10TA76 PO; +MM S100C PO; +PATIENT COMMENT; +POTA20TA6 PO; +THIA100T7 PO; +VITA400C56 PO; +VITA500T21 PO; +VITMTA PO
--- NOTE | 2020-01-28 12:42 | REP ---
INDICATION: J91.0 MALIGNANT PLEURL EFFUSION COMPARISON: 01/22/2020 TECHNIQUE: PA and lateral. FINDINGS: Bilateral pleuroparenchymal changes including moderate pleural effusions and atelectasis (right greater left) again noted and essentially unchanged. No obvious pneumothorax. Mediastinum and cardiac silhouette are incompletely evaluated due to overlying opacities. IMPRESSION: Moderate pleuroparenchymal changes including pleural effusions and atelectasis essentially unchanged. <Electronically signed by Geoffrey Dyer > 01/28/20 [id number]
== END ==
LOC: M CLY 12:14 → MERGE 12:14
PROVIDERS: ATTEND Thoracic Surgery (Cardiothoracic Vascular Surgery)
DX: C50.412 Malignant neoplasm of upper-outer quadrant of left female breast (principal); J91.0 Malignant pleural effusion

== ENCOUNTER → 2020-01-28 | Outpatient (REF) | payer MEDICARE, OTHER ==
[2020-01-28 16:19] LABS: BASO # 0.1 10^3/uL (0.0-0.2); BASO % 0.5 % (0.0-1.0); EOS # 0.1 10^3/uL (0.0-0.5); EOS % 0.5 % (0.0-3.0); HEMATOCRIT 37.7 % (36.0-47.0); HEMOGLOBIN 12.8 g/dl (12.0-15.5); LYMPH # 1.4 10^3/uL (1.5-5.0); LYMPH % 12.5 % (24.0-44.0); MEAN CORPUSCULAR HEMOGLOBIN 30.8 pg (27.0-33.0); MEAN CORPUSCULAR VOLUME 90.8 fl (80.0-96.0); MONO # 0.8 10^3/uL (0.0-0.8); MONO % 7.7 % (0.0-5.0); NEUTROPHILS # 8.5 10^3/uL (1.5-8.5); NEUTROPHILS % 78.2 % (36.0-66.0); PLATELET COUNT, AUTOMATED 408 10^3/uL (150-450); RED BLOOD COUNT 4.15 10^6/uL (4.00-5.40); WHITE BLOOD COUNT 10.8 10^3/uL (4.0-10.0)
[2020-01-28 16:49] LABS: ALBUMIN 2.8 GM/DL (3.2-5.2); BILIRUBIN,TOTAL 0.4 MG/DL (0.2-1.0); CALCIUM LEVEL 10.2 MG/DL (8.8-10.2); CREATININE FOR GFR 1.37 MG/DL (0.55-1.30); GLOMERULAR FILTRATION RATE 41.3 (>45); TOTAL PROTEIN 7.3 GM/DL (6.4-8.2)
== END ==
LOC: M SFHCCLAY 11:47
PROVIDERS: ATTEND Physician Assistant
DX: A41.01 Sepsis due to Methicillin susceptible Staphylococcus aureus (principal); R65.20 Severe sepsis without septic shock

== ENCOUNTER → 2020-01-30 | Outpatient (CLI) | payer MEDICARE, BC, OTHER ==
--- NOTE | 2020-01-30 12:26 | REPVR ---
PROCEDURE INFORMATION: Exam: XR Chest, 2 Views Exam date and time: 01/30/2020 12:07 PM Age: 64 years old Clinical indication: Condition or disease; Other: Malignant pleural effusion; Additional info: SOB, malignant pleural effusion xray 1st/ct 2nd TECHNIQUE: Imaging protocol: XR of the chest Views: 2 views. COMPARISON: CR CHEST 2 VIEW 01/28/2020 12:21 PM FINDINGS: Lungs: Mild consolidation in the right lung base. Pleural space: Moderate right and small left pleural effusions. Heart/Mediastinum: Large amorphous calcification in the right paratracheal region. Mild leftward deviation of the trachea. Mild prominence of the cardiac silhouette. Bones/joints: Degenerative change of the spine. Sclerotic L1 metastasis. IMPRESSION: 1. Moderate right and small left pleural effusions. 2. Mild consolidation in the right lung base. Electronically signed by: Mitra Villanueva On 01/30/2020 12:26:39 PM
--- NOTE | 2020-01-30 12:38 | REPVR ---
PROCEDURE INFORMATION: Exam: CT Chest Without Contrast Exam date and time: 01/30/2020 12:08 PM Age: 64 years old Clinical indication: Shortness of breath; Additional info: SOB, malignant pleural effusion xray 1st/ct 2nd TECHNIQUE: Imaging protocol: Computed tomography of the chest without contrast. 3D rendering (Not supervised by radiologist): MIP and/or 3D reconstructed images were created by the technologist. Radiation optimization: All CT scans at this facility use at least one of these dose optimization techniques: automated exposure control; mA and/or kV adjustment per patient size (includes targeted exams where dose is matched to clinical indication); or iterative reconstruction. COMPARISON: CT Chest without contrast 01/20/2020 9:34 AM FINDINGS: Limitations: Lack of intravenous contrast material limits evaluation of the vascular and visceral structures. Thyroid: Redemonstration of a large amorphous calcification within the enlarged and heterogeneous right thyroid lobe. Calcification measures 3.6 x 2.0 cm. Mild narrowing of the trachea secondary to enlargement of the right thyroid lobe. Lungs: Interstitial edema or lymphangitic spread within the right lung, unchanged. Multiple noncalcified nodules in the right lung, measuring up to 6 mm (series 202, image 19). Nodules appear essentially unchanged since the prior CT. Noncalcified 7 mm nodule in the left lower lobe (series 202, image 82). This portion of the left lower lobe was partially consolidated on the prior CT, limiting comparison. Multiple smaller nodules in the left lung, which appear essentially unchanged since the prior CT. Pleural space: Moderate right and small left pleural effusions. Heart: Mild coronary artery calcifications. Aortic valve calcification. Small pericardial effusion. Pulmonary arteries: Unchanged mild prominence of the main pulmonary arterial trunk, suggestive of pulmonary hypertension. Aorta: Unremarkable. No aortic aneurysm. Lymph nodes: Enlarged left axillary lymph nodes the, measuring up to 14 mm in short axis dimension, similar to prior. Mildly prominent right axillary lymph nodes, measuring up to 13 mm in short axis dimension, unchanged. Bones/joints: There appears to be a small hemangioma within the manubrium, unchanged. Degenerative change of the spine. Several sclerotic osseous metastases, unchanged since prior. Chronic mild L1 vertebral body compression fracture. Soft tissues: Redemonstration of a spiculated mass within the upper-outer quadrant of the left breast, measuring 2.8 cm x 2.7 cm. Diffuse skin thickening of the left breast. Mild focal subcutaneous edema of the right ventral upper abdominal wall. IMPRESSION: 1. Moderate right and small left pleural effusions. The right pleural effusion is essentially unchanged. Left pleural effusion is slightly increased. 2. Stable innumerable pulmonary metastases. 3. Small pericardial effusion, essentially unchanged. 4. Redemonstration of a left breast mass and bilateral axillary lymphadenopathy. 5. Stable osseous metastases. 6. Stable calcified thyroid mass. 7. Stable interstitial edema versus lymphangitic spread within the right lung. Electronically signed by: Mitra Villanueva On 01/30/2020 12:38:54 PM
== END ==
LOC: M RAD 11:56 → MERGE 11:56
PROVIDERS: ATTEND Thoracic Surgery (Cardiothoracic Vascular Surgery)
DX: R06.02 Shortness of breath (principal); J90 Pleural effusion, not elsewhere classified

== ENCOUNTER → 2020-02-04 | Outpatient (REF) | payer MEDICARE, OTHER ==
[2020-02-04 16:10] LABS: BASO % 0.6 % (0.0-1.0); EOS % 0.6 % (0.0-3.0); HEMATOCRIT 34.7 % (36.0-47.0); HEMOGLOBIN 11.4 g/dl (12.0-15.5); LYMPH # 0.9 10^3/uL (1.5-5.0); LYMPH % 19.7 % (24.0-44.0); MEAN CORPUSCULAR HEMOGLOBIN 29.9 pg (27.0-33.0); MEAN CORPUSCULAR HGB CONC 32.9 g/dl (32.0-36.5); MEAN CORPUSCULAR VOLUME 91.1 fl (80.0-96.0); MONO # 0.2 10^3/uL (0.0-0.8); MONO % 3.6 % (0.0-5.0); NEUTROPHILS # 3.5 10^3/uL (1.5-8.5); NEUTROPHILS % 74.9 % (36.0-66.0); PLATELET COUNT, AUTOMATED 304 10^3/uL (150-450); RED BLOOD COUNT 3.81 10^6/uL (4.00-5.40); WHITE BLOOD COUNT 4.7 10^3/uL (4.0-10.0)
[2020-02-04 16:17] LABS: ALBUMIN 2.8 GM/DL (3.2-5.2); BILIRUBIN,TOTAL 0.4 MG/DL (0.2-1.0); CALCIUM LEVEL 9.2 MG/DL (8.8-10.2); CREATININE FOR GFR 1.02 MG/DL (0.55-1.30); GLOMERULAR FILTRATION RATE 57.9 (>45); POTASSIUM SERUM 4.3 MEQ/L (3.5-5.1)
== END ==
LOC: M SFHCCLAY 09:54
PROVIDERS: ATTEND Physician Assistant
DX: R79.89 Other specified abnormal findings of blood chemistry (principal)
CPT/HCPCS: 80053; 85025; G0463; G8482

== ENCOUNTER → 2020-02-07 | Outpatient (CLI) | payer MEDICARE, BC ==
--- NOTE | 2020-02-07 12:01 | REP ---
INDICATION: S21.002A WOUND LT BREAST,LT BREAST CA. Family history of breast cancer in paternal grandmother and paternal aunt. COMPARISON: CT chest 01/30/2020 as well as other prior exams. Ultrasound images during biopsy 12/19/2019. TECHNIQUE: MLO and CC views of both breasts performed with tomosynthesis. FINDINGS: In the posterior left upper outer quadrant there is significant skin deformity with an underlying large spiculated mass. This measures approximately 3.6 cm in diameter. Several small calcifications are associated with this mass. There is surrounding architectural distortion in the upper outer quadrant of the left breast. Spiculations radiate outward from the spiculated mass approximately 5 cm. On the left MLO view there is a dense enlarged lymph node likely with metastatic involvement, measuring about 2.3 x 1.5 cm. On the recent chest CT there were at least 3 enlarged lymph nodes in that region. There is diffuse skin thickening of the left breast compatible with lymphatic spread. No mass or clustered microcalcifications are seen in the right breast. The Volpara volumetric breast density pattern is B. IMPRESSION: BIRADS/ACR category 6 known left breast cancer. Large spiculated mass with associated architectural distortion in the posterior upper outer quadrant of the left breast. This was biopsied 12/19/2019. Enlarged lymph node in the left axilla appears dense and is compatible with a metastatic lymph node. There is diffuse skin thickening of the left breast suggesting lymphatic spread. This mammogram was interpreted with the aid of an FDA-approved computer-aided detection system. The patient states she had a clinical breast exam in January 2020. The patient letter being requested is M 4. RECOMMENDATION: Clinical follow-up. <Electronically signed by Quincy Ribera > 02/07/20 [id number]
== END ==
LOC: MERGE 09:55 → M WHC 09:55
PROVIDERS: ATTEND Surgery
DX: S21.002A Unspecified open wound of left breast, initial encounter (principal); N63.21 Unspecified lump in the left breast, upper outer quadrant; X58.XXXA Exposure to other specified factors, initial encounter; Y92.9 Unspecified place or not applicable
CPT/HCPCS: 77066; G0279

== ENCOUNTER → 2020-02-07 | Outpatient (CLI) | payer MEDICARE, OTHER ==
--- NOTE | 2020-02-07 12:12 | REPPI ---
INDICATION: MALIGNANT PLEURAL EFFUSION. COMPARISON: 12/27/2019 FINDINGS: The right-sided thoracotomy tube has been removed. Increased right CP angle blunting has developed along with increased right lower lobe patchy opacities. There is thickening of the fissures of the right lung increased from the prior exam. There is left CP angle blunting probably unchanged. There is no significant change in the appearance of the cardiomediastinal silhouette or imaged osseous structures. IMPRESSION: 1. Removal of the right-sided thoracotomy tube. 2. New right lower lobe patchy opacities and thickening of the fissures. <Electronically signed by Simon Chacon > 02/07/20 [id number]
== END ==
LOC: M PLAIMG 11:00
PROVIDERS: ATTEND Thoracic Surgery (Cardiothoracic Vascular Surgery)
DX: R91.8 Other nonspecific abnormal finding of lung field (principal); J91.0 Malignant pleural effusion; Z13.9 Encounter for screening, unspecified

== ENCOUNTER → 2020-02-07 | Outpatient (CLI) | payer MEDICARE, OTHER | LOC: M PLALAB 11:03 | PROVIDERS: ATTEND Surgery | DX: Z13.9 Encounter for screening, unspecified (principal) ==

== ENCOUNTER → 2020-03-13 | Outpatient (CLI) | payer MEDICARE, OTHER, BC ==
--- NOTE | 2020-03-13 16:09 | REPPI ---
INDICATION: J91.0 MALIGNANT PLEURAL EFFUSION. COMPARISON: 02/07/2020 and 01/30/2020 TECHNIQUE: PA and lateral views FINDINGS: There is cardiomegaly status quo. There are patchy bibasilar opacities with bilateral CP angle blunting all stable. There is thickening of the fissures all stable. There is no change in the osseous structures. Once again, there is a large calcification in the region of the thyroid gland on the right. This is causing contralateral tracheal deviation. IMPRESSION: No significant change <Electronically signed by Simon Chacon > 03/13/20 [id number]
== END ==
LOC: M PLAIMG 13:48
PROVIDERS: ATTEND Thoracic Surgery (Cardiothoracic Vascular Surgery)
DX: J90 Pleural effusion, not elsewhere classified (principal); I51.7 Cardiomegaly; E07.9 Disorder of thyroid, unspecified

== ENCOUNTER → 2020-04-27 | Outpatient (REF) | payer MEDICARE, OTHER ==
[2020-04-27 12:13] LABS: BASO # 0.1 10^3/uL (0.0-0.2); BASO % 2.6 % (0.0-1.0); EOS % 1.1 % (0.0-3.0); HEMATOCRIT 35.5 % (36.0-47.0); HEMOGLOBIN 12.3 g/dl (12.0-15.5); LYMPH # 1.1 10^3/uL (1.5-5.0); LYMPH % 42.1 % (24.0-44.0); MEAN CORPUSCULAR HEMOGLOBIN 33.9 pg (27.0-33.0); MEAN CORPUSCULAR HGB CONC 34.6 g/dl (32.0-36.5); MEAN CORPUSCULAR VOLUME 97.8 fl (80.0-96.0); MONO # 0.2 10^3/uL (0.0-0.8); MONO % 6.4 % (0.0-5.0); NEUTROPHILS # 1.3 10^3/uL (1.5-8.5); NEUTROPHILS % 47.4 % (36.0-66.0); PLATELET COUNT, AUTOMATED 258 10^3/uL (150-450); RED BLOOD COUNT 3.63 10^6/uL (4.00-5.40); WHITE BLOOD COUNT 2.7 10^3/uL (4.0-10.0)
[2020-04-27 12:50] LABS: ALBUMIN 3.9 GM/DL (3.2-5.2); BILIRUBIN,TOTAL 0.6 MG/DL (0.2-1.0); CALCIUM LEVEL 9.6 MG/DL (8.8-10.2); CREATININE FOR GFR 1.04 MG/DL (0.55-1.30); GLOMERULAR FILTRATION RATE 56.6 (>45); POTASSIUM SERUM 4.7 MEQ/L (3.5-5.1); TOTAL PROTEIN 7.2 GM/DL (6.4-8.2)
[2020-04-27 13:29] LABS: CA15-3 ANTIGEN 58.1 U/ML (<32.4)
== END ==
LOC: M LABDRAWC 11:35
PROVIDERS: ATTEND Internal Medicine Hematology & Oncology
DX: C50.919 Malignant neoplasm of unspecified site of unspecified female breast (principal)

== ENCOUNTER → 2020-07-23 | Outpatient (CLI) | payer MEDICARE, BC, OTHER ==
[~2020-07-23] MED LIST changes: +GASTROGRAFIN SOLUTION 30ML (Q9963) As Ordered ONE; +ISOVUE-370 76% 100ML VIAL As Ordered ONE
--- NOTE | 2020-07-23 11:40 | REP ---
INDICATION: BREAST CA. COMPARISON: Multiple the latest 01/30/2020 TECHNIQUE: Standard helical contrast-enhanced CT examination of the chest after the administration of 100 cc Isovue 370 intravenously FINDINGS: A large partially calcified mass is again seen in the right lobe of the thyroid gland status quo. No mediastinal or hilar adenopathy has developed. Slightly enlarged and rounded left axillary lymph nodes are again noted but decreased from the prior exam. The size of the spiculated lesion seen in the left breast region on the prior exam appears smaller. This cannot be further assessed with CT. There are bilateral pleural effusions some of which is loculated on the right but decreased from the prior exam. There is a small left pleural effusion which has increased from the prior exam. There is a minimal pericardial effusion which has decreased. Evaluation of the osseous structures again shows numerable vertebral body blastic lesions and at least 2 blastic right rib lesions. Evaluation of the lung dan shows decreased peribronchiolar thickening. There are a few scattered tiny 2 and 3 mm sized pulmonary nodules with the larger nodules seen on the prior examination not present today. IMPRESSION: 1. Pleural and pericardial effusions as described above. 2. There has been some lung field improvement as described above. 3. Blastic osseous metastasis as described above. 4. Left axillary adenopathy slightly improved. 5. Other findings as described above. <Electronically signed by Simon Chacon > 07/23/20 [id number]
--- NOTE | 2020-07-23 11:52 | REP ---
INDICATION: BREAST CA. COMPARISON: Multiple the latest 01/13/2020 TECHNIQUE: Standard helical CT examination of the abdomen and pelvis was obtained after the intravenous administration of 100 cc of Isovue 370 along with oral bowel preparatory contrast administration prior to the exam. FINDINGS: The focal low density seen previously in the border between the lateral segment of the left lobe of the liver and the medial segment, deep to the fissure for the falciform ligament has gotten smaller compared to the prior exam. Today this measures approximately 7 mm. The other tiny focal area of low density seen in the posterior segment of the right lobe of the liver is unchanged. No new hepatic lesions have developed. The spleen is borderline in size to mildly enlarged status quo. The gallbladder, pancreas, adrenal glands, and kidneys are unchanged and again seen to be within normal limits. The abdominal aorta and para-aortic regions are again seen to be within normal limits. The bowel loops and the mesenteries are unchanged and again seen to be within normal limits. Note is again made of uterine enlargement with both calcified and noncalcified myomatous changes suspected. No mass or adenopathy has developed since the last exam. There is no free fluid or free air. Bone window technique throughout the examination again shows multiple blastic lesions scattered throughout the imaged axial and appendicular skeleton. IMPRESSION: 1. Improved liver finding as described above. 2. Skeletal metastasis as described above. 3. Mild splenomegaly status quo. 4. No evidence of acute disease. Findings as described above. <Electronically signed by Simon Chacon > 07/23/20 [id number]
== END ==
LOC: M RAD 09:03
PROVIDERS: ATTEND Internal Medicine Hematology & Oncology
DX: C50.919 Malignant neoplasm of unspecified site of unspecified female breast (principal)
CPT/HCPCS: 71260; 74177; Q9963; Q9967

== ENCOUNTER → 2020-12-15 | Outpatient (CLI) | payer MEDICARE, OTHER, BC ==
[~2020-12-15] MED LIST changes: -GASTROGRAFIN SOLUTION 30ML (Q9963) As Ordered ONE; -ISOVUE-370 76% 100ML VIAL As Ordered ONE
--- NOTE | 2020-12-15 14:00 | REP ---
INDICATION: METASTIC BREAST CANCER STAGE 4 BREAST CA ASSESS STABILITY; STAGE 4 LEFT BREAST CA ASSESS STABILITY. On going treatment chemotherapy. Known left breast malignancy. COMPARISON: Mammography February 07, 2020. TECHNIQUE: Bilateral CC and MLO) view(s) were taken. 3D tomography was deployed. Targeted left breast and left axillary ultrasound is carried out. FINDINGS: Scattered fibroglandular elements are seen. Previously noted spiculated upper-outer quadrant left breast mass is again seen decreased in 3.4 cm in craniocaudal span on MLO view previously, today 2.5 cm. There are more coarse calcifications within the mass. There is contour deformity and skin indentation persisting. The previously noted enlarged lymph node has decreased in size, 1.7 cm in short axis dimension on February 07, 2020, today's 0.9 cm in short axis dimension. No new adenopathy is seen. No new mass is observed. There is slight improvement in the diffuse dermal thickening. The right breast remains unremarkable. No other suspicious finding. The Volpara volumetric breast density pattern is B. Targeted left breast ultrasound: The upper-outer quadrant of the left breast was studied sonographically along with the of the left axilla. In the 2 o'clock position near the axillary tail region, there is a hypoechoic mass measuring 3.1 x 2.4 x 2.5 cm. This contains echogenic foci and is consistent with the previously biopsied carcinoma. In the axilla there were 2 identified lymph nodes which measure 1.9 x 0.8 x 1.4 cm and 1.7 x 0.8 x 0.8 cm. These have preserved echogenic fatty hilar architecture. cortical margins are 3 mm or less. No definite suspicious feature.. IMPRESSION: BI-RADS/ACR category 6 known left breast malignancy. Interval decrease in the size of the malignant mass in the upper-outer quadrant of the left breast and in the size of the previously enlarged left axillary lymph node. This mammogram was interpreted with the aid of an FDA-approved computer-aided detection system. The patient states she had a clinical breast exam in July of 2020. The patient letter being requested is M4. RECOMMENDATION: None. Patient currently being treated with chemotherapy. <Electronically signed by Corbin Marie > 12/15/20 [id number]
== END ==
LOC: M WHC 10:51
PROVIDERS: ATTEND Surgery
DX: C50.412 Malignant neoplasm of upper-outer quadrant of left female breast (principal); R59.0 Localized enlarged lymph nodes
CPT/HCPCS: 76642; 77066; G0279

== ENCOUNTER → 2021-01-11 | Outpatient (CLI) | payer MEDICARE, BC, OTHER ==
[~2021-01-11] MED LIST changes: +GASTROGRAFIN SOLUTION 30ML (Q9963) As Ordered ONE; +ISOVUE-370 76% 100ML VIAL As Ordered ONE; -KLOR10TA76 PO; +POTA-136 PO
--- NOTE | 2021-01-11 14:21 | REP ---
INDICATION: BREAST CA. COMPARISON: 07/23/2020 TECHNIQUE: Axial contrast-enhanced images from the lung bases to the pubic symphysis using oral and 100 cc Isovue 370 intravenous contrast material. Coronal and sagittal reformations obtained. This CT examination was performed using the following dose reduction techniques: Automated exposure control, adjustment of mA and/or kv according to the patient's size, and the use of iterative reconstruction technique. FINDINGS: Small left pleural effusion along with fibroatelectatic changes suggested in the lingula and right middle lobe. Liver demonstrates fatty infiltration and small subcentimeter hypodensities suggesting cysts. Spleen is upper limits of normal. Pancreas, gallbladder, bilateral adrenal glands and kidneys are normal. The enteric system including stomach, small, and large bowel appears normal. No evidence for obstruction or acute inflammatory process. Normal terminal ileum and appendix are identified in the right lower quadrant. Few scattered sigmoid diverticula noted without acute diverticulitis. Pelvis demonstrates normal bladder and partially calcified myomatous changes to the uterus. No ascites. No free air. No intraperitoneal or retroperitoneal adenopathy. Abdominal aorta and vasculature appear normal. Small fat containing periumbilical hernia unchanged. Musculoskeletal structures demonstrate innumerable scattered sclerotic metastatic foci primarily involving the visualized thoracolumbar spine and pelvis relatively similar to prior examination. IMPRESSION: 1. Left pleural effusion decreased in size from prior examination. 2. Relatively stable osseous metastatic foci. 3. Chronic stable changes including myomatous uterus. 4. No acute abdominopelvic pathology otherwise noted. <Electronically signed by Geoffrey Dyer > 01/11/21 [id number]
--- NOTE | 2021-01-11 16:10 | REP ---
INDICATION: BREAST CA COMPARISON: Multiple the latest 07/23/2020 TECHNIQUE: Standard helical technique after the intravenous administration of 100 cc Isovue 370 FINDINGS: The mediastinum and pulmonary danny are unchanged. There is a large centrally calcified thyroid gland mass status quo. The left pleural effusion seen previously has gotten smaller. The small pericardial effusion has resolved. The imaged upper abdomen is unchanged. The imaged osseous structures again show multifocal blastic metastasis. Evaluation of the lung dan shows no new abnormal nodules, masses, or opacities. Curvilinear densities are again seen status quo. The peribronchial are thickening seen previously appears to have resolved. Tiny 2 and 3 mm sized nodules are again noted status quo. IMPRESSION: The left pleural effusion seen previously has again gotten smaller. The pericardial effusion seen previously has resolved. There are no new lung parenchymal abnormalities. Due to spray artifact from high density contrast being injected on the left side the left axillary region cannot be compared to the prior exam. Other findings as described above. <Electronically signed by Simon Chacon > 01/11/21 [id number]
== END ==
LOC: M RAD 11:29
PROVIDERS: ATTEND Internal Medicine Hematology & Oncology
DX: C50.912 Malignant neoplasm of unspecified site of left female breast (principal)
CPT/HCPCS: 71260; 74177; Q9963; Q9967

== ENCOUNTER → 2021-02-02 | Outpatient (REF) | payer MEDICARE, OTHER ==
[~2021-02-02] MED LIST changes: -GASTROGRAFIN SOLUTION 30ML (Q9963) As Ordered ONE; -ISOVUE-370 76% 100ML VIAL As Ordered ONE
[2021-02-02 11:53] LABS: BASO % 1.4 % (0.0-1.0); EOS % 1.4 % (0.0-3.0); LYMPH # 1.1 10^3/uL (1.5-5.0); LYMPH % 49.5 % (24.0-44.0); MEAN CORPUSCULAR HEMOGLOBIN 38.1 pg (27.0-33.0); MEAN CORPUSCULAR HGB CONC 36.4 g/dl (32.0-36.5); MEAN CORPUSCULAR VOLUME 104.8 fl (80.0-96.0); MONO # 0.3 10^3/uL (0.0-0.8); MONO % 12.2 % (2.0-8.0); NEUTROPHILS % 35.5 % (36.0-66.0); PLATELET COUNT, AUTOMATED 149 10^3/uL (150-450); RED BLOOD COUNT 3.15 10^6/uL (4.00-5.40); WHITE BLOOD COUNT 2.2 10^3/uL (4.0-10.0)
[2021-02-02 11:59] LABS: NEUTROPHILS # 0.8 10^3/uL (1.5-8.5)
[2021-02-02 12:11] LABS: ALT/SGPT 18 U/L (12-78); BILIRUBIN,TOTAL 0.5 MG/DL (0.2-1.0); BLOOD UREA NITROGEN 15 MG/DL (7-18); CALCIUM LEVEL 10.1 MG/DL (8.8-10.2); CARBON DIOXIDE LEVEL 31 MEQ/L (21-32); CHLORIDE LEVEL 106 MEQ/L (98-107); CREATININE FOR GFR 0.92 MG/DL (0.55-1.30); GLOMERULAR FILTRATION RATE > 60.0 (>45); GLUCOSE, FASTING 127 MG/DL (70-100); POTASSIUM SERUM 4.3 MEQ/L (3.5-5.1); SODIUM LEVEL 142 MEQ/L (136-145)
== END ==
LOC: M LABDRAWC 11:33
PROVIDERS: ATTEND Internal Medicine Hematology & Oncology
DX: C50.912 Malignant neoplasm of unspecified site of left female breast (principal)

== ENCOUNTER → 2021-02-02 | Outpatient (REF) | payer MEDICARE, OTHER ==
[2021-02-02 12:28] LABS: BASO % 1.8 % (0.0-1.0); EOS % 0.9 % (0.0-3.0); HEMATOCRIT 33.2 % (36.0-47.0); HEMOGLOBIN 12.2 g/dl (12.0-15.5); LYMPH # 1.1 10^3/uL (1.5-5.0); LYMPH % 49.8 % (24.0-44.0); MEAN CORPUSCULAR HEMOGLOBIN 38.6 pg (27.0-33.0); MEAN CORPUSCULAR VOLUME 105.1 fl (80.0-96.0); MONO # 0.3 10^3/uL (0.0-0.8); MONO % 11.9 % (2.0-8.0); NEUTROPHILS % 35.6 % (36.0-66.0); PLATELET COUNT, AUTOMATED 150 10^3/uL (150-450); RED BLOOD COUNT 3.16 10^6/uL (4.00-5.40); WHITE BLOOD COUNT 2.2 10^3/uL (4.0-10.0)
[2021-02-02 12:29] LABS: NEUTROPHILS # 0.8 10^3/uL (1.5-8.5)
[2021-02-02 12:30] LABS: MEAN CORPUSCULAR HGB CONC 36.7 g/dl (32.0-36.5)
[2021-02-02 13:07] LABS: ALBUMIN 4.1 GM/DL (3.2-5.2); ALT/SGPT 19 U/L (12-78); BILIRUBIN,TOTAL 0.5 MG/DL (0.2-1.0); BLOOD UREA NITROGEN 14 MG/DL (7-18); CARBON DIOXIDE LEVEL 31 MEQ/L (21-32); CHLORIDE LEVEL 106 MEQ/L (98-107); CHOLESTEROL LEVEL 201 MG/DL (<200); CHOLESTEROL RISK RATIO 2.791 (<5); CREATININE FOR GFR 0.86 MG/DL (0.55-1.30); GLOMERULAR FILTRATION RATE > 60.0 (>45); GLUCOSE, FASTING 127 MG/DL (70-100); HDL CHOLESTEROL 72 MG/DL (>40); LDL CHOLESTEROL 89 MG/DL (<100); NON-HDL-C 129 MG/DL; POTASSIUM SERUM 4.3 MEQ/L (3.5-5.1); SODIUM LEVEL 143 MEQ/L (136-145); TOTAL 25(OH) VITAMIN D 30.6 NG/ML (30.0-100.0); TOTAL PROTEIN 6.9 GM/DL (6.4-8.2); TRIGLYCERIDES LEVEL 202 MG/DL (<150)
[2021-02-02 13:40] LABS: MALB URINE SIEMENS 67.4 MG/L; MAU/CREAT RATIO 15.9 MCG/MG (0.0-30.0)
[2021-02-02 16:00] LABS: HEMOGLOBIN A1c 4.9 %
== END ==
LOC: M SFHCCAPE 08:12
PROVIDERS: ATTEND Physician Assistant
DX: E55.9 Vitamin D deficiency, unspecified (principal); I10 Essential (primary) hypertension; E11.9 Type 2 diabetes mellitus without complications; C50.912 Malignant neoplasm of unspecified site of left female breast
CPT/HCPCS: 36415; 80053; 80061; 82043; 82306; 83036; 84443; 85025; G0463

== ENCOUNTER → 2021-02-10 | Outpatient (REF) | payer MEDICARE, OTHER, BC ==
[2021-02-10 16:12] LABS: BASO # 0.1 10^3/uL (0.0-0.2); EOS % 0.8 % (0.0-3.0); HEMATOCRIT 32.8 % (36.0-47.0); HEMOGLOBIN 12.1 g/dl (12.0-15.5); LYMPH # 0.9 10^3/uL (1.5-5.0); LYMPH % 38.2 % (24.0-44.0); MEAN CORPUSCULAR HEMOGLOBIN 38.3 pg (27.0-33.0); MEAN CORPUSCULAR VOLUME 103.8 fl (80.0-96.0); MONO # 0.3 10^3/uL (0.0-0.8); MONO % 11.4 % (2.0-8.0); NEUTROPHILS # 1.2 10^3/uL (1.5-8.5); NEUTROPHILS % 47.2 % (36.0-66.0); PLATELET COUNT, AUTOMATED 174 10^3/uL (150-450); RED BLOOD COUNT 3.16 10^6/uL (4.00-5.40); WHITE BLOOD COUNT 2.5 10^3/uL (4.0-10.0)
[2021-02-10 16:14] LABS: MEAN CORPUSCULAR HGB CONC 36.9 g/dl (32.0-36.5)
[2021-02-10 16:15] LABS: ALBUMIN 3.8 GM/DL (3.2-5.2); ALT/SGPT 20 U/L (12-78); BILIRUBIN,TOTAL 0.7 MG/DL (0.2-1.0); BLOOD UREA NITROGEN 16 MG/DL (7-18); CALCIUM LEVEL 9.3 MG/DL (8.8-10.2); CARBON DIOXIDE LEVEL 26 MEQ/L (21-32); CHLORIDE LEVEL 107 MEQ/L (98-107); CREATININE FOR GFR 0.93 MG/DL (0.55-1.30); GLOMERULAR FILTRATION RATE > 60.0 (>45); GLUCOSE, FASTING 109 MG/DL (70-100); POTASSIUM SERUM 4.1 MEQ/L (3.5-5.1); SODIUM LEVEL 138 MEQ/L (136-145); TOTAL PROTEIN 6.9 GM/DL (6.4-8.2)
== END ==
LOC: M LAB REF 15:48 → M LABDRWCV 15:48
PROVIDERS: ATTEND Internal Medicine Hematology & Oncology
DX: C50.912 Malignant neoplasm of unspecified site of left female breast (principal)

== ENCOUNTER → 2021-04-15 | Outpatient (REF) | payer MEDICARE, OTHER ==
[~2021-04-15] MED LIST changes: +LOSA25TA13 PO; -LOSA25TA14 PO; +POTA-151 PO; -POTA20TA6 PO
[2021-04-15 15:37] LABS: BASO # 0.1 10^3/uL (0.0-0.2); BASO % 3.3 % (0.0-1.0); EOS % 0.9 % (0.0-3.0); HEMATOCRIT 32.7 % (36.0-47.0); HEMOGLOBIN 11.9 g/dl (12.0-15.5); LYMPH # 0.8 10^3/uL (1.5-5.0); LYMPH % 39.1 % (24.0-44.0); MEAN CORPUSCULAR HEMOGLOBIN 37.3 pg (27.0-33.0); MEAN CORPUSCULAR HGB CONC 36.4 g/dl (32.0-36.5); MEAN CORPUSCULAR VOLUME 102.5 fl (80.0-96.0); MONO # 0.2 10^3/uL (0.0-0.8); MONO % 8.4 % (2.0-8.0); NEUTROPHILS % 47.8 % (36.0-66.0); PLATELET COUNT, AUTOMATED 191 10^3/uL (150-450); RED BLOOD COUNT 3.19 10^6/uL (4.00-5.40); WHITE BLOOD COUNT 2.2 10^3/uL (4.0-10.0)
[2021-04-15 15:44] LABS: ALT/SGPT 18 U/L (12-78); BILIRUBIN,TOTAL 0.8 MG/DL (0.2-1.0); BLOOD UREA NITROGEN 18 MG/DL (7-18); CALCIUM LEVEL 8.9 MG/DL (8.8-10.2); CARBON DIOXIDE LEVEL 26 MEQ/L (21-32); CHLORIDE LEVEL 109 MEQ/L (98-107); CREATININE FOR GFR 0.95 MG/DL (0.55-1.30); GLOMERULAR FILTRATION RATE > 60.0 (>45); GLUCOSE, FASTING 119 MG/DL (70-100); POTASSIUM SERUM 4.3 MEQ/L (3.5-5.1); SODIUM LEVEL 140 MEQ/L (136-145); TOTAL PROTEIN 6.9 GM/DL (6.4-8.2)
== END ==
LOC: M LABDRWCV 15:18 → M LABDRAWC 15:18
PROVIDERS: ATTEND Internal Medicine Hematology & Oncology
DX: C50.912 Malignant neoplasm of unspecified site of left female breast (principal)

== ENCOUNTER → 2021-04-27 | Outpatient (CLI) | payer MEDICARE, BC, OTHER ==
[~2021-04-27] MED LIST changes: +GASTROGRAFIN SOLUTION 30ML (Q9963) As Ordered ONE; +ISOVUE-370 76% 100ML VIAL As Ordered ONE
== END ==
LOC: M RAD 11:46
PROVIDERS: ATTEND Internal Medicine Hematology & Oncology
DX: C50.912 Malignant neoplasm of unspecified site of left female breast (principal); J91.8 Pleural effusion in other conditions classified elsewhere
CPT/HCPCS: 71260; 74177; Q9963; Q9967

== ENCOUNTER → 2021-05-13 | Outpatient (REF) | payer MEDICARE, BC, OTHER ==
[~2021-05-13] MED LIST changes: -GASTROGRAFIN SOLUTION 30ML (Q9963) As Ordered ONE; -ISOVUE-370 76% 100ML VIAL As Ordered ONE
[2021-05-13 15:53] LABS: BASO # 0.1 10^3/uL (0.0-0.2); BASO % 3.5 % (0.0-1.0); EOS % 1.3 % (0.0-3.0); HEMATOCRIT 34.4 % (36.0-47.0); HEMOGLOBIN 12.3 g/dl (12.0-15.5); LYMPH % 43.2 % (24.0-44.0); MEAN CORPUSCULAR HEMOGLOBIN 37.2 pg (27.0-33.0); MEAN CORPUSCULAR HGB CONC 35.8 g/dl (32.0-36.5); MEAN CORPUSCULAR VOLUME 103.9 fl (80.0-96.0); MONO # 0.2 10^3/uL (0.0-0.8); MONO % 7.9 % (2.0-8.0); NEUTROPHILS % 43.7 % (36.0-66.0); PLATELET COUNT, AUTOMATED 204 10^3/uL (150-450); RED BLOOD COUNT 3.31 10^6/uL (4.00-5.40); WHITE BLOOD COUNT 2.3 10^3/uL (4.0-10.0)
[2021-05-13 16:06] LABS: ALT/SGPT 18 U/L (12-78); BILIRUBIN,TOTAL 0.5 MG/DL (0.2-1.0); BLOOD UREA NITROGEN 18 MG/DL (7-18); CALCIUM LEVEL 9.6 MG/DL (8.8-10.2); CARBON DIOXIDE LEVEL 29 MEQ/L (21-32); CHLORIDE LEVEL 105 MEQ/L (98-107); CREATININE FOR GFR 0.98 MG/DL (0.55-1.30); GLOMERULAR FILTRATION RATE > 60.0 (>45); GLUCOSE, FASTING 135 MG/DL (70-100); POTASSIUM SERUM 4.3 MEQ/L (3.5-5.1); SODIUM LEVEL 140 MEQ/L (136-145); TOTAL PROTEIN 7.1 GM/DL (6.4-8.2)
== END ==
LOC: M LABDRWCV 15:33 → M LAB REF 15:33
PROVIDERS: ATTEND Internal Medicine Hematology & Oncology
DX: C50.912 Malignant neoplasm of unspecified site of left female breast (principal)

== ENCOUNTER → 2021-06-10 | Outpatient (REF) | payer MEDICARE, BC, OTHER ==
[2021-06-10 16:20] LABS: HEMATOCRIT 33.3 % (36.0-47.0); RED BLOOD COUNT 3.18 10^6/uL (4.00-5.40); WHITE BLOOD COUNT 2.4 10^3/uL (4.0-10.0)
[2021-06-10 16:21] LABS: BASO # 0.1 10^3/uL (0.0-0.2); BASO % 2.9 % (0.0-1.0); EOS % 1.3 % (0.0-3.0); LYMPH % 40.8 % (24.0-44.0); MEAN CORPUSCULAR HEMOGLOBIN 37.7 pg (27.0-33.0); MEAN CORPUSCULAR VOLUME 104.7 fl (80.0-96.0); MONO # 0.1 10^3/uL (0.0-0.8); MONO % 5.4 % (2.0-8.0); NEUTROPHILS # 1.2 10^3/uL (1.5-8.5); NEUTROPHILS % 49.2 % (36.0-66.0); PLATELET COUNT, AUTOMATED 197 10^3/uL (150-450)
[2021-06-10 16:24] LABS: ALBUMIN 3.9 GM/DL (3.2-5.2); BILIRUBIN,TOTAL 0.6 MG/DL (0.2-1.0); CALCIUM LEVEL 9.9 MG/DL (8.8-10.2); CREATININE FOR GFR 0.99 MG/DL (0.55-1.30); GLOMERULAR FILTRATION RATE 59.7 (>45); POTASSIUM SERUM 4.3 MEQ/L (3.5-5.1); TOTAL PROTEIN 7.1 GM/DL (6.4-8.2)
[2021-06-10 17:09] LABS: CA15-3 ANTIGEN 36.5 U/ML (<32.4)
== END ==
LOC: M LABDRWCV 15:45
PROVIDERS: ATTEND Internal Medicine Medical Oncology
DX: C50.919 Malignant neoplasm of unspecified site of unspecified female breast (principal)

== ENCOUNTER → 2021-07-08 | Outpatient (REF) | payer MEDICARE, BC, OTHER ==
[2021-07-08 16:24] LABS: BASO # 0.1 10^3/uL (0.0-0.2); BASO % 2.3 % (0.0-1.0); EOS % 1.4 % (0.0-3.0); HEMATOCRIT 33.1 % (36.0-47.0); HEMOGLOBIN 11.9 g/dl (12.0-15.5); LYMPH # 0.8 10^3/uL (1.5-5.0); LYMPH % 39.1 % (24.0-44.0); MEAN CORPUSCULAR HEMOGLOBIN 38.4 pg (27.0-33.0); MEAN CORPUSCULAR VOLUME 106.8 fl (80.0-96.0); MONO # 0.2 10^3/uL (0.0-0.8); MONO % 10.2 % (2.0-8.0); PLATELET COUNT, AUTOMATED 187 10^3/uL (150-450); WHITE BLOOD COUNT 2.2 10^3/uL (4.0-10.0)
[2021-07-08 16:25] LABS: ALBUMIN 3.8 GM/DL (3.2-5.2); ALT/SGPT 20 U/L (12-78); BILIRUBIN,TOTAL 0.5 MG/DL (0.2-1.0); BLOOD UREA NITROGEN 20 MG/DL (7-18); CALCIUM LEVEL 9.2 MG/DL (8.8-10.2); CARBON DIOXIDE LEVEL 31 MEQ/L (21-32); CHLORIDE LEVEL 110 MEQ/L (98-107); CREATININE FOR GFR 0.96 MG/DL (0.55-1.30); GLOMERULAR FILTRATION RATE > 60.0 (>45); GLUCOSE, FASTING 132 MG/DL (70-100); POTASSIUM SERUM 4.3 MEQ/L (3.5-5.1); SODIUM LEVEL 143 MEQ/L (136-145); TOTAL PROTEIN 6.7 GM/DL (6.4-8.2)
== END ==
LOC: M LABDRWCV 15:46 → M LABDRAWC 15:46
PROVIDERS: ATTEND Internal Medicine Medical Oncology
DX: C50.919 Malignant neoplasm of unspecified site of unspecified female breast (principal)

== ENCOUNTER → 2021-08-05 | Outpatient (REF) | payer MEDICARE, OTHER ==
[2021-08-05 15:46] LABS: BASO # 0.1 10^3/uL (0.0-0.2); BASO % 2.6 % (0.0-1.0); EOS % 1.3 % (0.0-3.0); HEMATOCRIT 33.5 % (36.0-47.0); HEMOGLOBIN 12.3 g/dl (12.0-15.5); LYMPH % 42.5 % (24.0-44.0); MEAN CORPUSCULAR HEMOGLOBIN 39.4 pg (27.0-33.0); MEAN CORPUSCULAR HGB CONC 36.7 g/dl (32.0-36.5); MEAN CORPUSCULAR VOLUME 107.4 fl (80.0-96.0); MONO # 0.2 10^3/uL (0.0-0.8); MONO % 7.9 % (2.0-8.0); NEUTROPHILS % 45.3 % (36.0-66.0); PLATELET COUNT, AUTOMATED 199 10^3/uL (150-450); RED BLOOD COUNT 3.12 10^6/uL (4.00-5.40); WHITE BLOOD COUNT 2.3 10^3/uL (4.0-10.0)
[2021-08-05 16:00] LABS: BILIRUBIN,TOTAL 0.8 MG/DL (0.2-1.0); CALCIUM LEVEL 9.7 MG/DL (8.8-10.2); CREATININE FOR GFR 1.15 MG/DL (0.55-1.30); GLOMERULAR FILTRATION RATE 50.3 (>45); POTASSIUM SERUM 4.2 MEQ/L (3.5-5.1); TOTAL PROTEIN 6.9 GM/DL (6.4-8.2)
== END ==
LOC: M LABDRWCV 15:34
PROVIDERS: ATTEND Internal Medicine Hematology & Oncology
DX: C50.919 Malignant neoplasm of unspecified site of unspecified female breast (principal)

== ENCOUNTER → 2021-08-05 | Outpatient (REF) | payer MEDICARE, OTHER ==
[2021-08-05 15:43] LABS: HEMATOCRIT 33.7 % (36.0-47.0); HEMOGLOBIN 12.2 g/dl (12.0-15.5); MEAN CORPUSCULAR HGB CONC 36.2 g/dl (32.0-36.5); MEAN CORPUSCULAR VOLUME 107.7 fl (80.0-96.0); PLATELET COUNT, AUTOMATED 205 10^3/uL (150-450); RED BLOOD COUNT 3.13 10^6/uL (4.00-5.40); WHITE BLOOD COUNT 2.3 10^3/uL (4.0-10.0)
[2021-08-05 16:02] LABS: ALT/SGPT 19 U/L (12-78); BILIRUBIN,TOTAL 0.6 MG/DL (0.2-1.0); BLOOD UREA NITROGEN 19 MG/DL (7-18); CALCIUM LEVEL 10.1 MG/DL (8.8-10.2); CARBON DIOXIDE LEVEL 30 MEQ/L (21-32); CHLORIDE LEVEL 107 MEQ/L (98-107); CHOLESTEROL LEVEL 200 MG/DL (<200); CHOLESTEROL RISK RATIO 2.985 (<5); FOLATE > 24.0 NG/ML; GLOMERULAR FILTRATION RATE 52.9 (>45); GLUCOSE, FASTING 139 MG/DL (70-100); HDL CHOLESTEROL 67 MG/DL (>40); LDL CHOLESTEROL 90 MG/DL (<100); NON-HDL-C 133 MG/DL; POTASSIUM SERUM 4.2 MEQ/L (3.5-5.1); SODIUM LEVEL 143 MEQ/L (136-145); TOTAL 25(OH) VITAMIN D 25.6 NG/ML (30.0-100.0); TOTAL PROTEIN 6.8 GM/DL (6.4-8.2); TRIGLYCERIDES LEVEL 217 MG/DL (<150); VITAMIN B12 LEVEL 516 PG/ML
[2021-08-05 16:19] LABS: HEMOGLOBIN A1c 5.4 %
[2021-08-05 20:35] LABS: ATYPICAL LYMPH 5 % (0-5); LYMPHOCYTES 54 % (16-44); MONOCYTES 4 % (0-5); NEUTROPHILS 37 % (28-66)
[2021-08-05 20:42] LABS: PLATELET ESTIMATE NORMAL (NORMAL)
== END ==
LOC: M SFHCCAPE 07:53
PROVIDERS: ATTEND Physician Assistant
DX: I10 Essential (primary) hypertension (principal); E11.9 Type 2 diabetes mellitus without complications; E55.9 Vitamin D deficiency, unspecified; Z79.899 Other long term (current) drug therapy

== ENCOUNTER → 2021-09-02 | Outpatient (REF) | payer MEDICARE, BC, OTHER ==
[2021-09-02 16:25] LABS: BASO # 0.1 10^3/uL (0.0-0.2); BASO % 2.7 % (0.0-1.0); EOS % 1.3 % (0.0-3.0); HEMATOCRIT 32.6 % (36.0-47.0); HEMOGLOBIN 11.8 g/dl (12.0-15.5); LYMPH % 43.3 % (24.0-44.0); MEAN CORPUSCULAR HEMOGLOBIN 38.9 pg (27.0-33.0); MEAN CORPUSCULAR HGB CONC 36.2 g/dl (32.0-36.5); MEAN CORPUSCULAR VOLUME 107.6 fl (80.0-96.0); MONO # 0.2 10^3/uL (0.0-0.8); MONO % 7.6 % (2.0-8.0); NEUTROPHILS % 45.1 % (36.0-66.0); PLATELET COUNT, AUTOMATED 174 10^3/uL (150-450); RED BLOOD COUNT 3.03 10^6/uL (4.00-5.40); WHITE BLOOD COUNT 2.2 10^3/uL (4.0-10.0)
[2021-09-02 16:39] LABS: ALBUMIN 3.8 GM/DL (3.2-5.2); ALT/SGPT 19 U/L (12-78); BILIRUBIN,TOTAL 0.7 MG/DL (0.2-1.0); BLOOD UREA NITROGEN 16 MG/DL (7-18); CALCIUM LEVEL 9.6 MG/DL (8.8-10.2); CARBON DIOXIDE LEVEL 29 MEQ/L (21-32); CHLORIDE LEVEL 106 MEQ/L (98-107); CREATININE FOR GFR 0.97 MG/DL (0.55-1.30); GLOMERULAR FILTRATION RATE > 60.0 (>45); GLUCOSE, FASTING 124 MG/DL (70-100); POTASSIUM SERUM 4.3 MEQ/L (3.5-5.1); SODIUM LEVEL 141 MEQ/L (136-145); TOTAL PROTEIN 6.9 GM/DL (6.4-8.2)
== END ==
LOC: M LABDRWCV 15:43
PROVIDERS: ATTEND Internal Medicine Hematology & Oncology
DX: C50.412 Malignant neoplasm of upper-outer quadrant of left female breast (principal)

== ENCOUNTER → 2021-09-30 | Outpatient (REF) | payer MEDICARE, BC, OTHER ==
[2021-09-30 16:46] LABS: HEMATOCRIT 33.4 % (36.0-47.0); HEMOGLOBIN 11.9 g/dl (12.0-15.5); LYMPH % 48.5 % (24.0-44.0); MEAN CORPUSCULAR HEMOGLOBIN 38.6 pg (27.0-33.0); MEAN CORPUSCULAR HGB CONC 35.6 g/dl (32.0-36.5); MEAN CORPUSCULAR VOLUME 108.4 fl (80.0-96.0); MONO # 0.1 10^3/uL (0.0-0.8); MONO % 5.1 % (2.0-8.0); NEUTROPHILS % 43.4 % (36.0-66.0); PLATELET COUNT, AUTOMATED 173 10^3/uL (150-450); RED BLOOD COUNT 3.08 10^6/uL (4.00-5.40)
[2021-09-30 16:47] LABS: NEUTROPHILS # 0.9 10^3/uL (1.5-8.5)
[2021-09-30 16:53] LABS: CALCIUM LEVEL 9.7 MG/DL (8.8-10.2); GLOMERULAR FILTRATION RATE 59.1 (>45); POTASSIUM SERUM 4.2 MEQ/L (3.5-5.1)
[2021-10-01 10:06] LABS: TOTAL 25(OH) VITAMIN D 42.9 NG/ML (30.0-100.0)
[2021-10-01 10:42] LABS: CA15-3 ANTIGEN 36.2 U/ML (<32.4)
== END ==
LOC: M LABDRWCV 15:54
PROVIDERS: ATTEND Internal Medicine Hematology & Oncology
DX: C50.919 Malignant neoplasm of unspecified site of unspecified female breast (principal); Z79.899 Other long term (current) drug therapy

== ENCOUNTER → 2021-10-28 | Outpatient (REF) | payer MEDICARE, OTHER ==
[2021-10-28 16:07] LABS: BASO # 0.1 10^3/uL (0.0-0.2); BASO % 2.2 % (0.0-1.0); EOS # 0.1 10^3/uL (0.0-0.5); EOS % 2.2 % (0.0-3.0); HEMATOCRIT 32.9 % (36.0-47.0); HEMOGLOBIN 12.2 g/dl (12.0-15.5); LYMPH % 42.3 % (24.0-44.0); MEAN CORPUSCULAR HEMOGLOBIN 39.6 pg (27.0-33.0); MEAN CORPUSCULAR HGB CONC 37.1 g/dl (32.0-36.5); MEAN CORPUSCULAR VOLUME 106.8 fl (80.0-96.0); MONO # 0.2 10^3/uL (0.0-0.8); MONO % 7.5 % (2.0-8.0); NEUTROPHILS % 45.8 % (36.0-66.0); PLATELET COUNT, AUTOMATED 177 10^3/uL (150-450); RED BLOOD COUNT 3.08 10^6/uL (4.00-5.40); WHITE BLOOD COUNT 2.3 10^3/uL (4.0-10.0)
[2021-10-28 16:53] LABS: BILIRUBIN,TOTAL 0.7 MG/DL (0.2-1.0); CALCIUM LEVEL 9.9 MG/DL (8.8-10.2); CREATININE FOR GFR 1.04 MG/DL (0.55-1.30); GLOMERULAR FILTRATION RATE 56.4 (>45); TOTAL PROTEIN 6.9 GM/DL (6.4-8.2)
[2021-10-28 20:58] LABS: CA15-3 ANTIGEN 35.8 U/ML (<32.4)
== END ==
LOC: M LABDRWCV 15:47 → M LABDRAWC 15:47
PROVIDERS: ATTEND Internal Medicine Hematology & Oncology
DX: C50.912 Malignant neoplasm of unspecified site of left female breast (principal)

== ENCOUNTER → 2021-12-01 | Outpatient (REF) | payer MEDICARE, OTHER ==
[~2021-12-01] MED LIST changes: +IBRA100C PO; +PALB100T PO; +PALB125T
[2021-12-01 17:52] LABS: BASO % 1.9 % (0.0-1.0); EOS % 1.4 % (0.0-3.0); HEMATOCRIT 34.4 % (36.0-47.0); HEMOGLOBIN 12.3 g/dl (12.0-15.5); LYMPH % 50.2 % (24.0-44.0); MEAN CORPUSCULAR HEMOGLOBIN 39.2 pg (27.0-33.0); MEAN CORPUSCULAR HGB CONC 35.8 g/dl (32.0-36.5); MEAN CORPUSCULAR VOLUME 109.6 fl (80.0-96.0); MONO # 0.1 10^3/uL (0.0-0.8); MONO % 5.8 % (2.0-8.0); NEUTROPHILS % 40.7 % (36.0-66.0); PLATELET COUNT, AUTOMATED 189 10^3/uL (150-450); RED BLOOD COUNT 3.14 10^6/uL (4.00-5.40); WHITE BLOOD COUNT 2.1 10^3/uL (4.0-10.0)
[2021-12-01 17:53] LABS: NEUTROPHILS # 0.8 10^3/uL (1.5-8.5)
[2021-12-01 18:19] LABS: ALBUMIN 4.1 GM/DL (3.2-5.2); BILIRUBIN,TOTAL 0.6 MG/DL (0.2-1.0); CALCIUM LEVEL 9.7 MG/DL (8.8-10.2); CREATININE FOR GFR 1.02 MG/DL (0.55-1.30); GLOMERULAR FILTRATION RATE 57.7 (>45); POTASSIUM SERUM 4.4 MEQ/L (3.5-5.1)
== END ==
LOC: M LABDRWCV 17:15
PROVIDERS: ATTEND Nurse Practitioner
DX: C50.912 Malignant neoplasm of unspecified site of left female breast (principal)

== ENCOUNTER → 2021-12-14 | Outpatient (CLI) | payer MEDICARE, BC, OTHER ==
[~2021-12-14] MED LIST changes: +GASTROGRAFIN SOLUTION 30ML (Q9963) As Ordered ONE; +ISOVUE-370 76% 100ML VIAL As Ordered ONE; -PALB125T
== END ==
LOC: M RAD 08:11
PROVIDERS: ATTEND Internal Medicine Hematology & Oncology
DX: C50.912 Malignant neoplasm of unspecified site of left female breast (principal); R59.9 Enlarged lymph nodes, unspecified; R91.1 Solitary pulmonary nodule
CPT/HCPCS: 71260; 74177; Q9963; Q9967

== ENCOUNTER → 2021-12-16 | Outpatient (CLI) | payer MEDICARE, BC, OTHER ==
[~2021-12-16] MED LIST changes: -GASTROGRAFIN SOLUTION 30ML (Q9963) As Ordered ONE; -ISOVUE-370 76% 100ML VIAL As Ordered ONE
== END ==
LOC: M WHC 10:03
PROVIDERS: ATTEND Nurse Practitioner Women's Health
DX: C79.81 Secondary malignant neoplasm of breast (principal)
CPT/HCPCS: 77066; G0279

== ENCOUNTER → 2021-12-29 | Outpatient (REF) | payer MEDICARE, BC, OTHER ==
[~2021-12-29] MED LIST changes: +PALB125T
[2021-12-29 17:53] LABS: BASO # 0.1 10^3/uL (0.0-0.2); BASO % 2.9 % (0.0-1.0); EOS % 1.9 % (0.0-3.0); HEMATOCRIT 34.2 % (36.0-47.0); HEMOGLOBIN 12.1 g/dl (12.0-15.5); LYMPH # 0.9 10^3/uL (1.5-5.0); LYMPH % 43.5 % (24.0-44.0); MEAN CORPUSCULAR HEMOGLOBIN 38.7 pg (27.0-33.0); MEAN CORPUSCULAR HGB CONC 35.4 g/dl (32.0-36.5); MEAN CORPUSCULAR VOLUME 109.3 fl (80.0-96.0); MONO # 0.2 10^3/uL (0.0-0.8); MONO % 9.1 % (2.0-8.0); NEUTROPHILS % 42.1 % (36.0-66.0); PLATELET COUNT, AUTOMATED 198 10^3/uL (150-450); RED BLOOD COUNT 3.13 10^6/uL (4.00-5.40); WHITE BLOOD COUNT 2.1 10^3/uL (4.0-10.0)
[2021-12-29 18:00] LABS: NEUTROPHILS # 0.9 10^3/uL (1.5-8.5)
[2021-12-29 18:29] LABS: ALBUMIN 3.9 GM/DL (3.2-5.2); ALT/SGPT 36 U/L (12-78); BILIRUBIN,TOTAL 0.6 MG/DL (0.2-1.0); BLOOD UREA NITROGEN 15 MG/DL (7-18); CALCIUM LEVEL 9.9 MG/DL (8.8-10.2); CARBON DIOXIDE LEVEL 27 MEQ/L (21-32); CHLORIDE LEVEL 102 MEQ/L (98-107); CREATININE FOR GFR 0.97 MG/DL (0.55-1.30); GLOMERULAR FILTRATION RATE > 60.0 (>45); GLUCOSE, FASTING 136 MG/DL (70-100); POTASSIUM SERUM 4.4 MEQ/L (3.5-5.1); SODIUM LEVEL 138 MEQ/L (136-145); TOTAL PROTEIN 6.9 GM/DL (6.4-8.2)
== END ==
LOC: M LABDRWCV 17:16
PROVIDERS: ATTEND Nurse Practitioner
DX: C50.919 Malignant neoplasm of unspecified site of unspecified female breast (principal)

== ENCOUNTER → 2022-01-13 | Outpatient (REF) | payer MEDICARE, OTHER ==
[2022-01-13 18:06] LABS: BASO % 1.7 % (0.0-1.0); EOS # 0.1 10^3/uL (0.0-0.5); EOS % 2.2 % (0.0-3.0); HEMATOCRIT 31.7 % (36.0-47.0); HEMOGLOBIN 11.3 g/dl (12.0-15.5); LYMPH # 1.2 10^3/uL (1.5-5.0); LYMPH % 50.2 % (24.0-44.0); MEAN CORPUSCULAR HEMOGLOBIN 39.5 pg (27.0-33.0); MEAN CORPUSCULAR HGB CONC 35.6 g/dl (32.0-36.5); MEAN CORPUSCULAR VOLUME 110.8 fl (80.0-96.0); MONO # 0.2 10^3/uL (0.0-0.8); MONO % 10.5 % (2.0-8.0); NEUTROPHILS % 35.4 % (36.0-66.0); PLATELET COUNT, AUTOMATED 147 10^3/uL (150-450); RED BLOOD COUNT 2.86 10^6/uL (4.00-5.40); WHITE BLOOD COUNT 2.3 10^3/uL (4.0-10.0)
[2022-01-13 18:30] LABS: NEUTROPHILS # 0.8 10^3/uL (1.5-8.5)
[2022-01-13 18:43] LABS: ALBUMIN 3.8 GM/DL (3.2-5.2); ALT/SGPT 33 U/L (12-78); BILIRUBIN,TOTAL 0.6 MG/DL (0.2-1.0); BLOOD UREA NITROGEN 12 MG/DL (7-18); CALCIUM LEVEL 9.4 MG/DL (8.8-10.2); CARBON DIOXIDE LEVEL 28 MEQ/L (21-32); CHLORIDE LEVEL 104 MEQ/L (98-107); CREATININE FOR GFR 0.84 MG/DL (0.55-1.30); GLOMERULAR FILTRATION RATE > 60.0 (>45); GLUCOSE, FASTING 136 MG/DL (70-100); POTASSIUM SERUM 4.1 MEQ/L (3.5-5.1); SODIUM LEVEL 138 MEQ/L (136-145); TOTAL PROTEIN 7.2 GM/DL (6.4-8.2)
== END ==
LOC: M LABDRWCV 17:06
PROVIDERS: ATTEND Nurse Practitioner
DX: C50.919 Malignant neoplasm of unspecified site of unspecified female breast (principal)

== ENCOUNTER → 2022-02-23 | Outpatient (REF) | payer MEDICARE, OTHER ==
[2022-02-23 19:40] LABS: BASO % 1.9 % (0.0-1.0); EOS # 0.1 10^3/uL (0.0-0.5); EOS % 2.3 % (0.0-3.0); HEMATOCRIT 35.4 % (36.0-47.0); HEMOGLOBIN 12.5 g/dl (12.0-15.5); LYMPH % 45.8 % (24.0-44.0); MEAN CORPUSCULAR HEMOGLOBIN 38.2 pg (27.0-33.0); MEAN CORPUSCULAR HGB CONC 35.3 g/dl (32.0-36.5); MEAN CORPUSCULAR VOLUME 108.3 fl (80.0-96.0); MONO # 0.2 10^3/uL (0.0-0.8); MONO % 7.9 % (2.0-8.0); NEUTROPHILS % 42.1 % (36.0-66.0); PLATELET COUNT, AUTOMATED 175 10^3/uL (150-450); RED BLOOD COUNT 3.27 10^6/uL (4.00-5.40); WHITE BLOOD COUNT 2.2 10^3/uL (4.0-10.0)
[2022-02-23 19:42] LABS: NEUTROPHILS # 0.9 10^3/uL (1.5-8.5)
[2022-02-23 20:27] LABS: ALT/SGPT 31 U/L (7.0-40); BILIRUBIN,TOTAL 0.7 MG/DL (0.3-1.2); BLOOD UREA NITROGEN 20 MG/DL (9-23); CALCIUM LEVEL 9.6 MG/DL (8.3-10.6); CARBON DIOXIDE LEVEL 28 MMOL/L (20-31); CHLORIDE LEVEL 102 MMOL/L (98-107); CREATININE FOR GFR 0.87 MG/DL (0.55-1.30); GLOMERULAR FILTRATION RATE > 60.0 (>45); GLUCOSE, FASTING 138 MG/DL (74-106); POTASSIUM SERUM 4.3 MMOL/L (3.5-5.1); SODIUM LEVEL 141 MMOL/L (136-145); TOTAL PROTEIN 6.7 G/DL (5.7-8.2)
[2022-02-23 20:33] LABS: CA15-3 ANTIGEN 34.2 U/ML (<32.4)
== END ==
LOC: M LABDRWCV 17:10
PROVIDERS: ATTEND Nurse Practitioner
DX: C50.919 Malignant neoplasm of unspecified site of unspecified female breast (principal)

== ENCOUNTER → 2022-03-14 | Outpatient (CLI) | payer MEDICARE, BC, OTHER ==
[~2022-03-14] MED LIST changes: +ISOVUE-370 76% 100ML VIAL As Ordered ONE
== END ==
LOC: M RAD 10:42
PROVIDERS: ATTEND Nurse Practitioner
DX: R91.8 Other nonspecific abnormal finding of lung field (principal); Z85.3 Personal history of malignant neoplasm of breast
CPT/HCPCS: 71260; Q9967

== ENCOUNTER → 2022-04-18 | Outpatient (REF) | payer MEDICARE, BC, OTHER ==
[~2022-04-18] MED LIST changes: -ISOVUE-370 76% 100ML VIAL As Ordered ONE
[2022-04-18 18:55] LABS: ALBUMIN 4.1 G/DL (3.2-5.2); ALKALINE PHOSPHATASE 73 U/L (46-116); ALT/SGPT 34 U/L (7.0-40); AST/SGOT 31 U/L (<34); BILIRUBIN,TOTAL 0.7 MG/DL (0.3-1.2); BLOOD UREA NITROGEN 18 MG/DL (9-23); CALCIUM LEVEL 9.4 MG/DL (8.3-10.6); CARBON DIOXIDE LEVEL 26 MMOL/L (20-31); CHLORIDE LEVEL 103 MMOL/L (98-107); CREATININE FOR GFR 0.86 MG/DL (0.55-1.30); GLOMERULAR FILTRATION RATE > 60.0 (>45); GLUCOSE, FASTING 178 MG/DL (74-106); POTASSIUM SERUM 4.3 MMOL/L (3.5-5.1); SODIUM LEVEL 139 MMOL/L (136-145); TOTAL PROTEIN 6.8 G/DL (5.7-8.2)
[2022-04-18 18:57] LABS: BASO % 1.8 % (0.0-1.0); EOS # 0.1 10^3/uL (0.0-0.5); EOS % 2.2 % (0.0-3.0); HEMATOCRIT 37.4 % (36.0-47.0); HEMOGLOBIN 13.6 g/dl (12.0-15.5); LYMPH # 0.9 10^3/uL (1.5-5.0); LYMPH % 40.6 % (24.0-44.0); MEAN CORPUSCULAR HEMOGLOBIN 38.2 pg (27.0-33.0); MEAN CORPUSCULAR HGB CONC 36.4 g/dl (32.0-36.5); MEAN CORPUSCULAR VOLUME 105.1 fl (80.0-96.0); MONO # 0.2 10^3/uL (0.0-0.8); MONO % 6.7 % (2.0-8.0); NEUTROPHILS # 1.1 10^3/uL (1.5-8.5); NEUTROPHILS % 48.7 % (36.0-66.0); PLATELET COUNT, AUTOMATED 202 10^3/uL (150-450); RED BLOOD COUNT 3.56 10^6/uL (4.00-5.40); WHITE BLOOD COUNT 2.2 10^3/uL (4.0-10.0)
[2022-04-20 09:09] LABS: CA15-3 ANTIGEN 35.7 U/ML (<32.4)
== END ==
LOC: M LABDRWCV 17:04
PROVIDERS: ATTEND Nurse Practitioner
DX: C50.912 Malignant neoplasm of unspecified site of left female breast (principal)

== ENCOUNTER → 2022-05-16 | Outpatient (REF) | payer MEDICARE, BC, OTHER ==
[2022-05-16 18:00] LABS: BASO % 1.4 % (0.0-1.0); EOS # 0.1 10^3/uL (0.0-0.5); EOS % 2.9 % (0.0-3.0); HEMATOCRIT 33.8 % (36.0-47.0); HEMOGLOBIN 12.3 g/dl (12.0-15.5); LYMPH # 0.9 10^3/uL (1.5-5.0); LYMPH % 42.3 % (24.0-44.0); MEAN CORPUSCULAR HEMOGLOBIN 38.7 pg (27.0-33.0); MEAN CORPUSCULAR HGB CONC 36.4 g/dl (32.0-36.5); MEAN CORPUSCULAR VOLUME 106.3 fl (80.0-96.0); MONO # 0.1 10^3/uL (0.0-0.8); MONO % 5.8 % (2.0-8.0); NEUTROPHILS % 47.1 % (36.0-66.0); PLATELET COUNT, AUTOMATED 179 10^3/uL (150-450); RED BLOOD COUNT 3.18 10^6/uL (4.00-5.40); WHITE BLOOD COUNT 2.1 10^3/uL (4.0-10.0)
[2022-05-16 18:29] LABS: ALBUMIN 3.9 G/DL (3.2-5.2); ALKALINE PHOSPHATASE 70 U/L (46-116); ALT/SGPT 29 U/L (7.0-40); AST/SGOT 31 U/L (<34); BILIRUBIN,TOTAL 0.7 MG/DL (0.3-1.2); BLOOD UREA NITROGEN 23 MG/DL (9-23); CALCIUM LEVEL 9.2 MG/DL (8.3-10.6); CARBON DIOXIDE LEVEL 29 MMOL/L (20-31); CHLORIDE LEVEL 104 MMOL/L (98-107); CREATININE FOR GFR 0.95 MG/DL (0.55-1.30); GLOMERULAR FILTRATION RATE > 60.0 (>45); GLUCOSE, FASTING 173 MG/DL (74-106); POTASSIUM SERUM 4.2 MMOL/L (3.5-5.1); SODIUM LEVEL 140 MMOL/L (136-145); TOTAL PROTEIN 6.7 G/DL (5.7-8.2)
[2022-05-16 18:47] LABS: CA15-3 ANTIGEN 32.8 U/ML (<32.4)
== END ==
LOC: M LABDRWCV 17:29
PROVIDERS: ATTEND Nurse Practitioner
DX: C50.919 Malignant neoplasm of unspecified site of unspecified female breast (principal)

== ENCOUNTER → 2022-06-13 | Outpatient (REF) | payer MEDICARE, OTHER ==
[2022-06-13 18:15] LABS: BASO # 0.1 10^3/uL (0.0-0.2); BASO % 2.3 % (0.0-1.0); EOS # 0.1 10^3/uL (0.0-0.5); EOS % 2.3 % (0.0-3.0); HEMATOCRIT 35.8 % (36.0-47.0); HEMOGLOBIN 12.9 g/dl (12.0-15.5); LYMPH % 44.4 % (24.0-44.0); MEAN CORPUSCULAR HEMOGLOBIN 38.4 pg (27.0-33.0); MEAN CORPUSCULAR VOLUME 106.5 fl (80.0-96.0); MONO # 0.2 10^3/uL (0.0-0.8); MONO % 7.9 % (2.0-8.0); NEUTROPHILS % 43.1 % (36.0-66.0); PLATELET COUNT, AUTOMATED 187 10^3/uL (150-450); RED BLOOD COUNT 3.36 10^6/uL (4.00-5.40); WHITE BLOOD COUNT 2.2 10^3/uL (4.0-10.0)
[2022-06-13 18:17] LABS: NEUTROPHILS # 0.9 10^3/uL (1.5-8.5)
[2022-06-13 18:39] LABS: ALBUMIN 3.9 G/DL (3.2-5.2); ALKALINE PHOSPHATASE 66 U/L (46-116); ALT/SGPT 33 U/L (7.0-40); AST/SGOT 29 U/L (<34); BILIRUBIN,TOTAL 0.7 MG/DL (0.3-1.2); BLOOD UREA NITROGEN 18 MG/DL (9-23); CALCIUM LEVEL 9.6 MG/DL (8.3-10.6); CARBON DIOXIDE LEVEL 30 MMOL/L (20-31); CHLORIDE LEVEL 103 MMOL/L (98-107); CREATININE FOR GFR 0.83 MG/DL (0.55-1.30); GLOMERULAR FILTRATION RATE > 60.0 (>45); GLUCOSE, FASTING 159 MG/DL (74-106); POTASSIUM SERUM 4.1 MMOL/L (3.5-5.1); SODIUM LEVEL 140 MMOL/L (136-145); TOTAL PROTEIN 6.6 G/DL (5.7-8.2)
[2022-06-13 18:57] LABS: CA15-3 ANTIGEN 33.5 U/ML (<32.4)
== END ==
LOC: M LABDRWCV 16:46
PROVIDERS: ATTEND Nurse Practitioner
DX: C50.919 Malignant neoplasm of unspecified site of unspecified female breast (principal)

== ENCOUNTER → 2022-07-11 | Outpatient (REF) | payer MEDICARE, OTHER ==
[2022-07-11 20:17] LABS: ALBUMIN 3.7 G/DL (3.2-5.2); ALKALINE PHOSPHATASE 71 U/L (46-116); ALT/SGPT 31 U/L (7.0-40); AST/SGOT 33 U/L (<34); BILIRUBIN,TOTAL 0.6 MG/DL (0.3-1.2); BLOOD UREA NITROGEN 20 MG/DL (9-23); CALCIUM LEVEL 9.2 MG/DL (8.3-10.6); CARBON DIOXIDE LEVEL 28 MMOL/L (20-31); CHLORIDE LEVEL 106 MMOL/L (98-107); CREATININE FOR GFR 0.82 MG/DL (0.55-1.30); GLOMERULAR FILTRATION RATE > 60.0 (>45); GLUCOSE, FASTING 174 MG/DL (74-106); SODIUM LEVEL 136 MMOL/L (136-145); TOTAL PROTEIN 6.3 G/DL (5.7-8.2)
[2022-07-11 20:18] LABS: BASO % 1.5 % (0.0-1.0); HEMATOCRIT 34.3 % (36.0-47.0); HEMOGLOBIN 12.4 g/dl (12.0-15.5); LYMPH # 0.9 10^3/uL (1.5-5.0); LYMPH % 45.8 % (24.0-44.0); MEAN CORPUSCULAR HEMOGLOBIN 38.6 pg (27.0-33.0); MEAN CORPUSCULAR HGB CONC 36.2 g/dl (32.0-36.5); MEAN CORPUSCULAR VOLUME 106.9 fl (80.0-96.0); MONO # 0.1 10^3/uL (0.0-0.8); MONO % 4.5 % (2.0-8.0); NEUTROPHILS % 45.7 % (36.0-66.0); RED BLOOD COUNT 3.21 10^6/uL (4.00-5.40)
[2022-07-11 20:28] LABS: CA15-3 ANTIGEN 29.8 U/ML (<32.4)
[2022-07-11 21:38] LABS: NEUTROPHILS # 0.9 10^3/uL (1.5-8.5)
[2022-07-11 21:39] LABS: PLATELET COUNT, AUTOMATED 148 10^3/uL (150-450)
== END ==
LOC: M LABDRWCV 16:42
PROVIDERS: ATTEND Nurse Practitioner
DX: C50.919 Malignant neoplasm of unspecified site of unspecified female breast (principal)

== ENCOUNTER → 2022-07-13 | Outpatient (CLI) | payer MEDICARE, BC, OTHER | LOC: M EKG 10:25 | PROVIDERS: ATTEND Nurse Practitioner | DX: C50.919 Malignant neoplasm of unspecified site of unspecified female breast (principal) ==

== ENCOUNTER → 2022-07-15 | Outpatient (CLI) | payer MEDICARE, BC, OTHER ==
[~2022-07-15] MED LIST changes: +GASTROGRAFIN SOLUTION 30ML As Ordered ONE; +ISOVUE-370 76% 100ML VIAL As Ordered ONE
== END ==
LOC: M RAD 11:22
PROVIDERS: ATTEND Nurse Practitioner
DX: C50.919 Malignant neoplasm of unspecified site of unspecified female breast (principal); E04.9 Nontoxic goiter, unspecified; K76.0 Fatty (change of) liver, not elsewhere classified
CPT/HCPCS: 71260; 74177; Q9963; Q9967

== ENCOUNTER → 2022-08-08 | Outpatient (REF) | payer MEDICARE, OTHER ==
[~2022-08-08] MED LIST changes: -GASTROGRAFIN SOLUTION 30ML As Ordered ONE; -ISOVUE-370 76% 100ML VIAL As Ordered ONE
[2022-08-08 19:45] LABS: ALBUMIN 3.8 G/DL (3.2-5.2); ALKALINE PHOSPHATASE 75 U/L (46-116); ALT/SGPT 35 U/L (7.0-40); AST/SGOT 34 U/L (<34); BASO % 1.7 % (0.0-1.0); BILIRUBIN,TOTAL 0.7 MG/DL (0.3-1.2); BLOOD UREA NITROGEN 16 MG/DL (9-23); CALCIUM LEVEL 9.2 MG/DL (8.3-10.6); CARBON DIOXIDE LEVEL 29 MMOL/L (20-31); CHLORIDE LEVEL 104 MMOL/L (98-107); CREATININE FOR GFR 0.87 MG/DL (0.55-1.30); EOS # 0.1 10^3/uL (0.0-0.5); EOS % 3.1 % (0.0-3.0); GLOMERULAR FILTRATION RATE > 60.0 (>45); GLUCOSE, FASTING 145 MG/DL (74-106); HEMATOCRIT 35.3 % (36.0-47.0); HEMOGLOBIN 12.8 g/dl (12.0-15.5); LYMPH % 42.8 % (24.0-44.0); MEAN CORPUSCULAR HEMOGLOBIN 38.6 pg (27.0-33.0); MEAN CORPUSCULAR HGB CONC 36.3 g/dl (32.0-36.5); MEAN CORPUSCULAR VOLUME 106.3 fl (80.0-96.0); MONO # 0.1 10^3/uL (0.0-0.8); MONO % 6.1 % (2.0-8.0); NEUTROPHILS # 1.1 10^3/uL (1.5-8.5); NEUTROPHILS % 45.9 % (36.0-66.0); PLATELET COUNT, AUTOMATED 194 10^3/uL (150-450); POTASSIUM SERUM 4.2 MMOL/L (3.5-5.1); RED BLOOD COUNT 3.32 10^6/uL (4.00-5.40); SODIUM LEVEL 139 MMOL/L (136-145); TOTAL PROTEIN 6.8 G/DL (5.7-8.2); WHITE BLOOD COUNT 2.3 10^3/uL (4.0-10.0)
[2022-08-08 20:02] LABS: CA15-3 ANTIGEN 32.6 U/ML (<32.4)
== END ==
LOC: M LAB REF 18:49
PROVIDERS: ATTEND Nurse Practitioner
DX: E55.9 Vitamin D deficiency, unspecified (principal); I10 Essential (primary) hypertension; E11.9 Type 2 diabetes mellitus without complications; C50.919 Malignant neoplasm of unspecified site of unspecified female breast

== ENCOUNTER → 2022-08-08 | Outpatient (REF) | payer MEDICARE, OTHER ==
[2022-08-08 18:54] LABS: HEMATOCRIT 35.4 % (36.0-47.0); HEMOGLOBIN 12.9 g/dl (12.0-15.5); MEAN CORPUSCULAR HEMOGLOBIN 38.9 pg (27.0-33.0); MEAN CORPUSCULAR HGB CONC 36.4 g/dl (32.0-36.5); MEAN CORPUSCULAR VOLUME 106.6 fl (80.0-96.0); PLATELET COUNT, AUTOMATED 193 10^3/uL (150-450); RED BLOOD COUNT 3.32 10^6/uL (4.00-5.40); WHITE BLOOD COUNT 2.2 10^3/uL (4.0-10.0)
[2022-08-08 19:01] LABS: CHOLESTEROL RISK RATIO 2.61 (<5); HDL CHOLESTEROL 69.5 MG/DL (>40); LDL CHOLESTEROL 76.3 MG/DL (<100); NON-HDL-C 112.5 MG/DL
[2022-08-08 19:04] LABS: THYROID STIMULATING HORMONE 0.534 uIU/ML (0.55-4.78); TOTAL 25(OH) VITAMIN D 39.6 NG/ML (20.0-100.0)
[2022-08-08 19:08] LABS: HEMOGLOBIN A1c 5.9 % (4.0-6.0)
[2022-08-08 20:20] LABS: ATYPICAL LYMPH 14 % (0-5); BASOPHILS 3 % (0-1); EOSINOPHILS 4 % (0-3); LYMPHOCYTES 40 % (16-44); MONOCYTES 3 % (0-5); NEUTROPHILS 32 % (28-66); PLATELET ESTIMATE NORMAL (NORMAL)
== END ==
LOC: M SFHCCAPE 09:38
PROVIDERS: ATTEND Physician Assistant
DX: E55.9 Vitamin D deficiency, unspecified (principal); I10 Essential (primary) hypertension; E11.9 Type 2 diabetes mellitus without complications; C50.919 Malignant neoplasm of unspecified site of unspecified female breast

== ENCOUNTER → 2022-09-06 | Outpatient (REF) | payer MEDICARE, BC, OTHER ==
[2022-09-06 17:42] LABS: BASO % 1.8 % (0.0-1.0); EOS # 0.1 10^3/uL (0.0-0.5); EOS % 2.3 % (0.0-3.0); HEMATOCRIT 33.9 % (36.0-47.0); LYMPH # 0.8 10^3/uL (1.5-5.0); LYMPH % 38.5 % (24.0-44.0); MEAN CORPUSCULAR HEMOGLOBIN 38.5 pg (27.0-33.0); MEAN CORPUSCULAR HGB CONC 35.4 g/dl (32.0-36.5); MEAN CORPUSCULAR VOLUME 108.7 fl (80.0-96.0); MONO # 0.2 10^3/uL (0.0-0.8); MONO % 8.7 % (2.0-8.0); NEUTROPHILS # 1.1 10^3/uL (1.5-8.5); NEUTROPHILS % 48.2 % (36.0-66.0); PLATELET COUNT, AUTOMATED 179 10^3/uL (150-450); RED BLOOD COUNT 3.12 10^6/uL (4.00-5.40); WHITE BLOOD COUNT 2.2 10^3/uL (4.0-10.0)
[2022-09-06 17:56] LABS: ALBUMIN 3.8 G/DL (3.2-5.2); ALKALINE PHOSPHATASE 79 U/L (46-116); ALT/SGPT 33 U/L (7.0-40); AST/SGOT 30 U/L (<34); BILIRUBIN,TOTAL 0.6 MG/DL (0.3-1.2); BLOOD UREA NITROGEN 14 MG/DL (9-23); CALCIUM LEVEL 8.9 MG/DL (8.3-10.6); CARBON DIOXIDE LEVEL 29 MMOL/L (20-31); CHLORIDE LEVEL 104 MMOL/L (98-107); CREATININE FOR GFR 0.85 MG/DL (0.55-1.30); GLOMERULAR FILTRATION RATE > 60.0 (>45); GLUCOSE, FASTING 145 MG/DL (74-106); POTASSIUM SERUM 4.4 MMOL/L (3.5-5.1); SODIUM LEVEL 140 MMOL/L (136-145); TOTAL PROTEIN 6.3 G/DL (5.7-8.2)
== END ==
LOC: M LABDRWCV 16:48
PROVIDERS: ATTEND Nurse Practitioner
DX: C50.912 Malignant neoplasm of unspecified site of left female breast (principal)

== ENCOUNTER → 2022-10-04 | Outpatient (REF) | payer MEDICARE, BC, OTHER ==
[2022-10-04 18:30] LABS: BASO % 1.2 % (0.0-1.0); EOS # 0.1 10^3/uL (0.0-0.5); HEMATOCRIT 33.5 % (36.0-47.0); HEMOGLOBIN 12.3 g/dl (12.0-15.5); LYMPH # 0.8 10^3/uL (1.5-5.0); LYMPH % 33.3 % (24.0-44.0); MEAN CORPUSCULAR HEMOGLOBIN 39.3 pg (27.0-33.0); MEAN CORPUSCULAR HGB CONC 36.7 g/dl (32.0-36.5); MONO # 0.2 10^3/uL (0.0-0.8); MONO % 7.2 % (2.0-8.0); NEUTROPHILS # 1.4 10^3/uL (1.5-8.5); NEUTROPHILS % 55.9 % (36.0-66.0); PLATELET COUNT, AUTOMATED 184 10^3/uL (150-450); RED BLOOD COUNT 3.13 10^6/uL (4.00-5.40); WHITE BLOOD COUNT 2.5 10^3/uL (4.0-10.0)
[2022-10-04 18:58] LABS: ALBUMIN 3.9 G/DL (3.2-5.2); ALKALINE PHOSPHATASE 79 U/L (46-116); ALT/SGPT 33 U/L (7.0-40); AST/SGOT 32 U/L (<34); BILIRUBIN,TOTAL 0.7 MG/DL (0.3-1.2); BLOOD UREA NITROGEN 17 MG/DL (9-23); CALCIUM LEVEL 9.7 MG/DL (8.3-10.6); CARBON DIOXIDE LEVEL 27 MMOL/L (20-31); CHLORIDE LEVEL 105 MMOL/L (98-107); GLOMERULAR FILTRATION RATE > 60.0 (>45); GLUCOSE, FASTING 153 MG/DL (74-106); POTASSIUM SERUM 3.9 MMOL/L (3.5-5.1); SODIUM LEVEL 138 MMOL/L (136-145); TOTAL PROTEIN 6.6 G/DL (5.7-8.2)
== END ==
LOC: M LABDRWCV 17:58
PROVIDERS: ATTEND Nurse Practitioner
DX: C50.912 Malignant neoplasm of unspecified site of left female breast (principal)

== ENCOUNTER → 2022-11-01 | Outpatient (REF) | payer MEDICARE, BC, OTHER ==
[~2022-11-01] MED LIST changes: +VITA-148 PO
[2022-11-01 18:43] LABS: BASO # 0.1 10^3/uL (0.0-0.2); BASO % 2.7 % (0.0-1.0); EOS # 0.1 10^3/uL (0.0-0.5); HEMATOCRIT 34.8 % (36.0-47.0); HEMOGLOBIN 12.4 g/dl (12.0-15.5); LYMPH # 0.9 10^3/uL (1.5-5.0); LYMPH % 40.7 % (24.0-44.0); MEAN CORPUSCULAR HEMOGLOBIN 38.4 pg (27.0-33.0); MEAN CORPUSCULAR HGB CONC 35.6 g/dl (32.0-36.5); MEAN CORPUSCULAR VOLUME 107.7 fl (80.0-96.0); MONO # 0.1 10^3/uL (0.0-0.8); MONO % 4.9 % (2.0-8.0); NEUTROPHILS # 1.1 10^3/uL (1.5-8.5); NEUTROPHILS % 47.7 % (36.0-66.0); PLATELET COUNT, AUTOMATED 193 10^3/uL (150-450); RED BLOOD COUNT 3.23 10^6/uL (4.00-5.40); WHITE BLOOD COUNT 2.3 10^3/uL (4.0-10.0)
[2022-11-01 19:06] LABS: ALBUMIN 3.9 G/DL (3.2-5.2); ALKALINE PHOSPHATASE 85 U/L (46-116); ALT/SGPT 31 U/L (7.0-40); AST/SGOT 28 U/L (<34); BILIRUBIN,TOTAL 0.7 MG/DL (0.3-1.2); BLOOD UREA NITROGEN 16 MG/DL (9-23); CALCIUM LEVEL 9.3 MG/DL (8.3-10.6); CARBON DIOXIDE LEVEL 27 MMOL/L (20-31); CHLORIDE LEVEL 104 MMOL/L (98-107); GLOMERULAR FILTRATION RATE > 60.0 (>45); GLUCOSE, FASTING 146 MG/DL (74-106); SODIUM LEVEL 142 MMOL/L (136-145); TOTAL PROTEIN 6.7 G/DL (5.7-8.2)
[2022-11-01 19:26] LABS: CA15-3 ANTIGEN 37.9 U/ML (<32.4)
== END ==
LOC: M LABDRWCV 17:28
PROVIDERS: ATTEND Nurse Practitioner
DX: C50.912 Malignant neoplasm of unspecified site of left female breast (principal)

== ENCOUNTER → 2022-11-21 | Outpatient (CLI) | payer MEDICARE, BC, OTHER | LOC: M PLARAD 08:40 | PROVIDERS: ATTEND Nurse Practitioner | DX: C50.412 Malignant neoplasm of upper-outer quadrant of left female breast (principal) | CPT/HCPCS: 78815; A9552 ==

== ENCOUNTER → 2022-12-07 | Outpatient (REF) | payer MEDICARE, BC, OTHER ==
[2022-12-07 18:18] LABS: BASO % 1.6 % (0.0-1.0); EOS # 0.1 10^3/uL (0.0-0.5); EOS % 3.7 % (0.0-3.0); HEMATOCRIT 33.6 % (36.0-47.0); LYMPH # 0.8 10^3/uL (1.5-5.0); LYMPH % 42.9 % (24.0-44.0); MEAN CORPUSCULAR HEMOGLOBIN 38.7 pg (27.0-33.0); MEAN CORPUSCULAR HGB CONC 35.7 g/dl (32.0-36.5); MEAN CORPUSCULAR VOLUME 108.4 fl (80.0-96.0); MONO # 0.1 10^3/uL (0.0-0.8); MONO % 6.3 % (2.0-8.0); PLATELET COUNT, AUTOMATED 138 10^3/uL (150-450); WHITE BLOOD COUNT 1.9 10^3/uL (4.0-10.0)
[2022-12-07 18:20] LABS: NEUTROPHILS # 0.9 10^3/uL (1.5-8.5)
[2022-12-07 18:39] LABS: ALBUMIN 3.9 G/DL (3.2-5.2); ALKALINE PHOSPHATASE 75 U/L (46-116); ALT/SGPT 37 U/L (7.0-40); AST/SGOT 34 U/L (<34); BILIRUBIN,TOTAL 0.8 MG/DL (0.3-1.2); BLOOD UREA NITROGEN 13 MG/DL (9-23); CALCIUM LEVEL 9.3 MG/DL (8.3-10.6); CARBON DIOXIDE LEVEL 29 MMOL/L (20-31); CHLORIDE LEVEL 102 MMOL/L (98-107); CREATININE FOR GFR 0.83 MG/DL (0.55-1.30); GLOMERULAR FILTRATION RATE > 60.0 (>45); GLUCOSE, FASTING 150 MG/DL (74-106); POTASSIUM SERUM 4.2 MMOL/L (3.5-5.1); SODIUM LEVEL 139 MMOL/L (136-145); TOTAL PROTEIN 6.6 G/DL (5.7-8.2)
== END ==
LOC: M LABDRWCV 17:30
PROVIDERS: ATTEND Nurse Practitioner
DX: C50.912 Malignant neoplasm of unspecified site of left female breast (principal)

== ENCOUNTER → 2022-12-28 | Outpatient (CLI) | payer MEDICARE, BC, OTHER ==
[~2022-12-28] VITALS: Ht 165.1 cm; Wt 111.4 kg
[~2022-12-28] MED LIST changes: +LIDOCAINE W/EPINEPHRINE 1% 20ML VIAL As Ordered ONE; +LORA-1041 PO; -LORA-674 PO; +MIDAZOLAM INJ 2MG/2ML VIAL As Ordered ONE; +VANCOMYCIN 1000MG/20ML VIAL As Ordered ONE; +VANCOMYCIN HCL 1,000 MG, VIAL MATE ADAPTER 1 EACH in D5W 250 ML IV ONE; +ceFAZolin 2 GM/D5W 50 ML IV BAG As Ordered ONE; +fentaNYL 100 MCG/2 ML INJECTION As Ordered ONE; +hydrALAZINE 20MG/ML 1ML VIAL As Ordered ONE
[2022-12-28 12:15] VITALS: TEMP 98.4
[2022-12-28 14:30] VITALS: BP 138/60; O2SAT 99
== END ==
LOC: M IRPRO 11:56
PROVIDERS: ATTEND Nurse Practitioner
DX: C50.919 Malignant neoplasm of unspecified site of unspecified female breast (principal)
CPT/HCPCS: 36561; 99152; 99153; J0360; J2250; J3010

== ENCOUNTER → 2023-01-10 | Outpatient (CLI) | payer MEDICARE, BC, OTHER ==
[~2023-01-10] MED LIST changes: +LIDO30CR18 TOP; -LIDOCAINE W/EPINEPHRINE 1% 20ML VIAL As Ordered ONE; -MIDAZOLAM INJ 2MG/2ML VIAL As Ordered ONE; +ONDA-84 PO; +PROC10TA5 PO; -VANCOMYCIN 1000MG/20ML VIAL As Ordered ONE; -VANCOMYCIN HCL 1,000 MG, VIAL MATE ADAPTER 1 EACH in D5W 250 ML IV ONE; +VERZ150T PO; -ceFAZolin 2 GM/D5W 50 ML IV BAG As Ordered ONE; -fentaNYL 100 MCG/2 ML INJECTION As Ordered ONE; -hydrALAZINE 20MG/ML 1ML VIAL As Ordered ONE
== END ==
LOC: M WHC 12:19
PROVIDERS: ATTEND Nurse Practitioner
DX: R22.42 Localized swelling, mass and lump, left lower limb (principal)

== ENCOUNTER → 2023-01-17 | Outpatient (CLI) | payer MEDICARE, BC, OTHER ==
[~2023-01-17] MED LIST changes: +LIDOCAINE 1% MDV 20ML VIAL As Ordered ONE
[2023-01-17 10:43] VITALS: TEMP 98
[2023-01-17 11:09] VITALS: BP 140/80; O2SAT 100
== END ==
LOC: M IRPRO 10:33
PROVIDERS: ATTEND Nurse Practitioner
DX: C50.912 Malignant neoplasm of unspecified site of left female breast (principal); C79.51 Secondary malignant neoplasm of bone; C77.3 Secondary and unspecified malignant neoplasm of axilla and upper limb lymph nodes

== ENCOUNTER → 2023-02-01 | Outpatient (REF) | payer MEDICARE, OTHER ==
[~2023-02-01] MED LIST changes: -LIDOCAINE 1% MDV 20ML VIAL As Ordered ONE
[2023-02-01 18:24] LABS: BASO % 0.9 % (0.0-1.0); EOS % 1.7 % (0.0-3.0); HEMATOCRIT 35.6 % (36.0-47.0); HEMOGLOBIN 12.7 g/dl (12.0-15.5); LYMPH % 40.8 % (24.0-44.0); MEAN CORPUSCULAR HEMOGLOBIN 38.5 pg (27.0-33.0); MEAN CORPUSCULAR HGB CONC 35.7 g/dl (32.0-36.5); MEAN CORPUSCULAR VOLUME 107.9 fl (80.0-96.0); MONO # 0.2 10^3/uL (0.0-0.8); MONO % 6.4 % (2.0-8.0); NEUTROPHILS # 1.2 10^3/uL (1.5-8.5); NEUTROPHILS % 49.8 % (36.0-66.0); PLATELET COUNT, AUTOMATED 154 10^3/uL (150-450); WHITE BLOOD COUNT 2.3 10^3/uL (4.0-10.0)
== END ==
LOC: M LABDRWCV 17:27
PROVIDERS: ATTEND Nurse Practitioner
DX: C50.912 Malignant neoplasm of unspecified site of left female breast (principal)

== ENCOUNTER → 2023-02-16 | Outpatient (REF) | payer MEDICARE, BC, OTHER ==
[~2023-02-16] MED LIST changes: +PALB100T
[2023-02-16 19:12] LABS: BASO # 0.1 10^3/uL (0.0-0.2); BASO % 2.1 % (0.0-1.0); EOS % 1.4 % (0.0-3.0); HEMATOCRIT 35.7 % (36.0-47.0); HEMOGLOBIN 13.2 g/dl (12.0-15.5); LYMPH # 1.1 10^3/uL (1.5-5.0); LYMPH % 37.9 % (24.0-44.0); MEAN CORPUSCULAR HEMOGLOBIN 39.6 pg (27.0-33.0); MEAN CORPUSCULAR VOLUME 107.2 fl (80.0-96.0); MONO # 0.3 10^3/uL (0.0-0.8); MONO % 10.3 % (2.0-8.0); NEUTROPHILS # 1.4 10^3/uL (1.5-8.5); NEUTROPHILS % 48.3 % (36.0-66.0); PLATELET COUNT, AUTOMATED 163 10^3/uL (150-450); RED BLOOD COUNT 3.33 10^6/uL (4.00-5.40); WHITE BLOOD COUNT 2.8 10^3/uL (4.0-10.0)
== END ==
LOC: M LABDRWCV 17:27
PROVIDERS: ATTEND Nurse Practitioner
DX: C50.912 Malignant neoplasm of unspecified site of left female breast (principal)

== ENCOUNTER → 2023-02-24 | Outpatient (CLI) | payer MEDICARE, BC, OTHER | LOC: M ONCR 14:42 | PROVIDERS: ATTEND General Practice | DX: C50.412 Malignant neoplasm of upper-outer quadrant of left female breast (principal); Z12.39 Encounter for other screening for malignant neoplasm of breast; Z71.2 Person consulting for explanation of examination or test findings; Z79.51 Long term (current) use of inhaled steroids; Z79.622 Long term (current) use of Janus kinase inhibitor; Z79.82 Long term (current) use of aspirin; Z79.84 Long term (current) use of oral hypoglycemic drugs; Z79.899 Other long term (current) drug therapy; Z80.1 Family history of malignant neoplasm of trachea, bronchus and lung; Z88.0 Allergy status to penicillin; Z88.1 Allergy status to other antibiotic agents; Z98.51 Tubal ligation status ==

== ENCOUNTER 2023-03-08 13:39 | Outpatient (RCR) | payer MEDICARE, BC, OTHER | END 2023-03-09 | LOC: M ONCR 13:39 | PROVIDERS: ATTEND General Practice | DX: Z51.0 Encounter for antineoplastic radiation therapy (principal); C50.412 Malignant neoplasm of upper-outer quadrant of left female breast ==

== ENCOUNTER → 2023-03-15 | Outpatient (REF) | payer MEDICARE, BC, OTHER ==
[2023-03-15 18:05] LABS: BASO % 1.7 % (0.0-1.0); EOS # 0.1 10^3/uL (0.0-0.5); EOS % 3.4 % (0.0-3.0); HEMATOCRIT 33.1 % (36.0-47.0); HEMOGLOBIN 11.9 g/dl (12.0-15.5); LYMPH % 42.2 % (24.0-44.0); MEAN CORPUSCULAR HEMOGLOBIN 37.5 pg (27.0-33.0); MEAN CORPUSCULAR VOLUME 104.4 fl (80.0-96.0); MONO # 0.2 10^3/uL (0.0-0.8); MONO % 10.1 % (2.0-8.0); NEUTROPHILS % 42.6 % (36.0-66.0); PLATELET COUNT, AUTOMATED 137 10^3/uL (150-450); RED BLOOD COUNT 3.17 10^6/uL (4.00-5.40); WHITE BLOOD COUNT 2.4 10^3/uL (4.0-10.0)
[2023-03-15 18:32] LABS: CK-MB VALUE MASS < 1.0 NG/ML (<3.6)
[2023-03-15 18:33] LABS: CPK CREATINE PHOSPHOKINASE 37 U/L (34-145)
== END ==
LOC: M LABDRWCV 17:26
PROVIDERS: ATTEND Nurse Practitioner
DX: C50.912 Malignant neoplasm of unspecified site of left female breast (principal)

== ENCOUNTER 2023-03-29 09:31 | Outpatient (RCR) | payer MEDICARE, BC, OTHER ==
[~2023-03-29 09:31] MED LIST changes: +AZIT-12 PO; +PRED50TA PO
[2023-03-29] MEDS ORDERED: POTA10CA60 PO (11:14)
== END 2023-04-09 ==
LOC: M ONCR 09:31
PROVIDERS: ATTEND General Practice
DX: Z51.0 Encounter for antineoplastic radiation therapy (principal); C50.412 Malignant neoplasm of upper-outer quadrant of left female breast

== ENCOUNTER → 2023-04-12 | Outpatient (CLI) | payer MEDICARE, BC, OTHER ==
[~2023-04-12] MED LIST changes: +DOXY-444 PO; +POTA10CA60 PO; +SILV40CR TOP
== END ==
LOC: M CLY 11:25
PROVIDERS: ATTEND Physician Assistant Medical
DX: R05.8 Other specified cough (principal); J90 Pleural effusion, not elsewhere classified; R91.1 Solitary pulmonary nodule

== ENCOUNTER → 2023-06-05 | Outpatient (REF) | payer MEDICARE, BC, OTHER ==
[~2023-06-05] MED LIST changes: +METF-839 PO; +THERTAB52 PO
[2023-06-05 18:28] LABS: BASO # 0.1 10^3/uL (0.0-0.2); BASO % 2.1 % (0.0-1.0); EOS # 0.1 10^3/uL (0.0-0.5); EOS % 2.1 % (0.0-3.0); HEMATOCRIT 29.4 % (36.0-47.0); HEMOGLOBIN 10.7 g/dl (12.0-15.5); LYMPH # 0.8 10^3/uL (1.5-5.0); LYMPH % 33.8 % (24.0-44.0); MEAN CORPUSCULAR HEMOGLOBIN 37.3 pg (27.0-33.0); MEAN CORPUSCULAR HGB CONC 36.4 g/dl (32.0-36.5); MEAN CORPUSCULAR VOLUME 102.4 fl (80.0-96.0); MONO # 0.1 10^3/uL (0.0-0.8); MONO % 5.8 % (2.0-8.0); NEUTROPHILS # 1.3 10^3/uL (1.5-8.5); NEUTROPHILS % 55.8 % (36.0-66.0); PLATELET COUNT, AUTOMATED 164 10^3/uL (150-450); RED BLOOD COUNT 2.87 10^6/uL (4.00-5.40); WHITE BLOOD COUNT 2.4 10^3/uL (4.0-10.0)
== END ==
LOC: M LABDRWCV 17:37
PROVIDERS: ATTEND Nurse Practitioner
DX: D64.9 Anemia, unspecified (principal)

== ENCOUNTER → 2023-06-28 | Outpatient (CLI) | payer MEDICARE, BC | LOC: M ONCR 10:16 | PROVIDERS: ATTEND General Practice | DX: C50.412 Malignant neoplasm of upper-outer quadrant of left female breast (principal); Z71.2 Person consulting for explanation of examination or test findings; Z79.51 Long term (current) use of inhaled steroids; Z79.82 Long term (current) use of aspirin; Z79.899 Other long term (current) drug therapy; Z88.0 Allergy status to penicillin; Z88.1 Allergy status to other antibiotic agents; J30.81 Allergic rhinitis due to animal (cat) (dog) hair and dander; Z92.3 Personal history of irradiation; Z98.890 Other specified postprocedural states ==

== ENCOUNTER → 2023-07-03 | Outpatient (CLI) | payer MEDICARE, BC | LOC: M PLARAD 13:59 | PROVIDERS: ATTEND Internal Medicine Medical Oncology | DX: C50.412 Malignant neoplasm of upper-outer quadrant of left female breast (principal) | CPT/HCPCS: 78815; A9552 ==

== ENCOUNTER → 2023-09-08 | Outpatient (REF) | payer MEDICARE, BC, OTHER ==
[~2023-09-08] MED LIST changes: +DOXY-440 PO; -DOXY-444 PO; -POTA10CA60 PO; +POTA10CA70 PO
[2023-09-08 12:07] LABS: HEMOGLOBIN A1c 4.8 % (4.0-6.0)
[2023-09-08 12:18] LABS: CHOLESTEROL RISK RATIO 2.72 (<5); HDL CHOLESTEROL 63.1 MG/DL (>40); LDL CHOLESTEROL 75.9 MG/DL (<100); NON-HDL-C 108.9 MG/DL
[2023-09-08 12:21] LABS: THYROID STIMULATING HORMONE 1.492 uIU/ML (0.55-4.78)
== END ==
LOC: M LAB REF 11:36
PROVIDERS: ATTEND Physician Assistant Medical
DX: I10 Essential (primary) hypertension (principal); E78.5 Hyperlipidemia, unspecified; E11.9 Type 2 diabetes mellitus without complications

== ENCOUNTER → 2023-11-02 | Outpatient (REF) | payer MEDICARE, OTHER ==
[~2023-11-02] MED LIST changes: +HYDR0.2C21 TOP; +HYDR28CR33 TOP
[2023-11-02 17:42] LABS: BASO % 1.8 % (0.0-1.0); EOS # 0.1 10^3/uL (0.0-0.5); EOS % 3.6 % (0.0-3.0); HEMATOCRIT 29.5 % (36.0-47.0); HEMOGLOBIN 10.8 g/dl (12.0-15.5); LYMPH # 0.8 10^3/uL (1.5-5.0); LYMPH % 35.6 % (24.0-44.0); MEAN CORPUSCULAR HEMOGLOBIN 38.8 pg (27.0-33.0); MEAN CORPUSCULAR VOLUME 106.1 fl (80.0-96.0); MONO # 0.1 10^3/uL (0.0-0.8); MONO % 5.9 % (2.0-8.0); NEUTROPHILS # 1.2 10^3/uL (1.5-8.5); NEUTROPHILS % 52.2 % (36.0-66.0); PLATELET COUNT, AUTOMATED 158 10^3/uL (150-450); RED BLOOD COUNT 2.78 10^6/uL (4.00-5.40); WHITE BLOOD COUNT 2.2 10^3/uL (4.0-10.0)
[2023-11-02 17:46] LABS: MEAN CORPUSCULAR HGB CONC 36.6 g/dl (32.0-36.5)
[2023-11-02 18:04] LABS: ALBUMIN 3.5 G/DL (3.2-5.2); ALKALINE PHOSPHATASE 66 U/L (46-116); ALT/SGPT 14 U/L (7.0-40); AST/SGOT 18 U/L (<34); BILIRUBIN,TOTAL 0.6 MG/DL (0.3-1.2); BLOOD UREA NITROGEN 10 MG/DL (9-23); CALCIUM LEVEL 9.2 MG/DL (8.3-10.6); CARBON DIOXIDE LEVEL 26 MMOL/L (20-31); CHLORIDE LEVEL 105 MMOL/L (98-107); CREATININE FOR GFR 0.87 MG/DL (0.55-1.30); GLOMERULAR FILTRATION RATE > 60.0 (>45); GLUCOSE, FASTING 90 MG/DL (74-106); POTASSIUM SERUM 4.2 MMOL/L (3.5-5.1); SODIUM LEVEL 138 MMOL/L (136-145); TOTAL PROTEIN 6.5 G/DL (5.7-8.2)
[2023-11-02 18:21] LABS: CA15-3 ANTIGEN 31.2 U/ML (<32.4)
== END ==
LOC: M LABDRWCV 16:39
PROVIDERS: ATTEND Specialist
DX: C50.912 Malignant neoplasm of unspecified site of left female breast (principal)

== ENCOUNTER → 2023-11-22 | Outpatient (REF) | payer MEDICARE, BC, OTHER ==
[2023-11-22 18:25] LABS: ALBUMIN 3.6 G/DL (3.2-5.2); ALKALINE PHOSPHATASE 64 U/L (46-116); ALT/SGPT 13 U/L (7.0-40); AST/SGOT 21 U/L (<34); BILIRUBIN,TOTAL 0.6 MG/DL (0.3-1.2); BLOOD UREA NITROGEN 15 MG/DL (9-23); CALCIUM LEVEL 9.4 MG/DL (8.3-10.6); CARBON DIOXIDE LEVEL 26 MMOL/L (20-31); CHLORIDE LEVEL 106 MMOL/L (98-107); CREATININE FOR GFR 0.87 MG/DL (0.55-1.30); GLOMERULAR FILTRATION RATE > 60.0 (>45); GLUCOSE, FASTING 107 MG/DL (74-106); SODIUM LEVEL 136 MMOL/L (136-145); TOTAL PROTEIN 6.7 G/DL (5.7-8.2)
[2023-11-22 18:43] LABS: CA15-3 ANTIGEN 28.3 U/ML (<32.4)
[2023-11-22 18:47] LABS: BASO # 0.1 10^3/uL (0.0-0.2); BASO % 2.1 % (0.0-1.0); EOS # 0.1 10^3/uL (0.0-0.5); EOS % 2.1 % (0.0-3.0); HEMATOCRIT 28.9 % (36.0-47.0); HEMOGLOBIN 10.7 g/dl (12.0-15.5); LYMPH # 0.8 10^3/uL (1.5-5.0); LYMPH % 33.3 % (24.0-44.0); MEAN CORPUSCULAR HEMOGLOBIN 39.3 pg (27.0-33.0); MEAN CORPUSCULAR VOLUME 106.3 fl (80.0-96.0); MONO # 0.2 10^3/uL (0.0-0.8); MONO % 6.2 % (2.0-8.0); NEUTROPHILS # 1.4 10^3/uL (1.5-8.5); NEUTROPHILS % 56.3 % (36.0-66.0); PLATELET COUNT, AUTOMATED 148 10^3/uL (150-450); RED BLOOD COUNT 2.72 10^6/uL (4.00-5.40); WHITE BLOOD COUNT 2.4 10^3/uL (4.0-10.0)
== END ==
LOC: M LABDRWCV 16:36
PROVIDERS: ATTEND Nurse Practitioner
DX: C50.912 Malignant neoplasm of unspecified site of left female breast (principal)

== ENCOUNTER → 2023-12-27 | Outpatient (REF) | payer MEDICARE, BC, OTHER ==
[2023-12-27 18:50] LABS: BASO % 1.5 % (0.0-1.0); EOS % 1.5 % (0.0-3.0); HEMATOCRIT 28.1 % (36.0-47.0); HEMOGLOBIN 10.3 g/dl (12.0-15.5); LYMPH # 0.8 10^3/uL (1.5-5.0); LYMPH % 27.7 % (24.0-44.0); MEAN CORPUSCULAR HEMOGLOBIN 38.9 pg (27.0-33.0); MEAN CORPUSCULAR HGB CONC 36.7 g/dl (32.0-36.5); MONO # 0.1 10^3/uL (0.0-0.8); MONO % 4.8 % (2.0-8.0); NEUTROPHILS # 1.7 10^3/uL (1.5-8.5); NEUTROPHILS % 64.1 % (36.0-66.0); PLATELET COUNT, AUTOMATED 130 10^3/uL (150-450); RED BLOOD COUNT 2.65 10^6/uL (4.00-5.40); WHITE BLOOD COUNT 2.7 10^3/uL (4.0-10.0)
[2023-12-27 18:57] LABS: ALBUMIN 3.6 G/DL (3.2-5.2); ALKALINE PHOSPHATASE 63 U/L (46-116); ALT/SGPT 11 U/L (7.0-40); AST/SGOT 20 U/L (<34); BILIRUBIN,TOTAL 0.8 MG/DL (0.3-1.2); BLOOD UREA NITROGEN 11 MG/DL (9-23); CALCIUM LEVEL 9.2 MG/DL (8.3-10.6); CARBON DIOXIDE LEVEL 28 MMOL/L (20-31); CHLORIDE LEVEL 105 MMOL/L (98-107); CREATININE FOR GFR 0.83 MG/DL (0.55-1.30); GLOMERULAR FILTRATION RATE > 60.0 (>45); GLUCOSE, FASTING 107 MG/DL (74-106); POTASSIUM SERUM 4.2 MMOL/L (3.5-5.1); SODIUM LEVEL 137 MMOL/L (136-145); TOTAL PROTEIN 6.6 G/DL (5.7-8.2)
[2023-12-27 19:13] LABS: CA15-3 ANTIGEN 30.6 U/ML (<32.4)
== END ==
LOC: M LABDRWCV 16:33
PROVIDERS: ATTEND Nurse Practitioner
DX: C50.912 Malignant neoplasm of unspecified site of left female breast (principal)

== ENCOUNTER → 2024-01-02 | Outpatient (CLI) | payer MEDICARE, BC ==
[~2024-01-02] MED LIST changes: +CAPE1TAB2 PO; +VALA1TAB5 PO
== END ==
LOC: M ONCR 10:07
PROVIDERS: ATTEND General Practice
DX: C50.412 Malignant neoplasm of upper-outer quadrant of left female breast (principal); B02.9 Zoster without complications; Z92.3 Personal history of irradiation; Z79.82 Long term (current) use of aspirin; Z79.84 Long term (current) use of oral hypoglycemic drugs; Z79.818 Long term (current) use of other agents affecting estrogen receptors and estrogen levels; Z79.899 Other long term (current) drug therapy
CPT/HCPCS: 10005; 88305; G0463

== ENCOUNTER → 2024-01-05 | Outpatient (CLI) | payer MEDICARE, BC ==
[~2024-01-05] MED LIST changes: -CAPE1TAB2 PO; +GASTROGRAFIN SOLUTION 30ML As Ordered ONE; +ISOVUE-370 76% 100ML VIAL As Ordered ONE
== END ==
LOC: M RAD 15:20
PROVIDERS: ATTEND Internal Medicine Medical Oncology
DX: C50.919 Malignant neoplasm of unspecified site of unspecified female breast (principal); E04.2 Nontoxic multinodular goiter; I25.84 Coronary atherosclerosis due to calcified coronary lesion; D25.9 Leiomyoma of uterus, unspecified
CPT/HCPCS: 71260; 74177; J1642; Q9963; Q9967

== ENCOUNTER → 2024-01-30 | Outpatient (REF) | payer MEDICARE, OTHER ==
[~2024-01-30] MED LIST changes: +CAPE1TAB2 PO; -GASTROGRAFIN SOLUTION 30ML As Ordered ONE; -ISOVUE-370 76% 100ML VIAL As Ordered ONE
[2024-01-30 19:20] LABS: ALBUMIN 3.2 G/DL (3.2-5.2); ALKALINE PHOSPHATASE 85 U/L (46-116); ALT/SGPT < 9 U/L (7.0-40); AST/SGOT 23 U/L (<34); BILIRUBIN,TOTAL 0.8 MG/DL (0.3-1.2); BLOOD UREA NITROGEN 10 MG/DL (9-23); CALCIUM LEVEL 9.9 MG/DL (8.3-10.6); CARBON DIOXIDE LEVEL 26 MMOL/L (20-31); CHLORIDE LEVEL 107 MMOL/L (98-107); CREATININE FOR GFR 0.83 MG/DL (0.55-1.30); GLOMERULAR FILTRATION RATE > 60.0 (>45); GLUCOSE, FASTING 133 MG/DL (74-106); POTASSIUM SERUM 4.4 MMOL/L (3.5-5.1); SODIUM LEVEL 140 MMOL/L (136-145); TOTAL PROTEIN 6.5 G/DL (5.7-8.2)
[2024-01-30 19:32] LABS: BASO % 1.1 % (0.0-1.0); EOS % 1.5 % (0.0-3.0); HEMATOCRIT 26.3 % (36.0-47.0); HEMOGLOBIN 9.4 g/dl (12.0-15.5); LYMPH # 0.7 10^3/uL (1.5-5.0); LYMPH % 27.2 % (24.0-44.0); MEAN CORPUSCULAR HEMOGLOBIN 37.8 pg (27.0-33.0); MEAN CORPUSCULAR HGB CONC 35.7 g/dl (32.0-36.5); MEAN CORPUSCULAR VOLUME 105.6 fl (80.0-96.0); MONO # 0.2 10^3/uL (0.0-0.8); MONO % 7.7 % (2.0-8.0); NEUTROPHILS # 1.6 10^3/uL (1.5-8.5); NEUTROPHILS % 62.1 % (36.0-66.0); PLATELET COUNT, AUTOMATED 214 10^3/uL (150-450); RED BLOOD COUNT 2.49 10^6/uL (4.00-5.40); WHITE BLOOD COUNT 2.6 10^3/uL (4.0-10.0)
[2024-01-30 20:13] LABS: CA15-3 ANTIGEN 38.9 U/ML (<32.4)
== END ==
LOC: M LABDRWCV 16:38
PROVIDERS: ATTEND Internal Medicine Hematology & Oncology
DX: C50.912 Malignant neoplasm of unspecified site of left female breast (principal)

== ENCOUNTER → 2024-03-20 | Outpatient (CLI) | payer MEDICARE, BC | LOC: M ONCR 09:16 | PROVIDERS: ATTEND General Practice | DX: C50.412 Malignant neoplasm of upper-outer quadrant of left female breast (principal); Z92.21 Personal history of antineoplastic chemotherapy; Z92.3 Personal history of irradiation; Z88.0 Allergy status to penicillin; Z88.1 Allergy status to other antibiotic agents; Z79.84 Long term (current) use of oral hypoglycemic drugs; Z79.82 Long term (current) use of aspirin; Z79.899 Other long term (current) drug therapy ==

== ENCOUNTER → 2024-03-25 | Outpatient (REF) | payer MEDICARE, BC ==
[2024-03-25 18:36] LABS: ALBUMIN 3.6 G/DL (3.2-5.2); ALKALINE PHOSPHATASE 60 U/L (35-104); ALT/SGPT 16 U/L (7.0-40); AST/SGOT 21 U/L (<34); BILIRUBIN,TOTAL 0.7 MG/DL (0.3-1.2); BLOOD UREA NITROGEN 12 MG/DL (9-23); CARBON DIOXIDE LEVEL 25 MMOL/L (20-31); CHLORIDE LEVEL 107 MMOL/L (98-107); CREATININE FOR GFR 0.72 MG/DL (0.55-1.30); GLOMERULAR FILTRATION RATE > 60.0 (>45); GLUCOSE, FASTING 129 MG/DL (74-106); POTASSIUM SERUM 4.2 MMOL/L (3.5-5.1); SODIUM LEVEL 141 MMOL/L (136-145); TOTAL PROTEIN 6.7 G/DL (5.7-8.2)
[2024-03-25 18:37] LABS: BASO % 0.8 % (0.0-1.0); EOS % 0.8 % (0.0-3.0); HEMATOCRIT 31.9 % (36.0-47.0); HEMOGLOBIN 11.3 g/dl (12.0-15.5); LYMPH # 0.9 10^3/uL (1.5-5.0); LYMPH % 35.5 % (24.0-44.0); MEAN CORPUSCULAR HEMOGLOBIN 38.2 pg (27.0-33.0); MEAN CORPUSCULAR HGB CONC 35.4 g/dl (32.0-36.5); MEAN CORPUSCULAR VOLUME 107.8 fl (80.0-96.0); MONO # 0.2 10^3/uL (0.0-0.8); MONO % 8.9 % (2.0-8.0); NEUTROPHILS # 1.3 10^3/uL (1.5-8.5); PLATELET COUNT, AUTOMATED 166 10^3/uL (150-450); RED BLOOD COUNT 2.96 10^6/uL (4.00-5.40); WHITE BLOOD COUNT 2.5 10^3/uL (4.0-10.0)
[2024-03-25 18:53] LABS: CA15-3 ANTIGEN 30.7 U/ML (<32.4)
== END ==
LOC: M LABDRWCV 16:30
PROVIDERS: ATTEND Nurse Practitioner
DX: C50.912 Malignant neoplasm of unspecified site of left female breast (principal)

== ENCOUNTER → 2024-04-01 | Outpatient (REF) | payer MEDICARE, OTHER ==
[2024-04-01 18:09] LABS: BASO % 0.7 % (0.0-1.0); EOS # 0.2 10^3/uL (0.0-0.5); EOS % 3.9 % (0.0-3.0); HEMATOCRIT 31.1 % (36.0-47.0); HEMOGLOBIN 11.1 g/dl (12.0-15.5); LYMPH # 0.9 10^3/uL (1.5-5.0); LYMPH % 19.4 % (24.0-44.0); MEAN CORPUSCULAR HEMOGLOBIN 38.7 pg (27.0-33.0); MEAN CORPUSCULAR HGB CONC 35.7 g/dl (32.0-36.5); MEAN CORPUSCULAR VOLUME 108.4 fl (80.0-96.0); MONO # 0.4 10^3/uL (0.0-0.8); MONO % 7.8 % (2.0-8.0); NEUTROPHILS # 3.1 10^3/uL (1.5-8.5); PLATELET COUNT, AUTOMATED 189 10^3/uL (150-450); RED BLOOD COUNT 2.87 10^6/uL (4.00-5.40); WHITE BLOOD COUNT 4.6 10^3/uL (4.0-10.0)
[2024-04-01 18:27] LABS: ALBUMIN 3.5 G/DL (3.2-5.2); ALKALINE PHOSPHATASE 74 U/L (35-104); ALT/SGPT 15 U/L (7.0-40); AST/SGOT 23 U/L (<34); BILIRUBIN,TOTAL 0.7 MG/DL (0.3-1.2); BLOOD UREA NITROGEN 10 MG/DL (9-23); CALCIUM LEVEL 9.2 MG/DL (8.3-10.6); CARBON DIOXIDE LEVEL 27 MMOL/L (20-31); CHLORIDE LEVEL 106 MMOL/L (98-107); CREATININE FOR GFR 0.63 MG/DL (0.55-1.30); GLOMERULAR FILTRATION RATE > 60.0 (>45); GLUCOSE, FASTING 128 MG/DL (74-106); POTASSIUM SERUM 4.4 MMOL/L (3.5-5.1); SODIUM LEVEL 141 MMOL/L (136-145); TOTAL PROTEIN 6.5 G/DL (5.7-8.2)
== END ==
LOC: M LABDRWCV 16:34
PROVIDERS: ATTEND Specialist
DX: C50.912 Malignant neoplasm of unspecified site of left female breast (principal)

== ENCOUNTER → 2024-04-22 | Outpatient (REF) | payer MEDICARE, OTHER, BC ==
[2024-04-22 18:08] LABS: BASO % 0.9 % (0.0-1.0); EOS # 0.1 10^3/uL (0.0-0.5); EOS % 2.9 % (0.0-3.0); HEMOGLOBIN 11.2 g/dl (12.0-15.5); MEAN CORPUSCULAR HEMOGLOBIN 38.2 pg (27.0-33.0); MEAN CORPUSCULAR HGB CONC 36.1 g/dl (32.0-36.5); MEAN CORPUSCULAR VOLUME 105.8 fl (80.0-96.0); MONO # 0.3 10^3/uL (0.0-0.8); MONO % 9.8 % (2.0-8.0); NEUTROPHILS % 58.1 % (36.0-66.0); PLATELET COUNT, AUTOMATED 183 10^3/uL (150-450); RED BLOOD COUNT 2.93 10^6/uL (4.00-5.40); WHITE BLOOD COUNT 3.5 10^3/uL (4.0-10.0)
[2024-04-22 18:21] LABS: ALBUMIN 3.7 G/DL (3.2-5.2); ALKALINE PHOSPHATASE 61 U/L (35-104); ALT/SGPT 13 U/L (7.0-40); AST/SGOT 19 U/L (<34); BILIRUBIN,TOTAL 0.8 MG/DL (0.3-1.2); BLOOD UREA NITROGEN 14 MG/DL (9-23); CALCIUM LEVEL 8.2 MG/DL (8.3-10.6); CARBON DIOXIDE LEVEL 25 MMOL/L (20-31); CHLORIDE LEVEL 108 MMOL/L (98-107); CREATININE FOR GFR 0.65 MG/DL (0.55-1.30); GLOMERULAR FILTRATION RATE > 60.0 (>45); GLUCOSE, FASTING 117 MG/DL (74-106); POTASSIUM SERUM 4.1 MMOL/L (3.5-5.1); SODIUM LEVEL 141 MMOL/L (136-145); TOTAL PROTEIN 6.5 G/DL (5.7-8.2)
== END ==
LOC: M LABDRWCV 16:38
PROVIDERS: ATTEND Nurse Practitioner
DX: C50.912 Malignant neoplasm of unspecified site of left female breast (principal)

== ENCOUNTER → 2024-05-09 | Outpatient (REF) | payer MEDICARE, BC ==
[2024-05-09 17:55] LABS: BASO % 0.8 % (0.0-1.0); EOS % 0.4 % (0.0-3.0); HEMATOCRIT 32.3 % (36.0-47.0); HEMOGLOBIN 11.6 g/dl (12.0-15.5); LYMPH # 0.9 10^3/uL (1.5-5.0); LYMPH % 38.6 % (24.0-44.0); MEAN CORPUSCULAR HEMOGLOBIN 37.5 pg (27.0-33.0); MEAN CORPUSCULAR HGB CONC 35.9 g/dl (32.0-36.5); MEAN CORPUSCULAR VOLUME 104.5 fl (80.0-96.0); MONO # 0.2 10^3/uL (0.0-0.8); MONO % 7.2 % (2.0-8.0); NEUTROPHILS # 1.3 10^3/uL (1.5-8.5); PLATELET COUNT, AUTOMATED 199 10^3/uL (150-450); RED BLOOD COUNT 3.09 10^6/uL (4.00-5.40); WHITE BLOOD COUNT 2.4 10^3/uL (4.0-10.0)
[2024-05-09 18:24] LABS: ALBUMIN 3.7 G/DL (3.2-5.2); ALKALINE PHOSPHATASE 59 U/L (35-104); ALT/SGPT 11 U/L (7.0-40); AST/SGOT 16 U/L (<34); BILIRUBIN,TOTAL 0.7 MG/DL (0.3-1.2); BLOOD UREA NITROGEN 15 MG/DL (9-23); CALCIUM LEVEL 9.1 MG/DL (8.3-10.6); CARBON DIOXIDE LEVEL 27 MMOL/L (20-31); CHLORIDE LEVEL 107 MMOL/L (98-107); GLOMERULAR FILTRATION RATE > 60.0 (>45); GLUCOSE, FASTING 130 MG/DL (74-106); POTASSIUM SERUM 4.4 MMOL/L (3.5-5.1); SODIUM LEVEL 142 MMOL/L (136-145); TOTAL PROTEIN 6.6 G/DL (5.7-8.2)
[2024-05-09 18:42] LABS: CA15-3 ANTIGEN 26.1 U/ML (<32.4)
== END ==
LOC: M LABDRWCV 16:51
PROVIDERS: ATTEND Nurse Practitioner
DX: C50.912 Malignant neoplasm of unspecified site of left female breast (principal)

== ENCOUNTER → 2024-05-22 | Outpatient (REF) | payer MEDICARE, BC ==
[2024-05-22 17:25] LABS: ALBUMIN 3.5 G/DL (3.2-5.2); ALKALINE PHOSPHATASE 67 U/L (35-104); ALT/SGPT 15 U/L (7.0-40); AST/SGOT 21 U/L (<34); BASO % 0.7 % (0.0-1.0); BLOOD UREA NITROGEN 21 MG/DL (9-23); CALCIUM LEVEL 9.3 MG/DL (8.3-10.6); CARBON DIOXIDE LEVEL 28 MMOL/L (20-31); CHLORIDE LEVEL 102 MMOL/L (98-107); CREATININE FOR GFR 0.76 MG/DL (0.55-1.30); EOS % 0.3 % (0.0-3.0); GLOMERULAR FILTRATION RATE > 60.0 (>45); GLUCOSE, FASTING 115 MG/DL (74-106); HEMATOCRIT 30.6 % (36.0-47.0); HEMOGLOBIN 10.9 g/dl (12.0-15.5); LYMPH # 0.8 10^3/uL (1.5-5.0); LYMPH % 28.4 % (24.0-44.0); MEAN CORPUSCULAR HEMOGLOBIN 37.7 pg (27.0-33.0); MEAN CORPUSCULAR HGB CONC 35.6 g/dl (32.0-36.5); MEAN CORPUSCULAR VOLUME 105.9 fl (80.0-96.0); MONO # 0.3 10^3/uL (0.0-0.8); MONO % 9.5 % (2.0-8.0); NEUTROPHILS # 1.8 10^3/uL (1.5-8.5); NEUTROPHILS % 61.1 % (36.0-66.0); PLATELET COUNT, AUTOMATED 131 10^3/uL (150-450); POTASSIUM SERUM 4.2 MMOL/L (3.5-5.1); RED BLOOD COUNT 2.89 10^6/uL (4.00-5.40); SODIUM LEVEL 141 MMOL/L (136-145); TOTAL PROTEIN 6.1 G/DL (5.7-8.2)
[2024-05-22 17:40] LABS: CA15-3 ANTIGEN 32.9 U/ML (<32.4)
== END ==
LOC: M LABDRWCV 16:32
PROVIDERS: ATTEND Nurse Practitioner
DX: C50.912 Malignant neoplasm of unspecified site of left female breast (principal); R97.8 Other abnormal tumor markers

== ENCOUNTER → 2024-05-29 | Outpatient (CLI) | payer MEDICARE, BC ==
[~2024-05-29] MED LIST changes: +ISOVUE-370 76% 100ML VIAL As Ordered ONE
== END ==
LOC: M RAD 12:49
PROVIDERS: ATTEND Nurse Practitioner Women's Health
DX: C50.919 Malignant neoplasm of unspecified site of unspecified female breast (principal); J98.11 Atelectasis
CPT/HCPCS: 71260; 74177; J1642; Q9967

== ENCOUNTER → 2024-06-19 | Outpatient (REF) | payer MEDICARE, BC ==
[~2024-06-19] MED LIST changes: -ISOVUE-370 76% 100ML VIAL As Ordered ONE
[2024-06-19 18:27] LABS: HEMATOCRIT 32.3 % (36.0-47.0); HEMOGLOBIN 11.8 g/dl (12.0-15.5); LYMPH # 0.9 10^3/uL (1.5-5.0); LYMPH % 30.7 % (24.0-44.0); MEAN CORPUSCULAR HEMOGLOBIN 38.4 pg (27.0-33.0); MEAN CORPUSCULAR HGB CONC 36.5 g/dl (32.0-36.5); MEAN CORPUSCULAR VOLUME 105.2 fl (80.0-96.0); MONO # 0.2 10^3/uL (0.0-0.8); MONO % 7.3 % (2.0-8.0); NEUTROPHILS # 1.8 10^3/uL (1.5-8.5); PLATELET COUNT, AUTOMATED 164 10^3/uL (150-450); RED BLOOD COUNT 3.07 10^6/uL (4.00-5.40)
[2024-06-19 18:29] LABS: ALBUMIN 3.9 G/DL (3.2-5.2); ALKALINE PHOSPHATASE 65 U/L (35-104); ALT/SGPT 19 U/L (7.0-40); AST/SGOT 27 U/L (<34); BILIRUBIN,TOTAL 0.9 MG/DL (0.3-1.2); BLOOD UREA NITROGEN 12 MG/DL (9-23); CALCIUM LEVEL 9.3 MG/DL (8.3-10.6); CARBON DIOXIDE LEVEL 28 MMOL/L (20-31); CHLORIDE LEVEL 107 MMOL/L (98-107); CREATININE FOR GFR 0.74 MG/DL (0.55-1.30); GLOMERULAR FILTRATION RATE > 60.0 (>45); GLUCOSE, FASTING 123 MG/DL (74-106); POTASSIUM SERUM 4.2 MMOL/L (3.5-5.1); SODIUM LEVEL 144 MMOL/L (136-145); TOTAL PROTEIN 6.7 G/DL (5.7-8.2)
== END ==
LOC: M LABDRWCV 17:01
PROVIDERS: ATTEND Nurse Practitioner
DX: C50.912 Malignant neoplasm of unspecified site of left female breast (principal)

== ENCOUNTER → 2024-07-17 | Outpatient (REF) | payer MEDICARE, BC, OTHER ==
[2024-07-17 18:29] LABS: ALBUMIN 3.7 G/DL (3.2-5.2); BILIRUBIN,TOTAL 0.7 MG/DL (0.3-1.2); CALCIUM LEVEL 8.9 MG/DL (8.3-10.6); CREATININE FOR GFR 0.73 MG/DL (0.55-1.30); TOTAL PROTEIN 6.3 G/DL (5.7-8.2)
[2024-07-17 18:36] LABS: BASO # 0.1 10^3/uL (0.0-0.2); BASO % 1.1 % (0.0-1.0); EOS # 0.3 10^3/uL (0.0-0.5); EOS % 5.7 % (0.0-3.0); HEMATOCRIT 29.4 % (36.0-47.0); HEMOGLOBIN 10.8 g/dl (12.0-15.5); LYMPH # 1.3 10^3/uL (1.5-5.0); LYMPH % 28.7 % (24.0-44.0); MEAN CORPUSCULAR HEMOGLOBIN 38.2 pg (27.0-33.0); MEAN CORPUSCULAR VOLUME 103.9 fl (80.0-96.0); MONO # 0.3 10^3/uL (0.0-0.8); MONO % 6.2 % (2.0-8.0); NEUTROPHILS # 2.5 10^3/uL (1.5-8.5); NEUTROPHILS % 57.8 % (36.0-66.0); PLATELET COUNT, AUTOMATED 192 10^3/uL (150-450); RED BLOOD COUNT 2.83 10^6/uL (4.00-5.40); WHITE BLOOD COUNT 4.4 10^3/uL (4.0-10.0)
[2024-07-17 18:46] LABS: CA15-3 ANTIGEN 29.6 U/ML (<32.4)
[2024-07-17 18:52] LABS: MEAN CORPUSCULAR HGB CONC 36.7 g/dl (32.0-36.5)
== END ==
LOC: M LABDRWCV 18:08
PROVIDERS: ATTEND Nurse Practitioner
DX: C50.919 Malignant neoplasm of unspecified site of unspecified female breast (principal)

== ENCOUNTER → 2024-08-13 | Outpatient (REF) | payer MEDICARE, OTHER ==
[~2024-08-13] MED LIST changes: -HYDR28CR33 TOP; +HYDR28CR52 TOP; -PRED50TA PO; +PRED50TA57 PO
[2024-08-13 18:01] LABS: BASO # 0.1 10^3/uL (0.0-0.2); BASO % 1.3 % (0.0-1.0); EOS % 0.8 % (0.0-3.0); HEMATOCRIT 30.6 % (36.0-47.0); HEMOGLOBIN 10.6 g/dl (12.0-15.5); LYMPH # 0.9 10^3/uL (1.5-5.0); LYMPH % 22.7 % (24.0-44.0); MEAN CORPUSCULAR HEMOGLOBIN 36.9 pg (27.0-33.0); MEAN CORPUSCULAR HGB CONC 34.6 g/dl (32.0-36.5); MEAN CORPUSCULAR VOLUME 106.6 fl (80.0-96.0); MONO # 0.2 10^3/uL (0.0-0.8); MONO % 6.1 % (2.0-8.0); NEUTROPHILS # 2.7 10^3/uL (1.5-8.5); NEUTROPHILS % 68.6 % (36.0-66.0); PLATELET COUNT, AUTOMATED 188 10^3/uL (150-450); RED BLOOD COUNT 2.87 10^6/uL (4.00-5.40); WHITE BLOOD COUNT 3.9 10^3/uL (4.0-10.0)
[2024-08-13 18:03] LABS: ALBUMIN 3.5 G/DL (3.2-5.2); ALKALINE PHOSPHATASE 78 U/L (35-104); ALT/SGPT 16 U/L (7.0-40); AST/SGOT 20 U/L (<34); BILIRUBIN,TOTAL 0.9 MG/DL (0.3-1.2); BLOOD UREA NITROGEN 9 MG/DL (9-23); CARBON DIOXIDE LEVEL 29 MMOL/L (20-31); CHLORIDE LEVEL 109 MMOL/L (98-107); CREATININE FOR GFR 0.67 MG/DL (0.55-1.30); GLOMERULAR FILTRATION RATE > 90.0 (>45); GLUCOSE, FASTING 120 MG/DL (74-106); IRON (FE) 221 UG/DL (50-170); PERCENT SATURATION 71.5 % (13.2-45.0); POTASSIUM SERUM 4.3 MMOL/L (3.5-5.1); SODIUM LEVEL 146 MMOL/L (136-145); TOTAL IRON BINDING CAPACITY 309 UG/DL (250-425); TOTAL PROTEIN 6.4 G/DL (5.7-8.2)
[2024-08-13 18:05] LABS: FERRITIN 411.8 NG/ML (7.3-270.7); FOLATE 22.1 NG/ML (>5.4); VITAMIN B12 LEVEL 506 PG/ML (211-911)
[2024-08-13 18:23] LABS: CA15-3 ANTIGEN 36.9 U/ML (<32.4)
== END ==
LOC: M LABDRWCV 17:42
PROVIDERS: ATTEND Nurse Practitioner
DX: C50.919 Malignant neoplasm of unspecified site of unspecified female breast (principal)

== ENCOUNTER → 2024-10-09 | Outpatient (REF) | payer MEDICARE, BC ==
[~2024-10-09] MED LIST changes: +VALT1TAB PO
[2024-10-09 18:22] LABS: BASO # 0.0 10^3/uL (0.0-0.2); BASO % 0.7 % (0.0-1.0); EOS # 0.1 10^3/uL (0.0-0.5); EOS % 1.3 % (0.0-3.0); LYMPH # 1.0 10^3/uL (1.5-5.0); LYMPH % 22.9 % (24.0-44.0); MONO # 0.3 10^3/uL (0.0-0.8); MONO % 5.5 % (2.0-8.0); NEUTROPHILS # 3.1 10^3/uL (1.5-8.5); NEUTROPHILS % 68.9 % (36.0-66.0); PLATELET COUNT, AUTOMATED 216 10^3/uL (150-450)
[2024-10-09 18:26] LABS: ALT/SGPT 10 U/L (7.0-40); AST/SGOT 30 U/L (<34); CALCIUM LEVEL 8.6 MG/DL (8.3-10.6); CARBON DIOXIDE LEVEL 27 MMOL/L (20-31); CHLORIDE LEVEL 103 MMOL/L (98-107); CREATININE FOR GFR 0.68 MG/DL (0.55-1.30); GLOMERULAR FILTRATION RATE > 90.0 (>45); MAGNESIUM LEVEL 1.9 MG/DL (1.8-2.4); POTASSIUM SERUM 3.9 MMOL/L (3.5-5.1); SODIUM LEVEL 141 MMOL/L (136-145)
[2024-10-09 18:41] LABS: CA15-3 ANTIGEN 46.2 U/ML (<32.4)
== END ==
LOC: M LAB REF 17:37
PROVIDERS: ATTEND Nurse Practitioner
DX: C50.912 Malignant neoplasm of unspecified site of left female breast (principal)

== ENCOUNTER → 2024-11-04 | Outpatient (CLI) | payer MEDICARE, BC ==
[~2024-11-04] MED LIST changes: +ASCO500T72 PO; -VITA500T21 PO
== END ==
LOC: M PLARAD 10:06
PROVIDERS: ATTEND Internal Medicine Hematology & Oncology
DX: C50.812 Malignant neoplasm of overlapping sites of left female breast (principal)
CPT/HCPCS: 78815; A9552

== ENCOUNTER → 2024-11-06 | Outpatient (REF) | payer MEDICARE, BC ==
[2024-11-06 18:35] LABS: LDH LACTATE DEHYDROGENASE 210 U/L (120-246)
[2024-11-06 18:36] LABS: ALT/SGPT 14 U/L (7.0-40); AST/SGOT 46 U/L (<34); BASO # 0.0 10^3/uL (0.0-0.2); BASO % 0.7 % (0.0-1.0); CALCIUM LEVEL 8.8 MG/DL (8.3-10.6); CARBON DIOXIDE LEVEL 27 MMOL/L (20-31); CHLORIDE LEVEL 103 MMOL/L (98-107); CREATININE FOR GFR 0.67 MG/DL (0.55-1.30); EOS # 0.0 10^3/uL (0.0-0.5); EOS % 0.0 % (0.0-3.0); GLOMERULAR FILTRATION RATE > 90.0 (>45); LYMPH # 0.8 10^3/uL (1.5-5.0); LYMPH % 19.4 % (24.0-44.0); MONO # 0.3 10^3/uL (0.0-0.8); MONO % 7.5 % (2.0-8.0); NEUTROPHILS # 3.1 10^3/uL (1.5-8.5); NEUTROPHILS % 71.7 % (36.0-66.0); PLATELET COUNT, AUTOMATED 233 10^3/uL (150-450); POTASSIUM SERUM 4.2 MMOL/L (3.5-5.1); SODIUM LEVEL 141 MMOL/L (136-145)
[2024-11-06 18:38] LABS: TOTAL 25(OH) VITAMIN D 32.7 NG/ML (20.0-100.0)
== END ==
LOC: M LABDRWCV 18:00
PROVIDERS: ATTEND Nurse Practitioner
DX: C50.912 Malignant neoplasm of unspecified site of left female breast (principal); Z79.899 Other long term (current) drug therapy

== ENCOUNTER → 2024-11-14 | Outpatient (CLI) | payer MEDICARE, BC | LOC: M CARPUL 15:05 | PROVIDERS: ATTEND Internal Medicine Medical Oncology | DX: C50.919 Malignant neoplasm of unspecified site of unspecified female breast (principal); I08.0 Rheumatic disorders of both mitral and aortic valves; I37.1 Nonrheumatic pulmonary valve insufficiency; I77.810 Thoracic aortic ectasia ==

== ENCOUNTER → 2024-11-28 | Outpatient (CLI) | payer MEDICARE, BC ==
[~2024-11-28] MED LIST changes: +PROHANCE 279.3MG/ML 15ML VIAL As Ordered ONE
== END ==
LOC: M RAD 14:36
PROVIDERS: ATTEND Internal Medicine Medical Oncology
DX: R11.2 Nausea with vomiting, unspecified (principal); C50.919 Malignant neoplasm of unspecified site of unspecified female breast; J32.8 Other chronic sinusitis; G31.9 Degenerative disease of nervous system, unspecified
CPT/HCPCS: 70553; A9576

== ENCOUNTER → 2024-12-04 | Outpatient (REF) | payer MEDICARE, OTHER ==
[~2024-12-04] MED LIST changes: -PROHANCE 279.3MG/ML 15ML VIAL As Ordered ONE
[2024-12-04 20:07] LABS: ALT/SGPT 21 U/L (7.0-40); AST/SGOT 37 U/L (<34); CALCIUM LEVEL 9.2 MG/DL (8.3-10.6); CARBON DIOXIDE LEVEL 30 MMOL/L (20-31); CHLORIDE LEVEL 102 MMOL/L (98-107); CREATININE FOR GFR 0.69 MG/DL (0.55-1.30); GLOMERULAR FILTRATION RATE > 90.0 (>45); MAGNESIUM LEVEL 1.9 MG/DL (1.8-2.4); POTASSIUM SERUM 3.9 MMOL/L (3.5-5.1); SODIUM LEVEL 142 MMOL/L (136-145)
[2024-12-04 20:10] LABS: BASO # 0.0 10^3/uL (0.0-0.2); BASO % 1.0 % (0.0-1.0); EOS # 0.2 10^3/uL (0.0-0.5); EOS % 4.2 % (0.0-3.0); LYMPH # 0.9 10^3/uL (1.5-5.0); LYMPH % 22.0 % (24.0-44.0); MONO # 0.1 10^3/uL (0.0-0.8); MONO % 3.0 % (2.0-8.0); NEUTROPHILS # 2.8 10^3/uL (1.5-8.5); NEUTROPHILS % 69.3 % (36.0-66.0); PLATELET COUNT, AUTOMATED 206 10^3/uL (150-450)
[2024-12-04 20:26] LABS: CA15-3 ANTIGEN 55.8 U/ML (<32.4)
== END ==
LOC: M LABDRWCV 17:55
PROVIDERS: ATTEND Nurse Practitioner
DX: C50.912 Malignant neoplasm of unspecified site of left female breast (principal)

== ENCOUNTER → 2024-12-18 | Outpatient (REF) | payer MEDICARE, BC, OTHER ==
[2024-12-18 19:42] LABS: BASO # 0.0 10^3/uL (0.0-0.2); BASO % 0.6 % (0.0-1.0); EOS # 0.1 10^3/uL (0.0-0.5); EOS % 2.2 % (0.0-3.0); LYMPH # 0.7 10^3/uL (1.5-5.0); LYMPH % 20.6 % (24.0-44.0); MONO # 0.3 10^3/uL (0.0-0.8); MONO % 10.1 % (2.0-8.0); NEUTROPHILS # 2.1 10^3/uL (1.5-8.5); NEUTROPHILS % 66.2 % (36.0-66.0); PLATELET COUNT, AUTOMATED 252 10^3/uL (150-450)
[2024-12-18 20:09] LABS: ALT/SGPT 13 U/L (7.0-40); AST/SGOT 42 U/L (<34); CALCIUM LEVEL 8.7 MG/DL (8.3-10.6); CARBON DIOXIDE LEVEL 27 MMOL/L (20-31); CHLORIDE LEVEL 104 MMOL/L (98-107); CREATININE FOR GFR 0.63 MG/DL (0.55-1.30); GLOMERULAR FILTRATION RATE > 90.0 (>45); MAGNESIUM LEVEL 2.0 MG/DL (1.8-2.4); POTASSIUM SERUM 4.4 MMOL/L (3.5-5.1); SODIUM LEVEL 140 MMOL/L (136-145)
[2024-12-18 20:27] LABS: CA15-3 ANTIGEN 56.2 U/ML (<32.4)
== END ==
LOC: M LABDRWCV 17:59
PROVIDERS: ATTEND Nurse Practitioner
DX: C50.912 Malignant neoplasm of unspecified site of left female breast (principal)

== ENCOUNTER → 2025-01-07 | Outpatient (REF) | payer MEDICARE, OTHER ==
[~2025-01-07] MED LIST changes: +ORAL0.1P MT
[2025-01-07 18:43] LABS: BASO # 0.0 10^3/uL (0.0-0.2); BASO % 1.3 % (0.0-1.0); EOS # 0.1 10^3/uL (0.0-0.5); EOS % 2.3 % (0.0-3.0); LYMPH # 0.8 10^3/uL (1.5-5.0); LYMPH % 26.5 % (24.0-44.0); MONO # 0.3 10^3/uL (0.0-0.8); MONO % 8.4 % (2.0-8.0); NEUTROPHILS # 1.8 10^3/uL (1.5-8.5); NEUTROPHILS % 61.2 % (36.0-66.0); PLATELET COUNT, AUTOMATED 377 10^3/uL (150-450)
[2025-01-07 18:48] LABS: ALT/SGPT 16 U/L (7.0-40); AST/SGOT 37 U/L (<34); CALCIUM LEVEL 8.3 MG/DL (8.3-10.6); CARBON DIOXIDE LEVEL 28 MMOL/L (20-31); CHLORIDE LEVEL 102 MMOL/L (98-107); CREATININE FOR GFR 0.62 MG/DL (0.55-1.30); GLOMERULAR FILTRATION RATE > 90.0 (>45); MAGNESIUM LEVEL 1.7 MG/DL (1.8-2.4); POTASSIUM SERUM 4.0 MMOL/L (3.5-5.1); SODIUM LEVEL 140 MMOL/L (136-145)
[2025-01-07 18:49] LABS: FREE T4 1.21 NG/DL (0.89-1.76)
[2025-01-07 19:03] LABS: CA15-3 ANTIGEN 61.1 U/ML (<32.4)
== END ==
LOC: M LABDRWCV 17:20
PROVIDERS: ATTEND Nurse Practitioner
DX: C50.912 Malignant neoplasm of unspecified site of left female breast (principal); Z79.899 Other long term (current) drug therapy

== ENCOUNTER → 2025-01-28 | Outpatient (REF) | payer MEDICARE, BC, OTHER ==
[~2025-01-28] MED LIST changes: +CLIN150C17 PO; +MELO15TA28 PO; +OXYC-517 PO
[2025-01-28 18:16] LABS: BASO # 0.1 10^3/uL (0.0-0.2); BASO % 1.2 % (0.0-1.0); EOS # 0.0 10^3/uL (0.0-0.5); EOS % 0.8 % (0.0-3.0); LYMPH # 0.7 10^3/uL (1.5-5.0); LYMPH % 12.5 % (24.0-44.0); MONO # 0.5 10^3/uL (0.0-0.8); MONO % 8.7 % (2.0-8.0); NEUTROPHILS # 4.0 10^3/uL (1.5-8.5); NEUTROPHILS % 76.2 % (36.0-66.0); PLATELET COUNT, AUTOMATED 475 10^3/uL (150-450)
[2025-01-28 18:17] LABS: ALT/SGPT 17 U/L (7.0-40); AST/SGOT 61 U/L (<34); CALCIUM LEVEL 7.9 MG/DL (8.3-10.6); CARBON DIOXIDE LEVEL 24 MMOL/L (20-31); CHLORIDE LEVEL 101 MMOL/L (98-107); CREATININE FOR GFR 0.56 MG/DL (0.55-1.30); GLOMERULAR FILTRATION RATE > 90.0 (>45); MAGNESIUM LEVEL 1.8 MG/DL (1.8-2.4); POTASSIUM SERUM 4.1 MMOL/L (3.5-5.1); SODIUM LEVEL 138 MMOL/L (136-145)
[2025-01-28 18:33] LABS: CA15-3 ANTIGEN 78.7 U/ML (<32.4)
== END ==
LOC: M LABDRWCV 17:19
PROVIDERS: ATTEND Nurse Practitioner
DX: C50.912 Malignant neoplasm of unspecified site of left female breast (principal)

== ENCOUNTER → 2025-01-29 | Outpatient (CLI) | payer MEDICARE, BC | LOC: M RAD 11:11 | DX: R68.84 Jaw pain (principal) ==

== ENCOUNTER 2025-02-23 17:08 | Inpatient (IN) | payer MEDICARE, BC ==
[~2025-02-23] VITALS: Ht 165.1 cm; Wt 73.3 kg
[~2025-02-23 17:08] MED LIST changes: -FLON1SPR; +FLON1SPR NARES
[2025-02-23 17:55] LABS: BASO # 0.0 10^3/uL (0.0-0.2); BASO % 0.6 % (0.0-1.0); EOS # 0.1 10^3/uL (0.0-0.5); EOS % 0.9 % (0.0-3.0); LYMPH # 0.6 10^3/uL (1.5-5.0); LYMPH % 9.1 % (24.0-44.0); MONO # 0.5 10^3/uL (0.0-0.8); MONO % 7.4 % (2.0-8.0); NEUTROPHILS # 5.7 10^3/uL (1.5-8.5); NEUTROPHILS % 81.1 % (36.0-66.0); PLATELET COUNT, AUTOMATED 351 10^3/uL (150-450)
[2025-02-23 18:17] LABS: INR 1.14
[2025-02-23 18:20] LABS: ALT/SGPT 13 U/L (7.0-40); AST/SGOT 101 U/L (<34); CALCIUM LEVEL 8.7 MG/DL (8.3-10.6); CARBON DIOXIDE LEVEL 26 MMOL/L (20-31); CHLORIDE LEVEL 97 MMOL/L (98-107); CREATININE FOR GFR 0.52 MG/DL (0.55-1.30); GLOMERULAR FILTRATION RATE > 90.0 (>39); POTASSIUM SERUM 4.5 MMOL/L (3.5-5.1); SODIUM LEVEL 134 MMOL/L (136-145)
[2025-02-23 18:22] LABS: THYROXINE (T4) 8.8 UG/DL (4.5-10.9)
[2025-02-23] MEDS ORDERED: ISOVUE-370 76% 100 ML VIAL As Ordered ONE (18:38)
[2025-02-23 18:43] LABS: CK-MB VALUE MASS < 1.0 NG/ML (<3.6)
[2025-02-23 18:44] LABS: CPK CREATINE PHOSPHOKINASE 95 U/L (34-145)
[2025-02-23] MEDS ORDERED: MEROPENEM 2 GM, VIAL MATE ADAPTER 1 EACH in NS 100 ML IV ONE (18:45)
[2025-02-23 19:28] LABS: CK-MB VALUE MASS < 1.0 NG/ML (<3.6)
[2025-02-23 19:29] LABS: CPK CREATINE PHOSPHOKINASE 90 U/L (34-145)
[2025-02-23] MEDS ORDERED: MEROPENEM IV SCH (19:55)
[2025-02-23] MEDS: IPRATROPIUM 0.5 MG/ALBUTEROL 2.5 MG INH SOL UD 3 ML INH SCH (20:27)
[2025-02-23 22:33] VITALS: BP 147/71; TEMP 98; O2SAT 97
[2025-02-23 22:48] LABS: KETONE, URINE AUTO RFX 1+ mg/dL (NEGATIVE); LEUKOCYTE ESTERASE UR AUTO RFX 2+ (NEGATIVE); MUCUS, URINE RFX SMALL (NEGATIVE); NITRITE, URINE AUTO RFX NEGATIVE (NEGATIVE); RBC, URINE AUTO RFX 5 /HPF (0-3); SQUAM EPITHELIAL CELL UR AURFX 24 /HPF (0-6); WBC, URINE AUTO RFX 5 /HPF (0-3)
[2025-02-23] MEDS: AZITHROMYCIN INJ 500 MG, VIAL MATE ADAPTER 1 EACH in D5W 250 ML IV SCH (22:55)
[2025-02-23 23:40] VITALS: BP 98/64; TEMP 101; O2SAT 99
[2025-02-24] VITALS (13 sets, daily range): BP systolic 90–112; BP diastolic 54–70; TEMP 97.1–99.1; O2SAT 92–98
[2025-02-24] MEDS: ACETAMINOPHEN 325 MG TAB PO PRN (00:06)
[2025-02-24] MEDS: MEROPENEM 2 GM, VIAL MATE ADAPTER 1 EACH in NS 100 ML IV SCH (00:06)
[2025-02-24 06:34] LABS: ALT/SGPT 11 U/L (7.0-40); AST/SGOT 74 U/L (<34); CALCIUM LEVEL 7.7 MG/DL (8.3-10.6); CARBON DIOXIDE LEVEL 27 MMOL/L (20-31); CHLORIDE LEVEL 100 MMOL/L (98-107); CREATININE FOR GFR 0.55 MG/DL (0.55-1.30); GLOMERULAR FILTRATION RATE > 90.0 (>39); MAGNESIUM LEVEL 1.6 MG/DL (1.8-2.4); POTASSIUM SERUM 4.1 MMOL/L (3.5-5.1); SODIUM LEVEL 137 MMOL/L (136-145)
[2025-02-24] MEDS: ENOXAPARIN 40 MG/0.4 ML SYRINGE (J1650 PER 10MG) SC SCH (09:05)
[2025-02-24] MEDS: MAG SULF 1GM/100ML (MAG RUN) 1 GM in IV 1 EA IV ONE (11:09)
[2025-02-24] MEDS ORDERED: HOME MED LIST COMPLETE! XX SCH (13:25)
[2025-02-24] MEDS ORDERED: LIDOCAINE 1% SDV 30 ML VIAL SC SCH (13:45)
[2025-02-24 15:18] LABS: APPEARANCE, BODY FLUID CLEAR (CLEAR); PLEURAL FL COLOR PALE YELLOW (COLORLESS); SOURCE, BODY FLUID PLEURAL
[2025-02-24] MEDS ORDERED: ACETAMINOPHEN 500 MG TAB PO ONE (21:45)
[2025-02-24] MEDS: ACETAMINOPHEN *IV* 1,000 MG in APPROPRIATE DILUENT 0 ML IV ONE (22:08)
[2025-02-25 04:00] VITALS: BP 130/68; TEMP 97.2; O2SAT 92
[2025-02-25 07:34] VITALS: BP 124/67; TEMP 98.8; O2SAT 95
[2025-02-25 07:53] LABS: CALCIUM LEVEL 7.9 MG/DL (8.3-10.6); CARBON DIOXIDE LEVEL 29 MMOL/L (20-31); CHLORIDE LEVEL 98 MMOL/L (98-107); CREATININE FOR GFR 0.52 MG/DL (0.55-1.30); GLOMERULAR FILTRATION RATE > 90.0 (>39); MAGNESIUM LEVEL 1.8 MG/DL (1.8-2.4); POTASSIUM SERUM 4.0 MMOL/L (3.5-5.1); SODIUM LEVEL 135 MMOL/L (136-145)
[2025-02-25] MEDS: ONDANSETRON 4MG/2ML VIAL IV PRN (10:00)
[2025-02-25 11:44] VITALS: BP 133/66; TEMP 98.7; O2SAT 96
[2025-02-25] MEDS: CEFEPIME HCL 2 GM in DEXTROSE 5% (D5W) ADV/MINI-BAG 50 ML IV SCH (13:14)
[2025-02-25 16:06] VITALS: BP 126/75; TEMP 100; O2SAT 96
[2025-02-25] MEDS: ACETAMINOPHEN 325 MG TAB PO PRN (16:12)
[2025-02-25] MEDS: IPRATROPIUM 0.5 MG/ALBUTEROL 2.5 MG INH SOL UD 3 ML INH PRN (17:30)
[2025-02-25 19:19] VITALS: BP 129/76; TEMP 97.4; O2SAT 100
[2025-02-25] MEDS: PANTOPRAZOLE 40MG TAB PO SCH (19:56)
[2025-02-25] MEDS: AZITHROMYCIN 250 MG TABLET PO SCH (19:56)
[2025-02-25 23:59] VITALS: BP 106/62; TEMP 98.4; O2SAT 96
[2025-02-26] VITALS (13 sets, daily range): BP systolic 86–138; BP diastolic 56–77; TEMP 97.6–99.7; O2SAT 92–100
[2025-02-26 06:40] LABS: CALCIUM LEVEL 7.8 MG/DL (8.3-10.6); CARBON DIOXIDE LEVEL 28 MMOL/L (20-31); CHLORIDE LEVEL 100 MMOL/L (98-107); CREATININE FOR GFR 0.57 MG/DL (0.55-1.30); GLOMERULAR FILTRATION RATE > 90.0 (>39); MAGNESIUM LEVEL 1.9 MG/DL (1.8-2.4); POTASSIUM SERUM 4.6 MMOL/L (3.5-5.1); SODIUM LEVEL 136 MMOL/L (136-145)
[2025-02-26] MEDS: NS 500 ML IV ONE (13:27)
[2025-02-26] MEDS: THIAMINE 100 MG TAB PO SCH (14:47)
[2025-02-26] MEDS: NS (Normal Saline) 0.9% 1,000 ML IV ONE (14:48)
[2025-02-26] MEDS: IPRATROPIUM 0.5 MG/ALBUTEROL 2.5 MG INH SOL UD 3 ML NEB SCH (14:58)
[2025-02-27 02:34] LABS: URINE STREP PNEUMONIAE ANTIGEN Not Detected (Not Detected)
[2025-02-27 03:42] VITALS: BP 108/72; TEMP 98.1; O2SAT 94
[2025-02-27 06:16] LABS: CALCIUM LEVEL 8.3 MG/DL (8.3-10.6); CARBON DIOXIDE LEVEL 29 MMOL/L (20-31); CHLORIDE LEVEL 100 MMOL/L (98-107); CREATININE FOR GFR 0.55 MG/DL (0.55-1.30); GLOMERULAR FILTRATION RATE > 90.0 (>39); MAGNESIUM LEVEL 1.9 MG/DL (1.8-2.4); POTASSIUM SERUM 4.5 MMOL/L (3.5-5.1); SODIUM LEVEL 135 MMOL/L (136-145)
[2025-02-27 07:58] VITALS: BP 112/59; TEMP 98.6; O2SAT 97
[2025-02-27 11:43] VITALS: BP 128/71; TEMP 98; O2SAT 93
[2025-02-27 16:22] VITALS: BP 141/67; TEMP 98.2; O2SAT 93
[2025-02-27 20:47] VITALS: BP 122/69; TEMP 97.9; O2SAT 93
[2025-02-27 22:07] LABS: MYCOPLASMA PNEUMONIAE IGG 1.06 (<=0.90); MYCOPLASMA PNEUMONIAE IGM 719.0 U/mL (<770)
[2025-02-27 23:45] VITALS: BP 131/64; TEMP 97.3; O2SAT 92
[2025-02-28] VITALS (7 sets, daily range): BP systolic 115–141; BP diastolic 59–94; TEMP 97.3–98.1; O2SAT 95–98
[2025-02-28 06:35] LABS: CALCIUM LEVEL 8.3 MG/DL (8.3-10.6); CARBON DIOXIDE LEVEL 27 MMOL/L (20-31); CHLORIDE LEVEL 98 MMOL/L (98-107); CREATININE FOR GFR 0.50 MG/DL (0.55-1.30); GLOMERULAR FILTRATION RATE > 90.0 (>39); MAGNESIUM LEVEL 1.8 MG/DL (1.8-2.4); POTASSIUM SERUM 5.0 MMOL/L (3.5-5.1); SODIUM LEVEL 133 MMOL/L (136-145)
[2025-03-01] VITALS (7 sets, daily range): BP systolic 114–133; BP diastolic 59–78; TEMP 97–98; O2SAT 94–96
[2025-03-01 07:14] LABS: CALCIUM LEVEL 8.3 MG/DL (8.3-10.6); CARBON DIOXIDE LEVEL 26 MMOL/L (20-31); CHLORIDE LEVEL 95 MMOL/L (98-107); CREATININE FOR GFR 0.41 MG/DL (0.55-1.30); GLOMERULAR FILTRATION RATE > 90.0 (>39); MAGNESIUM LEVEL 1.6 MG/DL (1.8-2.4); POTASSIUM SERUM 4.4 MMOL/L (3.5-5.1); SODIUM LEVEL 129 MMOL/L (136-145)
[2025-03-01] MEDS: MAGNESIUM OXIDE 400 MG TAB PO SCH (08:04)
[2025-03-01] MEDS: SENNOSIDES/DOCUSATE SODIUM 8.6 MG/50MG TAB PO SCH (08:04)
[2025-03-01 14:53] LABS: CALCIUM LEVEL 8.4 MG/DL (8.3-10.6); CARBON DIOXIDE LEVEL 26 MMOL/L (20-31); CHLORIDE LEVEL 94 MMOL/L (98-107); CREATININE FOR GFR 0.45 MG/DL (0.55-1.30); GLOMERULAR FILTRATION RATE > 90.0 (>39); MAGNESIUM LEVEL 1.7 MG/DL (1.8-2.4); POTASSIUM SERUM 4.5 MMOL/L (3.5-5.1); SODIUM LEVEL 128 MMOL/L (136-145)
[2025-03-01] MEDS ORDERED: LIDO5TD TOP (15:44)
[2025-03-01] MEDS: NS (Normal Saline) 0.9% 1,000 ML IV SCH (15:57)
[2025-03-02 03:41] VITALS: BP 138/75; TEMP 97.3; O2SAT 92
[2025-03-02 06:23] LABS: CALCIUM LEVEL 8.2 MG/DL (8.3-10.6); CARBON DIOXIDE LEVEL 27 MMOL/L (20-31); CHLORIDE LEVEL 97 MMOL/L (98-107); CREATININE FOR GFR 0.46 MG/DL (0.55-1.30); GLOMERULAR FILTRATION RATE > 90.0 (>39); MAGNESIUM LEVEL 2.2 MG/DL (1.8-2.4); POTASSIUM SERUM 4.9 MMOL/L (3.5-5.1); SODIUM LEVEL 130 MMOL/L (136-145)
[2025-03-02 08:00] VITALS: BP 113/63; TEMP 97.4; O2SAT 93
[2025-03-02 08:46] VITALS: BP 113/63
[2025-03-02] MEDS ORDERED: MAGN400T33 PO (11:03)
[2025-03-02] MEDS ORDERED: SENO8.6T10 PO (11:03)
[2025-03-02] MEDS ORDERED: PROBCAP14 PO (11:03)
[2025-03-02] MEDS ORDERED: CEFD1CAP9 PO (11:03)
[2025-03-02] MEDS ORDERED: COMBAER6 INH (11:06)
== END 2025-03-02 17:01 | disposition home health service (06) | DRG 871 ==
LOC: EDBD 17:08 → M ED 17:08 → M ED INP 20:12 → M PCU 22:24
PROVIDERS: ADMIT Student in an Organized Health Care Education/Training Program; ATTEND Student in an Organized Health Care Education/Training Program
PROC: 0W9B3ZZ Drainage of Left Pleural Cavity, Percutaneous Approach (ICD-10-PCS; principal; 2025-02-24)
DX: A41.9 Sepsis, unspecified organism (principal); J18.9 Pneumonia, unspecified organism; D84.9 Immunodeficiency, unspecified; J91.0 Malignant pleural effusion; C79.51 Secondary malignant neoplasm of bone; C78.7 Secondary malignant neoplasm of liver and intrahepatic bile duct; E87.1 Hypo-osmolality and hyponatremia; C78.00 Secondary malignant neoplasm of unspecified lung; R53.81 Other malaise; E88.09 Other disorders of plasma-protein metabolism, not elsewhere classified; I10 Essential (primary) hypertension; R53.1 Weakness; R74.01 Elevation of levels of liver transaminase levels; C50.919 Malignant neoplasm of unspecified site of unspecified female breast; R63.0 Anorexia; E83.42 Hypomagnesemia; E83.51 Hypocalcemia; D63.8 Anemia in other chronic diseases classified elsewhere; I95.1 Orthostatic hypotension; M54.50 Low back pain, unspecified; Z92.3 Personal history of irradiation; Z88.0 Allergy status to penicillin; Z79.899 Other long term (current) drug therapy; Z79.82 Long term (current) use of aspirin

== ENCOUNTER → 2025-03-04 | Outpatient (CLI) | payer MEDICARE, BC ==
[~2025-03-04] MED LIST changes: +CEFD1CAP9 PO; +COMBAER6 INH; +FURO40TA2 PO; +LIDO5TD TOP; +MAGN1TAB26 PO; +MAGN400T33 PO; +PROBCAP14 PO; +SENO8.6T10 PO
== END ==
LOC: M ONCR 15:37
PROVIDERS: ATTEND General Practice
DX: C50.412 Malignant neoplasm of upper-outer quadrant of left female breast (principal); E87.1 Hypo-osmolality and hyponatremia; Z92.3 Personal history of irradiation; Z88.0 Allergy status to penicillin; Z88.1 Allergy status to other antibiotic agents; Z91.09 Other allergy status, other than to drugs and biological substances; Z79.1 Long term (current) use of non-steroidal anti-inflammatories (NSAID); Z79.82 Long term (current) use of aspirin; Z79.899 Other long term (current) drug therapy; Z79.51 Long term (current) use of inhaled steroids; M54.50 Low back pain, unspecified

== ENCOUNTER 2025-03-05 13:48 | Outpatient (RCR) | payer MEDICARE, BC ==
[~2025-03-05 13:48] MED LIST changes: -MAGN1TAB26 PO
== END 2025-03-09 ==
LOC: M ONCR 13:48
PROVIDERS: ATTEND General Practice
DX: Z51.0 Encounter for antineoplastic radiation therapy (principal); C50.412 Malignant neoplasm of upper-outer quadrant of left female breast

== ENCOUNTER → 2025-03-05 | Outpatient (REF) | payer MEDICARE, OTHER ==
[2025-03-05 17:46] LABS: CALCIUM LEVEL 7.8 MG/DL (8.3-10.6); CARBON DIOXIDE LEVEL 27 MMOL/L (20-31); CHLORIDE LEVEL 88 MMOL/L (98-107); CREATININE FOR GFR 0.41 MG/DL (0.55-1.30); GLOMERULAR FILTRATION RATE > 90.0 (>39); POTASSIUM SERUM 5.1 MMOL/L (3.5-5.1); SODIUM LEVEL 124 MMOL/L (136-145)
== END ==
LOC: M LABDRWCV 16:45
PROVIDERS: ATTEND Student in an Organized Health Care Education/Training Program
DX: E87.1 Hypo-osmolality and hyponatremia (principal)

== ENCOUNTER 2025-03-12 12:38 | Inpatient (IN) | payer MEDICARE, BC ==
[~2025-03-12] VITALS: Ht 165.1 cm; Wt 78.0 kg
[2025-03-12 13:27] VITALS: BP 159/74; TEMP 97.7; O2SAT 97
[2025-03-12] MEDS ORDERED: COMBAER6 INH (14:11)
[2025-03-12] MEDS ORDERED: MAGN1TAB26 PO (14:11)
[2025-03-12] MEDS ORDERED: HOME MED LIST COMPLETE! XX SCH (14:15)
[2025-03-12 15:49] LABS: PLATELET COUNT, AUTOMATED 276 10^3/uL (150-450)
[2025-03-12 16:18] LABS: ALT/SGPT 34 U/L (7.0-40); AST/SGOT 94 U/L (<34); CALCIUM LEVEL 8.2 MG/DL (8.3-10.6); CARBON DIOXIDE LEVEL 33 MMOL/L (20-31); CHLORIDE LEVEL 83 MMOL/L (98-107); CREATININE FOR GFR 0.43 MG/DL (0.55-1.30); GLOMERULAR FILTRATION RATE > 90.0 (>39); POTASSIUM SERUM 4.5 MMOL/L (3.5-5.1); SODIUM LEVEL 121 MMOL/L (136-145)
[2025-03-12] MEDS ORDERED: SODIUM CHLORIDE 0.9% INJ 10 ML SYR IV PRN (16:20)
[2025-03-12] MEDS ORDERED: ONDANSETRON 4MG ORAL DISINTEGRATING TAB PO PRN (16:35)
[2025-03-12] MEDS ORDERED: ATROPINE SULFATE 1% OPHTH SOLN 2 ML BTL SL PRN (16:35)
[2025-03-12] MEDS ORDERED: ONDANSETRON 4MG/2ML VIAL IV PRN (16:35)
[2025-03-12] MEDS: MORPHINE 10 MG/0.5 ML ORAL CONCENTRATE SOLUTION U/D SL PRN (17:32)
[2025-03-12] MEDS: MORPHINE 2 MG/ML 1 ML VIAL IV PRN (23:00)
[2025-03-13] MEDS: SODIUM CHLORIDE 0.9% INJ 10 ML SYR IV SCH (08:43)
[2025-03-13] MEDS: HYOSCYAMINE SULFATE 0.125 MG SUBL TABLET PO PRN (13:44)
[2025-03-13 13:45] VITALS: BP 151/67; TEMP 98.7; O2SAT 93
[2025-03-13] MEDS: IPRATROPIUM 0.5 MG/ALBUTEROL 2.5 MG INH SOL UD 3 ML NEB SCH (15:01)
[2025-03-13] MEDS: MORPHINE 10 MG/0.5 ML ORAL CONCENTRATE SOLUTION U/D SL PRN (17:37)
[2025-03-13 18:22] VITALS: O2SAT 100
[2025-03-14] MEDS: LORazepam 1 MG TAB PO PRN (15:32)
== END 2025-03-15 02:20 | disposition expired | DRG 951 ==
LOC: M MSPAV 12:58
PROVIDERS: ADMIT Internal Medicine; ATTEND Internal Medicine
PROC: 0W9B3ZZ Drainage of Left Pleural Cavity, Percutaneous Approach (ICD-10-PCS; principal; 2025-03-13 12:01)
DX: Z51.5 Encounter for palliative care (principal); C34.92 Malignant neoplasm of unspecified part of left bronchus or lung; I50.30 Unspecified diastolic (congestive) heart failure; C78.2 Secondary malignant neoplasm of pleura; C78.7 Secondary malignant neoplasm of liver and intrahepatic bile duct; C79.51 Secondary malignant neoplasm of bone; E87.1 Hypo-osmolality and hyponatremia; J91.0 Malignant pleural effusion; J95.811 Postprocedural pneumothorax; C50.919 Malignant neoplasm of unspecified site of unspecified female breast; J44.9 Chronic obstructive pulmonary disease, unspecified; I11.0 Hypertensive heart disease with heart failure; D63.8 Anemia in other chronic diseases classified elsewhere; G89.3 Neoplasm related pain (acute) (chronic); Z92.3 Personal history of irradiation; Z66 Do not resuscitate; Z79.899 Other long term (current) drug therapy; Z79.82 Long term (current) use of aspirin; Z88.0 Allergy status to penicillin

== ENCOUNTER 2025-03-13 09:00 | Outpatient (RCR) | payer MEDICARE, OTHER ==
[~2025-03-13 09:00] MED LIST changes: +MAGN1TAB26 PO
== END 2025-03-14 | disposition expired ==
LOC: M ONCR 09:00
PROVIDERS: ATTEND General Practice
DX: Z51.0 Encounter for antineoplastic radiation therapy (principal); C79.61 Secondary malignant neoplasm of right ovary